=== PATIENT | female | born 1970 | race Caucasian/White ===

== ENCOUNTER 2020-01-20 07:15 | Inpatient (IN) ==
[2020-01-20] MEDS ORDERED: ONDANSETRON INJ 2 MG/ML 2 ML VIAL IV STA (07:27)
[2020-01-20] MEDS: HYDROmorphone INJ 0.5 MG/0.5 ML SYR IV PRN ×2 (07:38→07:55)
[2020-01-20 07:48] LABS: Basophils # (auto) 0.01 K/uL (0-0.2); Basophils % (auto) 0.1 %; Eosinophils # (auto) 0.14 K/uL (0-0.5); Eosinophils % (auto) 1.9 %; Hematocrit (blood only) 45.3 % (37-47); Hemoglobin 14.4 g/dL (12.0-16.0); Immature Granulocytes # (auto) 0.03 K/uL (0.00-0.02); Immature Granulocytes % (auto) 0.4 %; Lymphocytes # (auto) 2.82 K/uL (1.2-3.4); Lymphocytes % (auto) 37.8 %; Mean Corpuscular Hgb Conc 31.8 g/dL (32-36); Mean Corpuscular Volume 91.1 fL (80-100); Mean Platelet Volume 9.6 fL (7.4-10.4); Monocytes # (auto) 0.62 K/uL (0.11-0.59); Monocytes % (auto) 8.3 %; Neutrophils # (auto) 3.84 K/uL (1.4-6.5); Neutrophils % (auto) 51.5 %; Platelet Count 242 K/uL (130-400); RDW Coefficient of Variation 13.1 % (11.5-14.5); RDW Standard Deviation 43.9 fL (36.4-46.3); Red Blood Count 4.97 M/uL (4.2-5.4); White Blood Count 7.46 K/uL (4.8-10.8)
[2020-01-20] MEDS ORDERED: DEXAMETHASONE SOD INJ 10 MG/ML VIAL IV ONE (08:07)
[2020-01-20 08:08] LABS: Albumin Level 3.3 gm/dl (3.4-5.0); BUN Creatinine Ratio 20.2 (10-20); Calcium 9.2 mg/dl (8.5-10.1); Creatinine Clr Calc Pharmacy 72.8 ml/min; Est GFR (African American) 85.8; Potassium 4.3 mmol/L (3.5-5.1)
[2020-01-20 08:11] LABS: Albumin Globulin Ratio 0.9 (0.9-2); Bilirubin,Total 0.3 mg/dl (0.2-1); Globulin 3.7 gm/dl (2.5-4.0)
--- NOTE | 2020-01-20 08:21 | Emergency Department Note ---
Impression & Plan Acute low back pain, Sciatic leg pain ED Provider Note INFORMANT: Patient ED PROVIDER(S): Ramses Santos MD CHIEF COMPLAINT: Left leg pain PLAN: Disposition: Admitted Condition: Good MEDICAL DECISION MAKING: Patient presented to the ER by direction of her surgeon. She was very uncomfortable. An IV was established and she was given IV Dilaudid and Zofran for symptom control. I did discuss the case with Dr. Gutierrez. He will manage the patient. We did discuss IV Decadron and she was given 10 mg. He evaluated the patient in the ER and admitted her for further management. Triage Nursing notes reviewed and agree them. Prior medical records reviewed regarding recent surgery, lateral discectomy and facetectomy Vital Signs: reviewed and remarkable for no significant abnormalities Differential diagnosis: Postoperative swelling, nerve compression, musculoskeletal, disc herniation, fracture, metastatic disease, cord compression, discitis, sciatica, cauda equina, infection, aortic disease, renal colic, gastrointestinal, as well as oth er pathologies. Diagnostics interpreted by me: Unremarkable CBC and chemistry panel. Imaging studies: Deferred Consultation(s): Orthopedic spine, Dr. Gutierrez HPI: The patient is a 49year old female who presents to the Emergency Room with complaints of left leg pain and back pain. This started several weeks ago and is continued despite having lumbar back surgery by Dr. Gutierrez. The patient also notes the following associated symptoms, tingling and sensitivity going down the left leg from the buttock, wrapping anteriorly, going to the left ankle. The patient has tried Percocet unsuccessfully for relieving factors. Current pain is rated as 8/10. Patient contacted Dr. Gutierrez and was directed to the ER for further evaluation. She states that he is planning to see her here. Pt denies LOC, headache, fevers, chills, diaphoresis, visual changes, neck pain, chest pain, breathing difficulties, nausea, vomiting, abdominal pain, melena, hematochezia, urinary symptoms, weakness, lymphadenopathy, rash, or other complaints. ROS: See above HPI for pertinent positives & negatives. A total of 10 systems reviewed and were otherwise negative. PAST MEDICAL HISTORY:See Below, herniated lumbar disc PAST SURGICAL HISTORY:See Below, discectomy, facetectomy FAMILY HISTORY:See Below SOCIAL HISTORY:See Below, no tobacco HOME MEDICATIONS:See Below ALLERGIES:See Below VITALS:See Below PHYSICAL EXAMINATION: GENERAL: Awake, alert, very uncomfortable-appearing, in no distress HENT: Normocephalic, atraumatic. Oropharynx unremarkable. EYES: Normal conjunctiva. Sclera non-icteric. NECK: Inspection normal. Non-tender. Supple. No nuchal rigidity. FROM. No masses. RESPIRATORY: Clear to auscultation. No wheezes. No rales. Normal respiratory effort. CARDIAC: Normal rate. Normal rhythm. No murmurs. No rubs. Extremities warm and well perfused. Pulses equal. No JVD. GI: Soft, non-distended. No tenderness to palpation. No rebound or guarding. No masses. RECTAL: Deferred. MUSCULOSKELETAL: Atraumatic. Chest examination reveals no tenderness. The back is symmetrical on inspection without obvious abnormality. Incision is clean dry and intact. Mild surrounding ecchymosis but no surrounding cellulitis. Steri- Strips in place. There is no CVA tenderness to palpation. No joint edema. LOWER EXTREMITIES: Calves are equal size bilaterally and non-tender. No edema. No discoloration. NEURO: Normal sensorium. Subjective tingling in the left lower leg. Mild EHL weakness on the left. No saddle anesthesia. SKIN: No rash or jaundice noted. Ramses Santos MD Past Med/Surg History Medical History (Updated 01/20/20 @ 08:17 by Ramses Santos MD) Anxiety Depression GERD (gastroesophageal reflux disease) Herniated disc LUMBAR HX: benign breast biopsy X 8 HAS SOME MARKERS IN BREAST Hypertension Surgical History Hx laparoscopic cholecystectomy Hx of appendectomy Hx of hysterectomy Hx of tonsillectomy Social History Smoking Status: Never smoker Second Hand Exposure: No; Do You Dip or Chew Tobacco: No; Tobacco Cessation Education Requested by Patient: No Hx Alcohol Use: No Hx Substance Use: No Preferred Language: Omani Communication Ability: Effective Commissioning Agent Required: No Beliefs That Will Affect Care: None Current Living Situation: Alone Other Information That Helps Us Care for You: No Feels Safe at Home: Yes Safety Concerns: Feels Safe At This Time Allergies Allergies Allergy/AdvReac Type Severity Reaction Status Date / Time No Known Allergies Allergy Verified 01/20/20 07:52 Home Meds Home Medications Medication Instructions Recorded Confirmed amlodipine [Norvasc] 5 mg PO HS 01/06/20 01/20/20 buspirone 15 mg PO BID 01/06/20 01/20/20 cyclobenzaprine 10 mg PO TID 01/06/20 01/20/20 duloxetine [Cymbalta] 30 mg PO HS 01/06/20 01/20/20 lisinopril 30 mg PO QAM 01/06/20 01/20/20 naproxen [Naprosyn] 500 mg PO BID 01/06/20 01/20/20 pantoprazole [Protonix] 40 mg PO QAM 01/06/20 01/20/20 propranolol 10 mg PO BID 01/06/20 01/20/20 valacyclovir [Valtrex] 500 mg PO QAM 01/06/20 01/20/20 zolpidem [Ambien] 10 mg PO HS 01/06/20 01/20/20 Previous Rx's Medication Instructions Recorded oxycodone 5 mg PO Q6H PRN #15 tab 01/11/20 Results & Data (ED) Vital Signs Vital Signs - 24 hr 01/20/20 07:20 01/20/20 07:41 01/20/20 07:58 Temperature 36.5 C Temperature Source Oral Pulse Rate 81 Pulse Rate [Apical] 80 Pulse Rate [Right Finger] Pulse Rate from SpO2 Sensor Pulse Rhythm Regular Pulse Rhythm [Apical] Regular Pulse Rhythm [Right Finger] Pulse Strength Normal Pulse Strength [Right Finger] Respiratory Rate 20 13 Respiratory Effort / Characteristics Non-Labored Spontaneous Non-Labored Respiratory Depth Normal Normal Respiratory Pattern Regular Regular Blood Pressure 130/90 Blood Pressure [Left Arm] 120/75 Blood Pressure Mean 103 Blood Pressure Mean [Left Arm] 90 Blood Pressure Position Sitting Blood Pressure Position [Left Arm] Lying Pulse Oximetry 99 97 95 Oxygen Delivery Method Room Air Room Air Room Air Sepsis Recent Fever Within 48 Hours No Sepsis New/Unexplained Change in Mental Status N/A Sepsis Action Taken by Nursing No Action Required 01/20/20 08:00 01/20/20 08:30 01/20/20 08:46 Temperature Temperature Source Pulse Rate 79 71 Pulse Rate [Apical] Pulse Rate [Right Finger] Pulse Rate from SpO2 Sensor 79 70 Pulse Rhythm Pulse Rhythm [Apical] Pulse Rhythm [Right Finger] Pulse Strength Pulse Strength [Right Finger] Respiratory Rate 16 14 Respiratory Effort / Characteristics Respiratory Depth Respiratory Pattern Blood Pressure 115/83 112/74 Blood Pressure [Left Arm] Blood Pressure Mean 97 81 Blood Pressure Mean [Left Arm] Blood Pressure Position Blood Pressure Position [Left Arm] Pulse Oximetry 95 96 Oxygen Delivery Method Room Air Sepsis Recent Fever Within 48 Hours Sepsis New/Unexplained Change in Mental Status Sepsis Action Taken by Nursing 01/20/20 09:30 Temperature 36.7 C Temperature Source Oral Pulse Rate Pulse Rate [Apical] Pulse Rate [Right Finger] 69 Pulse Rate from SpO2 Sensor Pulse Rhythm Pulse Rhythm [Apical] Pulse Rhythm [Right Finger] Regular Pulse Strength Pulse Strength [Right Finger] Normal Respiratory Rate 18 Respiratory Effort / Characteristics Non-Labored Respiratory Depth Normal Respiratory Pattern Agonal Blood Pressure Blood Pressure [Left Arm] 104/69 Blood Pressure Mean Blood Pressure Mean [Left Arm] 80 Blood Pressure Position Blood Pressure Position [Left Arm] Lying Pulse Oximetry 98 Oxygen Delivery Method Room Air Sepsis Recent Fever Within 48 Hours Sepsis New/Unexplained Change in Mental Status Sepsis Action Taken by Nursing Laboratory Data Result diagrams: 01/20/20 07:40 01/20/20 07:40 Lab Results 01/20/20 01/20/20 Range/Units 07:40 07:40 WBC 7.46 (4.8-10.8) K/uL RBC 4.97 (4.2-5.4) M/uL Hgb 14.4 (12.0-16.0) g/dL Hct 45.3 (37-47) % MCV 91.1 (80-100) fL MCH 29.0 (25-34) pg MCHC 31.8 L (32-36) g/dL RDW Std Deviation 43.9 (36.4-46.3) fL RDW Coeff of Ashley 13.1 (11.5-14.5) % Plt Count 242 (130-400) K/uL MPV 9.6 (7.4-10.4) fL Immature Gran % (Auto) 0.4 % Neut % (Auto) 51.5 % Lymph % (Auto) 37.8 % [place] % (Auto) 8.3 % Eos % (Auto) 1.9 % Baso % (Auto) 0.1 % Neut # (Auto) 3.84 (1.4-6.5) K/uL Lymph # (Auto) 2.82 (1.2-3.4) K/uL [place] # (Auto) 0.62 H (0.11-0.59) K/uL Eos # (Auto) 0.14 (0-0.5) K/uL Baso # (Auto) 0.01 (0-0.2) K/uL Immature Gran # (Auto) 0.03 H (0.00-0.02) K/uL Sodium 138 (136-145) mmol/L Potassium 4.3 (3.5-5.1) mmol/L Chloride 105 (98-107) mmol/L Carbon Dioxide 28 (21-32) mmol/L Anion Gap 5.0 (3-11) BUN 18 (7-18) mg/dl Creatinine 0.90 (0.6-1.2) mg/dl Est Cr Clr Drug Dosing 72.8 ml/min Est GFR ( Amer) 85.8 Est GFR (Non-Af Amer) 74.0 BUN/Creatinine Ratio 20.2 H (10-20) Glucose 96 (70-99) mg/dl Calcium 9.2 (8.5-10.1) mg/dl Total Bilirubin 0.3 (0.2-1) mg/dl AST 40 H (15-37) U/L ALT 123 H (12-78) U/L Alkaline Phosphatase 196 H (45-117) U/L Total Protein 7.0 (6.4-8.2) gm/dl Albumin 3.3 L (3.4-5.0) gm/dl Globulin 3.7 (2.5-4.0) gm/dl Albumin/Globulin Ratio 0.9 (0.9-2) Administered Medications Buspirone HCl (Buspirone 15 Mg Tab) 15 mg PO BID MARY CARMEN Stop: 02/19/20 09:33 Last Admin: 01/20/20 10:52 Dose: Not Given Documented by: [id number] Cyclobenzaprine HCl (Cyclobenzaprine Hcl 10 Mg Tab) 10 mg PO TID MARY CARMEN Stop: 02/19/20 09:33 Last Admin: 01/20/20 13:58 Dose: 10 mg Documented by: [id number] Admin: 01/20/20 10:54 Dose: 10 mg Documented by: [id number] Docusate Sodium (Docusate Sodium 100 Mg Cap) 100 mg PO BID MARY CARMEN Stop: 02/19/20 09:33 Last Admin: 01/20/20 10:54 Dose: 100 mg Documented by: [id number] Hydromorphone HCl (Hydromorphone Inj 1 Mg/Ml Syringe) 1 mg IV Q3H PRN PRN Reason: severe pain (scale 7-10) Stop: 02/03/20 09:33 Last Admin: 01/20/20 14:57 Dose: 1 mg Documented by: [id number] Lisinopril (L[facility]op[facility] 10 Mg Tab) [facility] Stop: 02/19/20 09:33 Last Admin: 01/20/20 10:53 Dose: Not Given Documented by: [id number] Naproxen (Naproxen 250 Mg Tab) 500 mg PO BID [facility] Stop: 02/19/20 09:33 Last Admin: 01/20/20 10:54 Dose: 500 mg Documented by: [id number] Pantoprazole Sodium (Pantoprazole 40 Mg Tab) 40 [facility] [place] [facility] Stop: 02/19/20 09:33 Last Admin: 01/20/20 10:53 Dose: Not Given Documented by: [id number] Propranolol HCl (Propranolol Hcl 20 Mg Tab) 10 mg PO BID [facility] Stop: 02/19/20 09:33 Last Admin: 01/20/20 10:52 Dose: Not Given Documented by: [id number] Valacyclovir HCl (Valacyclovir Hcl 500 Mg Tablet) 500 [facility] [place] [facility] Stop: 01/21/20 09:33 Last Admin: 01/20/20 10:53 Dose: Not Given Documented by: [id number] Discontinued Medications Dexamethasone (Dexamethasone Sod Inj 10 Mg/Ml Vial) 10 mg IV NOW ONE Stop: 01/20/20 08:08 Last Admin: 01/20/20 08:30 Dose: 10 mg Documented by: [id number] Hydromorphone HCl (Hydromorphone Inj 0.5 Mg/0.5 Ml Syr) 0.5 mg IV Q15M PRN PRN Reason: Pain Stop: 02/03/20 07:26 Last Admin: 01/20/20 07:55 Dose: 0.5 mg Documented by: [id number] Admin: 01/20/20 07:38 Dose: 0.5 mg Documented by: [id number] Ondansetron HCl (Ondansetron Inj 2 Mg/Ml 2 Ml Vial) 4 mg IV NOW STA Stop: 01/20/20 07:28 Last Admin: 01/20/20 07:38 Dose: 4 mg Documented by: [id number] Discharge Plan Visit Data Chief Complaint: Leg Injury/Pain Stated Complaint: LEG PAIN FROM SURGERY,REF BY DR GUTIERREZ ED Provider: Ramses Santos Discharge Problem: Acute low back pain, Sciatic leg pain Patient Disposition: Admitted As Inpatient Discharge Instructions Interventions: ED Discharge Assessment Last Done: 01/20/20 08:46
[2020-01-20] MEDS ORDERED: ACETAMINOPHEN 500 MG TAB PO PRN (09:34)
[2020-01-20] MEDS ORDERED: oxyCODONE IR HOME PACK PO PRN (09:34)
[2020-01-20] MEDS ORDERED: ONDANSETRON 4 MG OD TAB PO PRN (09:34)
[2020-01-20] MEDS ORDERED: PROMETHAZINE HCL 12.5 MG in SODIUM CHLORIDE 0.9% 50 ML IV PRN (09:34)
[2020-01-20] MEDS ORDERED: METOCLOPRAMIDE HCL INJ 5 MG/ML 2 ML VIAL IV PRN (09:34)
[2020-01-20] MEDS ORDERED: ONDANSETRON INJ 2 MG/ML 2 ML VIAL IV PRN (09:34)
[2020-01-20] MEDS ORDERED: LORazepam 1 MG/2 ML VIAL IV PRN (09:34)
[2020-01-20] MEDS ORDERED: HYDROmorphone INJ 0.5 MG/0.5 ML SYR IV PRN (09:34)
[2020-01-20] MEDS ORDERED: LORazepam 1 MG TAB PO PRN (09:34)
--- NOTE | 2020-01-20 10:43 | History & Physical Report ---
Date of Service January 20, 2020 Assessment & Plan (1) Sciatic leg pain: Admission and Anticipated Discharge Date Admission Date: January 20, 2020 At this time I am very concerned that she may have a recurrent disc herniation versus possible DVT to the lower extremity. We will obtain updated imaging. I will place her in the hospital observation for pain control and for further work-up. History of Present Illness Chief Complaint: Severe left leg pain Primary Care Provider: Annia Cohen This is a 49-year-old female known to me that status post lumbar laminotomy approximately 1 week ago. She states that approximately 2 or 3 days ago she began experiencing severe left leg pain. She denies any prior to that time. She denies any specific trauma fall or event. The symptoms involve the left buttock posterior anterior left thigh extending below the knee to the ankle. There is occasional shocklike symptoms. She has had increased utilization of p.o. narcotics which she had had postoperatively for the pain. Is been unremitting she is is been limited with ambulation. She is struggling with con stipation. The right lower extremity is asymptomatic. She denies any fevers or chills. Allergies Allergy/AdvReac Type Severity Reaction Status Date / Time No Known Allergies Allergy Verified 01/20/20 07:52 Home Medications Home Medications Medication Instructions Recorded Confirmed Type amlodipine [Norvasc] 5 mg PO HS 01/06/20 01/20/20 History buspirone 15 mg PO BID 01/06/20 01/20/20 History cyclobenzaprine 10 mg PO TID 01/06/20 01/20/20 History duloxetine [Cymbalta] 30 mg PO HS 01/06/20 01/20/20 History lisinopril 30 mg PO QAM 01/06/20 01/20/20 History naproxen [Naprosyn] 500 mg PO BID 01/06/20 01/20/20 History pantoprazole [Protonix] 40 mg PO QAM 01/06/20 01/20/20 History propranolol 10 mg PO BID 01/06/20 01/20/20 History valacyclovir [Valtrex] 500 mg PO QAM 01/06/20 01/20/20 History zolpidem [Ambien] 10 mg PO HS 01/06/20 01/20/20 History oxycodone 5 mg PO Q6H PRN #15 tab 01/11/20 01/20/20 Rx Past Med/Surg History Medical History (Updated 01/20/20 @ 08:17 by Ramses Santos MD) Anxiety Depression GERD (gastroesophageal reflux disease) Herniated disc LUMBAR HX: benign breast biopsy X 8 HAS SOME MARKERS IN BREAST Hypertension Surgical History Hx laparoscopic cholecystectomy Hx of appendectomy Hx of hysterectomy Hx of tonsillectomy Social History Smoking Status: Never smoker Second Hand Exposure: No; Do You Dip or Chew Tobacco: No; Tobacco Cessation Education Requested by Patient: No Hx Alcohol Use: No Hx Substance Use: No Preferred Language: Greek Communication Ability: Effective 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 The Steri-Strips are still in place along lumbar spine there is modest ecchymosis no erythema no drainage. No significant tenderness. Left lower extremity demonstrates breakaway weakness to plantar flexion dorsiflexion quadriceps. She is hyperesthetic. She does have sensation to cold and light touch. The right lower extremities asymptomatic with full strength. Results & Data ([facility]) Vital Signs (Past 12 Hours) Vital Signs Temp Pulse Pulse Pulse Resp BP BP 01/20/20 09:30 36.7 C 69 18 104/69 01/20/20 08:30 71 14 112/74 01/20/20 08:00 79 16 115/83 01/20/20 07:58 80 13 120/75 01/20/20 07:41 01/20/20 07:20 36.5 C 81 20 130/90 Pulse Ox 01/20/20 09:30 98 01/20/20 08:30 96 01/20/20 08:00 95 01/20/20 07:58 95 01/20/20 07:41 97 01/20/20 07:20 99 Code Status & VTE Plan VTE Prophylaxis Plan VTE Prophylaxis will be ordered: Yes
[2020-01-20] MEDS: PROPRANOLOL HCL 20 MG TAB PO SCH ×2 (10:52→21:36)
[2020-01-20] MEDS: busPIRone 15 MG TAB PO SCH ×2 (10:52→21:35)
[2020-01-20] MEDS: lisinopril 10 MG TAB PO SCH (10:53)
[2020-01-20] MEDS: PANTOprazole 40 MG TAB PO SCH (10:53)
[2020-01-20] MEDS: valACYclovir HCL 500 MG TABLET PO SCH (10:53)
[2020-01-20] MEDS: CYCLOBENZAPRINE HCL 10 MG TAB PO SCH ×3 (10:54→21:29)
[2020-01-20] MEDS: NAPROXEN 250 MG TAB PO SCH ×2 (10:54→21:35)
[2020-01-20] MEDS: DOCUSATE SODIUM 100 MG CAP PO SCH ×2 (10:54→21:35)
--- NOTE | 2020-01-20 13:53 | Ultrasound Report ---
BILATERAL LOWER EXTREMITY VENOUS DOPPLER CLINICAL HISTORY: Leg pain COMPARISON STUDY: No previous studies for comparison. TECHNIQUE: Sonography of the deep venous system of the bilateral lower extremities was performed. Co mpression and augmentation were evaluated. FINDINGS: The bilateral common femoral, superficial femoral and popliteal veins were compressible. A ugmentation was normal. Flow was shown within the deep calf vessels. There is a 2.2 x 2.1 x 1.4 cm mi xed echogenicity focus within the right popliteal fossa. This contains no color flow. This is indeter minate. IMPRESSION: 1. No evidence of deep venous thrombus within the bilateral lower extremities. 2. 2.2 x 2.1 x 1.4 cm mixed echogenicity focus within the right popliteal fossa. This is indeterminat e but of questionable significance. A follow-up ultrasound in 3 months to ensure stability is recomme nded. ACT 112: Negative or not required by law. Electronically signed by: Epi Lainez M.D. 01/20/2020 1:52 PM
[2020-01-20] MEDS: HYDROmorphone INJ 1 MG/ML SYRINGE IV PRN ×3 (14:57→21:29)
[2020-01-20] MEDS ORDERED: GADOBUTROL 65ML VIAL IV ONE (20:54)
[2020-01-20] MEDS: ZOLPIDEM TARTRATE 10 MG TAB PO SCH (21:29)
--- NOTE | 2020-01-20 21:33 | Magnetic Resonance Report ---
LUMBAR SPINE MRI WITH AND WITHOUT CONTRAST HISTORY: Postop left leg pain TECHNIQUE: Multiplanar multisequence MRI of the lumbar spine was performed both before and after the intravenous administration of contrast. COMPARISON: None. FINDINGS: For the purpose of the report the L5-S1 disc space will be located on axial image 27 of 30. No fracture or subluxation within the lumbar spine. A 5 mm vertebral body hemangioma at L4. The conus terminates at the L1 level. There is mild disc space narrowing at L2-L3. The remaining disc spaces a re preserved. Paravertebral soft tissues are unremarkable. Subcutaneous edema within the lumbar regio n which may be postoperative. Postoperative changes consistent with recent left L4 hemilaminectomy. T here is a 3.5 x 2.2 cm fluid collection at the hemilaminectomy site posterior to the left L4-L5 facet . This demonstrates peripheral enhancement and a small focus of gas. This favors a postoperative sero ma. Secondary infection cannot be excluded on the basis of imaging alone. There is also mild edema an d enhancement within the left L3-L5 paraspinal location which is also likely secondary to the recent postoperative change. L1-L2: No significant central canal or neural foraminal narrowing. L2-L3: No significant central canal or neural foraminal narrowing. L3-L4: No significant central canal or neural foraminal narrowing. L4-L5: Tiny broad-based posterior disc bulge with facet hypertrophy resulting in mild central canal n arrowing. The left paraspinal fluid collection and edema abuts but does not displace the exiting left L4 nerve root at this level. There is also mild left-sided neural foraminal narrowing at this level. L5-S1: No significant central canal or neural foraminal narrowing. IMPRESSION: 1. Postoperative changes consistent with a recent left L4 hemilaminectomy. 2. There is a 3.5 x 2.2 cm peripheral enhancing fluid collection at and posterior to the left hemilam inectomy site. This contains a punctate focus of gas. This is nonspecific but favors a postoperative seroma. Secondary infection cannot be excluded on the basis of imaging alone. 3. The left paraspinal fluid collection and edema at the hemilaminectomy site abuts but does not comp ress the exiting left L4 nerve root. 4. Mild central canal narrowing at L4-L5. ACT 112: Negative or not required by law. Electronically signed by: Kevan Irizarry M.D. 01/20/2020 9:31 PM
[2020-01-20] MEDS: amLODIPine BESYLATE 5 MG TAB PO SCH (21:36)
[2020-01-20] MEDS: DULoxetine HCL 30 MG CAP PO SCH (21:36)
[2020-01-21] MEDS: oxyCODONE HCL IR 5 MG TAB (IMMEDIATE RELEASE) PO PRN (06:39)
[2020-01-21] MEDS: HYDROmorphone INJ 1 MG/ML SYRINGE IV PRN ×3 (07:34→20:01)
[2020-01-21] MEDS: lisinopril 10 MG TAB PO SCH (08:08)
[2020-01-21] MEDS: NAPROXEN 250 MG TAB PO SCH ×2 (08:09→20:23)
[2020-01-21] MEDS: busPIRone 15 MG TAB PO SCH ×2 (08:09→20:05)
[2020-01-21] MEDS: PROPRANOLOL HCL 20 MG TAB PO SCH ×2 (08:09→20:07)
[2020-01-21] MEDS: valACYclovir HCL 500 MG TABLET PO SCH (08:10)
[2020-01-21] MEDS: CYCLOBENZAPRINE HCL 10 MG TAB PO SCH ×3 (08:10→20:05)
[2020-01-21] MEDS: PANTOprazole 40 MG TAB PO SCH (08:10)
[2020-01-21] MEDS: DOCUSATE SODIUM 100 MG CAP PO SCH ×2 (08:10→20:08)
--- NOTE | 2020-01-21 10:04 | Orthopedic Progress Note ---
Date of Service January 21, 2020 Assessment & Plan (1) Sciatic leg pain: Admission and Anticipated Discharge Date Admission Date: January 20, 2020 MRI does demonstrate evidence of postoperative hematoma. I do not appreciate gross neural compression or recurrent disc herniation however there is evidence of instability along the facet. I would like to obtain standing x-rays lumbar spine today. We may consider a CAT scan pending these results. I have an underlying concern that she is developed some instability creating neurocompression. Most of her symptoms are severe with sitting and standing lying supine relieves her pain. I will also begin daily Decadron as well as Neurontin to see if this helps with her nerve pain. Subjective Back pain still present with significant left leg pain though she was able to finally sleep last evening. Right lower extremities asymptomatic. Physical Exam Physical Exam: On exam she is most comfortable in the position. She does have sensation but hypersensitivity to left lower extremity. There is a 4+/5 dorsiflexion extensor hallucis longus on the left 5 5 on the right. Results & Data ([facility]) Vital Signs (Past 12 Hours) Vital Signs Temp Pulse Resp BP Pulse Ox 01/21/20 08:50 36.6 C 75 18 120/77 96 01/20/20 23:05 36.5 C 94 H 16 114/74 94
--- NOTE | 2020-01-21 10:43 | XRay Report ---
LUMBAR SPINE 7 VIEWS CLINICAL HISTORY: Low back pain. FINDINGS: AP, lateral, bilateral oblique, flexion, extension, and cone-down standing views of the lum bar spine are correlated with MRI of lumbar spine dated 01/20/2020. The skeletal structures are well mineralized. There is no radiographic evidence of fracture or malalignment. Vertebral body height and alignment are maintained. Small anterior and lateral marginal osteophytes are seen throughout. There is no bony subluxation on the flexion/extension views. The transverse and spinous processes are inta ct. There is no evidence of spondylolysis. Minimal endplate sclerosis is seen at L2-L3. The disc spac es are preserved. The visualized bony pelvis appears intact. There is a nonobstructed abdominal bowel gas pattern. Moderate fecal retention is seen in the right colon. Surgical clips are noted in the ri ght upper quadrant. Phleboliths are noted in the pelvis. IMPRESSION: 1. No acute osseous abnormality is seen involving the lumbar spine. 2. There is no bony subluxation on the flexion/extension views. ACT 112: Negative or not required by law. Electronically signed by: Jerry Walden M.D. 01/21/2020 10:42 AM
[2020-01-21] MEDS: DEXAMETHASONE SOD PHOSPHATE 8 MG in SYRINGE 0 ML IV SCH (11:03)
[2020-01-21] MEDS: GABAPENTIN 300 MG CAP PO SCH ×2 (14:06→20:04)
[2020-01-21] MEDS: traMADol HCL 50 MG TABLET PO PRN ×2 (15:13→23:46)
[2020-01-21] MEDS: ZOLPIDEM TARTRATE 10 MG TAB PO SCH (20:01)
[2020-01-21] MEDS: amLODIPine BESYLATE 5 MG TAB PO SCH (20:03)
[2020-01-21] MEDS: DULoxetine HCL 30 MG CAP PO SCH (20:07)
[2020-01-22] MEDS: HYDROmorphone INJ 1 MG/ML SYRINGE IV PRN ×4 (07:54→23:38)
[2020-01-22] MEDS: NAPROXEN 250 MG TAB PO SCH ×2 (08:40→19:45)
[2020-01-22] MEDS: DEXAMETHASONE SOD PHOSPHATE 8 MG in SYRINGE 0 ML IV SCH (08:40)
[2020-01-22] MEDS: PROPRANOLOL HCL 20 MG TAB PO SCH ×2 (08:41→19:45)
[2020-01-22] MEDS: CYCLOBENZAPRINE HCL 10 MG TAB PO SCH ×3 (08:41→19:44)
[2020-01-22] MEDS: GABAPENTIN 300 MG CAP PO SCH ×3 (08:41→19:45)
[2020-01-22] MEDS: busPIRone 15 MG TAB PO SCH ×2 (08:41→19:43)
[2020-01-22] MEDS: DOCUSATE SODIUM 100 MG CAP PO SCH ×2 (08:41→19:44)
[2020-01-22] MEDS: lisinopril 10 MG TAB PO SCH (08:42)
[2020-01-22] MEDS: PANTOprazole 40 MG TAB PO SCH (08:42)
[2020-01-22] MEDS ORDERED: bisacodyL 5 MG TABEC PO ONE (10:52)
--- NOTE | 2020-01-22 10:54 | Orthopedic Progress Note ---
Date of Service January 22, 2020 Assessment & Plan (1) Sciatic leg pain: Admission and Anticipated Discharge Date Admission Date: January 20, 2020 At this point I would like to obtain a CAT scan lumbar spine for further bony detail. We will make her n.p.o. after midnight in the event that she does not improve and we have to consider further surgical intervention. We also advance her bowel regiment today. Subjective Patient continues have fairly significant back pain markedly exacerbated with standing and walking. It radiates into the buttock and lower extremity on the left. She is hypersensitive to even light touch to the calf and anterior tibia on the left lower extremity Extremities asymptomatic. Physical Exam Physical Exam: On exam she is in bed. She has 4/5 strength dorsiflexion plantarflexion left lower extremity she is hyperesthetic to palpation. Results & Data ([facility]) Vital Signs (Past 12 Hours) Vital Signs Temp Pulse Resp BP Pulse Ox 01/22/20 07:10 36.5 C 68 18 103/68 99 01/21/20 23:43 36.4 C L 86 16 109/72 96
--- NOTE | 2020-01-22 11:36 | CT Scan Report ---
LUMBAR SPINE CT CT DOSE: 728.10 mGy.cm HISTORY: Postoperative back pain TECHNIQUE: Multiaxial CT images of the lumbar spine were performed and reformatted in the sagittal an d coronal plane without the use of contrast. A dose lowering technique was utilized adhering to the principles of ALARA. COMPARISON: Lumbar spine 01/21/2020. Lumbar spine MRI 01/20/2020. FINDINGS: No fracture or subluxation within the lumbar spine. Subcutaneous edema within the lumbar re gion which could be due to the postoperative change. Left L4 hemilaminectomy is again noted. Small ga s and fluid collection posterior to the hemilaminectomy site measuring approximately 3.1 x 1.7 cm. Th is is similar to the prior study and favors postoperative change. Punctate nonobstructing stone withi n the left kidney. No significant central canal narrowing by CT technique. Suspect mild left-sided ne ural foraminal narrowing at L4-L5. This could be due to the postoperative edema/adjacent fluid collec tion. This is better appreciated on the recent lumbar spine MRI. IMPRESSION: 1. No fractures within the lumbar spine. 2. Postoperative changes consistent with recent left L4 hemilaminectomy. There is a 3.1 x 1.7 cm gas and fluid collection posterior to the hemilaminectomy site which is better appreciated on the prior l umbar spine MRI. This is technically indeterminate but favors a postoperative fluid collection rather than an abscess. 3. Suspect mild left-sided neural foraminal narrowing at L4-L5. This is also better appreciated on th e recent lumbar spine MRI. ACT 112: Negative or not required by law. Electronically signed by: Kevan Irizarry M.D. 01/22/2020 11:35 AM
[2020-01-22] MEDS: traMADol HCL 50 MG TABLET PO PRN (11:44)
[2020-01-22] MEDS: ZOLPIDEM TARTRATE 10 MG TAB PO SCH (19:43)
[2020-01-22] MEDS: DULoxetine HCL 30 MG CAP PO SCH (19:44)
[2020-01-22] MEDS: amLODIPine BESYLATE 5 MG TAB PO SCH (19:46)
[2020-01-23] MEDS: HYDROmorphone INJ 1 MG/ML SYRINGE IV PRN ×3 (03:28→13:44)
[2020-01-23] MEDS: GABAPENTIN 300 MG CAP PO SCH ×3 (10:24→20:12)
[2020-01-23] MEDS: PROPRANOLOL HCL 20 MG TAB PO SCH ×2 (10:24→20:10)
[2020-01-23] MEDS: busPIRone 15 MG TAB PO SCH ×2 (10:24→20:09)
[2020-01-23] MEDS: PANTOprazole 40 MG TAB PO SCH (10:24)
[2020-01-23] MEDS: DEXAMETHASONE SOD PHOSPHATE 8 MG in SYRINGE 0 ML IV SCH (10:25)
[2020-01-23] MEDS: NAPROXEN 250 MG TAB PO SCH ×2 (10:25→20:12)
[2020-01-23] MEDS: CYCLOBENZAPRINE HCL 10 MG TAB PO SCH ×3 (10:25→20:11)
[2020-01-23] MEDS: lisinopril 10 MG TAB PO SCH (10:25)
[2020-01-23] MEDS: traMADol HCL 50 MG TABLET PO PRN (10:32)
[2020-01-23] MEDS: DOCUSATE SODIUM 100 MG CAP PO SCH ×2 (10:32→20:11)
--- NOTE | 2020-01-23 15:26 | Orthopedic Progress Note ---
Date of Service January 23, 2020 Assessment & Plan (1) Sciatic leg pain: Admission and Anticipated Discharge Date Admission Date: at this time I am convinced that she is a postoperative hematoma that is creating neural irritation. It seems to be improving. We both agree continued light activity and pain control as her plan of action for the next 24 to 48 hours. 2019 Subjective Patient states her left leg pain is present with activity but has improved overall. Physical Exam Physical Exam: On exam she has reasonable strength testing today. She does appear more comfortable. Results & Data ([facility]) Vital Signs (Past 12 Hours) Vital Signs Temp Pulse Resp BP Pulse Ox 01/23/20 08:00 36.7 C 71 18 127/77 97
[2020-01-23] MEDS: amLODIPine BESYLATE 5 MG TAB PO SCH (20:09)
[2020-01-23] MEDS: DULoxetine HCL 30 MG CAP PO SCH (20:11)
[2020-01-23] MEDS: ZOLPIDEM TARTRATE 10 MG TAB PO SCH (20:15)
[2020-01-24] MEDS: traMADol HCL 50 MG TABLET PO PRN (06:54)
[2020-01-24] MEDS: HYDROmorphone INJ 1 MG/ML SYRINGE IV PRN ×2 (07:45→19:30)
--- NOTE | 2020-01-24 08:40 | Orthopedic Progress Note ---
Date of Service January 24, 2020 Assessment & Plan (1) Sciatic leg pain: Admission and Anticipated Discharge Date Admission Date: January 23, 2020 At this time she is making steady improvements. I will increase her Neurontin. We will ask her to begin weaning from IV Dilaudid. We will encourage continued ambulation today assess her progress carefully discharge home soon. Subjective Patient's back pain is improving. Leg symptoms improving. Still hyperesthetic sensations to the left lower extremity. She was able to walk last evening for short distance. Physical Exam Physical Exam: On exam she is neurologically intact does appear more comfortable. Results & Data ([facility]) Vital Signs (Past 12 Hours) Vital Signs Temp Pulse Resp BP Pulse Ox 01/24/20 07:21 36.6 C 67 16 136/88 97 01/23/20 23:04 36.7 C 86 16 106/50 L 95
[2020-01-24] MEDS: PANTOprazole 40 MG TAB PO SCH (09:25)
[2020-01-24] MEDS: DEXAMETHASONE SOD PHOSPHATE 8 MG in SYRINGE 0 ML IV SCH (09:26)
[2020-01-24] MEDS: lisinopril 10 MG TAB PO SCH (09:26)
[2020-01-24] MEDS: NAPROXEN 250 MG TAB PO SCH ×2 (09:27→20:39)
[2020-01-24] MEDS: DOCUSATE SODIUM 100 MG CAP PO SCH ×2 (09:27→20:36)
[2020-01-24] MEDS: PROPRANOLOL HCL 20 MG TAB PO SCH ×2 (09:28→20:37)
[2020-01-24] MEDS: CYCLOBENZAPRINE HCL 10 MG TAB PO SCH ×3 (09:28→20:37)
[2020-01-24] MEDS: busPIRone 15 MG TAB PO SCH ×2 (09:29→20:35)
[2020-01-24] MEDS: GABAPENTIN 600 MG TAB PO SCH ×3 (09:39→20:39)
[2020-01-24] MEDS: ZOLPIDEM TARTRATE 10 MG TAB PO SCH (20:35)
[2020-01-24] MEDS: DULoxetine HCL 30 MG CAP PO SCH (20:36)
[2020-01-24] MEDS: amLODIPine BESYLATE 5 MG TAB PO SCH (20:40)
[2020-01-25] MEDS: oxyCODONE HCL IR 5 MG TAB (IMMEDIATE RELEASE) PO PRN (05:12)
[2020-01-25] MEDS: DEXAMETHASONE SOD PHOSPHATE 8 MG in SYRINGE 0 ML IV SCH (08:14)
[2020-01-25] MEDS: NAPROXEN 250 MG TAB PO SCH (08:15)
[2020-01-25] MEDS: lisinopril 10 MG TAB PO SCH (08:15)
[2020-01-25] MEDS: PANTOprazole 40 MG TAB PO SCH (08:15)
[2020-01-25] MEDS: GABAPENTIN 600 MG TAB PO SCH ×2 (08:15→13:18)
[2020-01-25] MEDS: CYCLOBENZAPRINE HCL 10 MG TAB PO SCH ×2 (08:16→13:18)
[2020-01-25] MEDS: DOCUSATE SODIUM 100 MG CAP PO SCH (08:16)
[2020-01-25] MEDS: PROPRANOLOL HCL 20 MG TAB PO SCH (08:16)
[2020-01-25] MEDS: busPIRone 15 MG TAB PO SCH (08:17)
--- NOTE | 2020-01-25 08:38 | Discharge Summary ---
Date of Service January 25, 2020 Admission HPI Per Admitting Provider This is a 49-year-old female known to me that status post lumbar laminotomy approximately 1 week ago. She states that approximately 2 or 3 days ago she began experiencing severe left leg pain. She denies any prior to that time. She denies any specific trauma fall or event. The symptoms involve the left buttock posterior anterior left thigh extending below the knee to the ankle. There is occasional shocklike symptoms. She has had increased utilization of p.o. narcotics which she had had postoperatively for the pain. Is been unremitting she is is been limited with ambulation. She is struggling with con stipation. The right lower extremity is asymptomatic. She denies any fevers or chills. Principal Diagnosis Postop sciatica Discharge Data Allergies Allergy/AdvReac Type Severity Reaction Status Date / Time No Known Allergies Allergy Verified 01/20/20 07:52 Consultations 01/20/20 08:23 ED Decision to Admit Stat Procedures Performed Operation Date: 01/24/20 12:15 <No data on this case meets the specified criteria> Ordered Studies 01/20/20 09:34 MR lumbar spine wo/w con Routine US venous doppler LE BI Routine 01/22/20 10:52 CT lumbar spine wo con Routine Hospital Course (1) Sciatic leg pain: Patient was in the hospital for severe postoperative leg pain. Imaging did demonstrate evidence of a hematoma in the operative bed. I did have her undergo a few days of bedrest but then slowly began activity. She underwent Total Time Total Time Spent Total Time Spent (In Minutes): 20 minutes Discharge Plan Discharge Items Patient Disposition: Home - Self-Care Reason For Visit: RECURRENT LEG PAIN Discharge Diagnosis: Postoperative radiculopathy Activity: As commented below Non-emergency contact: Primary Care Provider Call non-emergency contact if: you have any medication questions Follow-up/Referrals: Annia Cohen D.O. [Primary Care Provider] - Diet: Regular Addtl Attending Provider Instructions: ACTIVITY RECOMMENDATIONS: SELF CARE INSTRUCTIONS AFTER THORACIC/LUMBAR FUSIONS 1. You may walk to your tolerance. It is good exercise for your legs and back. Expect some back and intermittent leg aches and pains. 2. You may perform "counter-top" level activities (make a sandwich, estuardo with a project, etc.). 3. No bending or lifting of more than 10 pounds or back twisting of any nature (roll like a log when turning in bed). 4. You may ride in a car for 20-30 minutes at a time. No driving until after your first visit with your doctor. 5. Frequent changes of position and restricting sitting to 30 minutes at a time will help limit the amount of back spasms and stiffness you may experience. 6. You may discontinue the use of ambulatory aids (cane, crutches, etc.) once your strength and confidence allow. 7. You may building rental manager the shower and let water strike your incision when you arrive home at least once daily. Do not take a tub bath, sit in a hot tub or go into a swimming pool until after your first recheck in the office. SPECIAL CARE INSTRUCTIONS: VERY IMPORTANT TO READ AND REVIEW A. Your surgical incision has been closed with a cosmetic suture under the skin that will dissolve in about 6 weeks. In 14 days, you can use a pair of clean scissors and cut the suture that is left outside of the skin at the ends of your incision. 1. The small skin tapes can be removed 7 days after surgery if they have not fallen off by that point. 2. You may keep the wound open to air as much as possible to promote healing after post-op day number 5 unless told otherwise by your doctor. 3. If you think the wound looks like it is becoming infected (redness or worsening drainage) and/or you are experiencing fever, chill or worsening back pain and muscle spasms, contact the office so that we may evaluate you as soon as possible. B. Complications are uncommon, but please contact us if you have any signs or symptoms of: 1. wound infection (fever higher than 102.5 degrees F, redness, separation of wound, drainage, or increasing pain from the incision) 2. blood clots in legs (pain, swelling, redness and warmth in legs) 3. urinary tract infection (fever higher than 102.5 degrees F, burning upon urination or increased frequency of urination) 4. nerve problems (inability to walk on your toes or heels, numbness, loss of bowel or bladder control) 5. any other symptoms that concern you C. Please call the office at if you have any concerns or questions about your operation or recovery. D. No smoking! Smoking drastically decreases the chance of a solid fusion. E. Do not take any anti-inflammatory medications (Indocin, Advil, Motrin, Aspirin, Naprosyn, etc.) as these may inhibit the chance of a solid fusion. Tylenol is okay to take for pain. MANAGING PAIN AFTER SPINAL SURGERY 1. Narcotic medication is intended for short-term use and will be provided for surgical pain. Surgical pain usually lasts for a period of 4-6 weeks. Narcotic medication includes Percocet, Vicodin, Darvocet, Tylenol #3 or Lortab. 2. Longer-term pain is more appropriately treated with non-narcotic medication such as Tylenol ES. 3. Muscle spasm is not appropriately treated with narcotics. Muscle relaxers such as Soma, Flexeril or Skelaxin can be used along with Tylenol ES. 4. Remember that we all live with some "aches and pains". This is not unusual or uncommon after an injury or as we get older. a. Back pain is expected and may include muscle spasms for 4 to 6 weeks after surgery. The pain should gradually improve. If the pain worsens for no apparent reason, please contact the office. b. Intermittent leg pain may also be experienced and should not be concerned about unless it worsens for no apparent reason. If so, please contact the office. 5. We will provide appropriate medication within the normal guidelines of their prescribed use. We will also be very cautious and aware of potential abuse and extended duration of patients' medication needs. a. Pain medications are for your comfort and to assist with sleep and rest so that the tissue can heal. They are not provided in order to return to normal activity and should not be used through the day. To do so or worsening pain at night can result from ongoing tissue damage and development of tolerance to the prescribed medicine. 6. Please allow 2-3 days to process refills. Prescriptions will not be mailed but must be picked up at the office. FOLLOW UP VISIT: Keep your scheduled follow-up appointment. Any questions, please call the office at . Pending Studies at Discharge: No Stand-Alone Forms: [employer], Smoking Cessation Medications and DC Order Prescriptions: New oxycodone 5 mg tablet 5 mg PO Q6H PRN (Reason: pain, severe) Qty: 20 RF: 0 gabapentin [Neurontin] 600 mg tablet 600 mg PO TID Qty: 90 RF: 2 tramadol 50 mg tablet 50 mg PO Q6H PRN (Reason: pain, moderate) Qty: 30 RF: 0 Continued cyclobenzaprine 10 mg Tablet 10 mg PO TID RF: 0 amlodipine [Norvasc] 5 mg Tablet 5 mg PO HS RF: 0 valacyclovir [Valtrex] 500 mg Tablet 500 mg PO QAM RF: 0 pantoprazole [Protonix] 40 mg Tablet,Delayed Release (Dr/Ec) 40 mg PO QAM RF: 0 lisinopril 30 mg Tablet 30 mg PO QAM RF: 0 zolpidem [Ambien] 10 mg Tablet 10 mg PO HS RF: 0 propranolol 20 mg Tablet 10 mg PO BID RF: 0 naproxen [Naprosyn] 500 mg Tablet 500 mg PO BID RF: 0 buspirone 15 mg Tablet 15 mg PO BID RF: 0 duloxetine [Cymbalta] 30 mg Capsule,Delayed Release(Dr/Ec) 30 mg PO HS RF: 0 oxycodone 5 mg tablet 5 mg PO Q6H PRN (Reason: pain, severe) Qty: 15 RF: 0 Discharge Orders: Discharge Order (Routine); Ordered 01/25/20 Ordered By: Akin Gutierrez Admission Data Admit Date/Time: 01/23/20 08:46 Attending Provider: Akin Gutierrez Admit Provider: Akin Gutierrez Primary Care Provider: Annia Cohen Other Providers: Akin Gutierrez
== END 2020-01-25 13:51 | disposition home or self-care (01) | DRG 921 ==
LOC: ED 07:15 → 3N 07:15

== ENCOUNTER 2022-03-25 07:46 | Inpatient (IN) ==
--- NOTE | 2022-02-28 11:47 | PAT Medication Instructions ---
Medication Instructions Date of Service February 28, 2022 Home Medications amlodipine 5 mg tablet (Norvasc) 5 mg PO HS cyclobenzaprine 10 mg tablet 10 mg PO TID PRN duloxetine 30 mg capsule,delayed release (Cymbalta) 60 mg PO HS lisinopril 30 mg tablet 30 mg PO HS pantoprazole 40 mg tablet,delayed release (Protonix) 40 mg PO QAM propranolol 20 mg tablet 20 mg PO BID valacyclovir 500 mg tablet (Valtrex) 500 mg PO QAM buspirone 10 mg tablet 20 mg PO BID cholecalciferol (vitamin D3) 25 mcg (1,000 unit) tablet (Vitamin D3) 25 mcg PO QAM cranberry-vitamin C-flaxseed capsule 1 cap PO QAM cyanocobalamin (vitamin B-12) 1,000 mcg/mL injection solution 1,000 mcg IM multivitamin 1 tab PO QAM ondansetron 8 mg disintegrating tablet 8 mg PO Q8H PRN zinc 50 mg tablet 50 mg PO QAM zolpidem 10 mg tablet 10 mg PO HS PRN Continue as directed cyanocobalamin (vitamin B-12) 1,000 mcg/mL injection solution 1,000 mcg IM ondansetron 8 mg disintegrating tablet 8 mg PO Q8H PRN(if needed) STOP taking 2 weeks before surgery cranberry-vitamin C-flaxseed capsule 1 cap PO QAM DO NOT take the morning of surgery cyclobenzaprine 10 mg tablet 10 mg PO TID PRN cholecalciferol (vitamin D3) 25 mcg (1,000 unit) tablet (Vitamin D3) 25 mcg PO QAM multivitamin 1 tab PO QAM zinc 50 mg tablet 50 mg PO QAM Take morning of surgery With a small sip of water, OTHERWISE NOTHING TO EAT OR DRINK AFTER MIDNIGHT: pantoprazole 40 mg tablet,delayed release (Protonix) 40 mg PO QAM propranolol 20 mg tablet 20 mg PO BID valacyclovir 500 mg tablet (Valtrex) 500 mg PO QAM buspirone 10 mg tablet 20 mg PO BID Take evening before surgery amlodipine 5 mg tablet (Norvasc) 5 mg PO HS cyclobenzaprine 10 mg tablet 10 mg PO TID PRN(if needed) duloxetine 30 mg capsule,delayed release (Cymbalta) 60 mg PO HS lisinopril 30 mg tablet 30 mg PO HS propranolol 20 mg tablet 20 mg PO BID buspirone 10 mg tablet 20 mg PO BID zolpidem 10 mg tablet 10 mg PO HS PRN(if needed) Other Notes If you have any questions please call us at [phone] or [phone] or [phone] or [phone]
--- NOTE | 2022-03-05 12:11 | Anesthesiology Consultation ---
Date of Service March 05, 2022 Assessment & Plan (1) Encounter for pre-operative examination: Chart Review Chart Review: Acceptable Risk for Surgery and Patient seen in Pre Admission Testing Teaching & Discussion Pre-Anesthesia Teaching/Discussion Notes: Instructed NPO after midnight before surgery, except medications with 15 cc of water. Medication instructions provided according to the PAT guidelines. History Surgery Operation Date: 03/25/22 10:25 Proposed Procedures p L4-L5 Decompression and Fusion, Spinal Cord Monitoring - Akin Gutierrez DO Height/Weight Height: 5 ft 3.5 in Weight: 89.811 kg Allergies Allergy/AdvReac Type Severity Reaction Status Date / Time No Known Allergies Allergy Verified 02/26/22 13:37 Medications Home Medications Medication Instructions Recorded Confirmed Last Taken amlodipine 5 mg tablet (Norvasc) 5 mg PO HS 01/06/20 02/26/22 01/19/20 cyclobenzaprine 10 mg tablet 10 mg PO TID PRN Muscle Spasm 01/06/20 02/26/22 01/20/20 duloxetine 30 mg capsule,delayed 60 mg PO HS 01/06/20 02/26/22 01/19/20 release (Cymbalta) lisinopril 30 mg tablet 30 mg PO HS 01/06/20 02/26/22 01/20/20 pantoprazole 40 mg tablet,delayed 40 mg PO QAM 01/06/20 02/26/22 01/20/20 release (Protonix) propranolol 20 mg tablet 20 mg PO BID 01/06/20 02/26/22 01/20/20 valacyclovir 500 mg tablet 500 mg PO QAM 01/06/20 02/26/22 01/20/20 (Valtrex) buspirone 10 mg tablet 20 mg PO BID 02/26/22 02/26/22 Unknown cholecalciferol (vitamin D3) 25 25 mcg PO QAM 02/26/22 02/26/22 Unknown mcg (1,000 unit) tablet (Vitamin D3) cranberry-vitamin C-flaxseed 1 cap PO QAM 02/26/22 02/26/22 Unknown capsule cyanocobalamin (vitamin B-12) 1,000 mcg IM MO 02/26/22 02/26/22 Unknown 1,000 mcg/mL injection solution multivitamin 1 tab PO QAM 02/26/22 02/26/22 Unknown ondansetron 8 mg disintegrating 8 mg PO Q8H PRN Nausea 02/26/22 02/26/22 Unknown tablet zinc 50 mg tablet 50 mg PO QAM 02/26/22 02/26/22 Unknown zolpidem 10 mg tablet 10 mg PO HS PRN Insomnia 02/26/22 02/26/22 Unknown Past Medical History Medical History (Updated 03/05/22 @ 12:17 by Dasha Sanchez PA-C) Anxiety Depression GERD (gastroesophageal reflux disease) controlled, stable per pt Hypertension controlled, stable per pt Obesity Patient denies h/o stroke, seizures, heart attack, heart failure, DM, blood clots or blood transfusions. Exercise / Class Metabolic Activity II 4-5 Yardwork/Stairs/Walk up hill (denies CP or SOB with 1 FOS) Past Family History Family History Other No family history of adverse response to anesthesia Past Surgical History Surgical History History of back surgery L4-5 laminectomy (01/11/20): Grade 2 view, MAC 3.0, ETT 7.0 at [facility]. No issues noted per post-op anesthesia progress note. History of colonoscopy Hx laparoscopic cholecystectomy Hx of appendectomy Hx of hysterectomy Hx of tonsillectomy HX: benign breast biopsy X 8 HAS SOME MARKERS IN BREAST Past Anesthesia History No Hx of Anesthesia Complications and No Family Hx of Anesthesia Complications History of PONV No Hx of PONV and No Hx of Motion Sickness Social History Smoking Status: Former smoker tobacco type: cigarettes Do You Dip or Chew Tobacco: No Smoking End Date: 28 years ago Hx Alcohol Use: No Hx Substance Use: No substance use type: does not use Review of Systems Snoring, denies witnessed apneas. Patient denies chest pain, shortness of breath, dyspnea on exertion, fever, chills, cough, wheezing, or palpitations. Physical Exam Vital Signs Vitals BP 124/85 P 99 TEMP 98.3 SP02 98% on RA RESP 18 Physical Full cervical extension range of motion without pain TMD 3.5 finger breadths Mallampati Score 3 Dentition: intact, denies chipped or loose teeth, caps/crowns, implants or catherine dges Lungs: normal respiratory effort. Clear throughout to auscultation, no adventitious breath sounds Cardiac: regular rate and rhythm, no murmurs noted Carotid arteries: negative bruit bilat Lab Results Anesthesia Preop Results Results Anesthesia Widget: WBC 6.91 K/ul (4.8-10.8) 03/05/22 Hgb 14.1 g/dl (12.0-16.0) 03/05/22 Hct 41.9 % (34.1-44.9) 03/05/22 Plt 192 K/uL (130-400) 03/05/22 Na 137 mmol/L (136-145) 03/05/22 K 3.7 mmol/L (3.5-5.1) 03/05/22 Cl 105 mmol/L (98-107) 03/05/22 CO2 26 mmol/L (21-32) 03/05/22 BUN 11 mg/dl (6-23) 03/05/22 Creat 0.84 mg/dl (0.6-1.2) 03/05/22 Glucose Level 93 mg/dl (70-99(Fasting)) 03/05/22 PT 9.7 Seconds (9.0-12.0) 03/05/22 PTT 25.4 Seconds (21.0-31.0) 03/05/22 INR 0.9 (0.9-1.1) 03/05/22 Urine Color Yellow 03/05/22 Urine Appearance Clear (Clear) 03/05/22 Urine pH 5.0 (4.5-7.5) 03/05/22 Urine Specific [place] 1.013 (1.000-1.030) 03/05/22 Urine Protein Negative (Negative) 03/05/22 Urine Glucose (UA) Negative (Negative) 03/05/22 Urine Ketones Negative (Negative) 03/05/22 Urine Blood Negative (Negative) 03/05/22 Urine Nitrite Negative (Negative) 03/05/22 Urine Bilirubin Negative (Negative) 03/05/22 Urine Urobilinogen Negative (Negative) 03/05/22 Urine Leukocyte Esterase Negative (Negative) 03/05/22 Blood Type O Positive 03/05/22 Antibody Screen NEGATIVE 03/05/22 Testing Electrocardiogram Date: 03/05/22 NSR, rate 86 bpm Chest X-Ray Date: 03/05/22 No acute process. Echocardiogram Date: 01/24/22 EF 55-60% All segments contract normally No significant valvular pathology COVID-19 Risk Screen Screening Information COVID-19 Screen Date: 03/05/22 Exposure 21 Days Family/Household +COVID Last 21 Days: No Exposure 10 Days Any COVID Exposure Last 10 Days: No Symptoms Last 10 Days Experienced COVID Sx Last 10 Days: No + COVID 0-90 Days COVID + in Last 0-90 Days: No
[~2022-03-25 07:46] MED LIST: LR 15ML/HR IV SCH; ceFAZolin 2000MG 2,000 MG/15 ML SYR IV SCH
[2022-03-25] MEDS ORDERED: ROCURONIUM BROMIDE 10 MG/ML 5 ML VIAL IV ONE (08:20)
[2022-03-25] MEDS ORDERED: ONDANSETRON INJ 2 MG/ML 2 ML VIAL ONE ×2 (08:20→11:52)
[2022-03-25] MEDS ORDERED: LIDOCAINE 2% 20 MG/ML 5 ML SYR IV ONE (08:20)
[2022-03-25] MEDS ORDERED: PROPOFOL IV EMULSION 10 MG/ML 20 ML VIAL IV ONE (08:20)
[2022-03-25] MEDS ORDERED: DEXAMETHASONE SOD INJ 4 MG/ML VIAL ONE (08:20)
[2022-03-25] MEDS ORDERED: MIDAZOLAM HCL 1 MG/ML 2ML VIAL ONE (08:21)
[2022-03-25] MEDS ORDERED: fentaNYL citrate 100 MCG/2 ML VIAL ONE ×2 (08:21→10:22)
[2022-03-25] MEDS ORDERED: ePHEDrine sulfate 50 MG/ML AMP ONE ×2 (08:38→10:32)
[2022-03-25] MEDS ORDERED: GLYCOPYRROLATE 0.2 MG/ML VIAL ONE ×2 (08:45→10:38)
[2022-03-25] MEDS ORDERED: NEOSTIGMINE METHYLSULFATE 1 MG/ML 10ML VIAL ONE ×2 (08:45→10:38)
--- NOTE | 2022-03-25 09:00 | History & Physical Bridge Note ---
Date of Service March 25, 2022 History & Physical Bridge Note I have examined the patient, reviewed the History & Physical and in the interval since the performance of the History & Physical I have noted the following changes of clinical significance: no changes noted
--- NOTE | 2022-03-25 09:01 | History & Physical Report ---
Date of Service March 25, 2022 Assessment & Plan (1) Lumbar disc herniation with radiculopathy: Plan: L4-5 decompression and fusion History of Present Illness Chief Complaint: Back and bilateral leg pain Primary Care Provider: Annia Cohen This is a 51-year-old female who presents with chronic persistent back and leg pain. Failing since course of nonoperative care she is here for surgical invention. Allergies Allergy/AdvReac Type Severity Reaction Status Date / Time No Known Allergies Allergy Verified 03/25/22 08:15 Home Medications Medication Instructions Recorded Confirmed Type amlodipine 5 mg tablet (Norvasc) 5 mg PO HS 01/06/20 03/25/22 History cyclobenzaprine 10 mg tablet 10 mg PO TID PRN Muscle Spasm 01/06/20 03/25/22 History duloxetine 30 mg capsule,delayed 60 mg PO HS 01/06/20 03/25/22 History release (Cymbalta) lisinopril 30 mg tablet 30 mg PO HS 01/06/20 03/25/22 History pantoprazole 40 mg tablet,delayed 40 mg PO QAM 01/06/20 03/25/22 History release (Protonix) propranolol 20 mg tablet 20 mg PO BID 01/06/20 03/25/22 History valacyclovir 500 mg tablet 500 mg PO QAM 01/06/20 03/25/22 History (Valtrex) buspirone 10 mg tablet 20 mg PO BID 02/26/22 03/25/22 History cholecalciferol (vitamin D3) 25 25 mcg PO QAM 02/26/22 03/25/22 History mcg (1,000 unit) tablet (Vitamin D3) cranberry-vitamin C-flaxseed 1 cap PO QAM 02/26/22 03/25/22 History capsule cyanocobalamin (vitamin B-12) 1,000 mcg IM MO 02/26/22 03/25/22 History 1,000 mcg/mL injection solution multivitamin 1 tab PO QAM 02/26/22 03/25/22 History ondansetron 8 mg disintegrating 8 mg PO Q8H PRN Nausea 02/26/22 03/25/22 History tablet zinc 50 mg tablet 50 mg PO QAM 02/26/22 03/25/22 History zolpidem 10 mg tablet 10 mg PO HS PRN Insomnia 02/26/22 03/25/22 History Past Med/Surg History Medical History Anxiety Depression GERD (gastroesophageal reflux disease) controlled, stable per pt Hypertension controlled, stable per pt Obesity Surgical History History of back surgery L4-5 laminectomy (01/11/20): Grade 2 view, MAC 3.0, ETT 7.0 at [facility]. No issues noted per post-op anesthesia progress note. History of colonoscopy Hx laparoscopic cholecystectomy Hx of appendectomy Hx of hysterectomy Hx of tonsillectomy HX: benign breast biopsy X 8 HAS SOME MARKERS IN BREAST Family History Other No family history of adverse response to anesthesia Social History Smoking Status: Never smoker Smoking End Date: 28 years ago; Second Hand Exposure: No; Do You Dip or Chew Tobacco: No; Tobacco Cessation Education Requested by Patient: No Hx Alcohol Use: No Hx Substance Use: No Preferred Language: Salvadorean Communication Ability: Effective Hair Blender Required: No Beliefs That Will Affect Care: None marital status: Single Current Living Situation: Alone Feels Safe at Home: Yes Safety Concerns: Feels Safe At This Time Assistive Devices: None Physical Exam Physical Exam: Patient is alert and oriented Heart regular rhythm Lungs clear Results & Data Results & Data ([facility]) Vital Signs (Past 12 Hours) Vital Signs Temp Pulse Resp BP Pulse Ox O2 Del Method 03/25/22 08:20 36.7 C 78 18 134/87 99 Room Air
[2022-03-25] MEDS ORDERED: ATROPINE SULFATE 0.1 MG/ML 10ML SYR IV PRN (09:02)
[2022-03-25] MEDS ORDERED: ONDANSETRON INJ 2 MG/ML 2 ML VIAL IV PRN ×2 (09:02→12:53)
[2022-03-25] MEDS ORDERED: ePHEDrine sulfate 50 MG/ML AMP IV PRN (09:02)
[2022-03-25] MEDS ORDERED: ceFAZolin 330 MG/ML 1 GM VIAL ONE (09:22)
[2022-03-25] MEDS ORDERED: BUPIVACAINE/EPINEPHRINE 0.5% MPF 1:200,000 30 ML VIAL ONE (09:44)
[2022-03-25] MEDS: BUPIVACAINE/EPINEPHRINE 0.5% MPF 1:200,000 10 ML VIAL ONE ×2 (10:32→11:19)
[2022-03-25] MEDS ORDERED: FLOSEAL HEMOSTATIC MATRIX 10ML TOP ONE (10:32)
--- NOTE | 2022-03-25 11:25 | Operative Report ---
Post Operative Report Pre & Post Diagnosis Operation Date: 03/25/22 09:15 Pre-Op Diagnosis: Lumbar disc herniation with radiculopathy Post-Op Diagnosis: Lumbar disc herniation with radiculopathy I identified the patient and participated in the time-out.: Yes Procedure Operation Date: 03/25/22 09:15 Actual Procedures #1 revision decompression with bilateral medial facetectomies and foraminotomies L3-L4 L4-5 per #2 posterior spinal fusion L4-L5. #3 placement posterior instrumentation L4-5. #4 interbody fusion L4-5. #5 placement of Spira 13 x 22 mm cage at L4-L5. #6 placement locally harvested morselized autograft in the posterior gutters. #7 placement of I factor combined with V toss interbody space and posterior gutters. Surgeon Akin Gutierrez, DO Internet Marketing Assistant Aury Mariano Estimated Blood Loss 150 Findings See Below The patient is 5 foot 3 inches tall weighing over 91 kg with a BMI in excess of 35. The patient's body habitus did contribute to significant technical difficulty requiring her deepest retractors and longer instruments in order to perform her procedure. This had at least 50% increased to the operative time. Specimens None Indications This is a 51-year-old female who presents with above-mentioned diagnosis after failing course of nonoperative care is here for the above-mentioned procedure. Description of Procedure Patient was met with identified informed consent obtained. Patient was then taken to the operative suite underwent a patient placed in a prone position the Andres table atop the Homero frame. All bony prominences well-padded eyes inspected to ensure no external pressure placed upon them. This point the [facility] spine was prepped and draped in normal sterile fashion. Sharp dissection with the assistance of Bovie cautery was performed down to and exposing the remaining lamina and transverse processes of L4-L5 bilaterally. From caudal to cephalad fashion revision complete laminectomy of L4 partial laminectomy of L3 was performed including bilateral facetectomies and foraminotomies addressing severe spinal stenosis. Pedicle screws were then placed in L4-L5 bilaterally with assistance of fluoroscopy and the properly sized belinda placed. By way of entrance foraminal approach and left complete discectomy of L4-5 was performed endplates curetted to subcortical bleeding bone and a 13 x 22 mm spiral cage with I factor tapped in position. The rods were then compressed locked into final position bilaterally. The transverse processes of L4-L5 burred to subcortical balloon. I factor combined with V toss and locally harvested morselized autograft was placed in the posterior gutters. 15 round JULIAN drain inserted. Incision was then closed with 1 Vicryl in the fascia 2-0 Vicryl subcutaneously and 4 Monocryl for final skin closure. Steri-Strip sterile dressings placed. Patient awakened taken to PACU in stable condition. Please note spinal cord monitoring was utilized at the procedure no changes noted. Lastly Aury Mariano was present at the entire surgery and with the patient positioning complex portion of the surgery and final skin closure. I attest to the content of the Intraoperative Record and any orders documented therein. Any exceptions are noted below.
[2022-03-25] MEDS: fentaNYL citrate 100 MCG/2 ML VIAL IV PRN ×4 (11:48→12:16)
--- NOTE | 2022-03-25 12:45 | Fluoroscopy Report ---
INTRAOPERATIVE RADIOGRAPHS CLINICAL HISTORY: L4-L5 spinal fusion. Fluoroscopy time: 19 seconds. FINDINGS: 2 spot fluoroscopic views of the lumbar spine are presented. There has been discectomy at L 4-L5 with laminectomy and posterior fusion at this level. Interpedicular screws are in place. The ort hopedic hardware appears intact. IMPRESSION: Intraoperative images from L4-L5 spinal fusion. Electronically signed by: Jerry Walden M.D. 03/25/2022 12:43 PM
[2022-03-25] MEDS ORDERED: HYDROmorphone INJ 0.5 MG/0.5 ML SYR IV PRN (12:53)
[2022-03-25] MEDS ORDERED: METOCLOPRAMIDE HCL INJ 5 MG/ML 2 ML VIAL IV PRN (12:53)
[2022-03-25] MEDS ORDERED: diphenhydrAMINE Capsule 25 MG CAP PO PRN (12:53)
[2022-03-25] MEDS ORDERED: bisacodyL 10 MG SUPP PR PRN (12:53)
[2022-03-25] MEDS ORDERED: LORazepam 0.5 MG in SYRINGE 0 ML IV PRN (12:53)
[2022-03-25] MEDS ORDERED: SOD PHOSPHATE/SOD BIPHOSPHATE ENEMA 132 ML BTL PR PRN (12:53)
[2022-03-25] MEDS ORDERED: LORazepam 0.5 MG TAB PO PRN (12:53)
[2022-03-25] MEDS ORDERED: ONDANSETRON 4 MG OD TAB PO PRN (12:53)
[2022-03-25] MEDS ORDERED: hydrOXYzine HCl 25 MG TAB PO PRN (12:53)
[2022-03-25] MEDS ORDERED: ACETAMINOPHEN 500 MG TAB PO PRN (12:53)
[2022-03-25] MEDS ORDERED: ACETAMINOPHEN 1,000 MG/100 ML VIAL IV PRN (12:53)
[2022-03-25] MEDS ORDERED: MAGNESIUM HYDROXIDE SUSP 30 ML UDC PO PRN (12:53)
[2022-03-25] MEDS ORDERED: FAMOTIDINE 20 MG TAB PO PRN (12:53)
[2022-03-25] MEDS ORDERED: NALOXONE HCL 0.4 MG/1 ML VIAL/CARP IV PRN (12:53)
[2022-03-25] MEDS ORDERED: ZOLPIDEM TARTRATE 10 MG TAB PO PRN (12:53)
[2022-03-25] MEDS ORDERED: ALUMINUM/MAGNESIUM SUSP 30 ML UDC PO PRN (12:53)
[2022-03-25] MEDS ORDERED: PROMETHAZINE HCL 12.5 MG in SODIUM CHLORIDE 0.9% 50 ML IV PRN (12:53)
[2022-03-25] MEDS: LACTATED RINGER'S 1,000 ML IV SCH ×2 (13:26→22:10)
[2022-03-25] MEDS: HYDROmorphone INJ 1 MG/ML SYRINGE IV PRN ×2 (13:26→19:43)
--- NOTE | 2022-03-25 13:48 | Anesthesiology Progress Note ---
Date of Service March 25, 2022 Anesthesia Post Procedure Vital Signs Vital Signs: Temp Pulse Resp BP Pulse Ox O2 Del Method O2 Flow Rate 03/25/22 13:37 78 17 125/84 99 Nasal Cannula 2 03/25/22 13:08 97.7 F 74 17 139/87 100 Nasal Cannula 2 03/25/22 12:40 97.7 F 79 16 127/84 100 Nasal Cannula 2 03/25/22 12:15 75 13 131/88 95 Nasal Cannula 2 03/25/22 12:05 68 17 138/86 100 Oxymask 4 03/25/22 11:55 78 15 144/92 H 100 Oxymask 6 03/25/22 12:25 97.9 F 67 12 136/86 99 Nasal Cannula 2 03/25/22 11:46 97.3 F L 92 H 12 151/96 H 100 Oxymask 6 03/25/22 08:20 98.1 F 78 18 134/87 99 Room Air Pain Intensity Back: Pain Intensity: 5 Transfer of Care Handoff Completed per policy Notes Mental Status: alert / awake / arousable and participated in evaluation Patient Amnestic to Procedure: Yes Nausea / Vomiting: adequately controlled Pain: adequately controlled Airway Patency, RR, SpO2: stable & adequate BP & HR: stable & adequate Hydration State: stable & adequate Anesthetic Complications: no major complications apparent and Pt Satisfied with anesthetic care
--- NOTE | 2022-03-25 15:55 | Hospitalist Consultation ---
Date of Consultation March 25, 2022 Assessment & Plan (1) Hypertension: Lumbar Radiculopathy - s/p 03/25/22 #1 revision decompression with bilateral medial facetectomies and foraminotomies L3-L4 L4-5 per #2 posterior spinal fusion L4-L5. #3 placement posterior instrumentation L4-5. #4 interbody fusion L4-5. #5 placement of Spira 13 x 22 mm cage at L4-L5. #6 placement locally harvested morselized autograft in the posterior gutters. #7 placement of I factor combined with V toss interbody space and posterior gutters. COVID-negativepreop labs: Normal hemoglobin, creatinine less than 1 at baseline and 0.84 on preop lab work, no gross electrolyte derangements Postop doing well, 2 L nasal cannula wean suspect atelectasis. Encourage incentive spirometry DVT prophylaxis, pain control, ambulation recommendations per primary team Hypertension Continue amlodipine 5 mg p.o. at bedtime Resume lisinopril 30 mg p.o. at bedtime 03/26/2022 Anxiety/depression Continue buspirone 20 mg p.o. twice daily Continue duloxetine 60 mg p.o. at bedtime Continue propranolol 20 mg p.o. twice daily GERD - Took protonix AM of 03/25. May resume 03/26 - Has been on for extended period of time. Has failed attempts to taper to H2 as outpatient, followed with GI in [facility] - Hx of h pylori tx with abx DVT PPx: Per Primary CODE: Full Diet; Regular Dispo:Med/Surg (2) GERD (gastroesophageal reflux disease): (3) Anxiety: (4) Acute low back pain: History of Present Illness Attending Physician: Akin Gutierrez DO History of Present Illness Vidhya is a 51-year-old female with a past medical history of lumbar radiculopathy, GERD, hypertension, and obesity who presented for lumbar disc herniation with radiculopathy scheduled surgical intervention and is s/p revision decompression and fusion 03/25/[address] Gutierrez. We are consulted for medical management of comorbidities. TTE 01/29/2022: LV SF normal 55 to 60%, no wall motion abnormalities. Normal diastolic function. Seen postop. Doing well. Still having some difficulty urinating after cath removal but no pain. No SoB/CP/CP. Has bene able to ambulate to the bathroom with assesstance. Does have pain at surgical site after pain ~7/10, just got pain medication and waiting for effect. Preop having numbness/tingling shooting down both legs and into her L hip strongly which she has not had postop. No radha sea/vomiting. No fevers chills. No shortness of breath or chest pain. Medical History: Reviewed Medications: Reviewed Surgical History: Reviewed Allergies: Reviewed Social History: No tobacco, no etoh use Code Status: Full Code Allergies Allergy/AdvReac Type Severity Reaction Status Date / Time No Known Allergies Allergy Verified 03/25/22 08:15 Home Medications Medication Instructions Recorded Confirmed Type amlodipine 5 mg tablet (Norvasc) 5 mg PO HS 01/06/20 03/25/22 History cyclobenzaprine 10 mg tablet 10 mg PO TID PRN Muscle Spasm 01/06/20 03/25/22 History duloxetine 30 mg capsule,delayed 60 mg PO HS 01/06/20 03/25/22 History release (Cymbalta) lisinopril 30 mg tablet 30 mg PO HS 01/06/20 03/25/22 History pantoprazole 40 mg tablet,delayed 40 mg PO QAM 01/06/20 03/25/22 History release (Protonix) propranolol 20 mg tablet 20 mg PO BID 01/06/20 03/25/22 History valacyclovir 500 mg tablet 500 mg PO QAM 01/06/20 03/25/22 History (Valtrex) buspirone 10 mg tablet 20 mg PO BID 02/26/22 03/25/22 History cholecalciferol (vitamin D3) 25 25 mcg PO QAM 02/26/22 03/25/22 History mcg (1,000 unit) tablet (Vitamin D3) cranberry-vitamin C-flaxseed 1 cap PO QAM 02/26/22 03/25/22 History capsule cyanocobalamin (vitamin B-12) 1,000 mcg IM MO 02/26/22 03/25/22 History 1,000 mcg/mL injection solution multivitamin 1 tab PO QAM 02/26/22 03/25/22 History ondansetron 8 mg disintegrating 8 mg PO Q8H PRN Nausea 02/26/22 03/25/22 History tablet zinc 50 mg tablet 50 mg PO QAM 02/26/22 03/25/22 History zolpidem 10 mg tablet 10 mg PO HS PRN Insomnia 02/26/22 03/25/22 History Patient History Medical History (Updated 03/25/22 @ 18:47 by Homer Maldonado MD) Anxiety Depression GERD (gastroesophageal reflux disease) controlled, stable per pt Hypertension controlled, stable per pt Obesity Surgical History History of back surgery L4-5 laminectomy (01/11/20): Grade 2 view, MAC 3.0, ETT 7.0 at [facility]. No issues noted per post-op anesthesia progress note. History of colonoscopy Hx laparoscopic cholecystectomy Hx of appendectomy Hx of hysterectomy Hx of tonsillectomy HX: benign breast biopsy X 8 HAS SOME MARKERS IN BREAST Family History Other No family history of adverse response to anesthesia Social History Smoking Status: Never smoker Smoking End Date: 28 years ago; Second Hand Exposure: No; Do You Dip or Chew Tobacco: No; Tobacco Cessation Education Requested by Patient: No Hx Alcohol Use: No Hx Substance Use: No Preferred Language: Maldivian Communication Ability: Effective Intelligence Officer Required: No Beliefs That Will Affect Care: None marital status: Single Current Living Situation: Alone Other Information That Helps Us Care for You: No Feels Safe at Home: Yes Safety Concerns: Feels Safe At This Time Assistive Devices: None Review of Systems Review of Systems: All systems reviewed & are unremarkable except as noted in Subjective Physical Exam Physical Exam: General: A&Ox3. NAD. Cooperative. HEENT: Atraumatic, normocephalic. Pulm: CTAB A&P. -wheezes, -rales, -rhonchi. Symmetrical chest rise. No increased work of breathing. No respiratory distress. Cardiac: RRR, -mrg. Radial pulses intact and symmetrical. Abdominal: Nontender, nondistended, soft. BS present. Skin: Postsurgical dressing intact C/D/I. Drain in place with serosanguinous material. Ext: Warm, dry. Sensation intact to soft touch in hands and feet bilat. 5/5 pulp beater strength and ankle dorsi/plantarflexion Results & Data Results & Data ([facility]) Vital Signs (Past 12 Hours) Vital Signs Temp Pulse Pulse Resp BP Pulse Ox O2 Del Method 03/25/22 15:40 36.5 C 89 16 141/92 H 100 Nasal Cannula 03/25/22 14:32 36.5 C 83 16 123/81 99 Nasal Cannula 03/25/22 13:37 78 17 125/84 99 Nasal Cannula 03/25/22 13:08 36.5 C 74 17 139/87 100 Nasal Cannula 03/25/22 12:40 36.5 C 79 16 127/84 100 Nasal Cannula 03/25/22 12:15 75 13 131/88 95 Nasal Cannula 03/25/22 12:05 68 17 138/86 100 Oxymask 03/25/22 11:55 78 15 144/92 H 100 Oxymask 03/25/22 12:25 36.6 C 67 12 136/86 99 Nasal Cannula 03/25/22 11:46 36.3 C L 92 H 12 151/96 H 100 Oxymask 03/25/22 08:20 36.7 C 78 18 134/87 99 Room Air O2 Flow Rate 03/25/22 15:40 2 03/25/22 14:32 2 03/25/22 13:37 2 03/25/22 13:08 2 03/25/22 12:40 2 03/25/22 12:15 2 03/25/22 12:05 4 03/25/22 11:55 6 03/25/22 12:25 2 03/25/22 11:46 6 03/25/22 08:20 PG Care Time/CCT Total # of Minutes Spent Total Time Spent with Patient: Total time spent is greater than 50% in coordination of care (as documented) at patient's floor/unit and/or counseling patient: Coding Level of Care Code 47849 Inpt Consult Level 3 Diagnoses Hypertension I10 GERD (gastroesophageal reflux disease) K21.9 Anxiety F41.9 Acute low back pain M54.42 Back pain laterality: left Sciatica laterality: sciatica of left side Sciatica presence: with sciatica (1) Acute low back pain Back pain laterality: left Sciatica laterality: sciatica of left side Sciatica presence: with sciatica Qualified Code(s): M54.42 - Lumbago with sciatica, left side
[2022-03-25] MEDS: oxyCODONE HCL IR 5 MG TAB (IMMEDIATE RELEASE) PO PRN ×2 (16:02→22:09)
[2022-03-25] MEDS: ceFAZolin 2000MG 2,000 MG/15 ML SYR IV SCH (17:29)
[2022-03-25] MEDS: busPIRone 5 MG TAB PO SCH (22:11)
[2022-03-25] MEDS: PROPRANOLOL HCL 20 MG TAB PO SCH (22:11)
[2022-03-25] MEDS: amLODIPine BESYLATE 5 MG TAB PO SCH (22:11)
[2022-03-25] MEDS: DOCUSATE SODIUM/SENNA 50/8.6MG TAB PO SCH (22:12)
[2022-03-25] MEDS: DULoxetine HCL 60 MG CAP PO SCH (22:13)
[2022-03-25] MEDS: lisinopril 10 MG TAB PO SCH (22:13)
[2022-03-26] MEDS: ceFAZolin 2000MG 2,000 MG/15 ML SYR IV SCH (01:10)
[2022-03-26] MEDS: oxyCODONE HCL IR 5 MG TAB (IMMEDIATE RELEASE) PO PRN (03:30)
[2022-03-26] MEDS: HYDROmorphone INJ 1 MG/ML SYRINGE IV PRN ×3 (04:39→22:00)
[2022-03-26] MEDS: POLYETHYLENE (MIRALAX) 17 GM PACK PO SCH ×4 (05:26→23:58)
[2022-03-26] MEDS: busPIRone 5 MG TAB PO SCH ×2 (07:48→21:47)
[2022-03-26] MEDS: dexAMETHasone 6 MG in SYRINGE 0 ML IV SCH (07:49)
[2022-03-26] MEDS: valACYclovir HCL 500 MG TABLET PO SCH (07:49)
[2022-03-26] MEDS: CHOLECALCIFEROL 1,000 UNITS 25 MCG TAB PO SCH (07:49)
[2022-03-26] MEDS: PANTOprazole 40 MG TAB PO SCH (07:49)
[2022-03-26] MEDS: PROPRANOLOL HCL 20 MG TAB PO SCH ×2 (07:51→21:50)
[2022-03-26] MEDS: traMADol HCL 50 MG TABLET PO PRN ×2 (07:56→13:10)
[2022-03-26 08:26] LABS: Basophils # (auto) 0.01 K/uL (0-0.2); Basophils % (auto) 0.1 %; Hemoglobin 12.9 g/dl (12.0-16.0); Immature Granulocytes # (auto) 0.04 K/uL (0.00-0.02); Immature Granulocytes % (auto) 0.3 %; Lymphocytes % (auto) 11.9 %; Mean Corpuscular Hemoglobin 29.8 pg (25.0-34.0); Mean Corpuscular Hgb Conc 33.1 g/dL (32.0-36.0); Mean Corpuscular Volume 90.1 fL (80.0-100.0); Mean Platelet Volume 9.6 fL (9.4-12.3); Monocytes # (auto) 1.03 K/uL (0.24-0.82); Monocytes % (auto) 8.2 %; Neutrophils # (auto) 10.03 K/uL (1.4-6.5); Neutrophils % (auto) 79.5 %; Platelet Count 242 K/uL (130-400); RDW Coefficient of Variation 13.3 % (11.5-14.5); RDW Standard Deviation 44.8 fL (36.4-46.3); Red Blood Count 4.33 M/uL (3.93-5.22); White Blood Count 12.61 K/ul (4.8-10.8)
[2022-03-26 09:10] LABS: BUN Creatinine Ratio 14.7 (10-20); Calcium 8.8 mg/dl (8.5-10.1); Creatinine Clr Calc Pharmacy 92.9 ml/min; Est GFR (African American) 105.5 ml/min; Potassium 4.1 mmol/L (3.5-5.1)
--- NOTE | 2022-03-26 09:46 | Orthopedic Progress Note ---
Date of Service March 26, 2022 Assessment & Plan (1) Lumbar disc herniation with radiculopathy: Plan: At this time we will continue physical therapy monitor JULIAN output anticipate discharge home in next few days. Admission and Anticipated Discharge Date Admission Date: March 25, 2022 Subjective Back pain controlled leg symptoms markedly improved Physical Exam Physical Exam: On exam she is comfortable. She does have evidence of trochanteric bursitis on the right thigh. She is has good strength testing otherwise. Results & Data ([facility]) Vital Signs (Past 12 Hours) Vital Signs Temp Pulse Resp BP Pulse Ox O2 Del Method 03/26/22 07:52 36.9 C 72 18 109/77 99 Room Air 03/26/22 03:04 36.9 C 72 16 124/79 99 Room Air 03/25/22 21:56 36.6 C 75 16 110/74 94 Room Air
[2022-03-26] MEDS: LACTATED RINGER'S 1,000 ML IV SCH ×2 (16:36→21:52)
[2022-03-26] MEDS: DOCUSATE SODIUM/SENNA 50/8.6MG TAB PO SCH (21:46)
[2022-03-26] MEDS: DULoxetine HCL 60 MG CAP PO SCH (21:46)
[2022-03-26] MEDS: amLODIPine BESYLATE 5 MG TAB PO SCH (21:47)
[2022-03-26] MEDS: lisinopril 10 MG TAB PO SCH (21:50)
[2022-03-27] MEDS: oxyCODONE HCL IR 5 MG TAB (IMMEDIATE RELEASE) PO PRN ×2 (02:32→11:40)
[2022-03-27] MEDS: POLYETHYLENE (MIRALAX) 17 GM PACK PO SCH (06:39)
[2022-03-27] MEDS: traMADol HCL 50 MG TABLET PO PRN (06:41)
[2022-03-27] MEDS: PANTOprazole 40 MG TAB PO SCH (08:13)
[2022-03-27] MEDS: dexAMETHasone 6 MG in SYRINGE 0 ML IV SCH (08:13)
[2022-03-27] MEDS: CHOLECALCIFEROL 1,000 UNITS 25 MCG TAB PO SCH (08:13)
[2022-03-27] MEDS: PROPRANOLOL HCL 20 MG TAB PO SCH (08:13)
[2022-03-27] MEDS: valACYclovir HCL 500 MG TABLET PO SCH (08:13)
[2022-03-27] MEDS: busPIRone 5 MG TAB PO SCH (08:14)
--- NOTE | 2022-03-27 08:30 | Hospitalist Progress Note ---
Date of Service March 26, 2022 Assessment & Plan (1) Hypertension: Plan: Lumbar Radiculopathy - s/p 03/25/22 #1 revision decompression with bilateral medial facetectomies and foraminotomies L3-L4 L4-5 per #2 posterior spinal fusion L4-L5. #3 placement posterior instrumentation L4-5. #4 interbody fusion L4-5. #5 placement of Spira 13 x 22 mm cage at L4-L5. #6 placement locally harvested morselized autograft in the posterior gutters. #7 placement of I factor combined with V toss interbody space and posterior gutters. COVID-negativepreop labs: Normal hemoglobin, creatinine less than 1 at baseline and 0.84 on preop lab work, no gross electrolyte derangements Postop doing well, 2 L nasal cannula wean suspect atelectasis. Encourage incentive spirometry DVT prophylaxis, pain control, ambulation recommendations per primary team Constipation on miralax, will consider increasing to BID until BM. continue stool softener Hypertension Continue amlodipine 5 mg p.o. at bedtime Resume lisinopril 30 mg p.o. at bedtime 03/26/2022 Anxiety/depression Continue buspirone 20 mg p.o. twice daily Continue duloxetine 60 mg p.o. at bedtime Continue propranolol 20 mg p.o. twice daily GERD - Took protonix AM of 03/25. May resume 03/26 - Has been on for extended period of time. Has failed attempts to taper to H2 as outpatient, followed with GI in [facility] - Hx of h pylori tx with abx DVT PPx: Per Primary CODE: Full Diet; Regular Dispo:Med/Surg Medicine will sign off. Please call for any further questions. (2) GERD (gastroesophageal reflux disease): (3) Anxiety: (4) Acute low back pain: Admission and Anticipated Discharge Date Admission Date: March 25, 2022 Subjective Patient reports feeling well. She has no new complaints except for constipation. Review of Systems Review of Systems: All systems reviewed & are unremarkable except as noted in HPI & below Physical Exam Physical Exam: General: A&Ox3. NAD. Cooperative. HEENT: Atraumatic, normocephalic. Pulm: CTAB A&P. -wheezes, -rales, -rhonchi. Symmetrical chest rise. No increased work of breathing. No respiratory distress. Cardiac: RRR, -mrg. Radial pulses intact and symmetrical. Abdominal: Nontender, nondistended, soft. BS present. Skin: Postsurgical dressing intact C/D/I. Ext: Warm, dry. Sensation intact to soft touch in hands and feet bilat. 5/5 security consultant strength and ankle dorsi/plantarflexion Results & Data Results & Data ([facility]) Vital Signs (Past 12 Hours) Vital Signs Temp Pulse Resp BP Pulse Ox O2 Del Method 03/27/22 08:12 36.5 C 76 16 121/80 96 Room Air 03/26/22 21:48 36.7 C 87 16 133/85 96 Room Air PG Care Time/CCT Total # of Minutes Spent Total Time Spent with Patient: Total time spent is greater than 50% in coordination of care (as documented) at patient's floor/unit and/or counseling patient: Coding Level of Care Code 22344 Subseq Hosp Care Lvl 2 Diagnoses Hypertension I10 GERD (gastroesophageal reflux disease) K21.9 Anxiety F41.9 Acute low back pain M54.42 Back pain laterality: left Sciatica laterality: sciatica of left side Sciatica presence: with sciatica (1) Acute low back pain Back pain laterality: left Sciatica laterality: sciatica of left side Sciatica presence: with sciatica Qualified Code(s): M54.42 - Lumbago with sciatica, left side
--- NOTE | 2022-03-27 09:30 | Discharge Summary ---
Date of Service March 27, 2022 Admission HPI Per Admitting Provider This is a 51-year-old female who presents with chronic persistent back and leg pain. Failing since course of nonoperative care she is here for surgical invention. Principal Diagnosis Lumbar spinal stenosis with radiculopathy Discharge Data Allergies Allergy/AdvReac Type Severity Reaction Status Date / Time No Known Allergies Allergy Verified 03/25/22 08:15 Consultations 03/25/22 12:53 Consult Hospitalist Routine Procedures Performed Operation Date: 03/25/22 09:15 Actual Procedures p L4-L5 Decompression and Fusion, Spinal Cord Monitoring(Not Applicable) - Akin Gutierrez DO Ordered Studies 03/25/22 09:15 FL lumbar spine 2-3V Routine Hospital Course (1) Lumbar disc herniation with radiculopathy: Patient will apply fashion patient tolerated this well was taken to orthopedic for possibly. Postop day 1 she was up and ambulating progress postop day #2. JULIAN drain decreasing appropriately. Excellent strength testing. Pain well controlled. Subsequently discharged home. Discharge orders instructions from the chart for further review. Total Time Total Time Spent Total Time Spent (In Minutes): 20 minutes Discharge Plan Discharge Items Patient Disposition: Home - Self-Care Reason For Visit: Spondylolisthesis, Lumbar Region Discharge Diagnosis: Lumbar spinal stenosis with spondylolisthesis and radiculopathy Activity: As commented below Non-emergency contact: Primary Care Provider Call non-emergency contact if: you have any medication questions Follow-up/Referrals: Annia Cohen D.O. [Primary Care Provider] - Diet: Regular Addtl Attending Provider Instructions: ACTIVITY RECOMMENDATIONS: SELF CARE INSTRUCTIONS AFTER THORACIC/LUMBAR FUSIONS 1. You may walk to your tolerance. It is good exercise for your legs and back. Expect some back and intermittent leg aches and pains. 2. You may perform "counter-top" level activities (make a sandwich, estuardo with a project, etc.). 3. No bending or lifting of more than 10 pounds or back twisting of any nature (roll like a log when turning in bed). 4. You may ride in a car for 20-30 minutes at a time. No driving until after your first visit with your doctor. 5. Frequent changes of position and restricting sitting to 30 minutes at a time will help limit the amount of back spasms and stiffness you may experience. 6. You may discontinue the use of ambulatory aids (cane, crutches, etc.) once your strength and confidence allow. 7. You may legal internship the shower and let water strike your incision when you arrive home at least once daily. Do not take a tub bath, sit in a hot tub or go into a swimming pool until after your first recheck in the office. SPECIAL CARE INSTRUCTIONS: VERY IMPORTANT TO READ AND REVIEW A. Your surgical incision has been closed with a cosmetic suture under the skin that will dissolve in about 6 weeks. In 14 days, you can use a pair of clean scissors and cut the suture that is left outside of the skin at the ends of your incision. 1. The small skin tapes can be removed 7 days after surgery if they have not fallen off by that point. 2. You may keep the wound open to air as much as possible to promote healing after post-op day number 5 unless told otherwise by your doctor. 3. If you think the wound looks like it is becoming infected (redness or worsening drainage) and/or you are experiencing fever, chill or worsening back pain and muscle spasms, contact the office so that we may evaluate you as soon as possible. B. Complications are uncommon, but please contact us if you have any signs or symptoms of: 1. wound infection (fever higher than 102.5 degrees F, redness, separation of wound, drainage, or increasing pain from the incision) 2. blood clots in legs (pain, swelling, redness and warmth in legs) 3. urinary tract infection (fever higher than 102.5 degrees F, burning upon urination or increased frequency of urination) 4. nerve problems (inability to walk on your toes or heels, numbness, loss of bowel or bladder control) 5. any other symptoms that concern you C. Please call the office at if you have any concerns or questions about your operation or recovery. D. No smoking! Smoking drastically decreases the chance of a solid fusion. E. Do not take any anti-inflammatory medications (Indocin, Advil, Motrin, Aspirin, Naprosyn, etc.) as these may inhibit the chance of a solid fusion. Tylenol is okay to take for pain. MANAGING PAIN AFTER SPINAL SURGERY 1. Narcotic medication is intended for short-term use and will be provided for surgical pain. Surgical pain usually lasts for a period of 4-6 weeks. Narcotic medication includes Percocet, Vicodin, Darvocet, Tylenol #3 or Lortab. 2. Longer-term pain is more appropriately treated with non-narcotic medication such as Tylenol ES. 3. Muscle spasm is not appropriately treated with narcotics. Muscle relaxers such as Soma, Flexeril or Skelaxin can be used along with Tylenol ES. 4. Remember that we all live with some "aches and pains". This is not unusual or uncommon after an injury or as we get older. a. Back pain is expected and may include muscle spasms for 4 to 6 weeks after surgery. The pain should gradually improve. If the pain worsens for no apparent reason, please contact the office. b. Intermittent leg pain may also be experienced and should not be concerned about unless it worsens for no apparent reason. If so, please contact the office. 5. We will provide appropriate medication within the normal guidelines of their prescribed use. We will also be very cautious and aware of potential abuse and extended duration of patients' medication needs. a. Pain medications are for your comfort and to assist with sleep and rest so that the tissue can heal. They are not provided in order to return to normal activity and should not be used through the day. To do so or worsening pain at night can result from ongoing tissue damage and development of tolerance to the prescribed medicine. 6. Please allow 2-3 days to process refills. Prescriptions will not be mailed but must be picked up at the office. FOLLOW UP VISIT: Keep your scheduled follow-up appointment. Any questions, please call the office at . Pending Studies at Discharge: No Stand-Alone Forms: My [facility] [employer], Smoking Cessation Medications and DC Order Prescriptions: New tramadol 50 mg tablet 50 mg PO Q6H PRN (Reason: pain, moderate) Qty: 30 0RF oxycodone 5 mg tablet 5 mg PO Q6H PRN (Reason: pain, severe) Qty: 30 0RF Continued cyclobenzaprine 10 mg Tablet 10 mg PO TID PRN (Reason: Muscle Spasm) amlodipine [Norvasc] 5 mg Tablet 5 mg PO HS valacyclovir [Valtrex] 500 mg Tablet 500 mg PO QAM pantoprazole [Protonix] 40 mg Tablet,Delayed Release (Dr/Ec) 40 mg PO QAM lisinopril 30 mg Tablet 30 mg PO HS propranolol 20 mg Tablet 20 mg PO BID duloxetine [Cymbalta] 30 mg Capsule,Delayed Release(Dr/Ec) 60 mg PO HS ondansetron 8 mg Tablet,Disintegrating 8 mg PO Q8H PRN (Reason: Nausea) buspirone 10 mg Tablet 20 mg PO BID zolpidem 10 mg Tablet 10 mg PO HS PRN (Reason: Insomnia) multivitamin Tablet 1 tab PO QAM cyanocobalamin (vitamin B-12) 1,000 mcg/mL Solution 1,000 mcg IM MO zinc 50 mg Tablet 50 mg PO QAM cranberry-vitamin C-flaxseed Capsule 1 cap PO QAM cholecalciferol (vitamin D3) [Vitamin D3] 25 mcg (1,000 unit) Tablet 25 mcg PO QAM Discharge Orders: Discharge Order (Routine); Ordered 03/27/22 Ordered By: Akin Gutierrez Admission Data Admit Date/Time: 03/25/22 11:31 Attending Provider: Akin Gutierrez Admit Provider: Akin Gutierrez Primary Care Provider: Annia Cohen Other Providers: Julián Aguilar
[2022-03-27] MEDS ORDERED: oxyCODONE IR HOME PACK PO ONE (10:45)
== END 2022-03-27 12:44 | disposition home or self-care (01) | DRG 455 ==
LOC: ASU 07:46 → 3E 11:31

== ENCOUNTER 2022-04-06 18:25 | Observation (INO) ==
[2022-04-06] MEDS ORDERED: PROMETHAZINE HCL 12.5 MG in SODIUM CHLORIDE 0.9% 50 ML IV PRN (20:03)
[2022-04-06] MEDS ORDERED: ONDANSETRON 4 MG OD TAB PO PRN (20:03)
[2022-04-06] MEDS ORDERED: ACETAMINOPHEN 1,000 MG/100 ML VIAL IV PRN (20:03)
[2022-04-06] MEDS ORDERED: ACETAMINOPHEN 500 MG TAB PO PRN (20:03)
[2022-04-06] MEDS ORDERED: MAGNESIUM HYDROXIDE SUSP 30 ML UDC PO PRN (20:03)
[2022-04-06] MEDS ORDERED: METOCLOPRAMIDE HCL INJ 5 MG/ML 2 ML VIAL IV PRN (20:03)
[2022-04-06] MEDS ORDERED: traMADol HCL 50 MG TABLET PO PRN (20:03)
[2022-04-06] MEDS ORDERED: LORazepam 0.5 MG TAB PO PRN (20:03)
[2022-04-06] MEDS ORDERED: HYDROmorphone INJ 0.5 MG/0.5 ML SYR IV PRN (20:03)
[2022-04-06] MEDS ORDERED: ONDANSETRON INJ 2 MG/ML 2 ML VIAL IV PRN (20:03)
[2022-04-06] MEDS ORDERED: ZOLPIDEM TARTRATE 10 MG TAB PO PRN (20:03)
[2022-04-06] MEDS ORDERED: NALOXONE HCL 0.4 MG/1 ML VIAL/CARP IV PRN (20:03)
[2022-04-06] MEDS: HYDROmorphone INJ 1 MG/ML SYRINGE IV PRN ×2 (20:39→23:22)
[2022-04-06] MEDS: LACTATED RINGER'S 1,000 ML IV SCH (20:39)
[2022-04-06] MEDS: amLODIPine BESYLATE 5 MG TAB PO SCH (21:04)
[2022-04-06] MEDS: lisinopril 10 MG TAB PO SCH (21:05)
[2022-04-06] MEDS: PROPRANOLOL HCL 20 MG TAB PO SCH (21:05)
[2022-04-06] MEDS: busPIRone 5 MG TAB PO SCH (21:05)
[2022-04-06] MEDS: DULoxetine HCL 60 MG CAP PO SCH (21:05)
[2022-04-06] MEDS: oxyCODONE HCL IR 5 MG TAB (IMMEDIATE RELEASE) PO PRN (21:55)
[2022-04-06] MEDS ORDERED: GADOBUTROL 10ML VIAL IV ONE (23:06)
[2022-04-07] MEDS: HYDROmorphone INJ 1 MG/ML SYRINGE IV PRN ×3 (03:25→23:48)
--- NOTE | 2022-04-07 07:21 | XRay Report ---
XR lumbar spine 2-3V CLINICAL HISTORY: Postoperative evaluation. COMPARISON STUDY: Lumbar spine MRI December 12, 2021 and fluoroscopic images of the lumbar spine Novem 2021. FINDINGS: Abdominal surgical clips are noted. L4-L5 discectomy with posterior decompression bilateral pedicle screw fusion is noted. This is similar to fluoroscopic images of March 25, 2022. Lateral bone graft material is present. Hardware is intact. There are no unexpected radiopaque foreign bodies . No fracture is identified by radiography. Multilevel disc space narrowing osteophytosis is present. IMPRESSION: Status post L4-L5 discectomy, posterior decompression bilateral pedicle screw fusion. Diaz rdware intact. No fracture identified. ACT 112: Negative or not required by law. Electronically signed by: Epi Lainez M.D. 04/07/2022 7:19 AM
[2022-04-07] MEDS: dexAMETHasone 8 MG in SYRINGE 0 ML IV SCH (07:30)
[2022-04-07] MEDS: busPIRone 5 MG TAB PO SCH ×2 (07:32→21:01)
[2022-04-07] MEDS: PANTOprazole 40 MG TAB PO SCH (07:33)
[2022-04-07] MEDS: PROPRANOLOL HCL 20 MG TAB PO SCH ×2 (07:33→21:01)
--- NOTE | 2022-04-07 08:13 | Magnetic Resonance Report ---
MR lumbar spine wo/w con CLINICAL HISTORY: back and leg pain TECHNIQUE: 3 plane localizer images, sagittal T2, sagittal T1, sagittal STIR, axial T1, axial T2 rhonda g with postcontrast axial T1 and sagittal T1 fat-saturated sequences were obtained of the lumbar spin e, before and after intravenous administration of 12 mL of MultiHance. Comparison: Comparison is made to MRI lumbar spine 12/12/2021 FINDINGS: Patient is status post L4-L5 decompression. Posterior fixation hardware spans L4-L5. Degenerative hayden nges are noted in the discs and vertebral bodies. L1-L2: No significant abnormality. L2-L3: Small posterior disc bulge without significant canal or neuroforaminal stenosis. L3-L4: No significant abnormality. L4-L5: There is with facet arthropathy and a small broad-based posterior disc bulge with mild to mode rate left neural foraminal stenosis. L5-S1: Mild bilateral neural foraminal stenosis. The spinal ligaments are intact, without evidence of disruption or abnormal signal intensity. The spi nal cord is normal in signal intensity and there is no evidence of cord contusion. There is no eviden ce of an extradural, intradural, extramedullary or intramedullary lesion. Soft tissue edema is seen, possibly postsurgical. There is a tiny posterior fluid collection measuring approximately 16 mm in di ameter which may represent a seroma, clinical correlation is recommended. IMPRESSION: Postsurgical changes of L4-L5 decompression. Previously noted mild canal stenosis at L4-L5 resolved. There remains mild to moderate left neuroforaminal stenosis. Tiny posterior fluid collection may repr esent a seroma, clinical correlation is recommended to exclude abscess. ACT 112: Negative or not required by law. Electronically signed by: Magdaleno Huertas M.D. 04/07/2022 8:11 AM
--- NOTE | 2022-04-07 08:24 | Hospitalist Consultation ---
Date of Consultation April 07, 2022 Assessment & Plan (1) Hypertension: Continue amlodipine 5 mg p.o. at bedtime Continue lisinopril 30 mg p.o. at bedtime (2) GERD (gastroesophageal reflux disease): - Continue Pantoprazole 40mg - Has been on for extended period of time. Has failed attempts to taper to H2 as outpatient, followed with GI in [facility] - Hx of h pylori tx with abx (3) Anxiety: Continue buspirone 20 mg p.o. twice daily Continue duloxetine 60 mg p.o. at bedtime Continue propranolol 20 mg p.o. twice daily (4) Trochanteric bursitis of right hip: - Ortho trying IV steroids and also Lidoderm patch Plan DVT PPx: Per Primary CODE: Full Diet; Regular Dispo:Med/Surg Supervising Physician Co-Signing Physician Notes During face to face encounter with patient. I obtained a history and physical examination. I discussed plan of care of her medical comorbidities, with patient and BUBBA melgoza. I reviewed above note and agree with it. In regards to her hypertension, will resume her home meds. History of Present Illness Reason for Consultation: Medical management Requesting Physician: Dr Paras Gutierrez Attending Physician: Paras Yu History of Present Illness This is a 51 year old female with a past medical history of HTN, GERD, B12 deficiency, anxiety, and history of lumbar disc herniation with radiculopathy with a history of multiple back surgeries and most recent revision decompression and fusion on 03/25/[address] Gutierrez who presented to the ER with complaints of increasing right leg/hip pain x several days. Patient was evaluated in the ER and had xray and MRI lumbar spine images demonstrate no evidence of neural compression or mass-effect. Ortho stated patient has trochanteric bursitis and trying lidoderm patch and IV steroids. Our service was consulted for medical management. VSS and afebrile Patient denies any chest pain, SOB, Dyspnea, abdominal pain, nausea, vomiting or any urine or bowel changes. BP was elevated in the ER but normal currently. Allergies Allergy/AdvReac Type Severity Reaction Status Date / Time No Known Allergies Allergy Verified 03/25/22 08:15 Home Medications Medication Instructions Recorded Confirmed Type amlodipine 5 mg tablet (Norvasc) 5 mg PO HS 01/06/20 03/25/22 History cyclobenzaprine 10 mg tablet 10 mg PO TID PRN Muscle Spasm 01/06/20 03/25/22 History duloxetine 30 mg capsule,delayed 60 mg PO HS 01/06/20 03/25/22 History release (Cymbalta) lisinopril 30 mg tablet 30 mg PO HS 01/06/20 03/25/22 History pantoprazole 40 mg tablet,delayed 40 mg PO QAM 01/06/20 03/25/22 History release (Protonix) propranolol 20 mg tablet 20 mg PO BID 01/06/20 03/25/22 History valacyclovir 500 mg tablet 500 mg PO QAM 01/06/20 03/25/22 History (Valtrex) buspirone 10 mg tablet 20 mg PO BID 02/26/22 03/25/22 History cholecalciferol (vitamin D3) 25 25 mcg PO QAM 02/26/22 03/25/22 History mcg (1,000 unit) tablet (Vitamin D3) cranberry-vitamin C-flaxseed 1 cap PO QAM 02/26/22 03/25/22 History capsule cyanocobalamin (vitamin B-12) 1,000 mcg IM MO 02/26/22 03/25/22 History 1,000 mcg/mL injection solution multivitamin 1 tab PO QAM 02/26/22 03/25/22 History ondansetron 8 mg disintegrating 8 mg PO Q8H PRN Nausea 02/26/22 03/25/22 History tablet zinc 50 mg tablet 50 mg PO QAM 02/26/22 03/25/22 History zolpidem 10 mg tablet 10 mg PO HS PRN Insomnia 02/26/22 03/25/22 History oxycodone 5 mg tablet 5 mg PO Q6H PRN pain, severe #30 03/26/22 Rx tabs tramadol 50 mg tablet 50 mg PO Q6H PRN pain, moderate 03/26/22 Rx #30 tabs oxycodone 5 mg tablet 5 mg PO Q6H PRN pain, severe #30 04/08/22 Rx tabs Patient History Medical History Anxiety Depression GERD (gastroesophageal reflux disease) controlled, stable per pt Hypertension controlled, stable per pt Obesity Surgical History History of back surgery L4-5 laminectomy (01/11/20): Grade 2 view, MAC 3.0, ETT 7.0 at [facility]. No issues noted per post-op anesthesia progress note. History of colonoscopy Hx laparoscopic cholecystectomy Hx of appendectomy Hx of hysterectomy Hx of tonsillectomy HX: benign breast biopsy X 8 HAS SOME MARKERS IN BREAST Family History Other No family history of adverse response to anesthesia Social History Smoking Status: Never smoker Second Hand Exposure: No; Do You Dip or Chew Tobacco: No; Hx Alcohol Use: No Hx Substance Use: No Preferred Language: Indonesian Communication Ability: Effective News Camera Person Required: No Beliefs That Will Affect Care: None marital status: Single Current Living Situation: Family Other Information That Helps Us Care for You: No Feels Safe at Home: Yes Safety Concerns: Feels Safe At This Time Assistive Devices: Cane Review of Systems Constitutional: no fever, no chills and no anorexia Eyes: no blind spots, no eye pain and no photophobia Respiratory: no cough, no chest congestion and no dyspnea Cardiovascular: no chest pain, no dyspnea and no syncope Gastrointestinal: no abdominal pain, no nausea, no vomiting, no constipation and no diarrhea/loose stools Genitourinary: no dysuria, no urinary hesitancy, no urinary urgency and no hematuria Musculoskeletal: + back pain and + joint pain; no neck pain and no muscle weakness Integumentary: no rash, no lesions and no wounds Neurologic: + unsteadiness; no falls, no paresthesia and no syncope Physical Exam Constitutional: WD/WN, vitals as above ENMT: external ear and nose normal, oropharynx normal Neck: trachea midline, no thyromegaly Respiratory: normal respiratory effort, lungs clear to auscultation Cardiovascular: RRR, no murmur, no edema Gastrointestinal (Abdomen): normal bowel sounds, soft, nontender, no hepatosp lenomegaly Skin: no rashes, warm and dry Neurologic: patellar DTR's 2+ bilat, sensation intact and PERRL, EOMI, accommodation nl, no face palsy, no dysarthria Results & Data Results & Data ([facility]) Vital Signs (Past 12 Hours) Vital Signs Temp Pulse Resp BP Pulse Ox O2 Del Method O2 Flow Rate 04/07/22 07:44 36.8 C 74 18 127/87 98 Nasal Cannula 3 04/07/22 07:29 36.7 C 70 16 121/77 98 Room Air Diagnostic Findings Lumbar Spine MRI 04/06/22 20:03 MR lumbar spine wo/w con CLINICAL HISTORY: back and leg pain TECHNIQUE: 3 plane localizer images, sagittal T2, sagittal T1, sagittal STIR, axial T1, axial T2 along with postcontrast axial T1 and sagittal T1 fat- saturated sequences were obtained of the lumbar spine, before and after intravenous administration of 12 mL of MultiHance. Comparison: Comparison is made to MRI lumbar spine 12/12/2021 FINDINGS: Patient is status post L4-L5 decompression. Posterior fixation hardware spans L4-L5. Degenerative changes are noted in the discs and vertebral bodies. L1-L2: No significant abnormality. L2-L3: Small posterior disc bulge without significant canal or neuroforaminal stenosis. L3-L4: No significant abnormality. L4-L5: There is with facet arthropathy and a small broad-based posterior disc bulge with mild to moderate left neural foraminal stenosis. L5-S1: Mild bilateral neural foraminal stenosis. The spinal ligaments are intact, without evidence of disruption or abnormal signal intensity. The spinal cord is normal in signal intensity and there is no evidence of cord contusion. There is no evidence of an extradural, intradural, extramedullary or intramedullary lesion. Soft tissue edema is seen, possibly postsurgical. There is a tiny posterior fluid collection measuring approximately 16 mm in diameter which may represent a seroma, clinical correlation is recommended. IMPRESSION: Postsurgical changes of L4-L5 decompression. Previously noted mild canal stenosis at L4-L5 resolved. There remains mild to moderate left neuroforaminal stenosis. Tiny posterior fluid collection may represent a seroma, clinical correlation is recommended to exclude abscess. ACT 112: Negative or not required by law. Electronically signed by: Magdaleno Huertas M.D. 04/07/2022 8:11 AM Lumbar Spine X-Ray 04/06/22 20:03 XR lumbar spine 2-3V CLINICAL HISTORY: Postoperative evaluation. COMPARISON STUDY: Lumbar spine MRI December 12, 2021 and fluoroscopic images of the lumbar spine March 25, 2022. FINDINGS: Abdominal surgical clips are noted. L4-L5 discectomy with posterior decompression bilateral pedicle screw fusion is noted. This is similar to fluoroscopic images of March 25, 2022. Lateral bone graft material is pres ent. Hardware is intact. There are no unexpected radiopaque foreign bodies. No fracture is identified by radiography. Multilevel disc space narrowing osteophytosis is present. IMPRESSION: Status post L4-L5 discectomy, posterior decompression bilateral pedicle screw fusion. Hardware intact. No fracture identified. ACT 112: Negative or not required by law. Electronically signed by: Epi Lainez M.D. 04/07/2022 7:19 AM PG Care Time/CCT Total # of Minutes Spent Total Time Spent with Patient: Total time spent is greater than 50% in coordination of care (as documented) at patient's floor/unit and/or counseling patient: Coding Level of Care Code 49858 Inpt Consult Level 2 Diagnoses Hypertension I10 GERD (gastroesophageal reflux disease) K21.9 Anxiety F41.9 Trochanteric bursitis of right hip M70.61 Time Spent (min) 30
--- NOTE | 2022-04-07 10:09 | History & Physical Report ---
Date of Service April 07, 2022 Assessment & Plan (1) Trochanteric bursitis of right hip: Plan: Assessment trochanteric bursitis. Plan at this time MRI lumbar spine and x-rays performed demonstrate no evidence of neural compression or mass-effect. I have relayed this to the patient. I will initiate a course of physical therapy. We will place a Lidoderm patch over the right trochanteric region. I will have given her some IV steroids to help with the inflammation. Initiate physical therapy. Request home health. Hopefully discharge home tomorrow. Admission and Anticipated Discharge Date Admission Date: April 06, 2022 History of Present Illness Chief Complaint: Right leg pain Primary Care Provider: Annia Cohen This is a 51-year-old female known to me and is status post lumbar decompression fusion. She presents yesterday to the L2 in the ER with worsening right leg pain. I did speak with the emergency room physician. While she was neurologically intact her pain was significant enough that she was concerned she was not able to return home. Subsequently she was brought to her institution. She denies any trauma fall or event. She states her pain is in the right lumbosacral spine rating along the right lateral thigh. Is not extend below the knee. She denies any nausea or vomiting. Denies any radicular type complaints. Left lower extremities asymptomatic. Allergies Allergy/AdvReac Type Severity Reaction Status Date / Time No Known Allergies Allergy Verified 03/25/22 08:15 Home Medications Medication Instructions Recorded Confirmed Type amlodipine 5 mg tablet (Norvasc) 5 mg PO HS 01/06/20 03/25/22 History cyclobenzaprine 10 mg tablet 10 mg PO TID PRN Muscle Spasm 01/06/20 03/25/22 History duloxetine 30 mg capsule,delayed 60 mg PO HS 01/06/20 03/25/22 History release (Cymbalta) lisinopril 30 mg tablet 30 mg PO HS 01/06/20 03/25/22 History pantoprazole 40 mg tablet,delayed 40 mg PO QAM 01/06/20 03/25/22 History release (Protonix) propranolol 20 mg tablet 20 mg PO BID 01/06/20 03/25/22 History valacyclovir 500 mg tablet 500 mg PO QAM 01/06/20 03/25/22 History (Valtrex) buspirone 10 mg tablet 20 mg PO BID 02/26/22 03/25/22 History cholecalciferol (vitamin D3) 25 25 mcg PO QAM 02/26/22 03/25/22 History mcg (1,000 unit) tablet (Vitamin D3) cranberry-vitamin C-flaxseed 1 cap PO QAM 02/26/22 03/25/22 History capsule cyanocobalamin (vitamin B-12) 1,000 mcg IM MO 02/26/22 03/25/22 History 1,000 mcg/mL injection solution multivitamin 1 tab PO QAM 02/26/22 03/25/22 History ondansetron 8 mg disintegrating 8 mg PO Q8H PRN Nausea 02/26/22 03/25/22 History tablet zinc 50 mg tablet 50 mg PO QAM 02/26/22 03/25/22 History zolpidem 10 mg tablet 10 mg PO HS PRN Insomnia 02/26/22 03/25/22 History oxycodone 5 mg tablet 5 mg PO Q6H PRN pain, severe #30 03/26/22 Rx tabs tramadol 50 mg tablet 50 mg PO Q6H PRN pain, moderate 03/26/22 Rx #30 tabs Past Med/Surg History Medical History (Updated 04/07/22 @ 10:08 by Akin Gutierrez DO) Anxiety Depression GERD (gastroesophageal reflux disease) controlled, stable per pt Hypertension controlled, stable per pt Obesity Surgical History History of back surgery L4-5 laminectomy (01/11/20): Grade 2 view, MAC 3.0, ETT 7.0 at [facility]. No issues noted per post-op anesthesia progress note. 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 She is exquisite tenderness palpation of the right trochanteric region and IT band. She has no pain below the knee. She is nontender to compression of the calves bilaterally. She is a plus out of 5 bilateral plantar flexion dorsiflexion and hip flexors. Sensory is symmetric and intact to touch and cold sensation. Results & Data Results & Data ([facility]) Vital Signs (Past 12 Hours) Vital Signs Temp Pulse Resp BP Pulse Ox O2 Del Method O2 Flow Rate 04/07/22 07:44 36.8 C 74 18 127/87 98 Nasal Cannula 3 04/07/22 07:29 36.7 C 70 16 121/77 98 Room Air Code Status & VTE Plan VTE Prophylaxis Plan VTE Prophylaxis will be ordered: Yes
[2022-04-07] MEDS: LACTATED RINGER'S 1,000 ML IV SCH ×2 (10:12→23:49)
[2022-04-07] MEDS: LIDOCAINE 5% 1 PATCH TD SCH (11:05)
[2022-04-07] MEDS: oxyCODONE HCL IR 5 MG TAB (IMMEDIATE RELEASE) PO PRN ×2 (12:43→20:58)
[2022-04-07] MEDS: lisinopril 10 MG TAB PO SCH (21:01)
[2022-04-07] MEDS: DULoxetine HCL 60 MG CAP PO SCH (21:01)
[2022-04-07] MEDS: amLODIPine BESYLATE 5 MG TAB PO SCH (21:01)
[2022-04-08] MEDS: HYDROmorphone INJ 1 MG/ML SYRINGE IV PRN ×2 (05:52→09:12)
[2022-04-08] MEDS: dexAMETHasone 8 MG in SYRINGE 0 ML IV SCH (08:06)
[2022-04-08] MEDS: LIDOCAINE 5% 1 PATCH TD SCH (08:06)
[2022-04-08] MEDS: busPIRone 5 MG TAB PO SCH (08:08)
[2022-04-08] MEDS: PROPRANOLOL HCL 20 MG TAB PO SCH (08:08)
[2022-04-08] MEDS: PANTOprazole 40 MG TAB PO SCH (08:08)
--- NOTE | 2022-04-08 11:27 | Hospitalist Progress Note ---
Date of Service April 08, 2022 Assessment & Plan (1) Hypertension: Plan: Continue amlodipine 5 mg p.o. at bedtime Continue lisinopril 30 mg p.o. at bedtime (2) GERD (gastroesophageal reflux disease): Plan: - Continue Pantoprazole 40mg - Has been on for extended period of time. Has failed attempts to taper to H2 as outpatient, followed with GI in [facility] - Hx of h pylori tx with abx (3) Anxiety: Plan: Continue buspirone 20 mg p.o. twice daily Continue duloxetine 60 mg p.o. at bedtime Continue propranolol 20 mg p.o. twice daily (4) Trochanteric bursitis of right hip: Plan: - Ortho is discharging patient today and has a follow up visit scheduled Plan DVT PPx: Per Primary CODE: Full Diet; Regular Dispo:Med/Surg Admission and Anticipated Discharge Date Admission Date: April 06, 2022 Subjective Patient seen this AM. She is being discharged to home today by ortho and will have a follow up with Dr Gutierrez. She states she is feeling some better today compared to yesterday. She did not sleep well though secondary to the hospital bed. she has been up and walking the halls. In fact she thinks she walked too much yesterday. She is eating well and denies any chest pain, SOB, Dyspnea or bowel or bladder symptoms. Review of Systems Constitutional: no fever, no chills and no anorexia Eyes: no blind spots, no eye pain and no photophobia Respiratory: no cough, no chest congestion and no dyspnea Cardiovascular: no chest pain, no dyspnea and no syncope Gastrointestinal: no abdominal pain, no nausea, no vomiting, no constipation and no diarrhea/loose stools Genitourinary: no dysuria, no urinary hesitancy, no urinary urgency and no hematuria Musculoskeletal: + back pain and + joint pain; no neck pain and no muscle weakness Integumentary: no rash, no lesions and no wounds Neurologic: no falls, no paresthesia and no syncope Physical Exam Constitutional: WD/WN, vitals as above ENMT: external ear and nose normal, oropharynx normal Neck: trachea midline, no thyromegaly Respiratory: normal respiratory effort, lungs clear to auscultation Cardiovascular: RRR, no murmur, no edema Gastrointestinal (Abdomen): normal bowel sounds, soft, nontender, no hepatosplenomegaly Musculoskeletal: Patient was up and waling in her room. Skin: no rashes, warm and dry Neurologic: patellar DTR's 2+ bilat, sensation intact and PERRL, EOMI, accommodation nl, no face palsy, no dysarthria Results & Data Results & Data ([facility]) Vital Signs (Past 12 Hours) Vital Signs Temp Pulse Resp BP Pulse Ox O2 Del Method 04/08/22 07:52 36.7 C 88 16 123/81 94 Room Air PG Care Time/CCT Total # of Minutes Spent Total Time Spent with Patient: Total time spent is greater than 50% in coordination of care (as documented) at patient's floor/unit and/or counseling patient: Coding Level of Care Code 35191 Subseq Hosp Care Lvl 2 Diagnoses Hypertension I10 GERD (gastroesophageal reflux disease) K21.9 Anxiety F41.9 Trochanteric bursitis of right hip M70.61 Time Spent (min) 15
[2022-04-08] MEDS: LACTATED RINGER'S 1,000 ML IV SCH (12:21)
--- NOTE | 2022-04-08 12:48 | Discharge Summary ---
Date of Service April 08, 2022 Admission HPI Per Admitting Provider This is a 51-year-old female known to me and is status post lumbar decompression fusion. She presents yesterday to the L2 in the ER with worsening right leg pain. I did speak with the emergency room physician. While she was neurologically intact her pain was significant enough that she was concerned she was not able to return home. Subsequently she was brought to her institution. She denies any trauma fall or event. She states her pain is in the right lumbosacral spine rating along the right lateral thigh. Is not extend below the knee. She denies any nausea or vomiting. Denies any radicular type complaints. Left lower extremities asymptomatic. Principal Diagnosis Trochanteric bursitis Discharge Data Allergies Allergy/AdvReac Type Severity Reaction Status Date / Time No Known Allergies Allergy Verified 03/25/22 08:15 Consultations 04/06/22 20:03 Consult Internal Medicine Routine Ordered Studies 04/06/22 20:03 MR lumbar spine wo/w con Urgent Hospital Course (1) Trochanteric bursitis of right hip: Patient was admitted with severe right leg pain. Imaging demonstrated no evidence of neural compression. Exam was consistent with a component of sacroiliitis and trochanteric bursitis. She underwent physical therapy improved appropriately. Was subsequently discharged home. Discharge orders instructions from the chart for further review. Total Time Total Time Spent Total Time Spent (In Minutes): 20 minutes Discharge Plan Discharge Items Patient Disposition: Home - Self-Care Reason For Visit: back and leg pain Discharge Diagnosis: Trochanteric bursitis Activity: As commented below Non-emergency contact: Primary Care Provider Call non-emergency contact if: you have any medication questions Follow-up/Referrals: Akin Gutierrez DO [Emergency Provider] - 05/08/22 9:40 am (04/08/2022 1137am- spoke with [email or web address], this is her post-op appt, if they have anything sooner open up they will notify patient.) Annia Cohen D.O. [Primary Care Provider] - Diet: Regular Addtl Attending Provider Instructions: ACTIVITY RECOMMENDATIONS: SELF CARE INSTRUCTIONS AFTER THORACIC/LUMBAR FUSIONS 1. You may walk to your tolerance. It is good exercise for your legs and back. Expect some back and intermittent leg aches and pains. 2. You may perform "counter-top" level activities (make a sandwich, estuardo with a project, etc.). 3. No bending or lifting of more than 10 pounds or back twisting of any nature (roll like a log when turning in bed). 4. You may ride in a car for 20-30 minutes at a time. No driving until after your first visit with your doctor. 5. Frequent changes of position and restricting sitting to 30 minutes at a time will help limit the amount of back spasms and stiffness you may experience. 6. You may discontinue the use of ambulatory aids (cane, crutches, etc.) once your strength and confidence allow. 7. You may skills instructor the shower and let water strike your incision when you arrive home at least once daily. Do not take a tub bath, sit in a hot tub or go into a swimming pool until after your first recheck in the office. SPECIAL CARE INSTRUCTIONS: VERY IMPORTANT TO READ AND REVIEW A. Your surgical incision has been closed with a cosmetic suture under the skin that will dissolve in about 6 weeks. In 14 days, you can use a pair of clean scissors and cut the suture that is left outside of the skin at the ends of your incision. 1. The small skin tapes can be removed 7 days after surgery if they have not fallen off by that point. 2. You may keep the wound open to air as much as possible to promote healing after post-op day number 5 unless told otherwise by your doctor. 3. If you think the wound looks like it is becoming infected (redness or worsening drainage) and/or you are experiencing fever, chill or worsening back pain and muscle spasms, contact the office so that we may evaluate you as soon as possible. B. Complications are uncommon, but please contact us if you have any signs or symptoms of: 1. wound infection (fever higher than 102.5 degrees F, redness, separation of wound, drainage, or increasing pain from the incision) 2. blood clots in legs (pain, swelling, redness and warmth in legs) 3. urinary tract infection (fever higher than 102.5 degrees F, burning upon urination or increased frequency of urination) 4. nerve problems (inability to walk on your toes or heels, numbness, loss of bowel or bladder control) 5. any other symptoms that concern you C. Please call the office at if you have any concerns or questions about your operation or recovery. D. No smoking! Smoking drastically decreases the chance of a solid fusion. E. Do not take any anti-inflammatory medications (Indocin, Advil, Motrin, Aspirin, Naprosyn, etc.) as these may inhibit the chance of a solid fusion. Tylenol is okay to take for pain. MANAGING PAIN AFTER SPINAL SURGERY 1. Narcotic medication is intended for short-term use and will be provided for surgical pain. Surgical pain usually lasts for a period of 4-6 weeks. Narcotic medication includes Percocet, Vicodin, Darvocet, Tylenol #3 or Lortab. 2. Longer-term pain is more appropriately treated with non-narcotic medication such as Tylenol ES. 3. Muscle spasm is not appropriately treated with narcotics. Muscle relaxers such as Soma, Flexeril or Skelaxin can be used along with Tylenol ES. 4. Remember that we all live with some "aches and pains". This is not unusual or uncommon after an injury or as we get older. a. Back pain is expected and may include muscle spasms for 4 to 6 weeks after surgery. The pain should gradually improve. If the pain worsens for no apparent reason, please contact the office. b. Intermittent leg pain may also be experienced and should not be concerned about unless it worsens for no apparent reason. If so, please contact the office. 5. We will provide appropriate medication within the normal guidelines of their prescribed use. We will also be very cautious and aware of potential abuse and extended duration of patients' medication needs. a. Pain medications are for your comfort and to assist with sleep and rest so that the tissue can heal. They are not provided in order to return to normal activity and should not be used through the day. To do so or worsening pain at night can result from ongoing tissue damage and development of tolerance to the prescribed medicine. 6. Please allow 2-3 days to process refills. Prescriptions will not be mailed but must be picked up at the office. FOLLOW UP VISIT: Keep your scheduled follow-up appointment. Any questions, please call the office at . Pending Studies at Discharge: No Stand-Alone Forms: [facility], Smoking Cessation Medications and SC Order Prescriptions: New oxycodone 5 mg tablet 5 mg PO Q6H PRN (Reason: pain, severe) Qty: 30 0RF Continued cyclobenzaprine 10 mg Tablet 10 mg PO TID PRN (Reason: Muscle Spasm) amlodipine [Norvasc] 5 mg Tablet 5 mg PO HS valacyclovir [Valtrex] 500 mg Tablet 500 mg PO QAM pantoprazole [Protonix] 40 mg Tablet,Delayed Release (Dr/Ec) 40 mg PO QAM lisinopril 30 mg Tablet 30 mg PO HS propranolol 20 mg Tablet 20 mg PO BID duloxetine [Cymbalta] 30 mg Capsule,Delayed Release(Dr/Ec) 60 mg PO HS ondansetron 8 mg Tablet,Disintegrating 8 mg PO Q8H PRN (Reason: Nausea) buspirone 10 mg Tablet 20 mg PO BID zolpidem 10 mg Tablet 10 mg PO HS PRN (Reason: Insomnia) multivitamin Tablet 1 tab PO QAM cyanocobalamin (vitamin B-12) 1,000 mcg/mL Solution 1,000 mcg IM MO zinc 50 mg Tablet 50 mg PO QAM cranberry-vitamin C-flaxseed Capsule 1 cap PO QAM cholecalciferol (vitamin D3) [Vitamin D3] 25 mcg (1,000 unit) Tablet 25 mcg PO QAM tramadol 50 mg tablet 50 mg PO Q6H PRN (Reason: pain, moderate) Qty: 30 0RF oxycodone 5 mg tablet 5 mg PO Q6H PRN (Reason: pain, severe) Qty: 30 0RF Discharge Orders: Discharge Order (Routine); Ordered 04/08/22 Ordered By: Akin Gutierrez Admission Data Admit Date/Time: 04/06/22 19:40 Attending Provider: Paras Yu Admit Provider: Akin Gutierrez Primary Care Provider: Annia Cohen Other Providers: Francisca Montoya ; [facility],Home Healthcare ; [facility],Referral Center Other Interventions: Discharge Summary Assessment (RN) Last Done: 04/08/22 11:48
== END 2022-04-08 12:39 | disposition home or self-care (01) ==
LOC: ED 18:25 → 3N 19:40 → SUATTDRO 19:40 → INTOOBSV 19:40 → 3N 19:54

== ENCOUNTER 2022-12-27 18:35 | Inpatient (IN) ==
--- NOTE | 2022-12-27 19:47 | Emergency Department Note ---
Impression & Plan Lumbar disc herniation with radiculopathy, Acute low back pain ED Provider Note NAME: KEN BOONE AGE: 52 SEX: F : 1970 ARRIVES VIA: Walk-In INFORMANT: Patient, ED PROVIDER(S): Amanuel Suazo DO CHIEF COMPLAINT: Back pain HPI: The patient is a 52-year-old female who presented to the emergency department for an evaluation of back pain. The patient noticed lower back pain over the course the last few weeks. She started getting worse especially over the last few days. The patient was seen in our facility recently. She had a CT which did show some disc disease in lumbar spine. She started worsening despite being on medications. She was told to come to the emergency department by her primary orthopedic retirement specialist for further evaluation as well as possible admission. ROS: See above HPI for pertinent positives & negatives. A total of 10 systems reviewed and were otherwise negative. PAST MEDICAL HISTORY: See Below PAST SURGICAL HISTORY: See Below FAMILY HISTORY: See Below SOCIAL HISTORY: See Below HOME MEDICATIONS: See Below ALLERGIES: See Below VITALS: See Below PHYSICAL EXAMINATION: GENERAL: The patient is awake and alert. The patient is anxious and uncomfortable appearing. EYES: The conjunctivae are clear. The pupils are round and reactive. EARS, NOSE, MOUTH AND THROAT: The nose is without any evidence of any deformity. NECK: The neck is nontender and supple. RESPIRATORY: Normal respiratory effort is noted there is no evidence of wheezing rhonchi or rales CARDIOVASCULAR: Regular rate and rhythm noted there no murmurs rubs or gallops normal S1 normal S2. GASTROINTESTINAL: The abdomen is soft. Abdomen is nontender. BACK: Lower lumbar tenderness was noted in the midline. Range of motion appears limited secondary to pain but intact. MUSCULOSKELETAL/EXTREMITIES: There is no evidence of gross deformity full range of motion is noted in the hips and shoulders. SKIN: There is no obvious evidence of any rash. There are no petechiae, pallor or cyanosis noted. NEUROLOGIC: Patient is awake alert and oriented x3 strength is symmetric patellar reflexes are 2+ bilaterally, great toe raise was symmetric, Achilles tendon reflex was 2+ bilaterally. MEDICAL DECISION MAKING: The patient is a 52-year-old female who presented to the emergency department at the request of her orthopedic spinal physician. The patient has been having low back pain. She has a history of lumbar spine surgery in the past. The patient was treated in our facility recently but was not feeling much better. She presented to the emergency department at the request of her primary orthopedic spinal specialist for further evaluation as well as possible admission. I discussed the patient's condition with her primary orthopedic spinal specialist. At this time he will manage her as an inpatient and decide further management as well as work-up. Given the patient's pain level she was treated with pain medication in the emergency department. Triage Nursing notes reviewed. Prior medical records reviewed Vital Signs: reviewed and remarkable for elevated blood pressure. Differential diagnosis: Musculoskeletal, disc herniation, fracture, metastatic disease, cord compression, discitis, sciatica, cauda equina, infection, aortic disease, renal colic, gastrointestinal, as well as other pathologies. ER treatment provided: See below Diagnostics interpreted by me: ECG: none Cardiac Monitoring: An order was placed for continuous cardiac monitoring. The monitor shows a rate of 68 bpm with sinus rhythm. Laboratory studies: As stated above and show below. Imaging studies: See below. Consultation(s): I discussed this case with Dr. Gutierrez who is the patient's primary orthopedic spinal specialist. Past Med/Surg History Medical History Anxiety Depression GERD (gastroesophageal reflux disease) controlled, stable per pt Hypertension controlled, stable per pt Obesity Surgical History History of back surgery L4-5 laminectomy (01/11/20): Grade 2 view, MAC 3.0, ETT 7.0 at [facility]. No issues noted per post-op anesthesia progress note. History of colonoscopy Hx laparoscopic cholecystectomy Hx of appendectomy Hx of hysterectomy Hx of tonsillectomy HX: benign breast biopsy X 8 HAS SOME MARKERS IN BREAST Family History Other No family history of adverse response to anesthesia Social History Smoking Status: Former smoker Tobacco Type: Cigarettes Cigarettes Per Day: 10; Second Hand Exposure: No; Do You Dip or Chew Tobacco: No; Tobacco Cessation Education Requested by Patient: No Hx Alcohol Use: Yes Alcohol type: wine Hx Substance Use: No Preferred Language: Mohawk Communication Ability: Effective Active Directory Systems Administrator Required: No Beliefs That Will Affect Care: None marital status: Single Current Living Situation: Spouse Other Information That Helps Us Care for You: No Feels Safe at Home: Yes Safety Concerns: Feels Safe At This Time Assistive Devices: Cane, Glasses, Hospital Bed and Walker Allergies Allergies Allergy/AdvReac Type Severity Reaction Status Date / Time No Known Allergies Allergy Verified 12/25/22 17:39 Home Meds Home Medications Medication Instructions Recorded Confirmed amlodipine 5 mg tablet (Norvasc) 5 mg PO HS 01/06/20 12/27/22 cyclobenzaprine 10 mg tablet 10 mg PO TID PRN Muscle Spasm 01/06/20 12/27/22 lisinopril 30 mg tablet 30 mg PO HS 01/06/20 12/27/22 pantoprazole 40 mg tablet,delayed 40 mg PO QAM 01/06/20 12/27/22 release (Protonix) propranolol 20 mg tablet 20 mg PO BID 01/06/20 12/27/22 valacyclovir 500 mg tablet 500 mg PO QAM 01/06/20 12/27/22 (Valtrex) buspirone 10 mg tablet 20 mg PO BID 02/26/22 12/27/22 cholecalciferol (vitamin D3) 25 25 mcg PO QAM 02/26/22 12/27/22 mcg (1,000 unit) tablet (Vitamin D3) cyanocobalamin (vitamin B-12) 1,000 mcg IM MO 02/26/22 12/27/22 1,000 mcg/mL injection solution multivitamin 1 tab PO QAM 02/26/22 12/27/22 ondansetron 8 mg disintegrating 8 mg PO Q8H PRN Nausea 02/26/22 12/27/22 tablet zolpidem 10 mg tablet 10 mg PO HS PRN Insomnia 02/26/22 12/27/22 cranberry 400 mg capsule 400 mg PO DAILY 12/25/22 12/27/22 duloxetine 60 mg capsule,delayed 60 mg PO HS 12/25/22 12/27/22 release Previous Rx's Medication Instructions Recorded lidocaine 5 % topical patch 1 patch topical DAILY PRN pain #15 12/25/22 (Lidoderm) ea methylprednisolone 4 mg tablets in See Rx Instructions .Route 12/25/22 a dose pack .COMPLEX #21 ea oxycodone 5 mg tablet 5 mg PO Q8H PRN pain #9 tabs 12/25/22 Results & Data (ED) Vital Signs Vital Signs - 24 hr 12/27/22 18:43 12/27/22 19:50 Temperature 36.8 C Temperature Source Temporal Artery Scan Pulse Rate 79 Respiratory Rate 18 Respiratory Effort / Characteristics Non-Labored Respiratory Depth Normal Blood Pressure 142/101 H Blood Pressure Mean 114 Pulse Oximetry 99 Oxygen Delivery Method Room Air Room Air Sepsis Recent Fever Within 48 Hours No Sepsis New/Unexplained Change in Mental Status No Sepsis Action Taken by Nursing No Action Required Home Medications Current Medication List: was personally reviewed by me Laboratory Data Attestation: I reviewed the patient's lab results. 12/27/22 22:24 12/27/22 22:24 Lab Results 12/27/22 12/27/22 12/27/22 Range/Units 19:47 19:47 19:47 WBC 8.68 (4.8-10.8) K/ul RBC 4.76 (4.20-5.40) M/uL Hgb 14.2 (12.0-16.0) g/dl Hct 41.9 (37.0-47.0) % MCV 88.0 (80.0-100.0) fL MCH 29.8 (25.0-34.0) pg MCHC 33.9 (32.0-36.0) g/dL RDW Std Deviation 42.1 (36.4-46.3) fL RDW Coeff of Ashley 13.2 (11.5-14.5) % Plt Count 211 (130-400) K/uL MPV 9.8 (9.4-12.4) fL Immature Gran % (Auto) 0.3 % Neut % (Auto) 75.8 % Lymph % (Auto) 19.0 % [place] % (Auto) 4.7 % Eos % (Auto) 0.1 % Baso % (Auto) 0.1 % Neut # (Auto) 6.57 H (1.40-6.50) K/uL Lymph # (Auto) 1.65 (1.20-3.40) K/uL [place] # (Auto) 0.41 (0.11-0.59) K/uL Eos # (Auto) 0.01 (0.00-0.50) K/uL Baso # (Auto) 0.01 (0.00-0.20) K/uL Immature Gran # (Auto) 0.03 (0.01-0.20) K/uL APTT 25.1 (21.0-31.0) Seconds PTT Ratio 0.9 Sodium 136 (136-145) mmol/L Potassium 4.3 (3.5-5.1) mmol/L Chloride 105 (98-107) mmol/L Carbon Dioxide 25 (21-32) mmol/L Anion Gap 6 (3-11) BUN 19 (6-23) mg/dl Creatinine 0.75 (0.6-1.2) mg/dl Est Cr Clr Drug Dosing Not Reportable Est GFR ( Amer) 104.7 ml/min Est GFR (Non-Af Amer) 90.4 ml/min BUN/Creatinine Ratio 25.3 H (10-20) Glucose 118 H (70-99(Fasting)) mg/dl Calcium 9.0 (8.6-10.3) mg/dl Total Bilirubin 0.2 (0.2-1.0) mg/dl AST 22 (13-39) U/L ALT 11 (7-52) U/L Alkaline Phosphatase 80 (34-104) U/L Total Protein 6.5 (6.0-8.3) gm/dl Albumin 4.1 (3.4-5.0) gm/dl Globulin 2.4 L (2.5-4.0) gm/dl Albumin/Globulin Ratio 1.7 (0.9-2) Administered Medications Amlodipine Besylate (Amlodipine Besylate 5 Mg Tab) 5 mg PO HS MARY CARMEN Stop: 01/26/23 22:14 Last Admin: 12/27/22 23:14 Dose: 5 mg Documented By: CAROL Buspirone HCl (Buspirone 5 Mg Tab) 20 mg PO BID MARY CARMEN Stop: 01/26/23 22:14 Last Admin: 12/27/22 23:14 Dose: 20 mg Documented By: RES Duloxetine HCl (Duloxetine Hcl 60 Mg Cap) 60 mg PO HS MARY CARMEN Stop: 01/26/23 22:14 Last Admin: 12/27/22 23:14 Dose: 60 mg Documented By: CAROL Lactated Ringer's (Lr) 1,000 mls @ 75 mls/hr IV .[id number] MARY CARMEN Stop: 01/26/23 21:58 Last Admin: 12/27/22 21:58 Dose: 75 mls/hr Documented By: CAROL Lisinopril (Lisinopril 10 Mg Tab) 30 mg PO HS MARY CARMEN Stop: 01/26/23 22:14 Last Admin: 12/27/22 23:14 Dose: 30 mg Documented By: CAROL Oxycodone HCl (Oxycodone Hcl Ir 5 Mg Tab (Immediate Release)) 5 - 10 mg PO Q4H PRN PRN Reason: mod to severe pain Stop: 01/10/23 21:58 Last Admin: 12/27/22 23:37 Dose: 10 mg Documented By: CAROL Propranolol HCl (Propranolol Hcl 20 Mg Tab) 20 mg PO BID MARY CARMEN Stop: 01/26/23 22:14 Last Admin: 12/27/22 23:14 Dose: 20 mg Documented By: CAROL Discontinued Medications Hydromorphone HCl (Hydromorphone Inj 1 Mg/Ml Syringe) 1 mg IV NOW STA Stop: 12/27/22 20:13 Last Admin: 12/27/22 20:23 Dose: 1 mg Documented By: RAMON Ondansetron HCl (Ondansetron Inj 2 Mg/Ml 2 Ml Vial) 4 mg IV NOW STA Stop: 12/27/22 20:13 Last Admin: 12/27/22 20:22 Dose: 4 mg Documented By: RAMON Discharge Plan Visit Data Chief Complaint: Back Injury/Pain Stated Complaint: BACK PAIN - MD REFERRED ED Provider: Amanuel Suazo Discharge Problem: Lumbar disc herniation with radiculopathy, Acute low back pain Patient Disposition: Admitted As Inpatient Discharge Instructions Interventions: ED Discharge Assessment Last Done: 12/27/22 21:36
[2022-12-27 20:06] LABS: Basophils # (auto) 0.01 K/uL (0.00-0.20); Basophils % (auto) 0.1 %; Eosinophils # (auto) 0.01 K/uL (0.00-0.50); Eosinophils % (auto) 0.1 %; Hematocrit (blood only) 41.9 % (37.0-47.0); Hemoglobin 14.2 g/dl (12.0-16.0); Immature Granulocytes # (auto) 0.03 K/uL (0.01-0.20); Immature Granulocytes % (auto) 0.3 %; Lymphocytes # (auto) 1.65 K/uL (1.20-3.40); Mean Corpuscular Hemoglobin 29.8 pg (25.0-34.0); Mean Corpuscular Hgb Conc 33.9 g/dL (32.0-36.0); Mean Platelet Volume 9.8 fL (9.4-12.4); Monocytes # (auto) 0.41 K/uL (0.11-0.59); Monocytes % (auto) 4.7 %; Neutrophils # (auto) 6.57 K/uL (1.40-6.50); Neutrophils % (auto) 75.8 %; Platelet Count 211 K/uL (130-400); RDW Coefficient of Variation 13.2 % (11.5-14.5); RDW Standard Deviation 42.1 fL (36.4-46.3); Red Blood Count 4.76 M/uL (4.20-5.40); White Blood Count 8.68 K/ul (4.8-10.8)
[2022-12-27] MEDS ORDERED: HYDROmorphone INJ 1 MG/ML SYRINGE IV STA (20:12)
[2022-12-27] MEDS ORDERED: ONDANSETRON INJ 2 MG/ML 2 ML VIAL IV STA (20:12)
[2022-12-27 20:20] LABS: Alanine Aminotransferase 11 U/L (7-52); Albumin Globulin Ratio 1.7 (0.9-2); Albumin Level 4.1 gm/dl (3.4-5.0); Alkaline Phosphatase 80 U/L (34-104); Anion Gap 6 (3-11); Aspartate Aminotransferase 22 U/L (13-39); BUN Creatinine Ratio 25.3 (10-20); Bilirubin,Total 0.2 mg/dl (0.2-1.0); Blood Urea Nitrogen 19 mg/dl (6-23); Carbon Dioxide 25 mmol/L (21-32); Chloride 105 mmol/L (98-107); Est GFR (African American) 104.7 ml/min; Est GFR (Non-African American) 90.4 ml/min; Globulin 2.4 gm/dl (2.5-4.0); Glucose 118 mg/dl (70-99(Fasting)); Potassium 4.3 mmol/L (3.5-5.1); Sodium 136 mmol/L (136-145); Total Protein 6.5 gm/dl (6.0-8.3)
[2022-12-27 20:34] LABS: Partial Thromboplastin Ratio 0.9; Partial Thromboplastin Time 25.1 Seconds (21.0-31.0)
[2022-12-27] MEDS: LACTATED RINGER'S 1,000 ML IV SCH (21:58)
[2022-12-27] MEDS ORDERED: PROMETHAZINE HCL 12.5 MG in SODIUM CHLORIDE 0.9% 50 ML IV PRN (21:59)
[2022-12-27] MEDS ORDERED: LORazepam 2 MG/1 ML VIAL IV PRN (21:59)
[2022-12-27] MEDS ORDERED: ACETAMINOPHEN 1,000 MG/100 ML VIAL IV PRN (21:59)
[2022-12-27] MEDS ORDERED: ONDANSETRON 4 MG OD TAB PO PRN (21:59)
[2022-12-27] MEDS ORDERED: NALOXONE HCL 0.4 MG/1 ML VIAL/CARP IV PRN (21:59)
[2022-12-27] MEDS ORDERED: traMADol HCL 50 MG TABLET PO PRN (21:59)
[2022-12-27] MEDS ORDERED: hydrOXYzine HCl 25 MG TAB PO PRN (21:59)
[2022-12-27] MEDS ORDERED: ACETAMINOPHEN 500 MG TAB PO PRN (21:59)
[2022-12-27] MEDS ORDERED: METOCLOPRAMIDE HCL INJ 5 MG/ML 2 ML VIAL IV PRN (21:59)
[2022-12-27] MEDS ORDERED: ONDANSETRON INJ 2 MG/ML 2 ML VIAL IV PRN (21:59)
[2022-12-27] MEDS ORDERED: MAGNESIUM HYDROXIDE SUSP 30 ML UDC PO PRN (21:59)
[2022-12-27] MEDS ORDERED: LORazepam 0.5 MG TAB PO PRN (21:59)
[2022-12-27 23:04] LABS: Basophils # (auto) 0.02 K/uL (0.00-0.20); Basophils % (auto) 0.2 %; Hematocrit (blood only) 41.4 % (37.0-47.0); Hemoglobin 13.7 g/dl (12.0-16.0); Immature Granulocytes # (auto) 0.03 K/uL (0.01-0.20); Immature Granulocytes % (auto) 0.3 %; Lymphocytes # (auto) 1.63 K/uL (1.20-3.40); Lymphocytes % (auto) 18.5 %; Mean Corpuscular Hemoglobin 29.2 pg (25.0-34.0); Mean Corpuscular Hgb Conc 33.1 g/dL (32.0-36.0); Mean Corpuscular Volume 88.3 fL (80.0-100.0); Mean Platelet Volume 10.1 fL (9.4-12.4); Monocytes % (auto) 4.5 %; Neutrophils # (auto) 6.73 K/uL (1.40-6.50); Neutrophils % (auto) 76.5 %; Platelet Count 219 K/uL (130-400); RDW Coefficient of Variation 13.2 % (11.5-14.5); RDW Standard Deviation 42.4 fL (36.4-46.3); Red Blood Count 4.69 M/uL (4.20-5.40); White Blood Count 8.81 K/ul (4.8-10.8)
[2022-12-27] MEDS: busPIRone 5 MG TAB PO SCH (23:14)
[2022-12-27] MEDS: lisinopril 10 MG TAB PO SCH (23:14)
[2022-12-27] MEDS: amLODIPine BESYLATE 5 MG TAB PO SCH (23:14)
[2022-12-27] MEDS: PROPRANOLOL HCL 20 MG TAB PO SCH (23:14)
[2022-12-27] MEDS: DULoxetine HCL 60 MG CAP PO SCH (23:14)
[2022-12-27 23:23] LABS: Albumin Globulin Ratio 1.6 (0.9-2); BUN Creatinine Ratio 21.1 (10-20); Bilirubin,Total 0.2 mg/dl (0.2-1.0); Calcium 8.8 mg/dl (8.6-10.3); Creatinine Clr Calc Pharmacy 92.3 ml/min; Est GFR (African American) 103.1 ml/min; Est GFR (Non-African American) 88.9 ml/min; Globulin 2.5 gm/dl (2.5-4.0); Potassium 4.5 mmol/L (3.5-5.1); Total Protein 6.5 gm/dl (6.0-8.3)
[2022-12-27 23:27] LABS: Pregnancy Test, Serum Negative (Negative)
[2022-12-27] MEDS: oxyCODONE HCL IR 5 MG TAB (IMMEDIATE RELEASE) PO PRN (23:37)
[2022-12-28] MEDS: HYDROmorphone INJ 1 MG/ML SYRINGE IV PRN ×4 (04:37→20:43)
--- NOTE | 2022-12-28 07:37 | Hospitalist Consultation ---
Date of Consultation December 28, 2022 Assessment & Plan (1) Acute left lumbar radiculopathy: ongoing pain, worsened since picking up watermelon at [email or web address] on 12/24, worsened pain after dc from ER. Had been undergoing therapy through [facility] since per patient CT Lumbar spine at that time with IMPRESSION: 1. Postoperative changes at L4-L5 without hardware complication. 2. No significant central spinal canal narrowing. 3. Mild left foraminal narrowing at L4-L5. Mild right foraminal narrowing at L5-S1. MRI lumbar spine ordered for further evaluation, pending but to be completed this morning Dr Gutierrez primary Pain control/bowel regimen patient reports no BM 2-3 days, added dose x 1, others ordered by Dr Gutierrez Rest of orders per primary service Suspect will need surgery while inpatient, but awaiting MRI results Will place CXR for AM in case, EKG (2) Foraminal stenosis of lumbar region: (3) Hypertension: remains on lisinopril HS, amlodipine QAm Continue these for now -- monitor for need to hold post-operatively (4) GERD (gastroesophageal reflux disease): continue PPI (5) Anxiety: continue home meds- cymbalta (6) Acute low back pain: as above Plan Thank you for allowing hospitalist service participate in the care of Ms Addison. Hospitalist service will follow along. Please call with questions/concerns. Supervising Physician Co-Signing Physician Notes The patient was seen by me. The chart was reviewed. Case discussed with RAMYA Rivera. Agree with assessment and plan History of Present Illness Reason for Consultation: med management Requesting Physician: Dr Gutierrez Attending Physician: Akin Gutierrez, History of Present Illness 52yo female with PMHx significant for HTN, GERD (hx h. pylori), anxiety, sciatica and prior back surgery with Dr Gutierrez in March for lumbar disc herniation with radiculopathy presented to the ER on 12/25 for worsening back pain over the last few weeks, recently worsened by picking up a watermelon at the grocery store 12/24 and having ongoing left low back pain into the hip. Taking ibuprofen and muscle relaxers for pain control at home. Was treated in ER with IV Solu-medrol/toradol/lidocaine patch and discharged home with follow up with Dr Gutierrez, who recommended she return to ER with ongoing/worsening pain for further evaluation with MRI lumbar spine/possible need for intervention. She is evaluated in room 384-1, kamari at bedside. Endorses picking up the watermelon and made pain worse w/ reports radiation down her leg and weakness on the left. Awaiting MRI lumber spine at present -- called and they will be doing questionable to complete this morning. She reports not having any significant improvement since dc from ER w/ steroids. She had been having ongoing issues w/ pain w/ ambulation over the past several months and reports having been undergoing therapy through [facility] since June of this year. She does take a stool softener about every 2-3 days, will order. No loss of bowel/bladder function reported. No fever/chills, chest pain, shortness of breath, nausea at present. Questions/concerns addressed. Allergies Allergy/AdvReac Type Severity Reaction Status Date / Time No Known Allergies Allergy Verified 12/25/22 17:39 Home Medications Medication Instructions Recorded Confirmed Type amlodipine 5 mg tablet (Norvasc) 5 mg PO HS 01/06/20 12/27/22 History cyclobenzaprine 10 mg tablet 10 mg PO TID PRN Muscle Spasm 01/06/20 12/27/22 History lisinopril 30 mg tablet 30 mg PO HS 01/06/20 12/27/22 History pantoprazole 40 mg tablet,delayed 40 mg PO QAM 01/06/20 12/27/22 History release (Protonix) propranolol 20 mg tablet 20 mg PO BID 01/06/20 12/27/22 History valacyclovir 500 mg tablet 500 mg PO QAM 01/06/20 12/27/22 History (Valtrex) buspirone 10 mg tablet 20 mg PO BID 02/26/22 12/27/22 History cholecalciferol (vitamin D3) 25 25 mcg PO QAM 02/26/22 12/27/22 History mcg (1,000 unit) tablet (Vitamin D3) cyanocobalamin (vitamin B-12) 1,000 mcg IM MO 02/26/22 12/27/22 History 1,000 mcg/mL injection solution multivitamin 1 tab PO QAM 02/26/22 12/27/22 History ondansetron 8 mg disintegrating 8 mg PO Q8H PRN Nausea 02/26/22 12/27/22 History tablet zolpidem 10 mg tablet 10 mg PO HS PRN Insomnia 02/26/22 12/27/22 History cranberry 400 mg capsule 400 mg PO DAILY 12/25/22 12/27/22 History duloxetine 60 mg capsule,delayed 60 mg PO HS 12/25/22 12/27/22 History release lidocaine 5 % topical patch 1 patch topical DAILY PRN pain #15 12/25/22 12/27/22 Rx (Lidoderm) ea methylprednisolone 4 mg tablets in See Rx Instructions .Route 12/25/22 12/27/22 Rx a dose pack .COMPLEX #21 ea oxycodone 5 mg tablet 5 mg PO Q8H PRN pain #9 tabs 12/25/22 12/27/22 Rx Patient History Medical History Anxiety Depression GERD (gastroesophageal reflux disease) controlled, stable per pt Hypertension controlled, stable per pt Obesity Surgical History History of back surgery L4-5 laminectomy (01/11/20): Grade 2 view, MAC 3.0, ETT 7.[address] [facility]. No issues noted per post-op anesthesia progress note. History of colonoscopy Hx laparoscopic cholecystectomy Hx of appendectomy Hx of hysterectomy Hx of tonsillectomy HX: benign breast biopsy X 8 HAS SOME MARKERS IN BREAST Family History Other No family history of adverse response to anesthesia Social History Smoking Status: Former smoker Tobacco Type: Cigarettes Cigarettes Per Day: 10; Second Hand Exposure: No; Do You Dip or Chew Tobacco: No; Tobacco Cessation Education Requested by Patient: No Hx Alcohol Use: Yes Alcohol type: wine Hx Substance Use: No Preferred Language: Ukrainian Communication Ability: Effective Ambulatory Care Coordinator Required: No Beliefs That Will Affect Care: None marital status: Single Current Living Situation: Spouse Other Information That Helps Us Care for You: No Feels Safe at Home: Yes Safety Concerns: Feels Safe At This Time Assistive Devices: Cane, Glasses, Hospital Bed and Walker Review of Systems Review of Systems: All systems reviewed & are unremarkable except as noted in HPI & below Physical Exam Physical Exam: General: WD/WN female laying flat in bed, fiance at bedside, NAD HEENT: head normocephalic, atraumatic, mmm, trachea midline Resp; CTA, no w/c/r CV: RRR, no significant m/r/g, no calf tenderness GI: +BS, soft, slight distension, nontender : no looney MSK/Neuro: decreased strength plantar/dorsiflexion LLE compared to the right but weakness appreciated bilaterally. NVI at present to sensation, pulses palpable follows commands, no facial droop/slurred speech Psych: AOx3, cooperative with exam Results & Data Results & Data Vital Signs (Past 12 Hours) Vital Signs Temp Pulse Resp BP Pulse Ox Pulse Ox O2 Del Method 12/28/22 07:28 36.6 C 66 14 104/68 96 Room Air 12/27/22 22:00 Room Air, Nasal Cannula 12/27/22 22:00 Room Air, Nasal Cannula 12/27/22 22:41 99 12/27/22 22:11 36.9 C 68 18 149/94 H 99 Room Air 12/27/22 22:00 36.9 C 68 18 149/94 H 99 Room Air 12/27/22 20:23 77 16 166/97 H 94 12/27/22 19:50 Room Air O2 Del Method O2 Flow Rate 12/28/22 07:28 12/27/22 22:00 2 12/27/22 22:00 2 12/27/22 22:41 Room Air 12/27/22 22:11 12/27/22 22:00 12/27/22 20:23 12/27/22 19:50 Laboratory Results 12/27/22 12/27/22 12/27/22 Range/Units 22:24 22:24 22:24 WBC 8.81 (4.8-10.8) K/ul RBC 4.69 (4.20-5.40) M/uL Hgb 13.7 (12.0-16.0) g/dl Hct 41.4 (37.0-47.0) % MCV 88.3 (80.0-100.0) fL MCH 29.2 (25.0-34.0) pg MCHC 33.1 (32.0-36.0) g/dL RDW Std Deviation 42.4 (36.4-46.3) fL RDW Coeff of Ashley 13.2 (11.5-14.5) % Plt Count 219 (130-400) K/uL MPV 10.1 (9.4-12.4) fL Immature Gran % (Auto) 0.3 % Neut % (Auto) 76.5 % Lymph % (Auto) 18.5 % Burt % (Auto) 4.5 % Eos % (Auto) 0.0 % Baso % (Auto) 0.2 % Neut # (Auto) 6.73 H (1.40-6.50) K/uL Lymph # (Auto) 1.63 (1.20-3.40) K/uL Burt # (Auto) 0.40 (0.11-0.59) K/uL Eos # (Auto) 0.00 (0.00-0.50) K/uL Baso # (Auto) 0.02 (0.00-0.20) K/uL Immature Gran # (Auto) 0.03 (0.01-0.20) K/uL APTT (21.0-31.0) Seconds PTT Ratio Sodium 137 (136-145) mmol/L Potassium 4.5 (3.5-5.1) mmol/L Chloride 106 (98-107) mmol/L Carbon Dioxide 28 (21-32) mmol/L Anion Gap 3 (3-11) BUN 16 (6-23) mg/dl Creatinine 0.76 (0.6-1.2) mg/dl Est Cr Clr Drug Dosing 92.3 Est GFR ( Amer) 103.1 ml/min Est GFR (Non-Af Amer) 88.9 ml/min BUN/Creatinine Ratio 21.1 H (10-20) Glucose 107 H (70-99(Fasting)) mg/dl Calcium 8.8 (8.6-10.3) mg/dl Total Bilirubin 0.2 (0.2-1.0) mg/dl AST 22 (13-39) U/L ALT 12 (7-52) U/L Alkaline Phosphatase 70 (34-104) U/L Total Protein 6.5 (6.0-8.3) gm/dl Albumin 4.0 (3.4-5.0) gm/dl Globulin 2.5 (2.5-4.0) gm/dl Albumin/Globulin Ratio 1.6 (0.9-2) HCG, Qual Negative (Negative) 12/27/22 12/27/22 12/27/22 Range/Units 19:47 19:47 19:47 WBC 8.68 (4.8-10.8) K/ul RBC 4.76 (4.20-5.40) M/uL Hgb 14.2 (12.0-16.0) g/dl Hct 41.9 (37.0-47.0) % MCV 88.0 (80.0-100.0) fL MCH 29.8 (25.0-34.0) pg MCHC 33.9 (32.0-36.0) g/dL RDW Std Deviation 42.1 (36.4-46.3) fL RDW Coeff of Ashley 13.2 (11.5-14.5) % Plt Count 211 (130-400) K/uL MPV 9.8 (9.4-12.4) fL Immature Gran % (Auto) 0.3 % Neut % (Auto) 75.8 % Lymph % (Auto) 19.0 % Burt % (Auto) 4.7 % Eos % (Auto) 0.1 % Baso % (Auto) 0.1 % Neut # (Auto) 6.57 H (1.40-6.50) K/uL Lymph # (Auto) 1.65 (1.20-3.40) K/uL Burt # (Auto) 0.41 (0.11-0.59) K/uL Eos # (Auto) 0.01 (0.00-0.50) K/uL Baso # (Auto) 0.01 (0.00-0.20) K/uL Immature Gran # (Auto) 0.03 (0.01-0.20) K/uL APTT 25.1 (21.0-31.0) Seconds PTT Ratio 0.9 Sodium 136 (136-145) mmol/L Potassium 4.3 (3.5-5.1) mmol/L Chloride 105 (98-107) mmol/L Carbon Dioxide 25 (21-32) mmol/L Anion Gap 6 (3-11) BUN 19 (6-23) mg/dl Creatinine 0.75 (0.6-1.2) mg/dl Est Cr Clr Drug Dosing Not Reportable Est GFR ( Amer) 104.7 ml/min Est GFR (Non-Af Amer) 90.4 ml/min BUN/Creatinine Ratio 25.3 H (10-20) Glucose 118 H (70-99(Fasting)) mg/dl Calcium 9.0 (8.6-10.3) mg/dl Total Bilirubin 0.2 (0.2-1.0) mg/dl AST 22 (13-39) U/L ALT 11 (7-52) U/L Alkaline Phosphatase 80 (34-104) U/L Total Protein 6.5 (6.0-8.3) gm/dl Albumin 4.1 (3.4-5.0) gm/dl Globulin 2.4 L (2.5-4.0) gm/dl Albumin/Globulin Ratio 1.7 (0.9-2) HCG, Qual (Negative) PG Care Time/CCT Total # of Minutes Spent Total Time Spent with Patient: Total time spent is greater than 50% in coordination of care (as documented) at patient's floor/unit and/or counseling patient: Coding Level of Care Code 35090 IN/OBS CONSULT LVL 3,45M Diagnoses Acute left lumbar radiculopathy M54.16 Foraminal stenosis of lumbar region M48.061 Hypertension I10 GERD (gastroesophageal reflux disease) K21.9 Anxiety F41.9 Acute low back pain M54.50 Back pain laterality: unspecified Sciatica presence: unspecified whether sciatica present (6) Acute low back pain Back pain laterality: unspecified Sciatica presence: unspecified whether sciatica present Qualified Code(s): M54.50 - Low back pain, unspecified
[2022-12-28] MEDS: valACYclovir HCL 500 MG TABLET PO SCH (08:38)
[2022-12-28] MEDS: busPIRone 5 MG TAB PO SCH ×2 (08:38→20:42)
[2022-12-28] MEDS: PANTOprazole 40 MG TAB PO SCH (08:38)
[2022-12-28] MEDS: PROPRANOLOL HCL 20 MG TAB PO SCH ×2 (08:38→20:43)
[2022-12-28] MEDS: HYDROmorphone INJ 0.5 MG/0.5 ML SYR IV PRN (08:45)
[2022-12-28] MEDS ORDERED: bisacodyL 5 MG TABEC PO PRN (09:45)
[2022-12-28] MEDS ORDERED: bisacodyL 5 MG TABEC PO ONE (09:45)
[2022-12-28] MEDS ORDERED: DOCUSATE SODIUM 100 MG CAP PO ONE (09:45)
[2022-12-28] MEDS ORDERED: DOCUSATE SODIUM 100 MG CAP PO PRN (09:45)
--- NOTE | 2022-12-28 09:59 | History & Physical Report ---
Date of Service December 28, 2022 Assessment & Plan (1) Acute left lumbar radiculopathy: Plan: At this time I am awaiting MRI of the lumbar spine for final diagnosis and recommendations. Review of the CAT scan performed earlier this week but I do have suspicions of an L3-L4 neural compression. We will make final recommendations upon review of the MRI. Admission and Anticipated Discharge Date Admission Date: December 27, 2022 History of Present Illness Chief Complaint: Back and severe left leg pain with weakness Primary Care Provider: Annia Cohen This is a 52-year-old female well-known to me status post lumbar decompression f usion L4-5 last fall. She had been doing very nicely postoperatively. She is lost close to 20 pounds and exercising regularly. Unfortunately over the past several weeks she had onset of severe back and leg pain. This would be her second emergency room visit secondary to pain. She describes pain in the back buttock rating down the left thigh into the anterior thigh to the knee. She does get some symptoms radiating into the calf. Is exacerbated with activity. She is comfortable lying supine with her leg propped up. The right lower extremity is asymptomatic. She denies any loss of bowel or bladder control. Allergies Allergy/AdvReac Type Severity Reaction Status Date / Time No Known Allergies Allergy Verified 12/25/22 17:39 Home Medications Medication Instructions Recorded Confirmed Type amlodipine 5 mg tablet (Norvasc) 5 mg PO HS 01/06/20 12/27/22 History cyclobenzaprine 10 mg tablet 10 mg PO TID PRN Muscle Spasm 01/06/20 12/27/22 History lisinopril 30 mg tablet 30 mg PO HS 01/06/20 12/27/22 History pantoprazole 40 mg tablet,delayed 40 mg PO QAM 01/06/20 12/27/22 History release (Protonix) propranolol 20 mg tablet 20 mg PO BID 01/06/20 12/27/22 History valacyclovir 500 mg tablet 500 mg PO QAM 01/06/20 12/27/22 History (Valtrex) buspirone 10 mg tablet 20 mg PO BID 02/26/22 12/27/22 History cholecalciferol (vitamin D3) 25 25 mcg PO QAM 02/26/22 12/27/22 History mcg (1,000 unit) tablet (Vitamin D3) cyanocobalamin (vitamin B-12) 1,000 mcg IM MO 02/26/22 12/27/22 History 1,000 mcg/mL injection solution multivitamin 1 tab PO QAM 02/26/22 12/27/22 History ondansetron 8 mg disintegrating 8 mg PO Q8H PRN Nausea 02/26/22 12/27/22 History tablet zolpidem 10 mg tablet 10 mg PO HS PRN Insomnia 02/26/22 12/27/22 History cranberry 400 mg capsule 400 mg PO DAILY 12/25/22 12/27/22 History duloxetine 60 mg capsule,delayed 60 mg PO HS 12/25/22 12/27/22 History release lidocaine 5 % topical patch 1 patch topical DAILY PRN pain #15 12/25/22 12/27/22 Rx (Lidoderm) ea methylprednisolone 4 mg tablets in See Rx Instructions .Route 12/25/22 12/27/22 Rx a dose pack .COMPLEX #21 ea oxycodone 5 mg tablet 5 mg PO Q8H PRN pain #9 tabs 12/25/22 12/27/22 Rx Past Med/Surg History Medical History Anxiety Depression GERD (gastroesophageal reflux disease) controlled, stable per pt Hypertension controlled, stable per pt Obesity Surgical History History of back surgery L4-5 laminectomy (01/11/20): Grade 2 view, MAC 3.0, ETT 7.0 at [facility]. No issues noted per post-op anesthesia progress note. History of colonoscopy Hx laparoscopic cholecystectomy Hx of appendectomy Hx of hysterectomy Hx of tonsillectomy HX: benign breast biopsy X 8 HAS SOME MARKERS IN BREAST Family History Other No family history of adverse response to anesthesia Social History Smoking Status: Former smoker Tobacco Type: Cigarettes Cigarettes Per Day: 10; Second Hand Exposure: No; Do You Dip or Chew Tobacco: No; Tobacco Cessation Education Requested by Patient: No Hx Alcohol Use: Yes Alcohol type: wine Hx Substance Use: No Preferred Language: [place] Communication Ability: Effective It Security Architect Required: No Beliefs That Will Affect Care: None marital status: Single Current Living Situation: Spouse Other Information That Helps Us Care for You: No Feels Safe at Home: Yes Safety Concerns: Feels Safe At This Time Assistive Devices: Cane, Glasses, Hospital Bed and Walker Physical Exam Physical Exam: Patient is in obvious distress. She has difficulty with the exam. She exhibits tension signs straight leg raising on the left compared to the right. There is breakaway weakness to testing the quadriceps compared to the right. Plantarflexion dorsiflexion appear to be symmetric and intact. There is hypersensitivity to palpation of left thigh compared to the right. Deep and reflexes are absent. Results & Data Results & Data Vital Signs (Past 12 Hours) Vital Signs Temp Pulse Resp BP Pulse Ox Pulse Ox O2 Del Method 12/28/22 07:28 36.6 C 66 14 104/68 96 Room Air 12/27/22 22:00 Room Air, Nasal Cannula 12/27/22 22:00 Room Air, Nasal Cannula 12/27/22 22:41 99 12/27/22 22:11 36.9 C 68 18 149/94 H 99 Room Air 12/27/22 22:00 36.9 C 68 18 149/94 H 99 Room Air O2 Del Method O2 Flow Rate 12/28/22 07:28 12/27/22 22:00 2 12/27/22 22:00 2 12/27/22 22:41 Room Air 12/27/22 22:11 12/27/22 22:00 Code Status & VTE Plan VTE Prophylaxis Plan VTE Prophylaxis will be ordered: Yes
--- NOTE | 2022-12-28 11:33 | Magnetic Resonance Report ---
LUMBAR SPINE MRI HISTORY: back and leg pain TECHNIQUE: Multiplanar multisequence MRI of the lumbar spine was performed without the use of contras t. COMPARISON: CT lumbar spine 12/25/2022. Lumbar spine MRI 04/06/2022. FINDINGS: For the purpose of the report the L5-S1 disc space will be located on axial image 27 of 30. Computer Equipment Repairer images demonstrate a 2.8 cm cystic focus with a small fluid level within the right deep pelvis. This favors an ovarian cyst. No acute fracture or subluxation within the lumbar spine. The sacrum ap pears intact. 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 Posterior decompression and fusion with pedicle s crews and rods at L4-L5 again noted. The conus terminates at the L1-L2 disc space level. Mild disc sp alexsandra narrowing at L2-L3, unchanged. The remaining disc spaces are preserved. There is a 3 mm focal ashley tral disc protrusion at T10-11, unchanged. No significant central canal or neural foraminal narrowing at this level. Paravertebral soft tissues are unremarkable. Soft tissue edema at the laminectomy sit es has improved. Small fluid collection at the laminectomy site has decreased in size in the interval . This measures up to 1 cm in thickness, previously measuring 1.6 cm. This favors a resolving postope rative seroma. No mass effect along the thecal sac. L1-L2: No significant central canal or neural foraminal narrowing. L2-L3: Small broad-based posterior disc bulge without significant central canal or neural foraminal n arrowing. L3-L4: No significant central canal or neural foraminal narrowing. L4-L5: Prior laminectomy. No significant central canal or right-sided neural foraminal narrowing. The re is mild left-sided neural foraminal narrowing again noted. L5-S1: No significant central canal narrowing. Mild bilateral neural foraminal narrowing, unchanged. IMPRESSION: 1. Posterior decompression and fusion at L4-L5 again noted. 2. No significant central canal narrowing. 3. Neural foraminal narrowing within the lower lumbar spine, unchanged. 4. The small fluid collection at the L4-5 laminectomy site has decreased in size. This favors a resol ving postoperative seroma. 5. A 2.8 cm cystic focus with a small fluid level within the right deep pelvis. This favors an ovaria n cyst. Follow-up pelvic ultrasound in 3 months can be performed to ensure resolution. ACT 112: Negative or not required by law. Electronically signed by: Kevan Irizarry M.D. 12/28/2022 11:30 AM
[2022-12-28] MEDS: LACTATED RINGER'S 1,000 ML IV SCH (14:10)
[2022-12-28] MEDS: lisinopril 10 MG TAB PO SCH (20:41)
[2022-12-28] MEDS: DULoxetine HCL 60 MG CAP PO SCH (20:42)
[2022-12-28] MEDS: amLODIPine BESYLATE 5 MG TAB PO SCH (20:43)
[2022-12-28] MEDS: ZOLPIDEM TARTRATE 10 MG TAB PO PRN (21:21)
--- NOTE | 2022-12-28 21:45 | Electrocardiogram Report ---
Test Reason : Blood Pressure : / mmHG Vent. Rate : 069 BPM Atrial Rate : 069 BPM P-R Int : 158 ms QRS Dur : 092 ms QT Int : 404 ms P-R-T Axes : 053 064 044 degrees QTc Int : 432 ms Normal sinus rhythm Normal ECG When compared with ECG of 05-MAR-2022 12:30, No significant change was found Confirmed by Migel Adams ([id number]) on 12/28/2022 9:45:18 PM Referred By: Akin Gutierrez Confirmed By:Migel Adams
[2022-12-29] MEDS: LACTATED RINGER'S 1,000 ML IV SCH ×2 (03:07→15:57)
[2022-12-29] MEDS: HYDROmorphone INJ 1 MG/ML SYRINGE IV PRN ×2 (03:15→08:31)
--- NOTE | 2022-12-29 07:53 | XRay Report ---
XR chest 1V portable CLINICAL HISTORY: pre-op clearance COMPARISON STUDY: Chest radiograph March 05, 2022. FINDINGS: Lung volumes are normal. Lungs are clear. There is no pneumothorax or pleural effusion. Car diac size is normal. Mediastinal contours are normal. There is no evidence for pulmonary edema. IMPRESSION: No acute cardiopulmonary findings. ACT 112: Negative or not required by law. Electronically signed by: Epi Lainez M.D. 12/29/2022 7:51 AM
[2022-12-29] MEDS ORDERED: dexAMETHasone 8 MG in SYRINGE 0 ML IV ONE (08:15)
[2022-12-29] MEDS: valACYclovir HCL 500 MG TABLET PO SCH (08:32)
[2022-12-29] MEDS: PROPRANOLOL HCL 20 MG TAB PO SCH ×2 (08:32→21:20)
[2022-12-29] MEDS: busPIRone 5 MG TAB PO SCH ×2 (08:32→21:20)
[2022-12-29] MEDS: PANTOprazole 40 MG TAB PO SCH (08:32)
--- NOTE | 2022-12-29 09:26 | Orthopedic Progress Note ---
Date of Service December 29, 2022 Assessment & Plan (1) Acute left lumbar radiculopathy: Plan: MRI lumbar spine demonstrates no evidence of gross neural compression. I reviewed these findings with the patient this morning. We will initiate a course of physical therapy add Neurontin and a course of steroids to calm down the inflammation. Hopefully will be able to discharge home tomorrow. She feels improved today we may consider consultation with interventional pain management. Admission and Anticipated Discharge Date Admission Date: December 27, 2022 Subjective patient continues to have left leg pain. She is up and ambulating earlier today. Physical Exam Physical Exam: Patient is currently in bed. She has good strength testing. Results & Data Vital Signs (Past 12 Hours) Vital Signs Temp Pulse Resp BP Pulse Ox O2 Del Method 12/29/22 07:04 36.6 C 73 16 112/73 93 Room Air
[2022-12-29] MEDS: HYDROmorphone INJ 0.5 MG/0.5 ML SYR IV PRN ×2 (12:53→19:57)
--- NOTE | 2022-12-29 12:53 | Hospitalist Progress Note ---
Date of Service December 29, 2022 Assessment & Plan (1) Acute left lumbar radiculopathy: Plan: With ongoing pain, worsened since picking up watermelon at grocery store on 12/24, worsened pain after dc from ER. Had been undergoing therapy through [facility] since June CT Lumbar spine at that time with IMPRESSION: 1. Postoperative changes at L4-L5 without hardware complication. 2. No significant central spinal canal narrowing. 3. Mild left foraminal narrowing at L4-L5. Mild right foraminal narrowing at L5-S1. MRI lumbar spine ordered for further evaluation,shows: 1. Posterior decompression and fusion at L4-L5 again noted. 2. No significant central canal narrowing. 3. Neural foraminal narrowing within the lower lumbar spine, unchanged. 4. The small fluid collection at the L4-5 laminectomy site has decreased in size. This favors a resolving postoperative seroma. 5. A 2.8 cm cystic focus with a small fluid level within the right deep pelvis. This favors an ovarian cyst. Follow-up pelvic ultrasound in 3 months can be performed to ensure resolution. Dr Gutierrez recommends steroids, gabapentin, PT, and possible Pain Mangement evaluation-he will arrange Moving bowels dc IVFs, no surgery planned Ortho planning to discharge tomorrow (2) Foraminal stenosis of lumbar region: (3) Hypertension: Plan: BPs controlled -continue on lisinopril HS, amlodipine (4) GERD (gastroesophageal reflux disease): Plan: continue PPI (5) Anxiety: Plan: continue home meds- cymbalta (6) Acute low back pain: Plan: as above (7) Adnexal cyst: Plan: right pelvis, 2.8cm, not previously mentioned on Rad reports advised pelvic US as an outpt-discussed with patient Plan Hospitalist service will sign off at this time Admission and Anticipated Discharge Date Admission Date: December 27, 2022 Subjective Still having pain down left LE. Able to walk around. Denies CP, SOB. Discussed the possible ovarian cyst seen on MRI and need for pelvic US follow up Physical Exam Constitutional: WD/WN, vitals as above Respiratory: normal respiratory effort, lungs clear to auscultation Cardiovascular: RRR, no murmur, no edema Gastrointestinal (Abdomen): normal bowel sounds, soft, nontender, no hepatosplenomegaly Neurologic: PERRL, EOMI, accommodation nl, no face palsy, no dysarthria no focal motor deficits and not confused Motor/Sensory: no tremor Results & Data Results & Data Vital Signs (Past 12 Hours) Vital Signs Temp Pulse Resp BP Pulse Ox O2 Del Method 12/29/22 07:04 36.6 C 73 16 112/73 93 Room Air Diagnostic Findings CXR reviewed PG Care Time/CCT Total # of Minutes Spent Total Time Spent with Patient: Total time spent is greater than 50% in coordination of care (as documented) at patient's floor/unit and/or counseling patient: Coding Level of Care Code 81013 SUB INP/OBS CARE 05/28MIN Diagnoses Acute left lumbar radiculopathy M54.16 Foraminal stenosis of lumbar region M48.061 Hypertension I10 GERD (gastroesophageal reflux disease) K21.9 Anxiety F41.9 Acute low back pain M54.50 Back pain laterality: unspecified Sciatica presence: unspecified whether sciatica present Adnexal cyst N94.9 (6) Acute low back pain Back pain laterality: unspecified Sciatica presence: unspecified whether sciatica present Qualified Code(s): M54.50 - Low back pain, unspecified
[2022-12-29] MEDS: oxyCODONE HCL IR 5 MG TAB (IMMEDIATE RELEASE) PO PRN ×2 (17:03→21:17)
[2022-12-29] MEDS ORDERED: bisacodyL 10 MG SUPP PR PRN (20:15)
[2022-12-29] MEDS: ZOLPIDEM TARTRATE 10 MG TAB PO PRN (21:17)
[2022-12-29] MEDS: GABAPENTIN 300 MG CAP PO SCH (21:18)
[2022-12-29] MEDS: lisinopril 10 MG TAB PO SCH (21:19)
[2022-12-29] MEDS: DULoxetine HCL 60 MG CAP PO SCH (21:19)
[2022-12-29] MEDS: amLODIPine BESYLATE 5 MG TAB PO SCH (21:20)
[2022-12-30] MEDS: oxyCODONE HCL IR 5 MG TAB (IMMEDIATE RELEASE) PO PRN ×3 (03:03→16:16)
[2022-12-30] MEDS: valACYclovir HCL 500 MG TABLET PO SCH (08:40)
[2022-12-30] MEDS: GABAPENTIN 300 MG CAP PO SCH (08:40)
[2022-12-30] MEDS: PROPRANOLOL HCL 20 MG TAB PO SCH (08:40)
[2022-12-30] MEDS: busPIRone 5 MG TAB PO SCH (08:40)
[2022-12-30] MEDS: PANTOprazole 40 MG TAB PO SCH (08:41)
--- NOTE | 2022-12-30 10:26 | Discharge Summary ---
Date of Service December 30, 2022 Admission HPI Per Admitting Provider This is a 52-year-old female well-known to me status post lumbar decompression fusion L4-5 last fall. She had been doing very nicely postoperatively. She is lost close to 20 pounds and exercising regularly. Unfortunately over the past several weeks she had onset of severe back and leg pain. This would be her second emergency room visit secondary to pain. She describes pain in the back buttock rating down the left thigh into the anterior thigh to the knee. She does get some symptoms radiating into the calf. Is exacerbated with activity. She is comfortable lying supine with her leg propped up. The right lower extremity is asymptomatic. She denies any loss of bowel or bladder control. Admission Exam (Per Admitting) Constitutional well developed Eyes normal visual bain by confrontation ENMT external ear and nose normal, oropharynx normal Neck normal visual inspection Respiratory normal respiratory effort Cardiovascular Extremities: normal capillary refill Gastrointestinal (Abdomen) Inspection/Auscultation: abdomen normal to inspection Musculoskeletal Spine: + pain with thoraco-lumbar ROM Extremities: extremities normal to inspection and strength 5/5 throughout Skin no rashes, warm and dry Neurologic normal touch/pain/proprioception and moves all extremities Psychiatric A+Ox3, euthymic affect Eye Contact: good eye contact Discharge Data Consultations 12/27/22 19:40 Consult Orthopedic Surgery Stat 12/27/22 21:59 Consult Internal Medicine Routine Hospital Course (1) Acute left lumbar radiculopathy: Patient was admitted via the emergency room on December 27, 2022 for lower back pain. She is being discharged home today. She has began physical therapy and started on Neurontin. Pain is improving. She has had both a CAT scan and an MRI of her lumbar spine during her hospital stay. No acute surgical and intervention warranted. She will follow-up in our office in a couple of weeks. Discharge Instructions follow up with dr Levin in a few weeks. please call for appointment [phone] ambulate ad urbano no lifting over 10lbs
== END 2022-12-30 18:09 | disposition hospice, home (50) | DRG 552 ==
LOC: ED 18:35 → 3N 20:19
DX: F41.9 Anxiety disorder, unspecified; Z87.891 Personal history of nicotine dependence; K21.9 Gastro-esophageal reflux disease without esophagitis; I10 Essential (primary) hypertension; M48.061 Spinal stenosis, lumbar region without neurogenic claudication; Z79.899 Other long term (current) drug therapy; N94.9 Unspecified condition associated with female genital organs and menstrual cycle; M54.16 Radiculopathy, lumbar region

== ENCOUNTER 2024-07-21 15:27 | Inpatient (IN) ==
--- NOTE | 2024-07-21 15:43 | Emergency Department Note ---
Impression & Plan Acute low back pain, Sciatic leg pain ED Provider Note NAME: KEN GUTIERREZ AGE: 54 SEX: F : 1970 ARRIVES VIA: Walk-In INFORMANT: Patient, ED PROVIDER(S): Gonzalo Torres MD CHIEF COMPLAINT: Back pain MEDICAL DECISION MAKING: Patient presents due to concern for back pain. IV was established and blood work was obtained. Patient was ordered IV Toradol IV methylprednisolone and lidocaine patch as well as IV fentanyl [address] lumbar spine also ordered. Patient with a normal white count H&H and platelet count kidney function is unremarkable. Patient already received dexamethasone [place] methylprednisolone was held. CT lumbar spine does show mild spinal stenosis at L3-L4 with bilateral neuroforaminal narrowing at L3-L4 that may be affecting the exiting L3 nerve roots likely consistent with the patient's exam. I did inform the patient the findings. Patient's history and exam is consistent with sciatica. The patient does not have any evidence of cauda equina currently. Do not believe she requires an emergent MRI of the lumbar spine. The patient still had pain and was given IV morphine 8 mg. Given the patient was still having discomfort I did reach out to placement specialist Dr. Gutierrez said the patient could be admitted medicine would evaluate her in the morning. I did speak the on-call hospitalist Dr. Montoya. Patient does not have any evidence of cauda equina at this time. The patient does have ambulatory dysfunction secondary to pain likely from sciatica. Patient was admitted to the medicine service. Discussion w/ other healthcare providers: Dr. Montoya inpatient medicine service Dr. Gutierrez placement specialist Prior /Outside records reviewed: None Differential diagnosis: Musculoskeletal, disc herniation, fracture, sprain, strain, cord compression, discitis, sciatica, cauda equina, infection, renal colic, as well as other pathologies were considered. Diagnostics, as interpreted by me: ECG: None Cardiac monitoring: An order was placed for continuous cardiac monitoring. The monitor shows a rate of 89 with sinus rhythm. Patient was placed on pulse oximetry Medical decision rules: None Imaging studies: I informally interpreted the patient's CT lumbar spine reviewed which does show fusion hardware present at L4-L5 with formal report to follow. HPI: Patient presents due to concern for back pain. Patient states that she has had chronic back pain but seem to be worse this morning. The patient does have a known history of prior fusion as well as discectomy both completed by Dr. Gutierrez in the past. Patient states that the pain radiates from her left back into her buttock and then down to her knee. It does not go down to the toe. The patient denies any bowel or bladder incontinence or retention. Patient does have occasional tingling. No reported falls or trauma and the patient denies any recent heavy lifting twisting or turning. Patient denies any recent coughing or sneezing fits that exacerbated her symptoms. reports that she was seen recently at the [place] and did have an x-ray which showed that there may be some movement of one of her vertebra. Unclear as to whether or not the patient is describing anterior listhesis. Patient was subsequently seen at [facility] emergency department did receive 2 doses of IV Dilaudid without significant improvement in symptoms and upon discharge the patient presented here. PAST MEDICAL HISTORY: See Below PAST SURGICAL HISTORY: See Below SOCIAL HISTORY: See Below HOME MEDICATIONS: See Below ALLERGIES: See Below VITALS: See Below PHYSICAL EXAMINATION: GENERAL: NAD, non-toxic. EYE EXAM: Normal conjunctiva. PERRL, no anisocoria and EOM's grossly intact w/o pain. OROPHARYNX: Moist mucus membranes, grossly normal dentition. NECK: Trachea midline, no stridor. Supple, no nuchal rigidity, no adenopathy, non-tender. No signs of meningismus. FROM of the neck with good chin to chest and neck extension. LUNGS: Clear to auscultation. Normal chest wall mechanics. HEART: NSR, no MRG. ABDOMEN: Abdomen soft, non-tender, no masses, no rebound or guarding. BACK: No CVA TTP. Reproducible midline and left-sided paraspinal lumbar discomfort. SKIN: No rashes and no bruising. UPPER EXTREMITIES: Upper extremities are grossly normal. LOWER EXTREMITIES: Grossly normal, no edema. Positive straight leg raise left lower extremity, positive opposite straight leg raise. No saddle anesthesia, decreased range of motion of both legs secondary to pain. NEURO EXAM: A&O x3, cranial nerves II-XII grossly intact, normal speech, moves all 4 extremities. Past Med/Surg History Problem List (Updated 07/21/24 @ 20:47 by Gonzalo Torres MD) Adnexal cyst Trochanteric bursitis of right hip Hypertension controlled, stable per pt GERD (gastroesophageal reflux disease) controlled, stable per pt Anxiety Encounter for pre-operative examination Lumbar disc herniation with radiculopathy (Acute) Acute low back pain (Acute) Sciatic leg pain (Acute) Medical History Obesity Depression Surgical History History of back surgery L4-5 laminectomy (01/11/20): Grade 2 view, MAC 3.0, ETT 7.0 at [facility]. No issues noted per post-op anesthesia progress note. History of colonoscopy Hx of tonsillectomy HX: benign breast biopsy X 8 HAS SOME MARKERS IN BREAST Hx of hysterectomy Hx of appendectomy Hx laparoscopic cholecystectomy Family History Other No family history of adverse response to anesthesia Social History Smoking Status: Never smoker Tobacco Type: Cigarettes Cigarettes Per Day: 10; Second Hand Exposure: No; Do You Dip or Chew Tobacco: No; Hx Alcohol Use: Yes Alcohol type: wine Hx Substance Use: No Preferred Language: Bur[place]ian Communication Ability: Effective Radio Reporter Required: No Beliefs That Will Affect Care: None marital status: Single Current Living Situation: Spouse Feels Safe at Home: Yes Assistive Devices: Cane Allergies Allergies Allergy/AdvReac Type Severity Reaction Status Date / Time No Known Allergies Allergy Verified 07/21/24 18:38 Home Meds Home Medications Medication Instructions Recorded Confirmed lisinopril 30 mg tablet 30 mg PO HS 01/06/20 07/21/24 pantoprazole 40 mg tablet,delayed 40 mg PO BID 01/06/20 07/21/24 release (Protonix) propranolol 20 mg tablet 20 mg PO BID 01/06/20 07/21/24 valacyclovir 500 mg tablet 500 mg PO QAM 01/06/20 07/21/24 (Valtrex) cholecalciferol (vitamin D3) 25 25 mcg PO QAM 02/26/22 07/21/24 mcg (1,000 unit) tablet (Vitamin D3) cyanocobalamin (vitamin B-12) 1,000 mcg IM MONTHLY 02/26/22 07/21/24 1,000 mcg/mL injection solution multivitamin 1 tab PO QAM 02/26/22 07/21/24 zolpidem 10 mg tablet 10 mg PO HS Insomnia 02/26/22 07/21/24 duloxetine 60 mg capsule,delayed 60 mg PO HS 12/25/22 07/21/24 release amlodipine 10 mg tablet 10 mg PO HS 07/21/24 07/21/24 atomoxetine 80 mg capsule 80 mg PO QAM 07/21/24 07/21/24 buspirone 15 mg tablet 30 mg PO BID 07/21/24 07/21/24 cetirizine 10 mg tablet (Zyrtec) 10 mg PO QAM 07/21/24 07/21/24 cranberry 500 mg capsule 500 mg PO QAM 07/21/24 07/21/24 meloxicam 15 mg tablet 15 mg PO QAM 07/21/24 07/21/24 methyl salicylate 15 %-menthol 10 1 applic topical TID PRN Pain 07/21/24 07/21/24 % topical cream soy isoflavone-black cohosh 155 cap PO QAM 07/21/24 07/21/24 root-magnolia bark 155 mg capsule (Estroven) tizanidine 2 mg tablet 4 mg PO Q8H PRN Pain 07/21/24 07/21/24 Results & Data (ED) Vital Signs Vital Signs - 24 hr 07/21/24 15:32 07/21/24 16:44 07/21/24 17:08 Temperature 36.4 C L Temperature Source Oral Pulse Rate 87 84 Pulse Rate [Apical] Pulse Rate from SpO2 Sensor Pulse Rhythm Regular Pulse Rhythm [Apical] Pulse Strength Normal Respiratory Rate 20 Respiratory Effort / Characteristics Non-Labored Spontaneous Respiratory Depth Normal Respiratory Pattern Regular Blood Pressure 129/70 Blood Pressure [Right Arm] Blood Pressure Mean 89 Blood Pressure Mean [Right Arm] Blood Pressure Position Sitting Blood Pressure Position [Right Arm] Pulse Oximetry 97 98 Oxygen Delivery Method Room Air Room Air Sepsis Recent Fever Within 48 Hours No Sepsis New/Unexplained Change in Mental Status No Sepsis Action Taken by Nursing No Action Required 07/21/24 17:27 07/21/24 17:29 07/21/24 19:00 Temperature Temperature Source Pulse Rate 94 H Pulse Rate [Apical] 86 92 H Pulse Rate from SpO2 Sensor 93 H Pulse Rhythm Pulse Rhythm [Apical] Regular Pulse Strength Respiratory Rate 13 17 14 Respiratory Effort / Characteristics Non-Labored Spontaneous Non-Labored Spontaneous Respiratory Depth Normal Normal Respiratory Pattern Regular Regular Blood Pressure 131/90 Blood Pressure [Right Arm] 144/89 H 141/97 H Blood Pressure Mean 103 Blood Pressure Mean [Right Arm] 107 111 Blood Pressure Position Blood Pressure Position [Right Arm] Right Lateral Pulse Oximetry 96 93 97 Oxygen Delivery Method Room Air Room Air Room Air Sepsis Recent Fever Within 48 Hours Sepsis New/Unexplained Change in Mental Status Sepsis Action Taken by [facility] Medications Current Medication List: was personally reviewed by me Laboratory Data Attestation: I reviewed the patient's lab results. 07/21/24 16:41 07/21/24 16:41 Lab Results 07/21/24 Range/Units 16:41 WBC 7.41 (4.8-10.8) K/ul RBC 4.82 (4.20-5.40) M/uL Hgb 14.1 (12.0-16.0) g/dl Hct 43.3 (37.0-47.0) % MCV 89.8 (80.0-100.0) fL MCH 29.3 (25.0-34.0) pg MCHC 32.6 (32.0-36.0) g/dL RDW Std Deviation 42.0 (36.4-46.3) fL RDW Coeff of Ashley 12.8 (11.5-14.5) % Plt Count 213 (130-400) K/uL MPV 9.1 L (9.4-12.4) fL Immature Gran % (Auto) 0.4 % Neut % (Auto) 83.6 % Lymph % (Auto) 14.6 % [place] % (Auto) 1.2 % Eos % (Auto) 0.1 % Baso % (Auto) 0.1 % Neut # (Auto) 6.19 (1.40-6.50) K/uL Lymph # (Auto) 1.08 L (1.20-3.40) K/uL [place] # (Auto) 0.09 L (0.11-0.59) K/uL Eos # (Auto) 0.01 (0.00-0.50) K/uL Baso # (Auto) 0.01 (0.00-0.20) K/uL Immature Gran # (Auto) 0.03 (0.01-0.20) K/uL Sodium 139 (136-145) mmol/L Potassium 4.2 (3.5-5.1) mmol/L Chloride 107 (98-107) mmol/L Carbon Dioxide 29 (21-32) mmol/L Anion Gap 3 (3-11) BUN 22 (6-23) mg/dl Creatinine 0.94 (0.6-1.2) mg/dl Est Cr Clr Drug Dosing 71.2 ml/min eGFR 71.22 BUN/Creatinine Ratio 23.4 H (10-20) Glucose 153 H (70-99(Fasting)) mg/dl Calcium 9.5 (8.6-10.3) mg/dl Administered Medications Discontinued Medications Acetaminophen (Acetaminophen 500 Mg Tab) 1,000 mg PO NOW STA Stop: 07/21/24 16:07 Last Admin: 07/21/24 16:33 Dose: 1,000 mg Documented By: MEE Fentanyl Citrate (Fentanyl Citrate Pf 100 Mcg/2 Ml Vial) 75 mcg IV NOW STA Stop: 07/21/24 16:07 Last Admin: 07/21/24 16:33 Dose: 75 mcg Documented By: MEE Hydromorphone HCl (Hydromorphone Inj 1 Mg/Ml Syringe) 1 mg IV NOW STA Stop: 07/21/24 19:41 Last Admin: 07/21/24 20:33 Dose: 1 mg Documented By: TRANG Ketorolac Tromethamine (Ketorolac Tromethamine 15 Mg/Ml Vial) 10 mg IV ONE STA Stop: 07/21/24 16:06 Last Admin: 07/21/24 16:32 Dose: 10 mg Documented By: MEE Lidocaine (Lidocaine 5% 1 Patch) 1 patch TD NOW STA Stop: 07/21/24 16:07 Last Admin: 07/21/24 16:32 Dose: 1 patch Documented By: MEE Methylprednisolone (Methylprednisolone 125 Mg/2 Ml Vial) 125 mg IV NOW STA Stop: 07/21/24 16:07 Last Admin: 07/21/24 17:02 Dose: Not Given Documented By: MEE Morphine Sulfate (Morphine Sulfate 10 Mg/Ml Carp/Vial) 8 mg IV NOW STA Stop: 07/21/24 18:04 Last Admin: 07/21/24 18:10 Dose: 8 mg Documented By: MEE Imaging Data Radiologist's Impression: Lumbar Spine CT 07/21/24 16:05 Clinical history: Lumbar radiculopathy Technique: Axial computed tomography images were obtained of the lumbar spine without intravenous contrast. Sagittal and coronal reconstructions were obtained Comparison is made to the prior CT dated 10/20/2023 Findings: There is an unchanged anterior and posterior fusion of L4 and L5 with posterior fixation rods and pedicle screws and prosthetic disc placement. There is no definite sign of instrumentation failure. Again seen is a complete laminectomy defect of L4 No fracture is identified. There is unchanged 2-3 mm of retrolisthesis of L3 on L4.. No focal osseous lesion is evident. There is no definite sign of osteomyelitis At L1-2, no disc herniation is identified. There is no spinal stenosis. The neural foramen are patent At L2-3, there is a disc bulge without spinal stenosis. The neural foramen are patent At L3-4, there is mild spinal stenosis due to a disc bulge and facet osteoarthritis. There is bilateral neural foramen narrowing that may affect the exiting L3 nerve roots At L4-5, no disc herniation is identified. There is no spinal stenosis. The neural foramen are patent At L5-S1, no disc herniation is identified. There is no spinal stenosis. The neural foramen are patent Impression: 1. Unchanged L4-5 fusion 2. Unchanged mild retrolisthesis at L3-4 3. Mild spinal stenosis at L3-4 4. Bilateral neural foramen narrowing at L3-4 that may affect the exiting L3 nerve roots ACT 112: Positive. There are findings on this exam that require communication between the performing entity and the patient following Patient Test Result Information Act ([place] ACT 112) guidelines. Electronically signed by Paulo Ling 07-21-2024 5:26 PM Discharge Plan Visit Data Chief Complaint: Back Injury/Pain Stated Complaint: LOWER BACK PAIN ED Provider: Gonzalo Torres Discharge Problem: Acute low back pain, Sciatic leg pain Forms Stand Alone Forms: [employer] Prescriptions Prescriptions: No Action valacyclovir [Valtrex] 500 mg Tablet 500 mg PO QAM pantoprazole [Protonix] 40 mg Tablet,Delayed Release (Dr/Ec) 40 mg PO BID lisinopril 30 mg Tablet 30 mg PO HS propranolol 20 mg Tablet 20 mg PO BID zolpidem 10 mg Tablet 10 mg PO HS multivitamin Tablet 1 tab PO QAM cyanocobalamin (vitamin B-12) 1,000 mcg/mL Solution 1,000 mcg IM MONTHLY cholecalciferol (vitamin D3) [Vitamin D3] 25 mcg (1,000 unit) Tablet 25 mcg PO QAM duloxetine 60 mg capsule,delayed release(DR/EC) 60 mg PO HS tizanidine 2 mg tablet 4 mg PO Q8H PRN (Reason: Pain) Rx Instructions: Pt always takes 4mg at bedtime and during the day if needed cetirizine [Zyrtec] 10 mg Tablet 10 mg PO QAM meloxicam 15 mg tablet 15 mg PO QAM amlodipine 10 mg tablet 10 mg PO HS buspirone 15 mg tablet 30 mg PO BID atomoxetine 80 mg capsule 80 mg PO QAM methyl salicylate-menthol 15-10 % Cream 1 applic TOPICAL TID PRN (Reason: Pain) Estroven 155 mg Capsule 155 cap PO QAM cranberry 500 mg Capsule 500 mg PO QAM Rx Instructions: administer with meals Referrals Referrals: Annia Cohen D.O. [Primary Care Provider] - Discharge Problem: Acute low back pain Qualifiers: Back pain laterality: midline Sciatica presence: with sciatica Sciatica laterality: sciatica of left side Qualified Code(s): M54.42 - Lumbago with sciatica, left side
[2024-07-21] MEDS: KETOROLAC TROMETHAMINE 15 MG/ML VIAL IV STA (16:32)
[2024-07-21] MEDS: LIDOCAINE 5% 1 PATCH TD STA ×2 (16:32→22:18)
[2024-07-21] MEDS: fentaNYL citrate PF 100 MCG/2 ML VIAL IV STA (16:33)
[2024-07-21] MEDS: ACETAMINOPHEN 500 MG TAB PO STA (16:33)
[2024-07-21] MEDS: methylPREDNISolone 125 MG/2 ML VIAL IV STA (17:02)
[2024-07-21 17:08] LABS: Basophils # (auto) 0.01 K/uL (0.00-0.20); Basophils % (auto) 0.1 %; Eosinophils # (auto) 0.01 K/uL (0.00-0.50); Eosinophils % (auto) 0.1 %; Hematocrit (blood only) 43.3 % (37.0-47.0); Hemoglobin 14.1 g/dl (12.0-16.0); Immature Granulocytes # (auto) 0.03 K/uL (0.01-0.20); Immature Granulocytes % (auto) 0.4 %; Lymphocytes # (auto) 1.08 K/uL (1.20-3.40); Lymphocytes % (auto) 14.6 %; Mean Corpuscular Hemoglobin 29.3 pg (25.0-34.0); Mean Corpuscular Hgb Conc 32.6 g/dL (32.0-36.0); Mean Corpuscular Volume 89.8 fL (80.0-100.0); Mean Platelet Volume 9.1 fL (9.4-12.4); Monocytes # (auto) 0.09 K/uL (0.11-0.59); Monocytes % (auto) 1.2 %; Neutrophils # (auto) 6.19 K/uL (1.40-6.50); Neutrophils % (auto) 83.6 %; Platelet Count 213 K/uL (130-400); RDW Coefficient of Variation 12.8 % (11.5-14.5); Red Blood Count 4.82 M/uL (4.20-5.40); White Blood Count 7.41 K/ul (4.8-10.8)
[2024-07-21 17:25] LABS: BUN Creatinine Ratio 23.4 (10-20); Calcium 9.5 mg/dl (8.6-10.3); Creatinine Clr Calc Pharmacy 71.2 ml/min; Potassium 4.2 mmol/L (3.5-5.1)
--- NOTE | 2024-07-21 17:36 | CT Scan Report ---
Clinical history: Lumbar radiculopathy Technique: Axial computed tomography images were obtained of the lumbar spine without intravenous contrast. Sagittal and coronal reconstructions were obtained Comparison is made to the prior CT dated 10/20/2023 Findings: There is an unchanged anterior and posterior fusion of L4 and L5 with posterior fixation rods and pedicle screws and prosthetic disc placement. There is no definite sign of instrumentation failure. Again seen is a complete laminectomy defect of L4 No fracture is identified. There is unchanged 2-3 mm of retrolisthesis of L3 on L4.. No focal osseous lesion is evident. There is no definite sign of osteomyelitis At L1-2, no disc herniation is identified. There is no spinal stenosis. The neural foramen are patent At L2-3, there is a disc bulge without spinal stenosis. The neural foramen are patent At L3-4, there is mild spinal stenosis due to a disc bulge and facet osteoarthritis. There is bilateral neural foramen narrowing that may affect the exiting L3 nerve roots At L4-5, no disc herniation is identified. There is no spinal stenosis. The neural foramen are patent At L5-S1, no disc herniation is identified. There is no spinal stenosis. The neural foramen are patent Impression: 1. Unchanged L4-5 fusion 2. Unchanged mild retrolisthesis at L3-4 3. Mild spinal stenosis at L3-4 4. Bilateral neural foramen narrowing at L3-4 that may affect the exiting L3 nerve roots ACT 112: Positive. There are findings on this exam that require communication between the performing entity and the patient following Patient Test Result Information Act ([place] ACT 112) guidelines. Electronically signed by Paulo Ling 07-21-2024 5:26 PM
[2024-07-21] MEDS: MoRPHine SULFATE 10 MG/ML CARP/VIAL IV STA (18:10)
--- NOTE | 2024-07-21 20:00 | History & Physical Report ---
Date of Service July 21, 2024 Assessment & Plan (1) Acute low back pain: (2) Hypertension: (3) GERD (gastroesophageal reflux disease): (4) Anxiety: Plan Vidhya Gallego is a 54yo female with history of HTN, GERD and chronic, longstanding lumbar and cervical back pain presenting with acute worsening of lumbar back pain. Pain is left sided, distribution into the buttock, lateral thigh and into the groin. Most likely secondary to L3 radiculopathy. CT of the lumbar spine as above with bilateral neural foramen narrowing at L3-LR which may affect the exiting L3 nerve roots. #Acute on Chronic Low back pain with radicular symptoms -Admit to medical -Multimodal pain management to include Tylenol 1000mg po TID Toradol 30mg IV q 6 hours PRN Lidoderm patch Heat application Cyclobenzaprine 5mg po TID Dilaudid 0.5-1mg IV q 3 hours as needed Continue home Cymbalta -Colace and Miralax PRN -Narcan available for accidental opioid overdose -Orthopedic-Spine Surgery consultation appreciated. Will defer ordering additional imaging/MRI to their expertise #Hypertension - mildly elevated blood pressure at present -Pain control -Continue Propranolol 20mg po BID -Continue Lisinopril 30mg po qHS -Continue Amlodipine 10mg po qHS #GERD -Continue Protonix #Anxiety/Mental healthy -Continue Strattera -Continue Buspar History of Present Illness Chief Complaint: acute on chronic back pain Primary Care Provider: Annia Cohen Vidhya Gallego is a pleasant 54yo female with longstanding chronic back pain. She had an L4-L5 laminectomy performed with Dr. Gutierrez in January 2020 and had revision decompression with bilateral facetectomies and foraminotomies L3-L4 and L4-L5 with spinal fusion L4-L5 in March 2022. She does have chronic back pain as well as chronic cervical spine pain. Patient receives some of her care at the [place] and follows with Dr. Gutierrez from Orthopedics[facility]Spine locally. She has been evaluated at [facility] [place] well as [facility] for management of her chronic back pain - cervical stenosis as well as lumbar pain. Patient was seen at the [place] 4-5 days ago with complaint of back pain - she had an x-ray performed and was told that her L3 has shifted forward over the area that has been fused. She has been taking Prednisone since 07/15. Patient woke this morning with severe lumbar back pain - mostly on the left side. Pain radiates into her buttock and into the lateral thigh to above her knee as well a across the thigh and into the groin at times. She denies falls or trauma, no fever. No bending/twisting/heavy lifting. She reports that her legs feel weak and she gets some tingling at times. No bowel or bladder complaints. She has been using topical therapies as well as muscle relaxer and Meloxicam at home with minimal improvement. In the ER she is afebrile, hemodynamically stable ER Course: Lidoderm patch Toradol 10mg IV Tylenol 1gm PO Fentanyl 75mcg IV Morphine 8mg IV Dilaudid 1mg IV Allergies Allergy/AdvReac Type Severity Reaction Status Date / Time No Known Allergies Allergy Verified 07/21/24 18:38 Home Medications Medication Instructions Recorded Confirmed Type lisinopril 30 mg tablet 30 mg PO HS 01/06/20 07/21/24 History pantoprazole 40 mg tablet,delayed 40 mg PO BID 01/06/20 07/21/24 History release (Protonix) propranolol 20 mg tablet 20 mg PO BID 01/06/20 07/21/24 History valacyclovir 500 mg tablet 500 mg PO QAM 01/06/20 07/21/24 History (Valtrex) cholecalciferol (vitamin D3) 25 25 mcg PO QAM 02/26/22 07/21/24 History mcg (1,000 unit) tablet (Vitamin D3) cyanocobalamin (vitamin B-12) 1,000 mcg IM MONTHLY 02/26/22 07/21/24 History 1,000 mcg/mL injection solution multivitamin 1 tab PO QAM 02/26/22 07/21/24 History zolpidem 10 mg tablet 10 mg PO HS Insomnia 02/26/22 07/21/24 History duloxetine 60 mg capsule,delayed 60 mg PO HS 12/25/22 07/21/24 History release amlodipine 10 mg tablet 10 mg PO HS 07/21/24 07/21/24 History atomoxetine 80 mg capsule 80 mg PO QAM 07/21/24 07/21/24 History buspirone 15 mg tablet 30 mg PO BID 07/21/24 07/21/24 History cetirizine 10 mg tablet (Zyrtec) 10 mg PO QAM 07/21/24 07/21/24 History cranberry 500 mg capsule 500 mg PO QAM 07/21/24 07/21/24 History meloxicam 15 mg tablet 15 mg PO QAM 07/21/24 07/21/24 History methyl salicylate 15 %-menthol 10 1 applic topical TID PRN Pain 07/21/24 07/21/24 History % topical cream soy isoflavone-black cohosh 155 cap PO QAM 07/21/24 07/21/24 History root-magnolia bark 155 mg capsule (Estroven) tizanidine 2 mg tablet 4 mg PO Q8H PRN Pain 07/21/24 07/21/24 History Past Med/Surg History Problem List Adnexal cyst Trochanteric bursitis of right hip Hypertension controlled, stable per pt GERD (gastroesophageal reflux disease) controlled, stable per pt Anxiety Encounter for pre-operative examination Lumbar disc herniation with radiculopathy (Acute) Acute low back pain (Acute) Sciatic leg pain (Acute) Medical History Obesity Depression Surgical History History of back surgery L4-5 laminectomy (01/11/20): Grade 2 view, MAC 3.0, ETT 7.0 at [facility]. No issues noted per post-op anesthesia progress note. History of colonoscopy Hx of tonsillectomy HX: benign breast biopsy X 8 HAS SOME MARKERS IN BREAST Hx of hysterectomy Hx of appendectomy Hx laparoscopic cholecystectomy Family History Other No family history of adverse response to anesthesia Social History Smoking Status: Never smoker Tobacco Type: Cigarettes Cigarettes Per Day: 10; Second Hand Exposure: No; Do You Dip or Chew Tobacco: No; Hx Alcohol Use: No Hx Substance Use: No Preferred Language: American Communication Ability: Effective Teletypist Required: No Beliefs That Will Affect Care: None marital status: Single Current Living Situation: Spouse Other Information That Helps Us Care for You: No Feels Safe at Home: Yes Safety Concerns: Feels Safe At This Time Assistive Devices: Cane Review of Systems Review of Systems: All systems reviewed & are unremarkable except as noted in HPI & below Physical Exam Physical Exam: General: patient uncomfortable, NAD, able to ambulate to bathroom with assistance Skin: warm, dry, intact, no rashes or lesions HEENT: NC/AT, PERRL, EOMI, anicteric sclera, conjunctiva without injection, external ear normal to inspection and nontender, nares patent, moist mucus membranes, dentition intact, no oropharyngeal lesions, neck supple, trachea midline Heart: +S1/S2, regular, no m/r/g Lungs: equal air entry bilaterally, no rales/rhonchi/wheezes Abd: +BS, soft, NT/ND, no masses/organomegaly/ascites Ext: warm, 2+ pulses in UE/LE bilaterally, no clubbing/cyanosis or edema Neuro: nonfocal, patient AA&O x 4, speech intact, no facial droop, moving all extremities on command with equal strength 5/5 Results & Data Results & Data Vital Signs (Past 12 Hours) Vital Signs Temp Pulse Pulse Resp BP BP Pulse Ox 07/21/24 17:29 86 17 144/89 H 93 07/21/24 17:27 94 H 13 131/90 96 07/21/24 17:08 84 07/21/24 16:44 98 07/21/24 15:32 36.4 C L 87 20 129/70 97 O2 Del Method 07/21/24 17:29 Room Air 07/21/24 17:27 Room Air 07/21/24 17:08 07/21/24 16:44 Room Air 07/21/24 15:32 Room Air Laboratory Results Laboratory Results WBC 7.41 K/ul (4.8-10.8) 07/21/24 16:41 RBC 4.82 M/uL (4.20-5.40) 07/21/24 16:41 Hgb 14.1 g/dl (12.0-16.0) 07/21/24 16:41 Hct 43.3 % (37.0-47.0) 07/21/24 16:41 MCV 89.8 fL (80.0-100.0) 07/21/24 16:41 MCH 29.3 pg (25.0-34.0) 07/21/24 16:41 MCHC 32.6 g/dL (32.0-36.0) 07/21/24 16:41 RDW Std Deviation 42.0 fL (36.4-46.3) 07/21/24 16:41 RDW Coeff of Ashley 12.8 % (11.5-14.5) 07/21/24 16:41 Plt Count 213 K/uL (130-400) 07/21/24 16:41 MPV 9.1 fL (9.4-12.4) L 07/21/24 16:41 Immature Gran % (Auto) 0.4 % 07/21/24 16:41 Neut % (Auto) 83.6 % 07/21/24 16:41 Lymph % (Auto) 14.6 % 07/21/24 16:41 Brule % (Auto) 1.2 % 07/21/24 16:41 Eos % (Auto) 0.1 % 07/21/24 16:41 Baso % (Auto) 0.1 % 07/21/24 16:41 Neut # (Auto) 6.19 K/uL (1.40-6.50) 07/21/24 16:41 Lymph # (Auto) 1.08 K/uL (1.20-3.40) L 07/21/24 16:41 Brule # (Auto) 0.09 K/uL (0.11-0.59) L 07/21/24 16:41 Eos # (Auto) 0.01 K/uL (0.00-0.50) 07/21/24 16:41 Baso # (Auto) 0.01 K/uL (0.00-0.20) 07/21/24 16:41 Immature Gran # (Auto) 0.03 K/uL (0.01-0.20) 07/21/24 16:41 Sodium 139 mmol/L (136-145) 07/21/24 16:41 Potassium 4.2 mmol/L (3.5-5.1) 07/21/24 16:41 Chloride 107 mmol/L (98-107) 07/21/24 16:41 Carbon Dioxide 29 mmol/L (21-32) 07/21/24 16:41 Anion Gap 3 (3-11) 07/21/24 16:41 BUN 22 mg/dl (6-23) 07/21/24 16:41 Creatinine 0.94 mg/dl (0.6-1.2) 07/21/24 16:41 Est Cr Clr Drug Dosing 71.2 ml/min 07/21/24 16:41 eGFR 71.22 07/21/24 16:41 BUN/Creatinine Ratio 23.4 (10-20) H 07/21/24 16:41 Glucose 153 mg/dl (70-99(Fasting)) H 07/21/24 16:41 Calcium 9.5 mg/dl (8.6-10.3) 07/21/24 16:[address] 07/21/24 16:05 Clinical history: Lumbar radiculopathy Technique: Axial computed tomography images were obtained of the lumbar spine without intravenous contrast. Sagittal and coronal reconstructions were obtained Comparison is made to the prior CT dated 10/20/2023 Findings: There is an unchanged anterior and posterior fusion of L4 and L5 with posterior fixation rods and pedicle screws and prosthetic disc placement. There is no definite sign of instrumentation failure. Again seen is a complete laminectomy defect of L4 No fracture is identified. There is unchanged 2-3 mm of retrolisthesis of L3 on L4.. No focal osseous lesion is evident. There is no definite sign of osteomyelitis At L1-2, no disc herniation is identified. There is no spinal stenosis. The neural foramen are patent At L2-3, there is a disc bulge without spinal stenosis. The neural foramen are patent At L3-4, there is mild spinal stenosis due to a disc bulge and facet osteoarthritis. There is bilateral neural foramen narrowing that may affect the exiting L3 nerve roots At L4-5, no disc herniation is identified. There is no spinal stenosis. The neural foramen are patent At L5-S1, no disc herniation is identified. There is no spinal stenosis. The neural foramen are patent Impression: 1. Unchanged L4-5 fusion 2. Unchanged mild retrolisthesis at L3-4 3. Mild spinal stenosis at L3-4 4. Bilateral neural foramen narrowing at L3-4 that may affect the exiting L3 nerve roots ACT 112: Positive. There are findings on this exam that require communication between the performing entity and the patient following Patient Test Result Information Act ([place] ACT 112) guidelines. Electronically signed by aPulo Ling 07-21-2024 5:26 PM PG Care Time/CCT Total # of Minutes Spent Total Time Spent with Patient: Total time spent is greater than 50% in coordination of care (as documented) at patient's floor/unit and/or counseling patient: Coding Level of Care Code 04098 INT INP/OBS CARE 3/75MIN Diagnoses Acute low back pain M54.42 Back pain laterality: midline Sciatica laterality: sciatica of left side Sciatica presence: with sciatica Hypertension I10 GERD (gastroesophageal reflux disease) K21.9 Anxiety F41.9 (1) Acute low back pain Back pain laterality: midline Sciatica laterality: sciatica of left side Sciatica presence: with sciatica Qualified Code(s): M54.42 - Lumbago with scia marcela, left side
[2024-07-21] MEDS: HYDROmorphone INJ 1 MG/ML SYRINGE IV STA (20:33)
[2024-07-21] MEDS ORDERED: HYDROmorphone INJ 0.5 MG/0.5 ML SYR IV PRN (21:24)
[2024-07-21] MEDS ORDERED: POLYETHYLENE (MIRALAX) 17 GM PACK PO PRN (21:24)
[2024-07-21] MEDS: DULoxetine HCL 60 MG CAP PO SCH (22:13)
[2024-07-21] MEDS: PROPRANOLOL HCL 20 MG TAB PO SCH (22:13)
[2024-07-21] MEDS: lisinopril 10 MG TAB PO SCH (22:13)
[2024-07-21] MEDS: ZOLPIDEM TARTRATE 5 MG TAB PO SCH (22:13)
[2024-07-21] MEDS: amLODIPine BESYLATE 5 MG TAB PO SCH (22:13)
[2024-07-21] MEDS: PANTOprazole 40 MG TAB PO SCH (22:13)
[2024-07-21] MEDS: CYCLOBENZAPRINE HCL 5 MG TAB PO SCH (22:13)
[2024-07-21] MEDS: busPIRone 15 MG TAB PO SCH (22:13)
[2024-07-21] MEDS: ACETAMINOPHEN 500 MG TAB PO SCH (23:27)
[2024-07-21] MEDS: HYDROmorphone INJ 1 MG/ML SYRINGE IV PRN (23:27)
[2024-07-21] MEDS ORDERED: NALOXONE HCL 0.4 MG/1 ML VIAL/CARP IV PRN (23:34)
--- OUTSIDE RECORDS SUMMARY | 2024-07-22 03:44 | External Medical Summary | Continuity of Care Document ---
Author Name Unknown Organization [place] [address] [address] [place] [id number] Care Team Providers Care Nurse Intern Name Role Phone Annia Cohen Primary Care Physician [phone] [facility] [id number] Date(s): 03/22/24 - 03/22/[address] [place] [address] [facility] Neurosurgery [address], [address] [place] [address] [phone] Encounter Diagnosis Lumbar spondylosis(Discharge Diagnosis) - 03/22/24 Cervical spondylosis(Discharge Diagnosis) - 03/22/24 Discharge Disposition: Home or Self Care Attending Physician: MD Guido, Ramses [facility] amLODIPine 10 mg oral tablet Start: 03/22/24 12:37:00 PM EST, 1 tab, PO, Daily Start Date: 03/22/24 Status: Ordered atorvastatin 20 mg oral tablet Start: 03/22/24 12:38:00 PM EST, 1 tab, PO, Daily Start Date: 03/22/24 Status: Ordered busPIRone 15 mg oral tablet Start: 03/22/24 12:38:00 PM EST, 1 tab, PO, bid Start Date: 03/22/24 Status: Ordered DULoxetine 60 mg oral delayed release capsule Start: 03/22/24 12:39:00 PM EST, 1 cap, PO, Daily Start Date: 03/22/24 Status: Ordered ibuprofen 400 mg oral tablet Start: 03/22/24 12:36:00 PM EST, 1 tab, PO, q6h, PRN: as needed for pain Start Date: 03/22/24 Status: Ordered lisinopril 30 mg oral tablet Start: 03/22/24 12:39:00 PM EST, 1 tab, PO, Daily Start Date: 03/22/24 Status: Ordered ondansetron 8 mg oral tablet, disintegrating Start: 03/22/24 12:36:00 PM EST, 1 tab, PO, ONCE, PRN: as needed for nausea/vomiting Start Date: 03/22/24 Status: Ordered propranolol 20 mg oral tablet Start: 03/22/24 12:39:00 PM EST, 1 tab, PO, bid Start Date: 03/22/24 Status: Ordered valACYclovir 500 mg oral tablet Start: 03/22/24 12:39:00 PM EST Start Date: 03/22/24 Status: Ordered Problem List No Chronic Problems Diagnosis Diagnosis Type Effective Dates Health Status Clinical Service Informant Cervical spondylosis Discharge Diagnosis 03/22/24 Lumbar spondylosis Discharge Diagnosis 03/22/24 Social History Social History Type Response Sex Female Sex Representation Female (finding) Patient Care team information Care Team Personnel Name: DO Cohen Tanya L Position: Referring Member Role: Primary Care Provider Address: [address] [place] [address] [place] Care Team Related Persons Name: CELIO GUTIERREZ
[2024-07-22 08:09] LABS: Hematocrit (blood only) 44.2 % (37.0-47.0); Hemoglobin 14.2 g/dl (12.0-16.0); Mean Corpuscular Hgb Conc 32.1 g/dL (32.0-36.0); Mean Corpuscular Volume 90.2 fL (80.0-100.0); Mean Platelet Volume 9.4 fL (9.4-12.4); Platelet Count 243 K/uL (130-400); RDW Coefficient of Variation 12.7 % (11.5-14.5); RDW Standard Deviation 42.2 fL (36.4-46.3); White Blood Count 11.14 K/ul (4.8-10.8)
[2024-07-22 08:21] LABS: BUN Creatinine Ratio 22.5 (10-20); Calcium 9.5 mg/dl (8.6-10.3); Creatinine Clr Calc Pharmacy 79.5 ml/min; Potassium 4.3 mmol/L (3.5-5.1)
[2024-07-22] MEDS: ATOMOXETINE HCL 40 MG CAPSULE PO SCH (08:44)
[2024-07-22] MEDS: CETIRIZINE HCL 10 MG TABLET PO SCH (08:45)
[2024-07-22] MEDS: valACYclovir HCL 500 MG TABLET PO SCH (08:45)
--- NOTE | 2024-07-22 09:41 | XRay Report ---
XR lumbar spine flex/ext only CLINICAL HISTORY: standing films COMPARISON STUDY: 04/06/2022 FINDINGS: There is stable laminectomy and posterior metallic fusion at L4-5 with no hardware corticat ion seen. There is progressive degenerative disc disease at L3-4 with progressive retrolisthesis. The re is mild anterior translation with flexion of L3 on 4. No fracture seen. IMPRESSION: Progressive degenerative changes and mild translational motion at L3-4. ACT 112: Negative or not required by law. Electronically signed by: Emmanuel Thomas M.D. 07/22/2024 9:39 AM
--- NOTE | 2024-07-22 10:54 | Orthopedic Consultation ---
Date of Consultation July 22, 2024 Assessment & Plan (1) Spondylosis of lumbosacral spine at single level with radiculopathy: Assessment lumbar spondylosis with radiculopathy L3-L4. Plan x-rays lumbar spine obtained today lateral flexion-extension views demonstrate marked displaced collapse with significant retrolisthesis L4 3 L4. This is consistent with her symptom complex and presentation. Which she has known facet operatively neuroforaminal disease based on her CAT scan. I am recommending an MRI lumbar spine for further neurologic detail. On discussion with the patient she is quite limited. We will make final recommendations upon review of the MRI but she may require a lumbar decompression and fusion L3-L4. The meantime we will maintain pain control in the hospital. History of Present Illness Reason for Consultation: Back and bilateral leg pain Attending Physician: Paras Yu History of Present Illness This is a 54-year-old female who presents with marked decline in status over the past several months with acute episode yesterday. She describes pain rating in the lumbosacral junction buttocks left groin and thigh as well as the right thigh. Is been progressive in nature. She is unable to stand and ambulate any distance. She notes significant strength deficits ascending and descending stai rs. She is currently on disability. She is been using IV narcotics while in the hospital to help with her pain. She finds her only comfortable position is lying supine. Allergies Allergy/AdvReac Type Severity Reaction Status Date / Time No Known Allergies Allergy Verified 07/21/24 18:38 Home Medications Medication Instructions Recorded Confirmed Type lisinopril 30 mg tablet 30 mg PO HS 01/06/20 07/21/24 History pantoprazole 40 mg tablet,delayed 40 mg PO BID 01/06/20 07/21/24 History release (Protonix) propranolol 20 mg tablet 20 mg PO BID 01/06/20 07/21/24 History valacyclovir 500 mg tablet 500 mg PO QAM 01/06/20 07/21/24 History (Valtrex) cholecalciferol (vitamin D3) 25 25 mcg PO QAM 02/26/22 07/21/24 History mcg (1,000 unit) tablet (Vitamin D3) cyanocobalamin (vitamin B-12) 1,000 mcg IM MONTHLY 02/26/22 07/21/24 History 1,000 mcg/mL injection solution multivitamin 1 tab PO QAM 02/26/22 07/21/24 History zolpidem 10 mg tablet 10 mg PO HS Insomnia 02/26/22 07/21/24 History duloxetine 60 mg capsule,delayed 60 mg PO HS 12/25/22 07/21/24 History release amlodipine 10 mg tablet 10 mg PO HS 07/21/24 07/21/24 History atomoxetine 80 mg capsule 80 mg PO QAM 07/21/24 07/21/24 History buspirone 15 mg tablet 30 mg PO BID 07/21/24 07/21/24 History cetirizine 10 mg tablet (Zyrtec) 10 mg PO QAM 07/21/24 07/21/24 History cranberry 500 mg capsule 500 mg PO QAM 07/21/24 07/21/24 History meloxicam 15 mg tablet 15 mg PO QAM 07/21/24 07/21/24 History methyl salicylate 15 %-menthol 10 1 applic topical TID PRN Pain 07/21/24 07/21/24 History % topical cream soy isoflavone-black cohosh 155 cap PO QAM 07/21/24 07/21/24 History root-magnolia bark 155 mg capsule (Estroven) tizanidine 2 mg tablet 4 mg PO Q8H PRN Pain 07/21/24 07/21/24 History Patient History Medical History Obesity Depression Surgical History History of back surgery L4-5 laminectomy (01/11/20): Grade 2 view, MAC 3.0, ETT 7.0 at [facility]. No issues noted per post-op anesthesia progress note. History of colonoscopy Hx of tonsillectomy HX: benign breast biopsy X 8 HAS SOME MARKERS IN BREAST Hx of hysterectomy Hx of appendectomy Hx laparoscopic cholecystectomy Family History Other No family history of adverse response to anesthesia Social History Smoking Status: Never smoker Tobacco Type: Cigarettes Cigarettes Per Day: 10; Second Hand Exposure: No; Do You Dip or Chew Tobacco: No; Hx Alcohol Use: No Hx Substance Use: No Preferred Language: Swedish Communication Ability: Effective Sales Activity Manager Required: No Beliefs That Will Affect Care: None marital status: Single Current Living Situation: Spouse Other Information That Helps Us Care for You: No Feels Safe at Home: Yes Safety Concerns: Feels Safe At This Time Assistive Devices: Cane Physical Exam Physical Exam: On exam patient is out of bed in a chair. She is obvious distress. There is deficits to the quadriceps bilaterally to 4/5. Plantarflexion dorsiflexion are 5/5. Sensory is diminished. Results & Data Vital Signs (Past 12 Hours) Vital Signs Temp Pulse Resp BP Pulse Ox O2 Del Method 07/22/24 07:49 36.7 C 85 18 111/74 95 Room Air
--- NOTE | 2024-07-22 13:01 | Magnetic Resonance Report ---
MRI OF THE LUMBAR SPINE WITHOUT CONTRAST CLINICAL HISTORY: Bilateral leg pain. COMPARISON STUDY: Lumbar spine MRI December 28, 2022. Lumbar spine CT July 21, 2024. Lumbar spine rad iographs July 22, 2024. TECHNIQUE: Utilizing a 3 Bell magnet and dedicated coil, multiplanar, multiecho imaging of the lumb ar spine was performed without IV contrast. FINDINGS: For purposes of numbering on this exam, the L5-S1 disc space is assigned to axial image 27 of 30. The re is slight retrolisthesis of L3 on L4. This has developed since MRI of December 28, 2022. There are n o lumbar spine fractures. No suspicious marrow replacement is present. There are postoperative findin gs consistent with L4-L5 discectomy with decompression and fusion. No intracanalicular mass or fluid collection is present. Conus terminates at the L1-L2 level. L1-2: The central canal and neural foramen are patent. L2-3: There is minimal disc bulge. There is mild facet arthrosis and ligamentous hypertrophy. The ashley tral canal and neural foramen are patent. L3-4: Mild disc space narrowing and disc bulge developed since previous MRI. There is also facet arth rosis with ligamentous hypertrophy. Mild central canal stenosis is present. There is moderate to ethan re bilateral neural foraminal stenosis at this level which is developed since previous MRI. L4-5: No recurrent central canal stenosis is present. Neural foramen are patent. L5-S1: The central canal and neural foramen are patent. IMPRESSION: 1. Status post L4-L5 decompression and fusion. 2. Progressive degenerative changes at the L3-L4 level since MRI of December 28, 2022. Slight retrolist hesis with disc bulge, facet arthrosis and ligamentous hypertrophy which result in mild central canal stenosis. Interval development of moderate to severe bilateral neural foraminal stenosis at this lev el. Findings could be correlated with bilateral L3 radiculopathy. 3. Otherwise, no significant change in appearance of the lumbar spine. ACT 112: Negative or not required by law. Electronically signed by: Epi Lainez M.D. 07/22/2024 1:00 PM
[2024-07-22] MEDS: DOCUSATE SODIUM 100 MG CAP PO PRN (21:03)
--- NOTE | 2024-07-22 22:57 | Hospitalist Progress Note ---
Date of Service July 22, 2024 Assessment & Plan (1) Acute low back pain: (2) Hypertension: (3) GERD (gastroesophageal reflux disease): (4) Anxiety: Plan Vidhya Gallego is a 54yo female with history of HTN, GERD and chronic, longstanding lumbar and cervical back pain presenting with acute worsening of lumbar back pain. Pain is left sided, distribution into the buttock, lateral thigh and into the groin. Most likely secondary to L3 radiculopathy. CT of the lumbar spine as above with bilateral neural foramen narrowing at L3-LR which may affect the exiting L3 nerve roots. #Acute on Chronic Low back pain with radicular symptoms -Admit to medical -Multimodal pain management to include Tylenol 1000mg po TID Toradol 30mg IV q 6 hours PRN Lidoderm patch Heat application Cyclobenzaprine 5mg po TID Dilaudid 0.5-1mg IV q 3 hours as needed Continue home Cymbalta -Colace and Miralax PRN -Narcan available for accidental opioid overdose Pain appears controlled. -Orthopedic-Spine Surgery consultation appreciated. MRI findings showing foraminal stenosis on L3-L4 likely needs surgery. discussed with ortho spine bmp was within range on 07/22 #Hypertension - mildly elevated blood pressure at present -Pain control -Continue Propranolol 20mg po BID -Continue Lisinopril 30mg po qHS -Continue Amlodipine 10mg po qHS #GERD -Continue Protonix #Anxiety/Mental healthy -Continue Strattera -Continue Buspar Admission and Anticipated Discharge Date Admission Date: July 21, 2024 Subjective Patient reports her pain has been controlled. Physical Exam Physical Exam: General: NAD Skin: intact, no rashes or lesions HEENT: NC/AT, PERRL, EOMI Lungs: not using accessory muscles to breath Ext: no clubbing/cyanosis or edema Results & Data Results & Data Vital Signs (Past 12 Hours) Vital Signs Temp Pulse Resp BP Pulse Ox O2 Del Method 07/22/24 15:06 36.6 C 74 18 143/89 H 97 Room Air PG Care Time/CCT Total # of Minutes Spent Total Time Spent with Patient: Total time spent is greater than 50% in coordination of care (as documented) at patient's floor/unit and/or counseling patient: Coding Level of Care Code 05514 SUB INP/OBS CARE /50MIN Diagnoses Acute low back pain M54.42 Back pain laterality: midline Sciatica laterality: sciatica of left side Sciatica presence: with sciatica Hypertension I10 GERD (gastroesophageal reflux disease) K21.9 Anxiety F41.9 (1) Acute low back pain Back pain laterality: midline Sciatica laterality: sciatica of left side Sciatica presence: with sciatica Qualified Code(s): M54.42 - Lumbago with sciatica, left side
[2024-07-23 07:12] LABS: Hematocrit (blood only) 40.9 % (37.0-47.0); Hemoglobin 13.3 g/dl (12.0-16.0); Mean Corpuscular Hemoglobin 29.6 pg (25.0-34.0); Mean Corpuscular Hgb Conc 32.5 g/dL (32.0-36.0); Mean Corpuscular Volume 90.9 fL (80.0-100.0); Mean Platelet Volume 9.1 fL (9.4-12.4); Platelet Count 208 K/uL (130-400); RDW Coefficient of Variation 12.9 % (11.5-14.5); RDW Standard Deviation 42.8 fL (36.4-46.3); White Blood Count 8.03 K/ul (4.8-10.8)
[2024-07-23 07:33] LABS: BUN Creatinine Ratio 25.5 (10-20); Calcium 8.8 mg/dl (8.6-10.3); Creatinine Clr Calc Pharmacy 67.6 ml/min; Potassium 3.9 mmol/L (3.5-5.1)
--- NOTE | 2024-07-23 07:59 | Orthopedic Progress Note ---
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 We have discussed both nonsurgical and surgical options. She is going to discuss these options with her family today. I will touch base with her again tomorrow. Admission and Anticipated Discharge Date Admission Date: July 21, 2024 Mami Jordan has adjacent level L3-4 instability and foraminal stenosis. She is symptomatic. We have discussed pain management injections versus ultimate surgical fixation. She would like to discuss these options with her family today. I will reevaluate tomorrow. Review of Systems Review of Systems: All systems reviewed & are unremarkable except as noted in HPI & below Physical Exam Physical Exam: She is laying in bed alert and oriented x 3 Strength unchanged lower extremities Results & Data Vital Signs (Past 12 Hours) Vital Signs Temp Pulse Resp BP Pulse Ox O2 Del Method 07/23/24 07:28 36.5 C 65 18 117/75 97 Room Air 07/22/24 21:24 36.4 C L 82 16 125/77 97 Room Air Diagnostic Findings [employer] [phone] Magnetic Resonance Report Patient: KEN GUTIERREZ Admit Date: 07/21/24 MR#: [id number] Address1: [address] Acct ID:[id number] Address2: [address] Date: 1970 [facility] Zip: [place] [address] Age: 54 Location: 3N Sex: F Room/Bed: [facility] Att Phy: Paras Yu M.D. Diagnosis: ACUTE ON CHRONIC BACK PAIN WITH RADICULAR SYMPTOMS Geeta Phy: Annia Cohen D.O. Service Date: 07/22/24 Fam Phy: Interpreting Phy: Epi Lainez MDAhector Phy: Francisca Montoya D.O. Ordering Phy: Akin Gutierrez D.O. cc: ~ MRI OF THE LUMBAR SPINE WITHOUT CONTRAST CLINICAL HISTORY: Bilateral leg pain. COMPARISON STUDY: Lumbar spine MRI December 28, 2022. Lumbar spine CT July 21, 2024. Lumbar spine radiographs July 22, 2024. TECHNIQUE: Utilizing a 3 Bell magnet and dedicated coil, multiplanar, multiecho imaging of the lumbar spine was performed without IV contrast. FINDINGS: For purposes of numbering on this exam, the L5-S1 disc space is assigned to axial image 27 of 30. There is slight retrolisthesis of L3 on L4. This has developed since MRI of December 28, 2022. There are no lumbar spine fractures. No suspicious marrow replacement is present. There are postoperative findings consistent with L4-L5 discectomy with decompression and fusion. No intracanalicular mass or fluid collection is present. Conus terminates at the L1-L2 level. L1-2: The central canal and neural foramen are patent. L2-3: There is minimal disc bulge. There is mild facet arthrosis and ligamentous hypertrophy. The central canal and neural foramen are patent. L3-4: Mild disc space narrowing and disc bulge developed since previous MRI. There is also facet arthrosis with ligamentous hypertrophy. Mild central canal stenosis is present. There is moderate to severe bilateral neural foraminal stenosis at this level which is developed since previous MRI. L4-5: No recurrent central canal stenosis is present. Neural foramen are patent. L5-S1: The central canal and neural foramen are patent. IMPRESSION: 1. Status post L4-L5 decompression and fusion. 2. Progressive degenerative changes at the L3-L4 level since MRI of December 28, 2022. Slight retrolisthesis with disc bulge, facet arthrosis and ligamentous hypertrophy which result in mild central canal stenosis. Interval development of moderate to severe bilateral neural foraminal stenosis at this level. Findings could be correlated with bilateral L3 radiculopathy. 3. Otherwise, no significant change in appearance of the lumbar spine. ACT 112: Negative or not required by law. Electronically signed by: Epi Lainez M.D. 07/22/2024 1:00 PM Dictated: 07/22/24 1252 Transcribed: 07/22/24 1252
--- NOTE | 2024-07-23 23:16 | Hospitalist Progress Note ---
Date of Service July 23, 2024 Assessment & Plan (1) Acute low back pain: (2) Hypertension: (3) GERD (gastroesophageal reflux disease): (4) Anxiety: Plan Vidhya Gallego is a 54yo female with history of HTN, GERD and chronic, longstanding lumbar and cervical back pain presenting with acute worsening of lumbar back pain. Pain is left sided, distribution into the buttock, lateral thigh and into the groin. Most likely secondary to L3 radiculopathy. CT of the lumbar spine as above with bilateral neural foramen narrowing at L3-LR which may affect the exiting L3 nerve roots. #Acute on Chronic Low back pain with radicular symptoms -Admit to medical -Multimodal pain management to include Tylenol 1000mg po TID Toradol 30mg IV q 6 hours PRN Lidoderm patch Heat application Cyclobenzaprine 5mg po TID Dilaudid 0.5-1mg IV q 3 hours as needed Continue home Cymbalta -Colace and Miralax PRN -Narcan available for accidental opioid overdose Pain appears controlled. awaiting input from ortho. -Orthopedic-Spine Surgery consultation appreciated. MRI findings showing foraminal stenosis on L3-L4 likely needs surgery. discussed with ortho spine bmp was within range on 07/23 #Hypertension - mildly elevated blood pressure at present -Pain control -Continue Propranolol 20mg po BID -Continue Lisinopril 30mg po qHS -Continue Amlodipine 10mg po qHS #GERD -Continue Protonix #Anxiety/Mental healthy -Continue Strattera -Continue Buspar Admission and Anticipated Discharge Date Admission Date: July 21, 2024 Subjective Patient reports no new symptoms. Physical Exam Physical Exam: General: NAD Skin: intact, no rashes or lesions HEENT: NC/AT, PERRL, EOMI Lungs: not using accessory muscles to breath Ext: no clubbing/cyanosis or edema Results & Data Results & Data Vital Signs (Past 12 Hours) Vital Signs Temp Pulse Resp BP Pulse Ox O2 Del Method 07/23/24 18:56 36.6 C 76 16 134/78 97 Room Air 07/23/24 15:13 36.5 C 75 16 136/79 97 Room Air PG Care Time/CCT Total # of Minutes Spent Total Time Spent with Patient: Total time spent is greater than 50% in coordination of care (as documented) at patient's floor/unit and/or counseling patient: Coding Level of Care Code 91181 SUB INP/OBS CARE 2/35MIN Diagnoses Acute low back pain M54.42 Back pain laterality: midline Sciatica laterality: sciatica of left side Sciatica presence: with sciatica Hypertension I10 GERD (gastroesophageal reflux disease) K21.9 Anxiety F41.9 (1) Acute low back pain Back pain laterality: midline Sciatica laterality: sciatica of left side Sc iatica presence: with sciatica Qualified Code(s): M54.42 - Lumbago with sciatica, left side
--- NOTE | 2024-07-24 08:21 | Orthopedic Progress Note ---
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 All questions were answered in detail. They do not want to make a decision today. They would like to speak with Dr. Gutierrez tomorrow. They are not interested in pursuing surgical intervention at least tomorrow. Admission and Anticipated Discharge Date Admission Date: July 21, 2024 Subjective No changes in pain. I have reviewed options again surgical versus nonsurgical with the patient and her this morning. They do not want to make any decisions today. They would like to speak with Dr. Gutierrez tomorrow. They are not interested in pursuing surgery tomorrow. Continue current pain control. Review of Systems Review of Systems: All systems reviewed & are unremarkable except as noted in HPI & below Physical Exam Physical Exam: Unchanged
--- NOTE | 2024-07-24 16:38 | Hospitalist Progress Note ---
Date of Service July 24, 2024 Assessment & Plan (1) Acute low back pain: (2) Hypertension: (3) GERD (gastroesophageal reflux disease): (4) Anxiety: Plan Vidhya Gallego is a 54yo female with history of HTN, GERD and chronic, longstanding lumbar and cervical back pain presenting with acute worsening of lumbar back pain. Pain is left sided, distribution into the buttock, lateral thigh and into the groin. Most likely secondary to L3 radiculopathy. CT of the lumbar spine as above with bilateral neural foramen narrowing at L3-LR which may affect the exiting L3 nerve roots. #Acute on Chronic Low back pain with radicular symptoms -Admit to medical -Multimodal pain management to include Tylenol 1000mg po TID Toradol 30mg IV q 6 hours PRN Lidoderm patch Heat application Cyclobenzaprine 5mg po TID Dilaudid 0.5-1mg IV q 3 hours as needed Continue home Cymbalta -Colace and Miralax will be continued -Narcan available for accidental opioid overdose Pain appears controlled. awaiting input from ortho. -Orthopedic-Spine Surgery consultation appreciated. MRI findings showing foraminal stenosis on L3-L4 likely needs surgery. discussed with ortho spine bmp was within range on 07/23 #Hypertension - mildly elevated blood pressure at present -Pain control -Continue Propranolol 20mg po BID -Continue Lisinopril 30mg po qHS -Continue Amlodipine 10mg po qHS #GERD -Continue Protonix #Anxiety/Mental healthy -Continue Strattera -Continue Buspar Admission and Anticipated Discharge Date Admission Date: July 21, 2024 Subjective Patient reports no new symptoms. Pain appears to be controlled Physical Exam Physical Exam: General: NAD Skin: intact, no rashes or lesions HEENT: NC/AT, PERRL, EOMI Lungs: not using accessory muscles to breath Ext: no clubbing/cyanosis or edema Results & Data Results & Data Vital Signs (Past 12 Hours) Vital Signs Temp Pulse Resp BP Pulse Ox O2 Del Method 07/24/24 08:49 36.3 C L 83 16 129/85 95 Room Air PG Care Time/CCT Total # of Minutes Spent Total Time Spent with Patient: Total time spent is greater than 50% in coordination of care (as documented) at patient's floor/unit and/or counseling patient: Coding Level of Care Code 99943 SUB INP/OBS CARE 2/35MIN Diagnoses Acute low back pain M54.42 Back pain laterality: midline Sciatica laterality: sciatica of left side Sciatica presence: with sciatica Hypertension I10 GERD (gastroesophageal reflux disease) K21.9 Anxiety F41.9 (1) Acute low back pain Back pain laterality: midline Sciatica laterality: sciatica of left side Sciatica presence: with sciatica Qualified Code(s): M54.42 - Lumbago with sciatica, left side
[2024-07-24] MEDS: KETOROLAC 30 MG/ML VIAL IV PRN (20:09)
--- NOTE | 2024-07-25 14:59 | Orthopedic Progress Note ---
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 Plan I had a lengthy discussion today with the patient and her reviewing her imaging and treatment options. They are interested in seeking guidance from other consultants. They would also entertain a trial of lumbar epidurals to hopefully help her pain is a pursue other input into their decision making process. I outlined in detail my recommendation of a fusion at L3-L4 risk benefits pros cons and alternatives. At this time we will also have physical therapy work with her tomorrow and she can be discharged per medicine. Admission and Anticipated Discharge Date Admission Date: July 21, 2024 Subjective Patient continues to struggle with significant leg pain. She has improved with bedrest and medical management. Physical Exam Physical Exam: On exam she is in bed at this time. Grossly she is neurologically intact. Results & Data Vital Signs (Past 12 Hours) Vital Signs Temp Pulse Resp BP Pulse Ox O2 Del Method 07/25/24 08:48 81 109/76 07/25/24 07:11 36.6 C 77 16 103/65 92 Room Air
--- NOTE | 2024-07-25 22:41 | Hospitalist Progress Note ---
Date of Service July 25, 2024 Assessment & Plan (1) Acute low back pain: (2) Hypertension: (3) GERD (gastroesophageal reflux disease): (4) Anxiety: Plan Vidhya Gallego is a 54yo female with history of HTN, GERD and chronic, longstanding lumbar and cervical back pain presenting with acute worsening of lumbar back pain. Pain is left sided, distribution into the buttock, lateral thigh and into the groin. Most likely secondary to L3 radiculopathy. CT of the lumbar spine as above with bilateral neural foramen narrowing at L3-LR which may affect the exiting L3 nerve roots. #Acute on Chronic Low back pain with radicular symptoms -Admit to medical -Multimodal pain management to include Tylenol 1000mg po TID Toradol 30mg IV q 6 hours PRN Lidoderm patch Heat application Cyclobenzaprine 5mg po TID Dilaudid 0.5-1mg IV q 3 hours as needed Continue home Cymbalta -Colace and Miralax will be continued -Narcan available for accidental opioid overdose -Pain appears controlled. -appreciate input from Ortho: will plan for corticosteroid injections -Orthopedic-Spine Surgery consultation appreciated. MRI findings showing foraminal stenosis on L3-L4 likely needs surgery. discussed with ortho spine bmp was within range on 07/23 #Hypertension - mildly elevated blood pressure at present -Pain control -Continue Propranolol 20mg po BID -Continue Lisinopril 30mg po qHS -Continue Amlodipine 10mg po qHS #GERD -Continue Protonix #Anxiety/Mental healthy -Continue Strattera -Continue Buspar Admission and Anticipated Discharge Date Admission Date: July 21, 2024 Subjective Patient is resting comfortably. Physical Exam Physical Exam: General: NAD Skin: intact, no rashes or lesions HEENT: NC/AT, PERRL, EOMI Lungs: not using accessory muscles to breath Ext: no clubbing/cyanosis or edema Results & Data Results & Data Vital Signs (Past 12 Hours) Vital Signs Temp Pulse Resp BP Pulse Ox O2 Del Method 07/25/24 19:53 36.7 C 84 18 112/73 94 Room Air 07/25/24 15:30 36.6 C 89 16 112/81 98 Room Air PG Care Time/CCT Total # of Minutes Spent Total Time Spent with Patient: Total time spent is greater than 50% in coordination of care (as documented) at patient's floor/unit and/or counseling patient: Coding Level of Care Code 00532 SUB INP/OBS CARE 235MIN Diagnoses Acute low back pain M54.42 Back pain laterality: midline Sciatica laterality: sciatica of left side Sciatica presence: with sciatica Hypertension I10 GERD (gastroesophageal reflux disease) K21.9 Anxiety F41.9 (1) Acute low back pain Back pain laterality: midline Sciatica laterality: sciatica of left side Sciatica presence: with sciatica Qualified Code(s): M54.42 - Lumbago with sciatica, left side
--- NOTE | 2024-07-26 08:53 | Pain Management Consultation ---
Date of Consultation July 26, 2024 Assessment & Plan (1) Adjacent segment disease of lumbar spine with history of fusion procedure: (2) Lumbar radiculopathy: (3) History of back surgery: Plan 1. Patient would like to pursue an epidural steroid injection prior to consideration of possible lumbar spine surgery. Recommend an L3-L4 interlaminar epidural steroid injection. Risks and benefits were reviewed with the patient and she is understanding. She would like to proceed with the procedure. This will be performed on an outpatient basis. Scheduled 07/28/24 at 1PM. She will be contacted with preprocedural instructions. She can be discharged to home in the interim if she feels comfortable doing so. 2. Patient will continue her current medication regimen 3. Recommend physical therapy post discharge. History of Present Illness Reason for Consultation: Lumbar radiculopathy Attending Physician: Paras Yu History of Present Illness This is a 54-year-old female that has been admitted to the [facility] for acute low back pain. Patient does have a significant history of an L4-L5 fusion by Dr. Gutierrez 2019. This pain started about 1 week ago without any specific injury. Pain is located along the low back radiates along the left greater than right anterior thighs and into the groin. Pain is aggravated with prolonged standing and walking, improved with laying supine, sitting and stretching. He is currently receiving Tylenol, Toradol, lidocaine patches, heating pad, cyclobenzaprine, IV Dilaudid, duloxetine 60 mg daily. Patient has been evaluated by Dr. Gutierrez and offered an L3-L4 fusion but patient would like to try conservative treatments prior to consideration of surgical intervention. He describes a numbness tingling, burning sensation along the legs. She is able to ambulate to the bathroom and shower using a cane for assistance. Patient denies any bowel/bladder incontinence, saddle anesthesia, foot drop, leg weakness and falls. Case discussed with Dr. Mariah Arias Allergies Allergy/AdvReac Type Severity Reaction Status Date / Time No Known Allergies Allergy Verified 07/21/24 18:38 Home Medications Medication Instructions Recorded Confirmed Type lisinopril 30 mg tablet 30 mg PO HS 01/06/20 07/21/24 History pantoprazole 40 mg tablet,delayed 40 mg PO BID 01/06/20 07/21/24 History release (Protonix) propranolol 20 mg tablet 20 mg PO BID 01/06/20 07/21/24 History valacyclovir 500 mg tablet 500 mg PO QAM 01/06/20 07/21/24 History (Valtrex) cholecalciferol (vitamin D3) 25 25 mcg PO QAM 02/26/22 07/21/24 History mcg (1,000 unit) tablet (Vitamin D3) cyanocobalamin (vitamin B-12) 1,000 mcg IM MONTHLY 02/26/22 07/21/24 History 1,000 mcg/mL injection solution multivitamin 1 tab PO QAM 02/26/22 07/21/24 History zolpidem 10 mg tablet 10 mg PO HS Insomnia 02/26/22 07/21/24 History duloxetine 60 mg capsule,delayed 60 mg PO HS 12/25/22 07/21/24 History release amlodipine 10 mg tablet 10 mg PO HS 07/21/24 07/21/24 History atomoxetine 80 mg capsule 80 mg PO QAM 07/21/24 07/21/24 History buspirone 15 mg tablet 30 mg PO BID 07/21/24 07/21/24 History cetirizine 10 mg tablet (Zyrtec) 10 mg PO QAM 07/21/24 07/21/24 History cranberry 500 mg capsule 500 mg PO QAM 07/21/24 07/21/24 History meloxicam 15 mg tablet 15 mg PO QAM 07/21/24 07/21/24 History methyl salicylate 15 %-menthol 10 1 applic topical TID PRN Pain 07/21/24 07/21/24 History % topical cream soy isoflavone-black cohosh 155 cap PO QAM 07/21/24 07/21/24 History root-magnolia bark 155 mg capsule (Estroven) tizanidine 2 mg tablet 4 mg PO Q8H PRN Pain 07/21/24 07/21/24 History Pain History Previous Imaging and Results Imaging: MRI OF THE LUMBAR SPINE WITHOUT CONTRAST CLINICAL HISTORY: Bilateral leg pain. COMPARISON STUDY: Lumbar spine MRI December 28, 2022. Lumbar spine CT July 21, 2024. Lumbar spine radiographs July 22, 2024. TECHNIQUE: Utilizing a 3 Bell magnet and dedicated coil, multiplanar, multiecho imaging of the lumbar spine was performed without IV contrast. FINDINGS: For purposes of numbering on this exam, the L5-S1 disc space is assigned to axial image 27 of 30. There is slight retrolisthesis of L3 on L4. This has developed since MRI of December 28, 2022. There are no lumbar spine fractures. No suspicious marrow replacement is present. There are postoperative findings consistent with L4-L5 discectomy with decompression and fusion. No intracanalicular mass or fluid collection is present. Conus terminates at the L1-L2 level. L1-2: The central canal and neural foramen are patent. L2-3: There is minimal disc bulge. There is mild facet arthrosis and ligamentous hypertrophy. The central canal and neural foramen are patent. L3-4: Mild disc space narrowing and disc bulge developed since previous MRI. There is also facet arthrosis with ligamentous hypertrophy. Mild central canal stenosis is present. There is moderate to severe bilateral neural foraminal stenosis at this level which is developed since previous MRI. L4-5: No recurrent central canal stenosis is present. Neural foramen are patent. L5-S1: The central canal and neural foramen are patent. IMPRESSION: 1. Status post L4-L5 decompression and fusion. 2. Progressive degenerative changes at the L3-L4 level since MRI of December 28, 2022. Slight retrolisthesis with disc bulge, facet arthrosis and ligamentous hypertrophy which result in mild central canal stenosis. Interval development of moderate to severe bilateral neural foraminal stenosis at this level. Findings could be correlated with bilateral L3 radiculopathy. 3. Otherwise, no significant change in appearance of the lumbar spine. ACT 112: Negative or not required by law. Electronically signed by: Epi Lainez M.D. 07/22/2024 1:[address] LUMBAR SPINE Clinical history: Lumbar radiculopathy Technique: Axial computed tomography images were obtained of the lumbar spine without intravenous contrast. Sagittal and coronal reconstructions were obtained Comparison is made to the prior CT dated 10/20/2023 Findings: There is an unchanged anterior and posterior fusion of L4 and L5 with posterior fixation rods and pedicle screws and prosthetic disc placement. There is no definite sign of instrumentation failure. Again seen is a complete laminectomy defect of L4 No fracture is identified. There is unchanged 2-3 mm of retrolisthesis of L3 on L4.. No focal osseous lesion is evident. There is no definite sign of osteomyelitis At L1-2, no disc herniation is identified. There is no spinal stenosis. The neural foramen are patent At L2-3, there is a disc bulge without spinal stenosis. The neural foramen are patent At L3-4, there is mild spinal stenosis due to a disc bulge and facet osteoarthritis. There is bilateral neural foramen narrowing that may affect the exiting L3 nerve roots At L4-5, no disc herniation is identified. There is no spinal stenosis. The neural foramen are patent At L5-S1, no disc herniation is identified. There is no spinal stenosis. The neural foramen are patent Impression: 1. Unchanged L4-5 fusion 2. Unchanged mild retrolisthesis at L3-4 3. Mild spinal stenosis at L3-4 4. Bilateral neural foramen narrowing at L3-4 that may affect the exiting L3 nerve roots ACT 112: Positive. There are findings on this exam that require communication between the performing entity and the patient following Patient Test Result Information Act ([place] ACT 112) guidelines. Electronically signed by Paulo Ling 07-21-2024 5:26 PM XR lumbar spine 2-3V CLINICAL HISTORY: Postoperative evaluation. COMPARISON STUDY: Lumbar spine MRI December 12, 2021 and fluoroscopic images of the lumbar spine March 25, 2022. FINDINGS: Abdominal surgical clips are noted. L4-L5 discectomy with posterior decompression bilateral pedicle screw fusion is noted. This is similar to fluoroscopic images of March 25, 2022. Lateral bone graft material is present. Hardware is intact. There are no unexpected radiopaque foreign bodies. No fracture is identified by radiography. Multilevel disc space narrowing osteophytosis is present. IMPRESSION: Status post L4-L5 discectomy, posterior decompression bilateral pedicle screw fusion. Hardware intact. No fracture identified. ACT 112: Negative or not required by law. Electronically signed by: Epi Lainez M.D. 04/07/2022 7:19 AM Patient History Medical History Obesity Depression Surgical History History of back surgery L4-5 laminectomy (01/11/20): Grade 2 view, MAC 3.0, ETT 7.0 at [facility]. No issues noted per post-op anesthesia progress note. History of colonoscopy Hx of tonsillectomy HX: benign breast biopsy X 8 HAS SOME MARKERS IN BREAST Hx of hysterectomy Hx of appendectomy Hx laparoscopic cholecystectomy Family History Other No family history of adverse response to anesthesia Social History Smoking Status: Never smoker Tobacco Type: Cigarettes Cigarettes Per Day: 10; Second Hand Exposure: No; Do You Dip or Chew Tobacco: No; Hx Alcohol Use: No Hx Substance Use: No Preferred Language: Andorran Communication Ability: Effective Information Resources Manager Required: No Beliefs That Will Affect Care: None marital status: Single Current Living Situation: Spouse Feels Safe at Home: Yes Assistive Devices: Cane Physical Exam Physical Exam: GENERAL: This is a 54 year old female laying in the hospital bed, in no acute distress. HEAD/FACE: Normocephalic and atraumatic. EYES: No drainage or conjunctival injection. ENT: Nose without bleeding or discharge. Oral mucosa moist. NECK: Full ROM without apparent pain. No swelling or masses noted. RESPIRATORY: Patient with unlabored breathing. No signs of respiratory distress. CHEST/AXILLA: Chest movement symmetrical. No deformities noted. ABDOMEN/GI: No distension BACK: Range of motion in all planes. There is moderate lumbosacral tenderness as well as left SI joint tenderness. Mild right SI joint tenderness. No facet joint tenderness. No paravertebral, quadratus lumborum, gluteal, piriformis muscle spasm or trigger points noted. SKIN: [place], warm and dry. No rash noted. MS/EXTREMITY: No swelling, no deformities. Moving extremities appropriately. NEURO: Alert and appears oriented. Speech is fluent. Cranial Nerves are grossly intact. PSYCH: Alert, pleasant, affect is calm
--- NOTE | 2024-07-26 23:01 | Hospitalist Progress Note ---
Date of Service July 26, 2024 Assessment & Plan (1) Acute low back pain: (2) Hypertension: (3) GERD (gastroesophageal reflux disease): (4) Anxiety: Plan Vidhya Gallego is a 54yo female with history of HTN, GERD and chronic, longstanding lumbar and cervical back pain presenting with acute worsening of lumbar back pain. Pain is left sided, distribution into the buttock, lateral thigh and into the groin. Most likely secondary to L3 radiculopathy. CT of the lumbar spine as above with bilateral neural foramen narrowing at L3-LR which may affect the exiting L3 nerve roots. #Acute on Chronic Low back pain with radicular symptoms -Admit to medical -Multimodal pain management to include Tylenol 1000mg po TID Toradol 30mg IV q 6 hours PRN Lidoderm patch Heat application Cyclobenzaprine 5mg po TID Dilaudid 0.5-1mg IV q 3 hours as needed Continue home Cymbalta -Colace and Miralax will be continued -Narcan available for accidental opioid overdose -Pain appears controlled. -appreciate input from Ortho: will plan for corticosteroid injections. Scheduled for . Due to need to maintain IV pain medicine will continue with admission for now. will transition to orals on 07/27 -Orthopedic-Spine Surgery consultation appreciated. MRI findings showing foraminal stenosis on L3-L4 likely needs surgery. discussed with ortho spine bmp was within range on 07/23 #Hypertension - mildly elevated blood pressure at present -Pain control -Continue Propranolol 20mg po BID -Continue Lisinopril 30mg po qHS -Continue Amlodipine 10mg po qHS #GERD -Continue Protonix #Anxiety/Mental healthy -Continue Strattera -Continue Buspar Admission and Anticipated Discharge Date Admission Date: July 21, 2024 Subjective Patient reports no new symptoms. She continues to have pain. Physical Exam Physical Exam: General: NAD Skin: intact, no rashes or lesions HEENT: NC/AT, PERRL, EOMI Lungs: not using accessory muscles to breath Ext: no clubbing/cyanosis or edema Results & Data Results & Data Vital Signs (Past 12 Hours) Vital Signs Temp Pulse Resp BP Pulse Ox O2 Del Method 07/26/24 20:34 36.6 C 79 18 115/77 96 Room Air 07/26/24 15:16 36.6 C 81 112/76 97 Room Air PG Care Time/CCT Total # of Minutes Spent Total Time Spent with Patient: Total time spent is greater than 50% in coordination of care (as documented) at patient's floor/unit and/or counseling patient: Coding Level of Care Code 99799 SUB INP/OBS CARE 3/50MIN Diagnoses Acute low back pain M54.42 Back pain laterality: midline Sciatica laterality: sciatica of left side Sciatica presence: with sciatica Hypertension I10 GERD (gastroesophageal reflux disease) K21.9 Anxiety F41.9 (1) Acute low back pain Back pain laterality: midline Sciatica laterality: sciatica of left side Sciatica presence: with sciatica Qualified Code(s): M54.42 - Lumbago with sciatica, left side
[2024-07-27] MEDS: KETOROLAC 30 MG/ML VIAL IV PRN (04:08)
[2024-07-27] MEDS ORDERED: oxyCODONE HCL IR 5 MG TAB (IMMEDIATE RELEASE) PO PRN ×2 (15:11→15:13)
[2024-07-27] MEDS ORDERED: IBUPROFEN 800 MG TAB PO SCH (17:00)
[2024-07-27] MEDS: oxyCODONE HCL IR 5 MG TAB (IMMEDIATE RELEASE) PO PRN (17:26)
[2024-07-27 19:47] VITALS: RESP 16
--- NOTE | 2024-07-27 23:34 | Hospitalist Progress Note ---
Date of Service July 27, 2024 Assessment & Plan (1) Acute low back pain: (2) Hypertension: (3) GERD (gastroesophageal reflux disease): (4) Anxiety: Plan Vidhya Gallego is a 54yo female with history of HTN, GERD and chronic, longstanding lumbar and cervical back pain presenting with acute worsening of lumbar back pain. Pain is left sided, distribution into the buttock, lateral thigh and into the groin. Most likely secondary to L3 radiculopathy. CT of the lumbar spine as above with bilateral neural foramen narrowing at L3-LR which may affect the exiting L3 nerve roots. #Acute on Chronic Low back pain with radicular symptoms -Admit to medical -Multimodal pain management to include Tylenol 1000mg po TID Lidoderm patch Heat application Cyclobenzaprine 5mg po TID switched dilaudid to oxycodone. stopping NSAIDs due to steroid injection in AM. Continue home Cymbalta -Colace and Miralax will be continued -Narcan available for accidental opioid overdose -Pain appears controlled. -appreciate input from Ortho: will plan for corticosteroid injections. Scheduled for . discussed with pain management -Orthopedic-Spine Surgery consultation appreciated. MRI findings showing foraminal stenosis on L3-L4 likely needs surgery. discussed with ortho spine bmp was within range on 07/23 #Hypertension - mildly elevated blood pressure at present -Pain control -Continue Propranolol 20mg po BID -Continue Lisinopril 30mg po qHS -Continue Amlodipine 10mg po qHS #GERD -Continue Protonix #Anxiety/Mental healthy -Continue Strattera -Continue Buspar Admission and Anticipated Discharge Date Admission Date: July 21, 2024 Subjective 53 yo female reports no new symptoms. Physical Exam Physical Exam: General: NAD Skin: intact, no rashes or lesions HEENT: NC/AT, PERRL, EOMI Lungs: not using accessory muscles to breath Ext: no clubbing/cyanosis or edema Results & Data Results & Data Vital Signs (Past 12 Hours) Vital Signs Temp Pulse Pulse Resp BP Pulse Ox O2 Del Method 07/27/24 19:46 37.1 C 100 H 16 123/80 98 Room Air 07/27/24 16:06 36.4 C L 78 18 125/79 97 Room Air 07/27/24 12:37 36.7 C 83 18 116/80 95 Room Air PG Care Time/CCT Total # of Minutes Spent Total Time Spent with Patient: Total time spent is greater than 50% in coordination of care (as documented) at patient's floor/unit and/or counseling patient: Coding Level of Care Code 20508 SUB INP/OBS CARE 3/50MIN Diagnoses Acute low back pain M54.42 Back pain laterality: midline Sciatica laterality: sciatica of left side Sciatica presence: with sciatica Hypertension I10 GERD (gastroesophageal reflux disease) K21.9 Anxiety F41.9 (1) Acute low back pain Back pain laterality: midline Sciatica laterality: sciatica of left side Sciatica presence: with sciatica Qualified Code(s): M54.42 - Lumbago with sciatica, left side
[2024-07-28 07:47] VITALS: BP 118/80; PULSE 85; TEMP 97.9; O2SAT 96
[2024-07-28] MEDS: ONDANSETRON INJ 2 MG/ML 2 ML VIAL IV PRN (10:17)
--- NOTE | 2024-07-28 13:52 | Discharge Summary ---
Discharge Summary Date of Service July 28, 2024 Principal Dx & Hospital Course #1 = Principal Diagnosis (1) Acute low back pain: (2) Hypertension: (3) GERD (gastroesophageal reflux disease): (4) Anxiety: Plan Vidhya Gallego is a 54yo female with history of HTN, GERD and chronic, longstanding lumbar and cervical back pain presenting with acute worsening of lumbar back pain. Pain is left sided, distribution into the buttock, lateral thigh and into the groin. Most likely secondary to L3 radiculopathy. CT of the lumbar spine as above with bilateral neural foramen narrowing at L3-LR which may affect the exiting L3 nerve roots. #Acute on Chronic Low back pain with radicular symptoms IMPRESSION: MRI LS 1. Status post L4-L5 decompression and fusion. 2. Progressive degenerative changes at the L3-L4 level since MRI of December 28, 2022. Slight retrolisthesis with disc bulge, facet arthrosis and ligamentous hypertrophy which result in mild central canal stenosis. Interval development of moderate to severe bilateral neural foraminal stenosis at this level. Findings could be correlated with bilateral L3 radiculopathy. 3. Otherwise, no significant change in appearance of the lumbar spine. Pain control with analgesics, muscle relaxants and pain management follow up for [facility] PT/OT eval completed - discharge home -Orthopedic-Spine Surgery consultation appreciated. MRI findings showing foraminal stenosis on L3-L4 likely needs surgery. discussed with ortho spine bmp was within range on 07/23 #Hypertension - mildly elevated blood pressure at present -Pain control -Continue Propranolol 20mg po BID -Continue Lisinopril 30mg po qHS -Continue Amlodipine 10mg po qHS #GERD -Continue Protonix #Anxiety/Mental healthy -Continue Strattera -Continue Buspar Admission HPI Per Admitting Provider Vidhya Gallego is a pleasant 54yo female with longstanding chronic back pain. She had an L4-L5 laminectomy performed with Dr. Gutierrez in January 2020 and had revision decompression with bilateral facetectomies and foraminotomies L3-L4 and L4-L5 with spinal fusion L4-L5 in March 2022. She does have chronic back pain as well as chronic cervical spine pain. [facility] and [facility] with Dr. Gutierrez from Orthopedics[facility]Spine locally. She has been evaluated at [facility] [place] [facility] for management of her chronic back pain - cervical stenosis as well as lumbar pain. Patient was seen at the [facility] 4-5 days ago with complaint of back pain - she had an x-ray performed and was told that her L3 has shifted forward over the area that has been fused. She has been taking Prednisone since 07/15. Patient woke this morning with severe lumbar back pain - mostly on the left side. Pain radiates into her buttock and into the lateral thigh to above her knee as well a across the thigh and into the groin at times. She denies falls or trauma, no fever. No bending/twisting/heavy lifting. She reports that her legs feel weak and she gets some tingling at times. No bowel or bladder complaints. She has been using topical therapies as well as muscle relaxer and Meloxicam at home with minimal improvement. In the ER she is afebrile, hemodynamically stable ER Course: Lidoderm patch Toradol 10mg IV Tylenol 1gm PO Fentanyl 75mcg IV Morphine 8mg IV Dilaudid 1mg IV Discharge Exam General: NAD Skin: intact, no rashes or lesions HEENT: NC/AT, PERRL, EOMI Lungs: not using accessory muscles to breath Ext: no clubbing/cyanosis or edema Discharge Plan Discharge Items Patient Disposition: Home - Self-Care Reason For Visit: ACUTE ON CHRONIC BACK PAIN WITH RADICULAR SYMPTOMS Discharge Diagnosis: B/L L3 RADICULOPATHY Condition on Discharge: Fair Activity: Resume your previous activity Activity Comment: follow PT/OT recommendations Non-emergency contact: Primary Care Provider Call non-emergency contact if: you have any medication questions and your pain is worsening Follow-up/Referrals: Annia Cohen D.O. [Primary Care Provider] - 08/01/24 1:45 pm Diet: Regular Addtl Attending Provider Instructions: Follow up with pain management Pending Studies at Discharge: No Stand-Alone Forms: My [employer], Smoking Cessation Medications and DC Order Prescriptions: New oxycodone 5 mg Tablet 10 mg PO Q6H PRN (Reason: Pain (Scale Score 7-10)) Qty: 24 0RF Continued valacyclovir [Valtrex] 500 mg Tablet 500 mg PO QAM pantoprazole [Protonix] 40 mg Tablet,Delayed Release (Dr/Ec) 40 mg PO BID lisinopril 30 mg Tablet 30 mg PO HS propranolol 20 mg Tablet 20 mg PO BID zolpidem 10 mg Tablet 10 mg PO HS multivitamin Tablet 1 tab PO QAM cyanocobalamin (vitamin B-12) 1,000 mcg/mL Solution 1,000 mcg IM MONTHLY cholecalciferol (vitamin D3) [Vitamin D3] 25 mcg (1,000 unit) Tablet 25 mcg PO QAM duloxetine 60 mg capsule,delayed release(DR/EC) 60 mg PO HS tizanidine 2 mg tablet 4 mg PO Q8H PRN (Reason: Pain) Rx Instructions: Pt always takes 4mg at bedtime and during the day if needed cetirizine [Zyrtec] 10 mg Tablet 10 mg PO QAM meloxicam 15 mg tablet 15 mg PO QAM amlodipine 10 mg tablet 10 mg PO HS buspirone 15 mg tablet 30 mg PO BID atomoxetine 80 mg capsule 80 mg PO QAM methyl salicylate-menthol 15-10 % Cream 1 applic TOPICAL TID PRN (Reason: Pain) Estroven 155 mg Capsule 155 cap PO QAM cranberry 500 mg Capsule 500 mg PO QAM Rx Instructions: administer with meals No Action atorvastatin 20 mg tablet 20 mg PO DAILY Discharge Orders: Discharge Order (Routine); Ordered 07/28/24 Ordered By: Vidya Jennings Admission Data Admit Date/Time: 07/21/24 20:24 Attending Provider: iVdya Jennings Admit Provider: Francisca Montoya Primary Care Provider: Annia Cohen Other Providers: Francisca Montoya; Akin Gutierrez; Mariah Arias Other Interventions: Discharge Summary Assessment (RN) Last Done: 07/28/24 11:18 Hospital Stay Data Consultations 07/21/24 19:12 ED Decision to Admit Stat 07/21/24 19:59 Consult Orthopedic Spine Surgery Routine 07/24/24 18:05 Burn CD for patient Routine 07/25/24 14:53 Consult Pain Management Routine Diagnostic Imagining Performed 07/21/24 16:05 CT lumbar spine wo con Stat 07/22/24 10:50 MR lumbar spine wo con Routine Pending Results Patient Have Any Pending Studies at Discharge: No Discharge Instructions Given to Patient (Per Discharging Provider) Follow up with pain management Total Time Total Time Spent Total Time Spent (In Minutes): 35 min Coding Level of Care Code 11187 INP/OBS DISCH >30 MIN Diagnoses Acute low back pain M54.42 Back pain laterality: midline Sciatica laterality: sciatica of left side Sciatica presence: with sciatica Hypertension I10 GERD (gastroesophageal reflux disease) K21.9 Anxiety F41.9
== END 2024-07-28 12:35 | disposition home or self-care (01) | DRG 552 ==
LOC: ED 15:27 → SUATTDRO 20:24 → 3N 20:24

== ENCOUNTER 2025-01-09 10:20 | Inpatient (IN) ==
--- NOTE | 2025-01-09 11:08 | Emergency Department Note ---
Impression & Plan Multiple falls, Compression fx, thoracic spine, Closed rib fracture, Contusion of multiple sites, Contusion of foot, left, Cervical strain, acute, Lumbar contusion ED Provider Note NAME: KEN GUTIERREZ AGE: 54 SEX: F : 1970 ARRIVES VIA: Ambulance INFORMANT: Patient, EMS ED PROVIDER(S): Amanuel Suazo DO I evaluated the patient at 10:44 AM. CHIEF COMPLAINT: Trauma HPI: The patient is a 54-year-old female who presented to the emergency department after a trauma. The patient reportedly fell down the steps multiple times. She is fell down multiple steps. She was admitted at [facility] but signed herself out against medical vice. She had another fall over the weekend. The patient lives in [place] and called 911. The patient was brought here because she states that her back specialist is at [facility]. ROS: See above HPI for pertinent positives & negatives. A total of 10 systems reviewed and were otherwise negative. PAST MEDICAL HISTORY: See Below PAST SURGICAL HISTORY: See Below FAMILY HISTORY: See Below SOCIAL HISTORY: See Below HOME MEDICATIONS: See Below ALLERGIES: See Below VITALS: See Below PHYSICAL EXAMINATION: Primary Survey Airway: Intact Breathing: Normal, breath sounds equal bilaterally Circulation: Skin warm, distal pulses 2+, capillary refill less than 2 seconds Disability Pupils: Equal and reactive to light, 4mm, brisk GCS: 15, Motor Function: Moves all extremities. Sensory: No deficits Secondary Survey GEN: Well developed and well-nourished HEAD: Normal cephalic atraumatic EYES: Pupils round reactive to light, conjunctiva clear, extraocular movements intact, no raccoons eyes ENT: Oropharynx was clear. NECK: No JVD, midline trachea, no cervical spine tenderness, C-collar in place HEART: Regular rate and rhythm LUNGS: Clear to auscultation bilaterally. CHEST: Chest wall non-tender, no bruising/deformity ABD: There is no tenderness guarding rigidity noted. PELVIS: Tenderness was noted over the left hemipelvis. There is no crepitus. BACK: Diffuse tenderness was noted over the entire thoracolumbar spine. EXT: 2+ global pulses, moving all extremities well, +5/5 muscle strength globally. There is tenderness over the left foot. There is also tenderness of the left hip. There is tenderness over the lower chest wall. Multiple areas of bruising were noted over the patient's body. These appear to be at different stages. NEURO: CNII-XII grossly intact, no sensory deficits MEDICAL DECISION MAKING: The patient is a 54-year-old female who presented to the emergency department by ambulance. The patient was made a trauma alert upon arrival. She has had a history of falls in the past. She fell most recently and was admitted to [facility]. She did leave the hospital AGAINST MEDICAL ADVICE at that time but presented here because of another fall over the weekend. The patient has bruising over multiple areas of her body. She specifically had back pain including cervical spine pain. She states that she struck her head. She did have chest pain. I discussed patient's laboratory and radiographic studies with her. She was still having significant pain so I discussed her condition [facility] They have agreed to evaluate the patient in the emergency department for further management and disposition. Triage Nursing notes reviewed. Prior medical records reviewed Vital Signs: reviewed and remarkable for no significant abnormalities Differential diagnosis: Fracture, dislocation, contusion, intra-abdominal, pneumothorax, intrathoracic, intracranial, neurologic, compartment syndrome, rhabdomyolysis, as well as other pathologies. ER treatment provided: See below Diagnostics interpreted by me: ECG: EKG was obtained in the emergency department. My interpretation is normal sinus rhythm at 81 bpm. There is no ectopy. There is no acute ST segment abnormalities noted. This was compared to a tracing from December 282022. No changes were noted. Cardiac Monitoring: An order was placed for continuous cardiac monitoring. The monitor shows a rate of 72 bpm with sinus rhythm. Laboratory studies: As stated above and show below. Imaging studies: See below. Radiographic imaging was reviewed by myself Consultation(s): , who is [facility] was notified about the patient. ED COURSE: 1315: After reviewing the patient's radiographic studies with her the cervical collar was removed. The patient has no midline tenderness. She does have some left-sided paravertebral tenderness but range of motion appears intact and appropriate. The cervical collar was removed by myself at this time. Procedures: none Critical Care: I have personally spent greater than 40 minutes of critical care time in the direct management of this patient. This includes bedside care, interpretation of diagnostic studies, and testing, discussion with consultants, patient, and family members, and other required patient management activities. This 40 minutes is in excess of all separately billable procedures. Past Med/Surg History Problem List (Updated 01/09/25 @ 17:27 by Amanuel Suazo DO) Lumbar contusion (Acute) Cervical strain, acute (Acute) Contusion of foot, left (Acute) Contusion of multiple sites (Acute) Closed rib fracture (Acute) Compression fx, thoracic spine (Acute) Multiple falls (Acute) Lumbar radiculopathy Adnexal cyst Trochanteric bursitis of right hip Encounter for pre-operative examination Lumbar disc herniation with radiculopathy (Acute) Acute low back pain (Acute) Sciatic leg pain (Acute) Medical History Adjacent segment disease of lumbar spine with history of fusion procedure Spondylosis of lumbosacral spine at single level with radiculopathy GERD (gastroesophageal reflux disease) controlled, stable per pt Anxiety Hypertension controlled, stable per pt Obesity Depression Surgical History History of back surgery L4-5 laminectomy (01/11/20): Grade 2 view, MAC 3.0, ETT 7.0 at [facility]. No issues noted per post-op anesthesia progress note. L4-S1 fusion 03/25/2022 Dr. Gutierrez History of colonoscopy Hx of tonsillectomy HX: benign breast biopsy X 8 HAS SOME MARKERS IN BREAST Hx of hysterectomy Hx of appendectomy Hx laparoscopic cholecystectomy Family History Other No family history of adverse response to anesthesia Social History Smoking Status: Never smoker Tobacco Type: Cigarettes Cigarettes Per Day: 10; Second Hand Exposure: No; Do You Dip or Chew Tobacco: No; Hx Alcohol Use: No Hx Substance Use: No Preferred Language: Citizen Of [place] Communication Ability: Effective Weld [employer] Out Worker Required: No Beliefs That Will Affect Care: None marital status: Single Current Living Situation: Spouse Feels Safe at Home: Yes Assistive Devices: Cane Allergies Allergies Allergy/AdvReac Type Severity Reaction Status Date / Time No Known Allergies Allergy Verified 01/09/25 12:33 Home Meds Home Medications Medication Instructions Recorded Confirmed lisinopril 30 mg tablet 30 mg PO HS 01/06/20 01/09/25 pantoprazole 40 mg tablet,delayed 40 mg PO BID 01/06/20 01/09/25 release (Protonix) propranolol 20 mg tablet 20 mg PO BID 01/06/20 01/09/25 valacyclovir 500 mg tablet 500 mg PO QAM 01/06/20 01/09/25 (Valtrex) cholecalciferol (vitamin D3) 25 25 mcg PO QAM 02/26/22 01/09/25 mcg (1,000 unit) tablet (Vitamin D3) cyanocobalamin (vitamin B-12) 1,000 mcg IM MONTHLY 02/26/22 01/09/25 1,000 mcg/mL injection solution multivitamin 1 tab PO QAM 02/26/22 01/09/25 zolpidem 10 mg tablet 10 mg PO HS Insomnia 02/26/22 01/09/25 duloxetine 60 mg capsule,delayed 60 mg PO HS 12/25/22 01/09/25 release amlodipine 10 mg tablet 10 mg PO HS 07/21/24 01/09/25 atomoxetine 80 mg capsule 80 mg PO QAM 07/21/24 01/09/25 buspirone 15 mg tablet 30 mg PO BID 07/21/24 01/09/25 cetirizine 10 mg tablet (Zyrtec) 10 mg PO QAM 07/21/24 01/09/25 cranberry 500 mg capsule 500 mg PO QAM 07/21/24 01/09/25 methyl salicylate 15 %-menthol 10 1 applic topical TID PRN Pain 07/21/24 01/09/25 % topical cream soy isoflavone-black cohosh 155 cap PO QAM 07/21/24 01/09/25 root-magnolia bark 155 mg capsule (Estroven) atorvastatin 20 mg tablet 20 mg PO DAILY 07/28/24 01/09/25 Previous Rx's Medication Instructions Recorded gabapentin 600 mg tablet 600 mg PO TID #90 tabs 10/18/24 Results & Data (ED) Vital Signs Vital Signs - 24 hr 01/09/25 10:37 01/09/25 10:44 01/09/25 10:44 Temperature 36.9 C 36.9 C Temperature Source Temporal Artery Scan Pulse Rate 86 85 Pulse Rate [Apical] Pulse Rate from SpO2 Sensor Respiratory Rate 20 16 16 Respiratory Effort / Characteristics Non-Labored Spontaneous Respiratory Depth Normal Blood Pressure 129/84 135/84 Blood Pressure [Left Arm] Blood Pressure Mean 99 Blood Pressure Mean [Left Arm] Pulse Oximetry 99 99 Oxygen Delivery Method Room Air Room Air Oxygen Flow Rate 0 Sepsis Recent Fever Within 48 Hours No Sepsis New/Unexplained Change in Mental Status N/A Sepsis Action Taken by Nursing No Action Required 01/09/25 10:44 01/09/25 10:44 01/09/25 10:48 Temperature Temperature Source Pulse Rate 77 Pulse Rate [Apical] Pulse Rate from SpO2 Sensor Respiratory Rate 16 16 Respiratory Effort / Characteristics Respiratory Depth Blood Pressure 185/103 H Blood Pressure [Left Arm] Blood Pressure Mean 139 Blood Pressure Mean [Left Arm] Pulse Oximetry 99 100 Oxygen Delivery Method Room Air Oxygen Flow Rate Sepsis Recent Fever Within 48 Hours Sepsis New/Unexplained Change in Mental Status Sepsis Action Taken by Nursing 01/09/25 10:50 01/09/25 10:50 01/09/25 11:30 Temperature Temperature Source Pulse Rate 86 Pulse Rate [Apical] Pulse Rate from SpO2 Sensor Respiratory Rate 12 Respiratory Effort / Characteristics Respiratory Depth Blood Pressure 159/86 H Blood Pressure [Left Arm] Blood Pressure Mean 109 Blood Pressure Mean [Left Arm] Pulse Oximetry 99 96 Oxygen Delivery Method Room Air Room Air Oxygen Flow Rate Sepsis Recent Fever Within 48 Hours Sepsis New/Unexplained Change in Mental Status Sepsis Action Taken by Nursing 01/09/25 11:44 01/09/25 12:00 01/09/25 12:21 Temperature Temperature Source Pulse Rate 71 70 Pulse Rate [Apical] 68 Pulse Rate from SpO2 Sensor 70 Respiratory Rate 14 12 12 Respiratory Effort / Characteristics Non-Labored Respiratory Depth Normal Blood Pressure 149/95 H 168/104 H Blood Pressure [Left Arm] 149/95 H Blood Pressure Mean 124 125 Blood Pressure Mean [Left Arm] 113 Pulse Oximetry 96 98 96 Oxygen Delivery Method Room Air Room Air Room Air Oxygen Flow Rate Sepsis Recent Fever Within 48 Hours Sepsis New/Unexplained Change in Mental Status Sepsis Action Taken by Nursing 01/09/25 12:44 01/09/25 13:12 01/09/25 14:00 Temperature Temperature Source Pulse Rate 73 74 84 Pulse Rate [Apical] Pulse Rate from SpO2 Sensor 76 85 Respiratory Rate 12 16 Respiratory Effort / Characteristics Respiratory Depth Blood Pressure 141/96 H 151/86 H Blood Pressure [Left Arm] Blood Pressure Mean 111 107 Blood Pressure Mean [Left Arm] Pulse Oximetry 93 99 Oxygen Delivery Method Oxygen Flow Rate Sepsis Recent Fever Within 48 Hours Sepsis New/Unexplained Change in Mental Status Sepsis Action Taken by Nursing 01/09/25 14:09 01/09/25 14:21 01/09/25 14:33 Temperature Temperature Source Pulse Rate 83 77 75 Pulse Rate [Apical] Pulse Rate from SpO2 Sensor 83 77 74 Respiratory Rate 18 11 L 11 L Respiratory Effort / Characteristics Respiratory Depth Blood Pressure Blood Pressure [Left Arm] Blood Pressure Mean Blood Pressure Mean [Left Arm] Pulse Oximetry 99 100 98 Oxygen Delivery Method Oxygen Flow Rate Sepsis Recent Fever Within 48 Hours Sepsis New/Unexplained Change in Mental Status Sepsis Action Taken by Nursing 01/09/25 14:42 Temperature Temperature Source Pulse Rate 87 Pulse Rate [Apical] Pulse Rate from SpO2 Sensor 86 Respiratory Rate Respiratory Effort / Characteristics Respiratory Depth Blood Pressure Blood Pressure [Left Arm] Blood Pressure Mean Blood Pressure Mean [Left Arm] Pulse Oximetry 93 Oxygen Delivery Method Oxygen Flow Rate Sepsis Recent Fever Within 48 Hours Sepsis New/Unexplained Change in Mental Status Sepsis Action Taken by Half-Way Medications Current Medication List: was personally reviewed by de Laboratory Data Attestation: I reviewed the patient's lab results. 01/09/25 11:00 01/09/25 11:00 Lab Results 01/09/25 01/09/25 Range/Units 10:56 11:00 WBC 5.79 (4.8-10.8) K/ul RBC 5.21 (4.20-5.40) M/uL Hgb 15.1 (12.0-16.0) g/dl POC Hgb 15.6 (12.0-16.0) g/dl Hct 45.9 (37.0-47.0) % POC Hct 46 (37-47) % MCV 88.1 (80.0-100.0) fL MCH 29.0 (25.0-34.0) pg MCHC 32.9 (32.0-36.0) g/dL RDW Std Deviation 40.3 (36.4-46.3) fL RDW Coeff of Ashley 12.6 (11.5-14.5) % Plt Count 211 (130-400) K/uL MPV 9.8 (9.4-12.4) fL Immature Gran % (Auto) 0.2 % Neut % (Auto) 52.8 % Lymph % (Auto) 37.8 % [place] % (Auto) 7.8 % Eos % (Auto) 1.2 % Baso % (Auto) 0.2 % Neut # (Auto) 3.06 (1.40-6.50) K/uL Lymph # (Auto) 2.19 (1.20-3.40) K/uL [place] # (Auto) 0.45 (0.11-0.59) K/uL Eos # (Auto) 0.07 (0.00-0.50) K/uL Baso # (Auto) 0.01 (0.00-0.20) K/uL Immature Gran # (Auto) 0.01 (0.01-0.20) K/uL PT 9.6 (9.0-12.0) Seconds INR 0.9 (0.9-1.1) APTT 26 (21-31) Seconds PTT Ratio 1.0 POC Sodium 142 (135-144) mmol/L Sodium 142 (136-145) mmol/L POC Potassium 4.5 (3.3-5.0) mmol/L Potassium 4.5 (3.5-5.1) mmol/L POC Chloride 104 (101-112) mmol/L Chloride 105 (98-107) mmol/L Carbon Dioxide 30 (21-32) mmol/L POC Total CO2 26 (24-31) mmol/L Anion Gap 7 (3-11) POC Anion Gap 17.0 (16-25) mmol/L POC BUN 16 (7-18) mg/dl BUN 16 (6-23) mg/dl Creatinine 0.87 (0.6-1.2) mg/dl POC Creatinine 1.0 (0.6-1.3) mg/dl Est Cr Clr Drug Dosing 77.9 ml/min eGFR 78.15 BUN/Creatinine Ratio 18.4 (10-20) Glucose 89 (70-99(Fasting)) mg/dl POC Glucose (other) 90 (70-99) mg/dl Calcium 10.1 (8.6-10.3) mg/dl POC Ioniz Calcium Clarisa 1.27 (1.12-1.32) mmol/l Total Bilirubin 0.6 (0.2-1.0) mg/dl AST 49 H (13-39) U/L ALT 25 (7-52) U/L Alkaline Phosphatase 109 H (34-104) U/L Total Creatine Kinase 67 (26-192) U/L Troponin I High Sens 2.9 (0-14) pg/ml Total Protein 7.3 (6.0-8.3) gm/dl Albumin 4.2 (3.4-5.0) gm/dl Globulin 3.1 (2.5-4.0) gm/dl Albumin/Globulin Ratio 1.4 (0.9-2) Lipase 34 (11-82) U/L HCG, Qual Negative (Negative) Ethyl Alcohol mg/dL < 10.0 (<10.0) mg/dl Administered Medications Discontinued Medications Hydromorphone HCl (Hydromorphone Inj 0.5 Mg/0.5 Ml Syr) 0.5 mg IV NOW STA Stop: 01/09/25 12:10 Last Admin: 01/09/25 12:14 Dose: 0.5 mg Documented By: PAULINE Sodium Chloride (Nss) 500 mls @ 999 mls/hr IV .Q31M MARY CARMEN Stop: 01/09/25 11:30 Last Infusion: 01/09/25 12:00 Dose: Infused Documented By: Admin: 01/09/25 11:26 Dose: 999 mls/hr Documented By: NAYA Ceftriaxone Sodium (Rocephin) 2,000 mg in 50 mls @ 100 mls/hr IV NOW STA Stop: 01/09/25 13:43 Last Infusion: 01/09/25 14:30 Dose: Infused Documented By: Admin: 01/09/25 13:43 Dose: 100 mls/hr Documented By: ADA Ioversol (Optiray 320 100ml) 94 ml IV ONCE ONE Stop: 01/09/25 11:09 Last Admin: 01/09/25 11:09 Dose: 94 ml Documented By: LISANDRA Morphine Sulfate (Morphine Sulfate 4 Mg/Ml 1 Ml Carp\Vial) 4 mg IV NOW STA Stop: 01/09/25 10:50 Last Admin: 01/09/25 11:26 Dose: 4 mg Documented By: NAYA Ondansetron HCl (Ondansetron Inj 2 Mg/Ml 2 Ml Vial) 4 mg IV NOW STA Stop: 01/09/25 10:50 Last Admin: 01/09/25 11:26 Dose: 4 mg Documented By: NAYA Oxycodone HCl (Oxycodone Hcl Ir 5 Mg Tab (Immediate Release)) 10 mg PO ONCE ONE Stop: 01/09/25 14:16 Last Admin: 01/09/25 14:26 Dose: 10 mg Documented By: ADA Imaging Data Attestation: I personally reviewed and interpreted this imaging study as follows: My Impression: CT of the brain was obtained in the emergency department. My interpretation is no intracranial hemorrhage or mass effect, final report below. 1 view chest x-ray was obtained in the emergency department. My interpretation is no free air or definite infiltrate, final report below. Radiologist's Impression: Abdomen/Pelvis CT 01/09/25 10:50 CT SCAN OF THE ABDOMEN AND PELVIS WITH IV CONTRAST CLINICAL HISTORY: Trauma. COMPARISON STUDY: CT of the abdomen and pelvis October 20, 2023. Pelvis radiograph performed earlier today. TECHNIQUE: Following the IV administration of 94 cc of Optiray 320, CT scan of the abdomen and pelvis is performed from the lung bases to the proximal femora. Images are reviewed in the axial, sagittal, and coronal planes. IV contrast was administered without complication. A dose lowering technique was utilized adhering to the principles of ALARA. FINDINGS: Please note that the chest CT will be reported separately. There is an acute mildly displaced posterior left 11th rib fracture. There is a trace left pleural effusion. No acute lumbar spine, pelvis or hip fractures are identified. There are postoperative findings consistent with L4-L5 decompression and fusion. There is no evidence for traumatic injury to the liver, spleen, adrenal glands, kidneys or pancreas. Biliary ductal dilatation is similar to prior CT and likely related to cholecystectomy. There is no pancreatic ductal dilatation. Caliber and wall thickness of small and large bowel are normal. Trace low-attenuation fluid within the pelvis is similar to prior CT. No evidence for a bowel obstruction. No pelvic fluid collections. There is no lymphadenopathy. IMPRESSION: 1. No acute traumatic findings within the abdomen or pelvis. 2. Acute mildly displaced posterior left 11th rib fracture. Trace left pleural effusion. ACT 112: Negative or not required by law. Electronically signed by: Epi Lainez M.D. 01/09/2025 11:[address] 01/09/25 10:50 CT cervical spine wo con CT DOSE: 1226.72 mGy.cm CLINICAL HISTORY: Trauma. COMPARISON: None TECHNIQUE: Multiple axial CT images of the cervical spine were obtained without contrast. A dose lowering technique was utilized adhering to the principles of ALARA. FINDINGS: There are degenerative changes at the lower cervical spine. No fracture or subluxation seen. IMPRESSION: No cervical spine fracture seen. ACT 112: Negative or not required by law. The above report was generated using voice recognition software. It may contain grammatical, syntax or spelling errors. Electronically signed by: Emmanuel Thomas M.D. 01/09/2025 11:[address] 01/09/25 10:[address] WITH CONTRAST HISTORY: Acute chest trauma Trauma TECHNIQUE: Multiaxial CT images of the chest were performed following the IV administration of 94 cc of Optiray. A dose lowering technique was utilized adhering to the principles of ALARA. COMPARISON: CT abdomen and pelvis of same day FINDINGS: Unremarkable thyroid. Probable small amount of residual thymic tissue in the anterior mediastinum. Heart is normal in size. Mild coronary artery calcifications. Unremarkable thoracic aorta and pulmonary artery. Trace amount of left basilar pleural fluid. No pneumothorax, overt pulmonary edema, suspicious pulmonary nodule or mass. Mild left basilar atelectasis. The central airways appear patent. No acute upper abdominal abnormality. Cholecystectomy. Acute minimally displaced fracture posterior lateral left 11th rib. Minimal superior endplate compression at T3, likely chronic. IMPRESSION: 1. Acute minimally displaced fracture of the posterolateral left 11th rib. 2. No pneumothorax. 3. Likely chronic minimal super endplate compression at T3 without retropulsion. ACT 112: Negative or not required by law. Electronically signed by: Anuel Leos M.D. 01/09/2025 11:59 AM Chest X-Ray 01/09/25 10:50 XR chest 1V portable CLINICAL HISTORY: Trauma COMPARISON STUDY: 12/29/2022 FINDINGS: Heart size and pulmonary vasculature are normal. No consolidation or pleural effusion. No pneumothorax. IMPRESSION: No acute findings seen. ACT 112: Negative or not required by law. Electronically signed by: Emmanuel Thomas M.D. 01/09/2025 11:16 AM Foot X-Ray 01/09/25 10:50 XR foot LT min 3V routine CLINICAL HISTORY: fall COMPARISON: None FINDINGS: No fracture or dislocation seen. No significant degenerative change. IMPRESSION: No fracture seen. ACT 112: Negative or not required by law. Electronically signed by: Emmanuel Thomas M.D. 01/09/2025 11:[address] 01/09/25 10:50 CT head/brain wo con CLINICAL HISTORY: 54 years-old Female with trauma. Acute head and neck trauma TECHNIQUE: Multiple axial CT images of the head were obtained without contrast. A dose lowering technique was utilized adhering to the principles of ALARA. COMPARISON: CT cervical spine of same day FINDINGS: No acute intracranial hemorrhage, midline shift, intracranial mass, hydrocephalus, territorial ischemia or abnormal extra-axial collection. Mild nonspecific white matter hypodensities. The calvarium is intact. Punctate soft tissue calcifications of the superior scalp. The paranasal sinuses, mastoid air cells, and middle ear cavities are clear. IMPRESSION: No acute intracranial abnormality or calvarial fracture. ACT 112: Negative or not required by law. The above report was generated using voice recognition software. It may contain grammatical, syntax or spelling errors. Electronically signed by: Anuel Leos M.D. 01/09/2025 11:55 AM Hip X-Ray 01/09/25 10:50 XR pelvis 1-2V routine, XR hip LT min 2V CLINICAL HISTORY: Trauma COMPARISON: None FINDINGS: No fracture or dislocation seen at the pelvis or left hip. IMPRESSION: No fracture seen. ACT 112: Negative or not required by law. Electronically signed by: Emmanuel Thomas M.D. 01/09/2025 11:[address] 01/09/25 10:50 CT lumbar spine w con CLINICAL HISTORY: trauma COMPARISON STUDY: 07/21/2024 FINDINGS: There is stable metallic fusion L4-5 with no hardware complication seen. There is stable mild retrolisthesis of L3 on 4. Otherwise normal alignment. Stable mild lumbar spine degenerative changes. No fracture seen at the lumbar spine. IMPRESSION: No lumbar spine fracture seen. ACT 112: Negative or not required by law. Electronically signed by: Emmanuel Thomas M.D. 01/09/2025 11:42 AM Pelvis X-Ray 01/09/25 10:50 XR pelvis 1-2V routine, XR hip LT min 2V CLINICAL HISTORY: Trauma COMPARISON: None FINDINGS: No fracture or dislocation seen at the pelvis or left hip. IMPRESSION: No fracture seen. ACT 112: Negative or not required by law. Electronically signed by: Emmanuel Thomas M.D. 01/09/2025 11:[address] 01/09/25 10:50 CT thoracic spine w con CLINICAL HISTORY: Trauma. COMPARISON STUDY: No previous studies for comparison. TECHNIQUE: Axial images of the thoracic spine were obtained following intravenous injection of 94 cc of Optiray 320 IV. Sagittal and coronal reformats were viewed. A dose lowering technique was utilized adhering to the principles of ALARA. FINDINGS: Please note that the chest CT will be reported separately. Slight loss of height of the superior endplate of T3 is noted. There is no paravertebral edema. This is likely chronic. No definite acute thoracic spine fractures are present. There is an acute mildly displaced posterior left 11th rib fracture. There is a trace left pleural effusion. Mild multilevel endplate osteophytosis is present. Facet joints are intact. Central canal and neural foramen are suboptimally assessed given CT technique. IMPRESSION: 1. Slight loss of height of the superior endplate of T3. Although technically age indeterminate, this is likely chronic. No definite acute thoracic spine fractures. 2. Mildly displaced acute posterior left 11th rib fracture. Trace left pleural effusion. ACT 112: Negative or not required by law. Electronically signed by: Epi Lainez M.D. 01/09/2025 11:53 AM Discharge Plan Visit Data Chief Complaint: Trauma Stated Complaint: LEG NUMBNESS, BACK & NECK PAIN ED Provider: Amanuel Suazo Discharge Problem: Multiple falls, Compression fx, thoracic spine, Closed rib fracture, Contusion of multiple sites, Contusion of foot, left, Cervical strain, acute, Lumbar contusion Patient Disposition: Being Evaluated by Hospitalist Condition: Fair Discharge Instructions Interventions: ED Discharge Assessment Last Done: 01/09/25 16:35
[2025-01-09] MEDS: OPTIRAY 320 100ml IV ONE (11:09)
--- NOTE | 2025-01-09 11:18 | XRay Report ---
XR pelvis 1-2V routine, XR hip LT min 2V CLINICAL HISTORY: Trauma COMPARISON: None FINDINGS: No fracture or dislocation seen at the pelvis or left hip. IMPRESSION: No fracture seen. ACT 112: Negative or not required by law. Electronically signed by: Emmanuel Thomas M.D. 01/09/2025 11:17 AM
--- NOTE | 2025-01-09 11:18 | XRay Report ---
XR chest 1V portable CLINICAL HISTORY: Trauma COMPARISON STUDY: 12/29/2022 FINDINGS: Heart size and pulmonary vasculature are normal. No consolidation or pleural effusion. No p neumothorax. IMPRESSION: No acute findings seen. ACT 112: Negative or not required by law. Electronically signed by: Emmanuel Thomas M.D. 01/09/2025 11:16 AM
--- NOTE | 2025-01-09 11:19 | XRay Report ---
XR foot LT min 3V routine CLINICAL HISTORY: fall COMPARISON: None FINDINGS: No fracture or dislocation seen. No significant degenerative change. IMPRESSION: No fracture seen. ACT 112: Negative or not required by law. Electronically signed by: Emmanuel Thomas M.D. 01/09/2025 11:18 AM
[2025-01-09] MEDS: SODIUM CHLORIDE 0.9% 500 ML IV SCH (11:26)
[2025-01-09] MEDS: MoRPHine SULFATE 4 MG/ML 1 ML CARP\\VIAL IV STA (11:26)
[2025-01-09] MEDS: ONDANSETRON INJ 2 MG/ML 2 ML VIAL IV STA (11:26)
--- NOTE | 2025-01-09 11:26 | CT Scan Report ---
CT cervical spine wo con CT DOSE: 1226.72 mGy.cm CLINICAL HISTORY: Trauma. COMPARISON: None TECHNIQUE: Multiple axial CT images of the cervical spine were obtained without contrast. A dose low ering technique was utilized adhering to the principles of ALARA. FINDINGS: There are degenerative changes at the lower cervical spine. No fracture or subluxation seen . IMPRESSION: No cervical spine fracture seen. ACT 112: Negative or not required by law. The above report was generated using voice recognition software. It may contain grammatical, syntax o r spelling errors. Electronically signed by: Emmanuel Thomas M.D. 01/09/2025 11:24 AM
[2025-01-09 11:27] LABS: Hematocrit (blood only) 45.9 % (37.0-47.0); Hemoglobin 15.1 g/dl (12.0-16.0); Immature Granulocytes # (auto) 0.01 K/uL (0.01-0.20); Immature Granulocytes % (auto) 0.2 %; Mean Corpuscular Hemoglobin 29.0 pg (25.0-34.0); Mean Corpuscular Volume 88.1 fL (80.0-100.0); Platelet Count 211 K/uL (130-400); RDW Standard Deviation 40.3 fL (36.4-46.3); Red Blood Count 5.21 M/uL (4.20-5.40); White Blood Count 5.79 K/ul (4.8-10.8)
[2025-01-09 11:43] LABS: Alanine Aminotransferase 25.0 U/L (7-52); Albumin Globulin Ratio 1.4 (0.9-2); Alkaline Phosphatase 109.0 U/L (34-104); Anion Gap 7.0 (3-11); Bilirubin,Total 0.6 mg/dl (0.2-1.0); Blood Urea Nitrogen 16.0 mg/dl (6-23); Calcium 10.1 mg/dl (8.6-10.3); Carbon Dioxide 30.0 mmol/L (21-32); Chloride 105.0 mmol/L (98-107); Creatine Kinase 67.0 U/L (26-192); Creatinine Clr Calc Pharmacy 77.9 ml/min; Globulin 3.1 gm/dl (2.5-4.0); Glucose 89.0 mg/dl (70-99(Fasting)); Lipase 34.0 U/L (11-82); Potassium 4.5 mmol/L (3.5-5.1); Sodium 142.0 mmol/L (136-145); Total Protein 7.3 gm/dl (6.0-8.3)
--- NOTE | 2025-01-09 11:44 | CT Scan Report ---
CT lumbar spine w con CLINICAL HISTORY: trauma COMPARISON STUDY: 07/21/2024 FINDINGS: There is stable metallic fusion L4-5 with no hardware complication seen. There is stable mi ld retrolisthesis of L3 on 4. Otherwise normal alignment. Stable mild lumbar spine degenerative mcdonald es. No fracture seen at the lumbar spine. IMPRESSION: No lumbar spine fracture seen. ACT 112: Negative or not required by law. Electronically signed by: Emmanuel Thomas M.D. 01/09/2025 11:42 AM
--- NOTE | 2025-01-09 11:54 | CT Scan Report ---
CT thoracic spine w con CLINICAL HISTORY: Trauma. COMPARISON STUDY: No previous studies for comparison. TECHNIQUE: Axial images of the thoracic spine were obtained following intravenous injection of 94 cc of Optiray 320 IV. Sagittal and coronal reformats were viewed. A dose lowering technique was utilized adhering to the principles of ALARA. FINDINGS: Please note that the chest CT will be reported separately. Slight loss of height of the sup erior endplate of T3 is noted. There is no paravertebral edema. This is likely chronic. No definite a cute thoracic spine fractures are present. There is an acute mildly displaced posterior left 11th rib fracture. There is a trace left pleural effusion. Mild multilevel endplate osteophytosis is present. Facet joints are intact. Central canal and neural foramen are suboptimally assessed given CT techniq ue. IMPRESSION: 1. Slight loss of height of the superior endplate of T3. Although technically age indeterminate, this is likely chronic. No definite acute thoracic spine fractures. 2. Mildly displaced acute posterior left 11th rib fracture. Trace left pleural effusion. ACT 112: Negative or not required by law. Electronically signed by: Epi Lainez M.D. 01/09/2025 11:53 AM
--- NOTE | 2025-01-09 11:56 | CT Scan Report ---
CT SCAN OF THE ABDOMEN AND PELVIS WITH IV CONTRAST CLINICAL HISTORY: Trauma. COMPARISON STUDY: CT of the abdomen and pelvis October 20, 2023. Pelvis radiograph performed earlier to day. TECHNIQUE: Following the IV administration of 94 cc of Optiray 320, CT scan of the abdomen and pelvi s is performed from the lung bases to the proximal femora. Images are reviewed in the axial, sagittal , and coronal planes. IV contrast was administered without complication. A dose lowering technique wa s utilized adhering to the principles of ALARA. FINDINGS: Please note that the chest CT will be reported separately. There is an acute mildly displac ed posterior left 11th rib fracture. There is a trace left pleural effusion. No acute lumbar spine, p bashir or hip fractures are identified. There are postoperative findings consistent with L4-L5 decompr ession and fusion. There is no evidence for traumatic injury to the liver, spleen, adrenal glands, ki dneys or pancreas. Biliary ductal dilatation is similar to prior CT and likely related to cholecystec sunil. There is no pancreatic ductal dilatation. Caliber and wall thickness of small and large bowel a re normal. Trace low-attenuation fluid within the pelvis is similar to prior CT. No evidence for a rajiv wel obstruction. No pelvic fluid collections. There is no lymphadenopathy. IMPRESSION: 1. No acute traumatic findings within the abdomen or pelvis. 2. Acute mildly displaced posterior left 11th rib fracture. Trace left pleural effusion. ACT 112: Negative or not required by law. Electronically signed by: Epi Lainez M.D. 01/09/2025 11:55 AM
--- NOTE | 2025-01-09 11:57 | CT Scan Report ---
CT head/brain wo con CLINICAL HISTORY: 54 years-old Female with trauma. Acute head and neck trauma TECHNIQUE: Multiple axial CT images of the head were obtained without contrast. A dose lowering tech nique was utilized adhering to the principles of ALARA. COMPARISON: CT cervical spine of same day FINDINGS: No acute intracranial hemorrhage, midline shift, intracranial mass, hydrocephalus, territorial ischem ia or abnormal extra-axial collection. Mild nonspecific white matter hypodensities. The calvarium is intact. Punctate soft tissue calcifications of the superior scalp. The paranasal sin uses, mastoid air cells, and middle ear cavities are clear. IMPRESSION: No acute intracranial abnormality or calvarial fracture. ACT 112: Negative or not required by law. The above report was generated using voice recognition software. It may contain grammatical, syntax o r spelling errors. Electronically signed by: Anuel Leos M.D. 01/09/2025 11:55 AM
--- NOTE | 2025-01-09 12:00 | CT Scan Report ---
CHEST CT WITH CONTRAST HISTORY: Acute chest trauma Trauma TECHNIQUE: Multiaxial CT images of the chest were performed following the IV administration of 94 cc of Optiray. A dose lowering technique was utilized adhering to the principles of ALARA. COMPARISON: CT abdomen and pelvis of same day FINDINGS: Unremarkable thyroid. Probable small amount of residual thymic tissue in the anterior media stinum. Heart is normal in size. Mild coronary artery calcifications. Unremarkable thoracic aorta and pulmonary artery. Trace amount of left basilar pleural fluid. No pneumothorax, overt pulmonary edema , suspicious pulmonary nodule or mass. Mild left basilar atelectasis. The central airways appear ma nt. No acute upper abdominal abnormality. Cholecystectomy. Acute minimally displaced fracture posterior l ateral left 11th rib. Minimal superior endplate compression at T3, likely chronic. IMPRESSION: 1. Acute minimally displaced fracture of the posterolateral left 11th rib. 2. No pneumothorax. 3. Likely chronic minimal super endplate compression at T3 without retropulsion. ACT 112: Negative or not required by law. Electronically signed by: Anuel Leos M.D. 01/09/2025 11:59 AM
[2025-01-09 12:08] LABS: INR 0.9 (0.9-1.1); Partial Thromboplastin Time 26 Seconds (21-31); Prothrombin Time 9.6 Seconds (9.0-12.0)
[2025-01-09 12:09] LABS: Pregnancy Test, Serum Negative (Negative)
[2025-01-09] MEDS: HYDROmorphone INJ 0.5 MG/0.5 ML SYR IV STA (12:14)
--- NOTE | 2025-01-09 12:51 | Electrocardiogram Report ---
Test Reason : Blood Pressure : */* mmHG Vent. Rate : 81 BPM Atrial Rate : 81 BPM P-R Int : 156 ms QRS Dur : 80 ms QT Int : 390 ms P-R-T Axes : 58 62 41 degrees QTcB Int : 453 ms Normal sinus rhythm Normal ECG When compared with ECG of 28-Dec-2022 12:04, No significant change was found Confirmed by Amanuel Schaeffer ([id number]) on 01/09/2025 12:50:33 PM Referred By: Confirmed By: Amanuel Schaeffer
[2025-01-09 12:52] LABS: Glucose Urine UA Negative (Negative)
[2025-01-09 12:53] LABS: Appearance Urine Slightly Cloudy (Clear)
[2025-01-09 12:59] LABS: Bacteria Urine Automated 4+ (None Seen); Cast Urine Automated 0-2 /lpf (0-2); RBC Urine Automated 0-2 /hpf (0-2)
[2025-01-09 13:43] LABS: Amphetamines+Metham, Urine Neg (Neg); MDMA (Ecstacy), Urine Neg (Neg); Marijuana, Urine Neg (Neg)
[2025-01-09] MEDS: cefTRIAXone SODIUM 2,000 MG/50 ML BAG IV STA (13:43)
[2025-01-09] MEDS ORDERED: MELATONIN 3 MG TAB PO PRN (14:44)
--- NOTE | 2025-01-09 15:10 | History & Physical Report ---
Date of Service January 09, 2025 Assessment & Plan (1) Lumbar contusion: Plan: Evelia Gallego is a 54 yo woman with PMH of lumbar spondolysis , chronc neck pain, anxiety disorder, GERD, gastroparesis s/p surgery she been having dizziness episode, on (jan 05, 2025) she was having fall episode down 13 flight of stair, she's reportedly brought by her to [facility] ([facility], [place]) but later signed out AMA. she's decide to has family drive her here as her spine surgery, Dr. Gutierrez practice at [facility] her CT scan show left 11th rib fracture. she will need admission for MRI imaging to rule out cord compression, PT evaluation, brain MRI to r/o CVA 1. acute low back pain, f/u on lumbar MRI and cervical spine MRI Dr. Gutierrez made aware of her admission. hold meloxican 2. acute 11th rib fracture-pain control with morphine no sedation 2. fall episode, PT and OT evaluation 3. dizziness episode, check orthostatic tomorrow f/u on b12 level, limited usage of anticholingeric 4. hypetension, amlodipien 10mg, lisinorpil 30mg daily propranolol 20mg BID 5. anxiety disorder, buspirone 30mg BID, she's on cymablta 60mg qHS 6. GERd, gastoparesis, on protonix 40mg BID, she's has surgery for gastroparesis f/u on b12 level to r/o absoprtion 7. insomnia-ambien 10mg qHS 8. ADHD-atomoxetine 80mg 9. pain control hold meloxican even she's need surgery iV morphine, (she does not has any sedation) c/w tizanidine 4mg q8 hours PRN 10. DVT prophylaxis. 11. b12 deficiency 12. chronic supressive therapy-valtrex 500mg (2) Closed rib fracture: (3) Compression fx, thoracic spine: (4) Multiple falls: History of Present Illness Chief Complaint: low back pain and neck pain fall down 13 stair on dizziness Primary Care Provider: Annia Cohen Vidhya Gallego is a 54 yo woman with PMH of lumbar spondolysisis with radiculopathy, long standing cervical back pain, GERD, anxiety, she's was following with Dr. watson (spine for her back) and another specialist for her cervical spien procedure. in 2019; she has L4-L5 fusion by Dr. Watson, she has gastroparesis and has surgical prcoedure done. Dr. gutierrez was considering further procedure but she's interested in conservative management on ; jan 05, 2025; she's was having dizziness and then fell down 12-13 steps of flight. her initially drive her to [facility] ([place]), but then she's signed out however, on 01/09/2025, she's again was having significant low back pain and came to our ED for evaluation her CT T-spine show left 11th ribfracture, and loss of height a the superior end platelet of t3 her CT C-spine and lumbar spine negative for fracture on interview, she's denied any bowel or bladder retention she stated her neck pain radiate into both upper extremity she is AAox3, she will be admitted for hospitalist services for neurosurgery evaluation, brain MRI (dizziness, to r/o CVA), lumbar MRI and cervical spine MRI she has limited outpatient assess to specialist care, was recently admitted to [facility] and warrant inpatient admission for IV fluid, IV antibiotics, imaging evaluation. PT/OT evaluation to ensure she's not a recurrent fall risk Allergies Allergy/AdvReac Type Severity Reaction Status Date / Time No Known Allergies Allergy Verified 01/09/25 12:33 Home Medications Medication Instructions Recorded Confirmed Type lisinopril 30 mg tablet 30 mg PO HS 01/06/20 01/09/25 History pantoprazole 40 mg tablet,delayed 40 mg PO BID 01/06/20 01/09/25 History release (Protonix) propranolol 20 mg tablet 20 mg PO BID 01/06/20 01/09/25 History valacyclovir 500 mg tablet 500 mg PO QAM 01/06/20 01/09/25 History (Valtrex) cholecalciferol (vitamin D3) 25 25 mcg PO QAM 02/26/22 01/09/25 History mcg (1,000 unit) tablet (Vitamin D3) cyanocobalamin (vitamin B-12) 1,000 mcg IM MONTHLY 02/26/22 01/09/25 History 1,000 mcg/mL injection solution multivitamin 1 tab PO QAM 02/26/22 01/09/25 History zolpidem 10 mg tablet 10 mg PO HS Insomnia 02/26/22 01/09/25 History duloxetine 60 mg capsule,delayed 60 mg PO HS 12/25/22 01/09/25 History release amlodipine 10 mg tablet 10 mg PO HS 07/21/24 01/09/25 History atomoxetine 80 mg capsule 80 mg PO QAM 07/21/24 01/09/25 History buspirone 15 mg tablet 30 mg PO BID 07/21/24 01/09/25 History cetirizine 10 mg tablet (Zyrtec) 10 mg PO QAM 07/21/24 01/09/25 History cranberry 500 mg capsule 500 mg PO QAM 07/21/24 01/09/25 History methyl salicylate 15 %-menthol 10 1 applic topical TID PRN Pain 07/21/24 01/09/25 History % topical cream soy isoflavone-black cohosh 155 cap PO QAM 07/21/24 01/09/25 History root-magnolia bark 155 mg capsule (Estroven) atorvastatin 20 mg tablet 20 mg PO DAILY 07/28/24 01/09/25 History gabapentin 600 mg tablet 600 mg PO TID #90 tabs 10/18/24 01/09/25 Rx Past Med/Surg History Problem List (Updated 01/09/25 @ 17:27 by Amanuel Suazo DO) Lumbar contusion (Acute) Cervical strain, acute (Acute) Contusion of foot, left (Acute) Contusion of multiple sites (Acute) Closed rib fracture (Acute) Compression fx, thoracic spine (Acute) Multiple falls (Acute) Lumbar radiculopathy Adnexal cyst Trochanteric bursitis of right hip Encounter for pre-operative examination Lumbar disc herniation with radiculopathy (Acute) Acute low back pain (Acute) Sciatic leg pain (Acute) Medical History Adjacent segment disease of lumbar spine with history of fusion procedure Spondylosis of lumbosacral spine at single level with radiculopathy GERD (gastroesophageal reflux disease) controlled, stable per pt Anxiety Hypertension controlled, stable per pt Obesity Depression Surgical History History of back surgery L4-5 laminectomy (01/11/20): Grade 2 view, MAC 3.0, ETT 7.0 at [facility]. No issues noted per post-op anesthesia progress note. L4-S1 fusion 03/25/2022 Dr. Gutierrez History of colonoscopy Hx of tonsillectomy HX: benign breast biopsy X 8 HAS SOME MARKERS IN BREAST Hx of hysterectomy Hx of appendectomy Hx laparoscopic cholecystectomy Family History Other No family history of adverse response to anesthesia Social History Smoking Status: Never smoker Tobacco Type: Cigarettes Cigarettes Per Day: 10; Second Hand Exposure: No; Do You Dip or Chew Tobacco: No; Hx Alcohol Use: No Hx Substance Use: No Preferred Language: Citizen Of [place] Communication Ability: Effective Multimedia Artist Required: No Beliefs That Will Affect Care: None marital status: Single Current Living Situation: Spouse Feels Safe at Home: Yes Assistive Devices: Cane Review of Systems Review of Systems: Constitutional: No Weight Change, No Fever, No Chills, No Night Sweats, No Fatigue, No Malaise Neuro: + for dizziness; + for neck pain + for lumbar back pain Cardiovascular: No Chest Pain, No SOB, No PND, , No Orthopnea, No Claudication, No Edema, No Palpitations Respiratory: No Cough, No Sputum, No Wheezing, No Smoke Exposure, No Dyspnea Gastrointestinal: No Nausea, No Vomiting, No Diarrhea, No Constipation, No Pain, No Heartburn, No Anorexia, No Dysphagia, No Hematochezia + for gastroparesis s/p surgery Musculoskeletal:+for neck pain, back pain, + for lumbar surgery Physical Exam Physical Exam: VITALS: Reviewed. WEIGHT/BMI reviewed. GEN: Healthy appearing, well-developed, NAD. PSYCH:. AOx3. Normal memory, mood, and affect. HEENT -Head: NC/AT; Neuro; AAox3 CN 2-12 grossly intact Back: lumbar spine painful to palpation; negative straight leg raise test; 5/5 s trength -Mouth and throat: MMM. Normal gums, muc amalia, palate,. Good dentition. NECK: Supple, with no masses. CV: RRR, no m/r/g. LUNGS: CTAB, no w/r/c. ABD: Soft, NT/ND, NBS, no masses or organomegaly. : N/A MSK: No deformities, Normal gait. EXT: No clubbing, cyanosis, or edema. Results & Data Results & Data Vital Signs (Past 12 Hours) Vital Signs Temp Pulse Pulse Resp BP BP Pulse Ox 01/09/25 14:00 84 16 151/86 H 99 01/09/25 13:12 74 12 141/96 H 93 01/09/25 12:44 73 01/09/25 12:21 70 12 168/104 H 96 01/09/25 12:00 71 12 149/95 H 98 01/09/25 11:44 68 14 149/95 H 96 01/09/25 11:30 86 12 159/86 H 96 01/09/25 10:50 99 01/09/25 10:50 01/09/25 10:48 77 16 185/103 H 100 01/09/25 10:44 16 01/09/25 10:44 99 01/09/25 10:44 16 01/09/25 10:44 36.9 C 85 16 135/84 99 01/09/25 10:37 36.9 C 86 20 129/84 99 O2 Del Method O2 Flow Rate 01/09/25 14:00 01/09/25 13:12 01/09/25 12:44 01/09/25 12:21 Room Air 01/09/25 12:00 Room Air 01/09/25 11:44 Room Air 01/09/25 11:30 Room Air 01/09/25 10:50 01/09/25 10:50 Room Air 01/09/25 10:48 Room Air 01/09/25 10:44 01/09/25 10:44 01/09/25 10:44 01/09/25 10:44 Room Air 0 01/09/25 10:37 Room Air Laboratory Results Laboratory Results - last 72 hr 01/09/25 01/09/25 01/09/25 10:56 11:00 Unknown WBC 5.79 RBC 5.21 Hgb 15.1 POC Hgb 15.6 Hct 45.9 POC Hct 46 MCV 88.1 MCH 29.0 MCHC 32.9 RDW Std Deviation 40.3 RDW Coeff of Ashley 12.6 Plt Count 211 MPV 9.8 Immature Gran % (Auto) 0.2 Neut % (Auto) 52.8 Lymph % (Auto) 37.8 Blaine % (Auto) 7.8 Eos % (Auto) 1.2 Baso % (Auto) 0.2 Neut # (Auto) 3.06 Lymph # (Auto) 2.19 Blaine # (Auto) 0.45 Eos # (Auto) 0.07 Baso # (Auto) 0.01 Immature Gran # (Auto) 0.01 PT 9.6 INR 0.9 APTT 26 PTT Ratio 1.0 POC Sodium 142 Sodium 142 POC Potassium 4.5 Potassium 4.5 POC Chloride 104 Chloride 105 Carbon Dioxide 30 POC Total CO2 26 Anion Gap 7 POC Anion Gap 17.0 POC BUN 16 BUN 16 Creatinine 0.87 POC Creatinine 1.0 Est Cr Clr Drug Dosing 77.9 eGFR 78.15 BUN/Creatinine Ratio 18.4 Glucose 89 POC Glucose (other) 90 Calcium 10.1 POC Ioniz Calcium Clarisa 1.27 Total Bilirubin 0.6 AST 49 H ALT 25 Alkaline Phosphatase 109 H Total Creatine Kinase 67 Troponin I High Sens 2.9 Total Protein 7.3 Albumin 4.2 Globulin 3.1 Albumin/Globulin Ratio 1.4 Lipase 34 HCG, Qual Negative Urine Color Yellow Urine Appearance Slightly Cloudy Urine pH 7.0 Ur Specific Byers 1.010 Urine Protein Negative Urine Glucose (UA) Negative Urine Ketones Negative Urine Blood Negative Urine Nitrite Positive A Urine Bilirubin 1+ H Urine Urobilinogen Negative Ur Leukocyte Esterase Trace H Urine WBC (Auto) 6-10 H Urine RBC (Auto) 0-2 U Hyaline Cast (Auto) 0-2 U Epithel Cells (Auto) 3-5 H Urine Bacteria (Auto) 4+ H Urine Comment Urine Opiates Screen Pos H Ur Methadone, Qual Neg Urine Fentanyl Screen Neg Urine Barbiturates Neg Ur Phencyclidine (PCP) Neg U Amphetamin/Meth Scrn Neg MDMA (Ecstasy) Screen Neg U Benzodiazepines Scrn Neg Ur Cocaine Metabolite Neg U Marijuana (THC) Screen Neg Ethyl Alcohol mg/dL < 10.0 Code Status & VTE Plan Code Status full code PG Care Time/CCT Total # of Minutes Spent Total Time Spent with Patient: Total time spent is greater than 50% in coordination of care (as documented) at patient's floor/unit and/or counseling patient: Coding Level of Care Code 95581 INT INP/OBS CARE 2/55MIN Diagnoses Lumbar contusion S30.0XXA Closed rib fracture S22.39XA Compression fx, thoracic spine S22.000A Multiple falls R29.6 Time Spent (min) 55
[2025-01-09] MEDS ORDERED: NON-FORMULARY MEDICATION (Soy Isofla-Blk Cohosh-Mag Bark [Estroven] 155 mg Capsule) PO SCH (17:45)
[2025-01-09] MEDS ORDERED: CYANOCOBALAMIN 1000 MCG/ML VIAL IM SCH (17:45)
[2025-01-09] MEDS ORDERED: METHYL SALICYLATE MENTHOL TOP PRN (17:45)
[2025-01-09] MEDS ORDERED: NON-FORMULARY MEDICATION (Cranberry 500 mg Capsule) PO SCH (17:45)
[2025-01-09] MEDS: MoRPHine SULFATE 4 MG/ML 1 ML CARP\\VIAL IV PRN (18:05)
--- NOTE | 2025-01-09 18:24 | Magnetic Resonance Report ---
Exam: MRI brain without contrast Reason for exam: Recent frequent falls. Previous lumbar spine surgery in 2021. Previous studies: None FINDINGS: Multiple imaging sequences of the brain are obtained with various MRI technique. No evidence of mass or enlargement of the pituitary gland is seen. The cerebellar tonsils are at but do not extend through the foramen magnum. No evidence of acute ischemia seen on the diffusion images. No midline shift or extra-axial blood/fluid collection is seen. No evidence of acute bleed on the gradient echo images. No significant abnormal signal in the mastoid on either side. No significant abnormal signal seen within the paranasal sinuses on either side. No specific lesion seen in the cerebellar pontine angle cistern on these routine unenhanced images. IMPRESSION: Negative for active intracranial process on unenhanced MRI study. No evidence of mass, hemorrhage or acute ischemia. Electronically signed by Emmanuel Cotter 01-09-2025 6:24 PM
--- NOTE | 2025-01-09 18:32 | Magnetic Resonance Report ---
Exam: MR cervical spine without contrast: Reason for exam: Pain and numbness down both arms. Frequent falls. Lumbar surgery 2021. Previous studies: None FINDINGS: Sequential axial and parasagittal imaging is obtained with multiple MRI sequences. There is desiccation with mild diffuse subligamentous bulging of the C4-5 intervertebral disc producing only minimal broad based extradural impression on the thecal sac. At C5-6 there is evidence of a chronic moderate subligamentous protrusion of the intervertebral disc producing a moderate anterior extradural impression on the thecal sac and mild impingement in the anterior cervical spinal cord at this level. No further extruded migrated disc fragment is seen. At C6-C7, there is evidence of chronic subligamentous protrusion with subligamentous impression on the thecal sac. Remaining cervical intervertebral discs show no significant process at this time. Signal from the cervical spinal appears intact without atrophy or in focal enlargement. There is a slight grade I anterior spondylolisthesis of C4 on C5. Degenerative spondylosis of the cervical facet joints seen to the mid and lower cervical spine without significant overall bony spinal canal stenosis. No significant compression fracture, active invasive or destructive bony process is seen at this time. IMPRESSION: 1. Grade 1 spondylolisthesis of C4 on C5 with desiccation and mild diffuse bulging of the C4-5 intervertebral disc. 2. Chronic subligamentous protrusion of the C5-6 intervertebral disc with mild anterior extradural compression on the thecal sac and mild impingement on the anterior cervical spinal cord. 3. Chronic subligamentous protrusion of the C6-7 intervertebral disc with mild anterior extradural impression on the thecal sac. 4. Mild degenerative spondylosis of the mid and lower cervical facet joints without significant overall bony spinal canal stenosis. Electronically signed by Emmanuel Cotter 01-09-2025 6:31 PM
[2025-01-09] MEDS: ONDANSETRON INJ 2 MG/ML 2 ML VIAL IV PRN (18:40)
--- NOTE | 2025-01-09 19:06 | Magnetic Resonance Report ---
Exam: MRI lumbar spine without contrast Reason for exam: Frequent falls. Previous lumbar surgery. Previous studies: MRI lumbar spine 07/22/2024 FINDINGS: L1-2: Normal L2-3: Desiccation with mild diffuse bulge of the disc and mild degenerative facet arthropathy. L3-4: Desiccation with diffuse subligamentous protrusion of the intervertebral disc and marked degenerative facet arthropathy. This is increased slightly further since the most recent previous MRI study and there is resultant lateral recess and neural foraminal stenoses bilaterally of moderate severity at this level. L4-5: Status post previous laminectomy with pedicle screw and belinda fusion. No recurrent herniated lumbar disc or spinal stenosis at this level. L5-S1: No herniated nucleus pulposus. Degenerative facet arthropathy with joint effusions produce mild bilateral neural foraminal stenosis. No compression fracture, active invasive or destructive bony process is identified at this time. IMPRESSION: 1. Further subligamentous protrusion of the L3-4 vertebral disc when compared to previous studies. This along with associated degenerative facet arthropathy produces a moderate lateral recess and neural foraminal stenoses bilaterally. 2. Stable appearance status post surgical decompression and fusion at L4-5. 3. Mild degenerative changes at the remaining levels. Electronically signed by Emmanuel Cotter 01-09-2025 7:05 PM
[2025-01-09] MEDS: CETIRIZINE HCL 10 MG TABLET PO SCH (19:21)
[2025-01-09] MEDS: MULTIVITAMIN TAB PO SCH (19:22)
[2025-01-09] MEDS: ZOLPIDEM TARTRATE 5 MG TAB PO SCH (20:09)
[2025-01-09] MEDS: busPIRone 15 MG TAB PO SCH (20:09)
[2025-01-09] MEDS: PROPRANOLOL HCL 20 MG TAB PO SCH (20:09)
[2025-01-09] MEDS: GABAPENTIN 600 MG TAB PO SCH (20:10)
[2025-01-10] MEDS: ATORVASTATIN 20 MG TAB PO SCH (08:00)
[2025-01-10] MEDS: ATOMOXETINE HCL 40 MG CAPSULE PO SCH (08:00)
[2025-01-10] MEDS: CHOLECALCIFEROL 25 MCG (1000 UNITS) TAB PO SCH (08:00)
--- NOTE | 2025-01-10 08:53 | Orthopedic Consultation ---
Date of Consultation January 10, 2025 Assessment & Plan (1) Other spondylosis with radiculopathy, lumbar region: MRIs of the cervical and lumbar spine are reviewed. The cervical spine does demonstrate evidence of degenerative change disc protrusion C5-C6 C6-C7. There is neuroforaminal disease favoring the left. There is however no gross cord compression. Lumbar spine does continue to confirm adjacent level disease L3- L4. There is a disc protrusion at this level. She is noting worsening facets hypertrophy L5-S1. Plan at this time I would recommend that she reengage with interventional pain management. She is worked with Dr. Arias in the past. She is not a surgical candidate at this time until she recovers from her fall and rib fracture. Would like to see you in the office in the next 4 to 6 weeks update our exam and imaging and make further conditions at that time. History of Present Illness Reason for Consultation: Back and neck pain Attending Physician: James Sutton DO History of Present Illness This is a 54-year-old female well-known to me the presents to the hospital status post fall. She did fall down her steps at home sustained a rib fracture on the left. She fell the next day in her bathroom exacerbating her pain. She states the rib pain is quite debilitating in nature. She notes a history of chronic persistent neck pain and bilateral arm numbness. Back pain is stable and has been present for some time. She does note leg pain particularly in a L3-L4 pattern on the left. She has had injections many months ago with very modest results. She has a history of undergoing cervical injections with facet ablations with minimal results. She feels that her neck pain is worse than her arm symptoms. Allergies Allergy/AdvReac Type Severity Reaction Status Date / Time No Known Allergies Allergy Verified 01/09/25 12:33 Home Medications Medication Instructions Recorded Confirmed Type lisinopril 30 mg tablet 30 mg PO HS 01/06/20 01/09/25 History pantoprazole 40 mg tablet,delayed 40 mg PO BID 01/06/20 01/09/25 History release (Protonix) propranolol 20 mg tablet 20 mg PO BID 01/06/20 01/09/25 History valacyclovir 500 mg tablet 500 mg PO QAM 01/06/20 01/09/25 History (Valtrex) cholecalciferol (vitamin D3) 25 25 mcg PO QAM 02/26/22 01/09/25 History mcg (1,000 unit) tablet (Vitamin D3) cyanocobalamin (vitamin B-12) 1,000 mcg IM MONTHLY 02/26/22 01/09/25 History 1,000 mcg/mL injection solution multivitamin 1 tab PO QAM 02/26/22 01/09/25 History zolpidem 10 mg tablet 10 mg PO HS Insomnia 02/26/22 01/09/25 History duloxetine 60 mg capsule,delayed 60 mg PO HS 12/25/22 01/09/25 History release amlodipine 10 mg tablet 10 mg PO HS 07/21/24 01/09/25 History atomoxetine 80 mg capsule 80 mg PO QAM 07/21/24 01/09/25 History buspirone 15 mg tablet 30 mg PO BID 07/21/24 01/09/25 History cetirizine 10 mg tablet (Zyrtec) 10 mg PO QAM 07/21/24 01/09/25 History cranberry 500 mg capsule 500 mg PO QAM 07/21/24 01/09/25 History methyl salicylate 15 %-menthol 10 1 applic topical TID PRN Pain 07/21/24 01/09/25 History % topical cream soy isoflavone-black cohosh 155 cap PO QAM 07/21/24 01/09/25 History root-magnolia bark 155 mg capsule (Estroven) atorvastatin 20 mg tablet 20 mg PO DAILY 07/28/24 01/09/25 History gabapentin 600 mg tablet 600 mg PO TID #90 tabs 10/18/24 01/09/25 Rx Patient History Medical History Adjacent segment disease of lumbar spine with history of fusion procedure Spondylosis of lumbosacral spine at single level with radiculopathy GERD (gastroesophageal reflux disease) controlled, stable per pt Anxiety Hypertension controlled, stable per pt Obesity Depression Surgical History History of back surgery L4-5 laminectomy (01/11/20): Grade 2 view, MAC 3.0, ETT 7.0 at [facility]. No issues noted per post-op anesthesia progress note. L4-S1 fusion 03/25/2022 Dr. Gutierrez History of colonoscopy Hx of tonsillectomy HX: benign breast biopsy X 8 HAS SOME MARKERS IN BREAST Hx of hysterectomy Hx of appendectomy Hx laparoscopic cholecystectomy Family History Other No family history of adverse response to anesthesia Social History Smoking Status: Never smoker Tobacco Type: Cigarettes Cigarettes Per Day: 10; Second Hand Exposure: No; Do You Dip or Chew Tobacco: No; Hx Alcohol Use: No Hx Substance Use: No Preferred Language: [place] Communication Ability: Effective Testing And Regulating Chief Required: No Beliefs That Will Affect Care: None marital status: Single Current Living Situation: Spouse Feels Safe at Home: Yes Assistive Devices: Cane Physical Exam Physical Exam: On exam she has reasonable strength testing upper lower extremities. Sensory is symmetric and intact bilaterally. She is in bed. She is markedly uncomfortable with motion secondary to the fractured rib. Results & Data Vital Signs (Past 12 Hours) Vital Signs Temp Pulse Pulse Resp BP Pulse Ox O2 Del Method 01/10/25 07:46 37.1 C 88 18 124/79 92 Room Air 01/10/25 06:45 99 H 01/10/25 02:00 37.0 C 87 18 155/94 H 95 Room Air 01/09/25 23:16 36.8 C 96 H 18 124/77 92 Room Air 01/09/25 21:53 97 H
--- NOTE | 2025-01-10 10:01 | Hospitalist Progress Note ---
Date of Service January 10, 2025 Assessment & Plan (1) Lumbar contusion: Plan: Evelia Gallego is a 54 yo woman with PMH of lumbar spondolysis , chronc neck pain, anxiety disorder, GERD, gastroparesis s/p surgery she been having dizziness episode, on (jan 05, 2025) she was having fall episode down [address], she's reportedly [facility] by her [facility] [place] but later signed out AMA. she's decide to has family drive her here as her spine surgery, Dr. Gutierrez practice at [facility] her CT scan show left 11th rib fracture. she will need admission for MRI imaging to rule out cord compression, PT evaluation, brain MRI to r/o CVA 1. acute low back pain, she s/p lumbar MRI and cervical spine MRI spine surgery potentially plan for epidural injection 2. acute 11th rib fracture-pain control with nacrotic no sedation her urine toxicology positive for oxycodone. 2. fall episode, PT and OT evaluation 3. dizziness episode, check orthostatic tomorrow f/u on b12 level, limited usage of anticholingeric 4. hypertension , amlodipine 10mg, lisinopril 30mg daily propranolol 20mg BID 5. anxiety disorder, buspirone 30mg BID, she's on cymablta 60mg qHS 6. GERd, gastroparesis, on protonix 40mg BID, she's has surgery for gastroparesis f/u on b12 level to r/o absoprtion 7. insomnia-ambien 10mg qHS 8. ADHD-atomoxetine 80mg 9. pain control spine surgery requested for epidural evaluatoin. iV morphine, (she does not has any sedation) c/w tizanidine 4mg q8 hours PRN 10. DVT prophylaxis. 11. b12 deficiency 12. chronic suppressive therapy-valtrex 500mg (2) Closed rib fracture: (3) Compression fx, thoracic spine: (4) Multiple falls: Admission and Anticipated Discharge Date Admission Date: January 09, 2025 Subjective still have significant back pain and needing interval pain management. appreciate Dr. Gutierrez input about the timing of epidural injection. Physical Exam Physical Exam: VITALS: Reviewed. WEIGHT/BMI reviewed. GEN: Healthy appearing, well-developed, NAD. -Head: NC/AT; Neuro: AAOx3; no slurred speech, no involuntary movement. -Mouth and throat: MMM. Normal gums, muc amalia, palate,. Good dentition. CV: RRR, no m/r/g. LUNGS: CTAB, no w/r/c. ABD: Soft, NT/ND, NBS, no masses or organomegaly. : N/A MSK: lumbar spine painful to palpation; negative straight leg raise test. EXT: No clubbing, cyanosis, or edema. . Results & Data Results & Data Vital Signs (Past 12 Hours) Vital Signs Temp Pulse Pulse Resp BP Pulse Ox O2 Del Method 01/10/25 07:46 37.1 C 88 18 124/79 92 Room Air 01/10/25 06:45 99 H 01/10/25 02:00 37.0 C 87 18 155/94 H 95 Room Air 01/09/25 23:16 36.8 C 96 H 18 124/77 92 Room Air Laboratory Results Laboratory Results - last 72 hr 01/09/25 01/09/25 01/09/25 10:56 11:00 Unknown WBC 5.79 RBC 5.21 Hgb 15.1 POC Hgb 15.6 Hct 45.9 POC Hct 46 MCV 88.1 MCH 29.0 MCHC 32.9 RDW Std Deviation 40.3 RDW Coeff of Ashley 12.6 Plt Count 211 MPV 9.8 Immature Gran % (Auto) 0.2 Neut % (Auto) 52.8 Lymph % (Auto) 37.8 [place] % (Auto) 7.8 Eos % (Auto) 1.2 Baso % (Auto) 0.2 Neut # (Auto) 3.06 Lymph # (Auto) 2.19 [place] # (Auto) 0.45 Eos # (Auto) 0.07 Baso # (Auto) 0.01 Immature Gran # (Auto) 0.01 PT 9.6 INR 0.9 APTT 26 PTT Ratio 1.0 POC Sodium 142 Sodium 142 POC Potassium 4.5 Potassium 4.5 POC Chloride 104 Chloride 105 Carbon Dioxide 30 POC Total CO2 26 Anion Gap 7 POC Anion Gap 17.0 POC BUN 16 BUN 16 Creatinine 0.87 POC Creatinine 1.0 Est Cr Clr Drug Dosing 77.9 eGFR 78.15 BUN/Creatinine Ratio 18.4 Glucose 89 POC Glucose (other) 90 Calcium 10.1 POC Ioniz Calcium Clarisa 1.27 Total Bilirubin 0.6 AST 49 H ALT 25 Alkaline Phosphatase 109 H Total Creatine Kinase 67 Troponin I High Sens 2.9 Total Protein 7.3 Albumin 4.2 Globulin 3.1 Albumin/Globulin Ratio 1.4 Lipase 34 HCG, Qual Negative Urine Color Yellow Urine Appearance Slightly Cloudy Urine pH 7.0 Ur Specific [place] 1.010 Urine Protein Negative Urine Glucose (UA) Negative Urine Ketones Negative Urine Blood Negative Urine Nitrite Positive A Urine Bilirubin 1+ H Urine Urobilinogen Negative Ur Leukocyte Esterase Trace H Urine WBC (Auto) 6-10 H Urine RBC (Auto) 0-2 U Hyaline Cast (Auto) 0-2 U Epithel Cells (Auto) 3-5 H Urine Bacteria (Auto) 4+ H Urine Comment Urine Opiates Screen Pos H Ur Methadone, Qual Neg Urine Fentanyl Screen Neg Urine Barbiturates Neg Ur Phencyclidine (PCP) Neg U Amphetamin/Meth Scrn Neg MDMA (Ecstasy) Screen Neg U Benzodiazepines Scrn Neg Ur Cocaine Metabolite Neg U Marijuana (THC) Screen Neg Ethyl Alcohol mg/dL < 10.0 Medications Administered Current Inpatient Medications Amlodipine Besylate (Amlodipine Besylate 5 Mg Tab) 10 mg PO HS MARY CARMEN Stop: 02/08/25 20:59 Last Admin: 01/09/25 20:09 Dose: 10 mg Atomoxetine HCl (Atomoxetine Hcl 40 Mg Capsule) 80 mg PO QAM MARY CARMEN Stop: 02/09/25 08:59 Last Admin: 01/10/25 08:00 Dose: 80 mg Atorvastatin Calcium (Atorvastatin 20 Mg Tab) 20 mg PO DAILY MARY CARMEN Stop: 02/09/25 08:59 Last Admin: 01/10/25 08:00 Dose: 20 mg Buspirone HCl (Buspirone 15 Mg Tab) 30 mg PO BID MARY CARMEN Stop: 02/08/25 20:59 Last Admin: 01/10/25 08:00 Dose: 30 mg Cetirizine HCl (Cetirizine Hcl 10 Mg Tablet) 10 mg PO QAM MARY CARMEN Stop: 02/08/25 17:44 Last Admin: 01/10/25 08:00 Dose: 10 mg Duloxetine HCl (Duloxetine Hcl 60 Mg Cap) 60 mg PO HS MARY CARMEN Stop: 02/08/25 20:59 Last Admin: 01/09/25 20:10 Dose: 60 mg Gabapentin (Gabapentin 600 Mg Tab) 600 mg PO TID MARY CARMEN Stop: 02/08/25 20:59 Last Admin: 01/10/25 08:00 Dose: 600 mg Hydromorphone HCl (Hydromorphone Hcl 2 Mg Tab) 4 mg PO Q6 PRN PRN Reason: Pain Stop: 01/23/25 18:40 Last Admin: 01/10/25 01:55 Dose: 4 mg Lisinopril (Lisinopril 10 Mg Tab) 30 mg PO HS [facility] Stop: 02/08/25 20:59 Last Admin: 01/09/25 20:10 Dose: 30 mg Lorazepam (Lorazepam 2 Mg/1 Ml Vial) 0.5 mg IV Q8H PRN PRN Reason: Anxiety/Agitation Stop: 02/08/25 14:15 Magnesium Hydroxide (Magnesium Hydroxide Susp 30 Ml Udc) 30 ml PO Q6H PRN PRN Reason: Constipation Stop: 02/08/25 14:43 Melatonin (Melatonin 3 Mg Tab) 3 mg PO HS PRN PRN Reason: Insomnia Stop: 02/08/25 14:43 Multivitamins (Multivitamin Tab) 1 [facility] Stop: 02/08/25 17:59 Last Admin: 01/10/25 08:00 Dose: 1 tab Ondansetron HCl (Ondansetron Inj 2 Mg/Ml 2 Ml Vial) 4 mg IV Q6H PRN PRN Reason: Nausea Stop: 02/08/25 18:22 Last Admin: 01/10/25 08:00 Dose: 4 mg Pantoprazole Sodium (Pantoprazole 40 Mg Tab) 40 mg PO BID [facility] Stop: 02/08/25 20:59 Last Admin: 01/10/25 08:00 Dose: 40 mg Propranolol HCl (Propranolol Hcl 20 Mg Tab) 20 mg PO BID [facility] Stop: 02/08/25 20:59 Last Admin: 01/10/25 08:00 Dose: 20 mg Valacyclovir HCl (Valacyclovir Hcl 500 Mg Tablet) 500 mg PO QAM [facility] Stop: 02/08/25 17:44 Last Admin: 01/10/25 08:00 Dose: 500 mg Vitamin D (Cholecalciferol 25 Mcg (1000 Units) Tab) 25 mcg PO QAM [facility] Stop: 02/09/25 08:59 Last Admin: 01/10/25 08:00 Dose: 25 mcg Zolpidem Tartrate (Zolpidem Tartrate 5 Mg Tab) 10 mg PO HS MARY CARMEN Stop: 02/08/25 20:59 Last Admin: 01/09/25 20:09 Dose: 10 mg PG Care Time/CCT Total # of Minutes Spent Total Time Spent with Patient: Total time spent is greater than 50% in coordination of care (as documented) at patient's floor/unit and/or counseling patient: Coding Level of Care Code 70919 SUB INP/OBS CARE 05/28MIN Diagnoses Lumbar contusion S30.0XXA Closed rib fracture S22.39XA Compression fx, thoracic spine S22.000A Multiple falls R29.6 Time Spent (min) 25
[2025-01-10] MEDS: OPTIRAY 320 125ml IV ONE (10:07)
--- NOTE | 2025-01-10 15:04 | CT Scan Report ---
CT ang VERA kennedy brian CLINICAL HISTORY: decresae pulse on the leg, r/o ischemia COMPARISON STUDY: None FINDINGS: ABDOMEN: Gallbladder is surgically absent. There is distention of the common bile duct, commonly seen after cholecystectomy. There is mild fatty liver. Otherwise the liver, spleen, pancreas, and adrenal glands are unremarkable. Kidneys show no hydronephrosis. Pelvis: Urinary bladder is mildly distended. No bowel inflammation or obstruction seen. No free fluid or free air. No enlarged adenopathy. There is laminectomy and metallic fusion at L4-5. Vascular findings: There is no aortic luminal narrowing or abdominal aortic aneurysm. Mesenteric and renal arteries are widely patent. Bilateral common, internal, and external iliac and bilateral common femoral arteries are widely patent bilaterally. Right lower extremity: Deep femoral artery is patent. Right superficial femoral and popliteal arterie s are widely patent. There is three-vessel runoff to the right foot. Left lower extremity: Deep femoral artery is patent. Left SFA/pop are widely patent. There is three-v essel runoff to the left foot. IMPRESSION: 1. No acute findings. 2. Normal CTA with lower extremity runoff. ACT 112: Negative or not required by law. Electronically signed by: Emmanuel Thomas M.D. 01/10/2025 3:02 PM
[2025-01-11 08:49] LABS: Hematocrit (blood only) 45.1 % (37.0-47.0); Hemoglobin 15.2 g/dl (12.0-16.0); Mean Corpuscular Hemoglobin 29.6 pg (25.0-34.0); Mean Corpuscular Volume 87.7 fL (80.0-100.0); Platelet Count 199 K/uL (130-400); RDW Standard Deviation 40.7 fL (36.4-46.3); Red Blood Count 5.14 M/uL (4.20-5.40); White Blood Count 5.59 K/ul (4.8-10.8)
[2025-01-11] MEDS: LIDOCAINE 5% 1 PATCH TD SCH (09:04)
[2025-01-11 09:14] LABS: Alanine Aminotransferase 483.0 U/L (7-52); Alkaline Phosphatase 303.0 U/L (34-104); Anion Gap 6.0 (3-11); Blood Urea Nitrogen 17.0 mg/dl (6-23); Calcium 9.5 mg/dl (8.6-10.3); Carbon Dioxide 28.0 mmol/L (21-32); Chloride 102.0 mmol/L (98-107); Creatinine Clr Calc Pharmacy 82.4 ml/min; Glucose 116.0 mg/dl (70-99(Fasting)); Potassium 4.3 mmol/L (3.5-5.1); Sodium 136.0 mmol/L (136-145)
[2025-01-11 09:22] LABS: Albumin Globulin Ratio 1.4 (0.9-2); Bilirubin,Total 0.8 mg/dl (0.2-1.0); Globulin 2.9 gm/dl (2.5-4.0); Total Protein 7.0 gm/dl (6.0-8.3); Uric Acid 3.2 mg/dl (2.6-7.2)
[2025-01-11] MEDS: SODIUM CHLORIDE 0.9% 500 ML IV ONE (10:40)
--- NOTE | 2025-01-11 12:27 | Hospitalist Progress Note ---
Date of Service January 11, 2025 Assessment & Plan (1) Lumbar contusion: Plan: Evelia Gallego is a 54 yo woman with PMH of lumbar spondolysis , chronc neck pain, anxiety disorder, GERD, gastroparesis s/p surgery she been having dizziness episode, on (jan 05, 2025) she was having fall episode down [address] stair, she's [facility] by her [facility] [place] but later signed out AMA. she's decide to has family drive her here as her spine surgery, Dr. Gutierrez practice at [facility] her CT scan show left 11th rib fracture. she will need admission for MRI imaging to rule out cord compression, PT evaluation, brain MRI to r/o CVA 1. acute low back pain, she s/p lumbar MRI and cervical spine MRI spine surgery potentially plan for epidural injection has hypotension episode with dilaudid bridge with toradol 2. transaminitis AST of 50, and ALT of 483 (baseline AST of 49, and ALT of 25) hold hepatotoxic agent, RUQ ultrasound check INR level 3. acute 11th rib fracture-pain control with nacrotic no sedation her urine toxicology positive for oxycodone. 4. dizziness episode, check orthostatic tomorrow f/u on b12 level, limited usage of anticholingeric 5 hypertension , amlodipine 10mg, lisinopril 30mg daily propranolol 20mg BID 5. anxiety disorder, buspirone 30mg BID, she's on cymablta 60mg qHS 6. GERd, gastroparesis, on protonix 40mg BID, she's has surgery for gastroparesis f/u on b12 level to r/o absoprtion 7. insomnia-ambien 10mg qHS 8. ADHD-atomoxetine 80mg 9. pain control spine surgery requested for epidural evaluatoin. iV morphine, (she does not has any sedation) c/w tizanidine 4mg q8 hours PRN 10. DVT prophylaxis. 11. b12 deficiency 12. chronic suppressive therapy-valtrex 500mg (2) Closed rib fracture: (3) Compression fx, thoracic spine: (4) Multiple falls: Admission and Anticipated Discharge Date Admission Date: January 09, 2025 Subjective she still has significant low back pain and neck pain however, when she has dilaudid, she developed hypotension she has transminitis with ST from 49--> 530 and ALT from 25--> 483 going to attempt pain control with toradol IV and starting IV fluid for hypotension Review of Systems Review of Systems: Constitutional: No Weight Change, No Fever, No Chills, No Night Sweats, No Fatigue, No Malaise Cardiovascular: No Chest Pain, No SOB, No PND, No Dyspnea on Exertion, No Orthopnea, No Claudication, No Edema, No Palpitations Respiratory: No Cough, No Sputum, No Wheezing, No Smoke Exposure, No Dyspnea Gastrointestinal: No Nausea, No Vomiting, No Diarrhea, No Constipation, No Pain, No Heartburn, No Anorexia, No Dysphagia, No Hematochezia, No Melena, No Flatulence, No Jaundice Genitourinary: no dysuria MSK: + for back pain and neck pain Skin: No Skin Lesions, No Pruritis, No Hair Changes, No Breast/Skin Changes, No Nipple Discharge Neuro: no worsening dizziness; no confusion Physical Exam Physical Exam: VITALS: Reviewed. WEIGHT/BMI reviewed. GEN: Healthy appearing, well-developed, NAD. -Head: NC/AT; -Nose: Normal nares. NECK: Supple, with no masses. CV: RRR, no m/r/g. LUNGS: CTAB, no w/r/c. ABD: Soft, NT/ND, NBS, no masses or organomegaly. : N/A SKIN: Warm, well perfused. No skin rashes or abnormal lesions. EXT: No clubbing, cyanosis, or edema. NEURO: lumbar spine painful to palpation; negative straight leg raise test; 5/5 strength Results & Data Results & Data Vital Signs (Past 12 Hours) Vital Signs Temp Pulse Pulse Resp BP BP Pulse Ox 01/11/25 11:20 75 14 88/60 L 93 01/11/25 11:15 36.9 C 73 16 109/71 93 01/11/25 10:54 77 01/11/25 10:14 76 14 90/58 L 96 01/11/25 07:44 36.9 C 80 18 142/90 H 94 01/11/25 04:00 36.8 C 74 18 132/84 95 O2 Del Method 01/11/25 11:20 Room Air 01/11/25 11:15 Room Air 01/11/25 10:54 01/11/25 10:14 Room Air 01/11/25 07:44 Room Air 01/11/25 04:00 Room Air Laboratory Results Laboratory Results - last 72 hr 01/09/25 01/09/25 01/09/25 10:56 11:00 Unknown WBC 5.79 RBC 5.21 Hgb 15.1 POC Hgb 15.6 Hct 45.9 POC Hct 46 MCV 88.1 MCH 29.0 MCHC 32.9 RDW Std Deviation 40.3 RDW Coeff of Ashley 12.6 Plt Count 211 MPV 9.8 Immature Gran % (Auto) 0.2 Neut % (Auto) 52.8 Lymph % (Auto) 37.8 [place] % (Auto) 7.8 Eos % (Auto) 1.2 Baso % (Auto) 0.2 Neut # (Auto) 3.06 Lymph # (Auto) 2.19 [place] # (Auto) 0.45 Eos # (Auto) 0.07 Baso # (Auto) 0.01 Immature Gran # (Auto) 0.01 PT 9.6 INR 0.9 APTT 26 PTT Ratio 1.0 POC Sodium 142 Sodium 142 POC Potassium 4.5 Potassium 4.5 POC Chloride 104 Chloride 105 Carbon Dioxide 30 POC Total CO2 26 Anion Gap 7 POC Anion Gap 17.0 POC BUN 16 BUN 16 Creatinine 0.87 POC Creatinine 1.0 Est Cr Clr Drug Dosing 77.9 eGFR 78.15 BUN/Creatinine Ratio 18.4 Glucose 89 POC Glucose (other) 90 Uric Acid Calcium 10.1 POC Ioniz Calcium Clarisa 1.27 Total Bilirubin 0.6 AST 49 H ALT 25 Alkaline Phosphatase 109 H Total Creatine Kinase 67 Troponin I High Sens 2.9 Total Protein 7.3 Albumin 4.2 Globulin 3.1 Albumin/Globulin Ratio 1.4 Lipase 34 HCG, Qual Negative Urine Color Yellow Urine Appearance Slightly Cloudy Urine pH 7.0 Ur Specific [place] 1.010 Urine Protein Negative Urine Glucose (UA) Negative Urine Ketones Negative Urine Blood Negative Urine Nitrite Positive A Urine Bilirubin 1+ H Urine Urobilinogen Negative Ur Leukocyte Esterase Trace H Urine WBC (Auto) 6-10 H Urine RBC (Auto) 0-2 U Hyaline Cast (Auto) 0-2 U Epithel Cells (Auto) 3-5 H Urine Bacteria (Auto) 4+ H Urine Comment Urine Opiates Screen Pos H Ur Methadone, Qual Neg Urine Fentanyl Screen Neg Urine Barbiturates Neg Ur Phencyclidine (PCP) Neg U Amphetamin/Meth Scrn Neg MDMA (Ecstasy) Screen Neg U Benzodiazepines Scrn Neg Ur Cocaine Metabolite Neg U Marijuana (THC) Screen Neg Ethyl Alcohol mg/dL < 10.0 01/11/25 08:24 WBC 5.59 RBC 5.14 Hgb 15.2 POC Hgb Hct 45.1 POC Hct MCV 87.7 MCH 29.6 MCHC 33.7 RDW Std Deviation 40.7 RDW Coeff of [place] 12.6 Plt Count 199 MPV 9.8 Immature Gran % (Auto) Neut % (Auto) Lymph % (Auto) [place] % (Auto) Eos % (Auto) Baso % (Auto) Neut # (Auto) Lymph # (Auto) [place] # (Auto) Eos # (Auto) Baso # (Auto) Immature Gran # (Auto) PT INR APTT PTT Ratio POC Sodium Sodium 136 POC Potassium Potassium 4.3 POC Chloride Chloride 102 Carbon Dioxide 28 POC Total CO2 Anion Gap 6 POC Anion Gap POC BUN BUN 17 Creatinine 0.79 POC Creatinine Est Cr Clr Drug Dosing 82.4 eGFR 87.74 BUN/Creatinine Ratio 21.5 H Glucose 116 H POC Glucose (other) Uric Acid 3.2 Calcium 9.5 POC Ioniz Calcium Clarisa Total Bilirubin 0.8 AST 530 H ALT 483 H Alkaline Phosphatase 303 H D Total Creatine Kinase Troponin I High Sens Total Protein 7.0 Albumin 4.1 Globulin 2.9 Albumin/Globulin Ratio 1.4 Lipase HCG, Qual Urine Color Urine Appearance Urine pH Ur Specific [place] Urine Protein Urine Glucose (UA) Urine Ketones Urine Blood Urine Nitrite Urine Bilirubin Urine Urobilinogen Ur Leukocyte Esterase Urine WBC (Auto) Urine RBC (Auto) U Hyaline Cast (Auto) U Epithel Cells (Auto) Urine Bacteria (Auto) Urine Comment Urine Opiates Screen Ur Methadone, Qual Urine Fentanyl Screen Urine Barbiturates Ur Phencyclidine (PCP) U Amphetamin/Meth Scrn MDMA (Ecstasy) Screen U Benzodiazepines Scrn Ur Cocaine Metabolite U Marijuana (THC) Screen Ethyl Alcohol mg/dL PG Care Time/CCT Total # of Minutes Spent Total Time Spent with Patient: Total time spent is greater than 50% in coordination of care (as documented) at patient's floor/unit and/or counseling patient: Coding Level of Care Code 99319 SUB INP/OBS CARE 05/28MIN Diagnoses Lumbar contusion S30.0XXA Closed rib fracture S22.39XA Compression fx, thoracic spine S22.000A Multiple falls R29.6 Time Spent (min) 25
[2025-01-11] MEDS: SODIUM CHLORIDE 0.9% 1,000 ML IV SCH (12:50)
[2025-01-11] MEDS: KETOROLAC TROMETHAMINE 15 MG/ML VIAL IV SCH (12:50)
[2025-01-11] MEDS ORDERED: STAT IV/IM STA (17:08)
[2025-01-11] MEDS ORDERED: AcetylCYSTEINE IV 21 HR REGIMEN (>40KG) IV STA (17:08)
[2025-01-11] MEDS ORDERED: cefTRIAXone SODIUM 2,000 MG/50 ML BAG IV SCH (17:15)
[2025-01-11 17:59] LABS: Alanine Aminotransferase 367.0 U/L (7-52); Albumin Globulin Ratio 1.4 (0.9-2); Alkaline Phosphatase 257.0 U/L (34-104); Anion Gap 4.0 (3-11); Bilirubin,Total 0.6 mg/dl (0.2-1.0); Blood Urea Nitrogen 19.0 mg/dl (6-23); Calcium 9.0 mg/dl (8.6-10.3); Carbon Dioxide 30.0 mmol/L (21-32); Chloride 103.0 mmol/L (98-107); Creatinine Clr Calc Pharmacy 71.5 ml/min; Globulin 2.6 gm/dl (2.5-4.0); Glucose 116.0 mg/dl (70-99(Fasting)); Potassium 4.1 mmol/L (3.5-5.1); Sodium 137.0 mmol/L (136-145); Total Protein 6.2 gm/dl (6.0-8.3)
[2025-01-11 18:05] LABS: INR 0.9 (0.9-1.1); Prothrombin Time 10.1 Seconds (9.0-12.0)
[2025-01-11] MEDS: AcetylCYSTEINE 12,300 MG in DEXTROSE 5% 200 ML IV ONE (18:35)
[2025-01-11] MEDS: NITROFURANTOIN MONOHYDRATE 100 MG CAP PO SCH (19:18)
[2025-01-11] MEDS: AcetylCYSTEINE 4,100 MG in DEXTROSE 5% 500 ML IV ONE (20:10)
[2025-01-11] MEDS: REMOVE LIDODERM PATCH SCH (20:25)
[2025-01-12] MEDS: AcetylCYSTEINE 8,200 MG in DEXTROSE 5% 1,000 ML IV ONE (00:58)
[2025-01-12 06:36] LABS: Hematocrit (blood only) 41.9 % (37.0-47.0); Hemoglobin 13.6 g/dl (12.0-16.0); Mean Corpuscular Hemoglobin 28.7 pg (25.0-34.0); Mean Corpuscular Volume 88.4 fL (80.0-100.0); Platelet Count 161 K/uL (130-400); RDW Standard Deviation 41.1 fL (36.4-46.3); Red Blood Count 4.74 M/uL (4.20-5.40); White Blood Count 5.15 K/ul (4.8-10.8)
[2025-01-12 07:19] LABS: Alanine Aminotransferase 283.0 U/L (7-52); Albumin Globulin Ratio 1.5 (0.9-2); Alkaline Phosphatase 224.0 U/L (34-104); Anion Gap 6.0 (3-11); Bilirubin,Total 0.6 mg/dl (0.2-1.0); Blood Urea Nitrogen 13.0 mg/dl (6-23); Calcium 8.8 mg/dl (8.6-10.3); Carbon Dioxide 26.0 mmol/L (21-32); Chloride 109.0 mmol/L (98-107); Creatinine Clr Calc Pharmacy 107.0 ml/min; Globulin 2.4 gm/dl (2.5-4.0); Glucose 125.0 mg/dl (70-99(Fasting)); Potassium 4.2 mmol/L (3.5-5.1); Sodium 141.0 mmol/L (136-145); Total Protein 5.9 gm/dl (6.0-8.3)
--- NOTE | 2025-01-12 11:01 | Hospitalist Progress Note ---
Date of Service January 12, 2025 Assessment & Plan (1) Lumbar contusion: Plan: Evelia Gallego is a 54 yo woman with PMH of lumbar spondolysis , chronc neck pain, anxiety disorder, GERD, gastroparesis s/p surgery she been having dizziness episode, on (jan 05, 2025) she was having fall episode down [address], she's reportedly brought by her to [facility] ([facility] [place]) but later signed out AMA. she's decide to has family drive her here as her spine surgery, Dr. Gutierrez practice at [facility] her CT scan show left 11th rib fracture. she will need admission for MRI imaging to rule out cord compression, PT evaluation, brain MRI to r/o CVA 1. acute low back pain, still have 6/10 pain, has hypotension episode with pain regim e she s/p lumbar MRI and cervical spine MRI spine surgery potentially plan for epidural injection bridge with toradol 2. transaminitis AST of 50, and ALT of 483 (baseline AST of 49, and ALT of 25) hold hepatotoxic agent, RUQ ultrasound check INR level improving, she's on N-acetycysteine off statin avoid ceftriaxone 3. acute 11th rib fracture-pain control with nacrotic no sedation her urine toxicology positive for oxycodone. 4. dizziness episode, check orthostatic tomorrow f/u on b12 level, limited usage of anticholingeric 5 hypertension , amlodipine 10mg, lisinopril 30mg daily propranolol 20mg BID 5. anxiety disorder, buspirone 30mg BID, she's on cymablta 60mg qHS 6. GERd, gastroparesis, on protonix 40mg BID, she's has surgery for gastroparesis f/u on b12 level to r/o absoprtion 7. insomnia-ambien 10mg qHS 8. ADHD-atomoxetine 80mg 9. pain control spine surgery requested for epidural evaluatoin. iV morphine, (she does not has any sedation) c/w tizanidine 4mg q8 hours PRN 10. DVT prophylaxis. 11. b12 deficiency 12. chronic suppressive therapy-valtrex 500mg (2) Closed rib fracture: (3) Compression fx, thoracic spine: (4) Multiple falls: Admission and Anticipated Discharge Date Admission Date: January 09, 2025 Subjective her transaminitis improving on acetylcysteine off statin. her neck pain and back pain is around 6/10 she still has intermittent dizziness episode, required PT/OT evaluation her CTA leg with runoff negative for blockage Physical Exam Physical Exam: VITALS: Reviewed. WEIGHT/BMI reviewed. GEN: Healthy appearing, well-developed, NAD. -Head: NC/AT; -Eyes: PERRL, EOMI. No discharge or redn ess; -Ears: External ears are normal. Normal TMs. -Nose: Normal nares. NECK: Supple, with no masses. normal ROM. CV: RRR, no m/r/g. LUNGS: CTAB, no w/r/c. ABD: Soft, NT/ND, NBS, no masses or organomegaly. SKIN: Warm, well perfused. No skin rashes or abnormal lesions. MSK: No deformities, Normal gait. EXT: No clubbing, cyanosis, or edema. NEURO: AAox3; following command Results & Data Results & Data Vital Signs (Past 12 Hours) Vital Signs Temp Pulse Pulse Resp BP BP Pulse Ox 01/12/25 08:14 36.8 C 85 18 137/85 91 01/12/25 07:30 116 H 01/12/25 04:00 36.5 C 81 18 127/83 97 O2 Del Method 01/12/25 08:14 Room Air 01/12/25 07:30 01/12/25 04:00 Room Air Laboratory Results Laboratory Results - last 72 hr 01/09/25 01/09/25 01/09/25 10:56 11:00 Unknown WBC 5.79 RBC 5.21 Hgb 15.1 POC Hgb 15.6 Hct 45.9 POC Hct 46 MCV 88.1 MCH 29.0 MCHC 32.9 RDW Std Deviation 40.3 RDW Coeff of Ashley 12.6 Plt Count 211 MPV 9.8 Immature Gran % (Auto) 0.2 Neut % (Auto) 52.8 Lymph % (Auto) 37.8 Talbot % (Auto) 7.8 Eos % (Auto) 1.2 Baso % (Auto) 0.2 Neut # (Auto) 3.06 Lymph # (Auto) 2.19 Talbot # (Auto) 0.45 Eos # (Auto) 0.07 Baso # (Auto) 0.01 Immature Gran # (Auto) 0.01 PT 9.6 INR 0.9 APTT 26 PTT Ratio 1.0 POC Sodium 142 Sodium 142 POC Potassium 4.5 Potassium 4.5 POC Chloride 104 Chloride 105 Carbon Dioxide 30 POC Total CO2 26 Anion Gap 7 POC Anion Gap 17.0 POC BUN 16 BUN 16 Creatinine 0.87 POC Creatinine 1.0 Est Cr Clr Drug Dosing 77.9 eGFR 78.15 BUN/Creatinine Ratio 18.4 Glucose 89 POC Glucose (other) 90 Uric Acid Calcium 10.1 POC Ioniz Calcium Clarisa 1.27 Total Bilirubin 0.6 AST 49 H ALT 25 Alkaline Phosphatase 109 H Total Creatine Kinase 67 Troponin I High Sens 2.9 Total Protein 7.3 Albumin 4.2 Globulin 3.1 Albumin/Globulin Ratio 1.4 Lipase 34 HCG, Qual Negative Urine Color Yellow Urine Appearance Slightly Cloudy Urine pH 7.0 Ur Specific Carmel 1.010 Urine Protein Negative Urine Glucose (UA) Negative Urine Ketones Negative Urine Blood Negative Urine Nitrite Positive A Urine Bilirubin 1+ H Urine Urobilinogen Negative Ur Leukocyte Esterase Trace H Urine WBC (Auto) 6-10 H Urine RBC (Auto) 0-2 U Hyaline Cast (Auto) 0-2 U Epithel Cells (Auto) 3-5 H Urine Bacteria (Auto) 4+ H Urine Comment Urine Opiates Screen Pos H Ur Methadone, Qual Neg Urine Fentanyl Screen Neg Urine Barbiturates Neg Ur Phencyclidine (PCP) Neg U Amphetamin/Meth Scrn Neg MDMA (Ecstasy) Screen Neg U Benzodiazepines Scrn Neg Ur Cocaine Metabolite Neg U Marijuana (THC) Screen Neg Ethyl Alcohol mg/dL < 10.0 01/11/25 01/11/25 01/12/25 08:24 17:23 06:11 WBC 5.59 5.15 RBC 5.14 4.74 Hgb 15.2 13.6 POC Hgb Hct 45.1 41.9 POC Hct MCV 87.7 88.4 MCH 29.6 28.7 MCHC 33.7 32.5 RDW Std Deviation 40.7 41.1 RDW Coeff of Ashley 12.6 12.7 Plt Count 199 161 MPV 9.8 9.7 Immature Gran % (Auto) Neut % (Auto) Lymph % (Auto) Talbot % (Auto) Eos % (Auto) Baso % (Auto) Neut # (Auto) Lymph # (Auto) Talbot # (Auto) Eos # (Auto) Baso # (Auto) Immature Gran # (Auto) PT 10.1 INR 0.9 APTT PTT Ratio POC Sodium Sodium 136 137 141 POC Potassium Potassium 4.3 4.1 4.2 POC Chloride Chloride 102 103 109 H Carbon Dioxide 28 30 26 POC Total CO2 Anion Gap 6 4 6 POC Anion Gap POC BUN BUN 17 19 13 Creatinine 0.79 0.91 0.61 D POC Creatinine Est Cr Clr Drug Dosing 82.4 71.5 107.0 eGFR 87.74 74.04 104.86 BUN/Creatinine Ratio 21.5 H 20.9 H 21.3 H Glucose 116 H 116 H 125 H POC Glucose (other) Uric Acid 3.2 Calcium 9.5 9.0 8.8 POC Ioniz Calcium Clarisa Total Bilirubin 0.8 0.6 0.6 AST 530 H 328 H 170 H ALT 483 H 367 H 283 H Alkaline Phosphatase 303 H D 257 H 224 H Total Creatine Kinase Troponin I High Sens Total Protein 7.0 6.2 5.9 L Albumin 4.1 3.6 3.5 Globulin 2.9 2.6 2.4 L Albumin/Globulin Ratio 1.4 1.4 1.5 Lipase HCG, Qual Urine Color Urine Appearance Urine pH Ur Specific Carmel Urine Protein Urine Glucose (UA) Urine Ketones Urine Blood Urine Nitrite Urine Bilirubin Urine Urobilinogen Ur Leukocyte Esterase Urine WBC (Auto) Urine RBC (Auto) U Hyaline Cast (Auto) U Epithel Cells (Auto) Urine Bacteria (Auto) Urine Comment Urine Opiates Screen Ur Methadone, Qual Urine Fentanyl Screen Urine Barbiturates Ur Phencyclidine (PCP) U Amphetamin/Meth Scrn MDMA (Ecstasy) Screen U Benzodiazepines Scrn Ur Cocaine Metabolite U Marijuana (THC) Screen Ethyl Alcohol mg/dL Medications Administered Current Inpatient Medications Amlodipine Besylate (Amlodipine Besylate 5 Mg Tab) 10 mg PO HS MARY CARMEN Stop: 02/08/25 20:59 Last Admin: 01/11/25 20:15 Dose: 10 mg Atomoxetine HCl (Atomoxetine Hcl 40 Mg Capsule) 80 mg PO QAM MARY CARMEN Stop: 02/09/25 08:59 Last Admin: 01/12/25 08:22 Dose: 80 mg Buspirone HCl (Buspirone 15 Mg Tab) 30 mg PO BID MARY CARMEN Stop: 02/08/25 20:59 Last Admin: 01/12/25 08:22 Dose: 30 mg Cetirizine HCl (Cetirizine Hcl 10 Mg Tablet) 10 mg PO QAM MARY CARMEN Stop: 02/08/25 17:44 Last Admin: 01/12/25 08:22 Dose: 10 mg Duloxetine HCl (Duloxetine Hcl 60 Mg Cap) 60 mg PO HS MARY CARMEN Stop: 02/08/25 20:59 Last Admin: 01/11/25 20:14 Dose: 60 mg Gabapentin (Gabapentin 600 Mg Tab) 600 mg PO TID MARY CARMEN Stop: 02/08/25 20:59 Last Admin: 01/12/25 08:22 Dose: 600 mg Hydromorphone HCl (Hydromorphone Hcl 2 Mg Tab) 4 mg PO Q6 PRN PRN Reason: Pain Stop: 01/23/25 18:40 Last Admin: 01/12/25 10:13 Dose: 4 mg Sodium Chloride (Nss) 1,000 mls @ 125 mls/hr IV .Q8H MARY CARMEN Stop: 01/14/25 11:59 Last Admin: 01/12/25 05:59 Dose: 125 mls/hr Acetylcysteine 8,200 mg/ (Dextrose) 1,041 mls @ 62.5 mls/hr IV ONCE ONE; Protocol Stop: 01/12/25 14:47 Last Admin: 01/12/25 00:58 Dose: 62.5 mls/hr Ketorolac Tromethamine (Ketorolac Tromethamine 15 Mg/Ml Vial) 15 mg IV Q6H MARY CARMEN Stop: 01/14/25 11:59 Last Admin: 01/12/25 06:02 Dose: 15 mg Lidocaine (Lidocaine 5% 1 Patch) 1 patch TD QAM MARY CARMEN Stop: 02/10/25 08:59 Last Admin: 01/12/25 08:06 Dose: Not Given Lisinopril (Lisinopril 10 Mg Tab) 30 mg PO HS MARY CARMEN Stop: 02/08/25 20:59 Last Admin: 01/11/25 20:13 Dose: 30 mg Lorazepam (Lorazepam 2 Mg/1 Ml Vial) 0.5 mg IV Q8H PRN PRN Reason: Anxiety/Agitation Stop: 02/08/25 14:15 Magnesium Hydroxide (Magnesium Hydroxide Susp 30 Ml Udc) 30 ml PO Q6H PRN PRN Reason: Constipation Stop: 02/08/25 14:43 Melatonin (Melatonin 3 Mg Tab) 3 mg PO HS PRN PRN Reason: Insomnia Stop: 02/08/25 14:43 Miscellaneous (Remove Lidoderm Patch) 1 each N/A DAILY@2100 [facility] Stop: 02/10/25 20:59 Last Admin: 01/11/25 20:25 Dose: 1 each Multivitamins (Multivitamin Tab) 1 tab PO QAM MARY CARMEN Stop: 02/08/25 17:59 Last Admin: 01/12/25 08:22 Dose: 1 tab Nitrofurantoin Macrocrystals (Nitrofurantoin Monohydrate 100 Mg Cap) 100 mg PO BID MARY CARMEN Stop: 01/16/25 17:29 Last Admin: 01/12/25 08:22 Dose: 100 mg Ondansetron HCl (Ondansetron Inj 2 Mg/Ml 2 Ml Vial) 4 mg IV Q6H PRN PRN Reason: Nausea Stop: 02/08/25 18:22 Last Admin: 01/10/25 08:00 Dose: 4 mg Pantoprazole Sodium (Pantoprazole 40 Mg Tab) 40 mg PO BID MARY CARMEN Stop: 02/08/25 20:59 Last Admin: 01/12/25 08:23 Dose: 40 mg Propranolol HCl (Propranolol Hcl 20 Mg Tab) 20 mg PO BID [facility] Stop: 02/08/25 20:59 Last Admin: 01/12/25 08:23 Dose: 20 mg Valacyclovir HCl (Valacyclovir Hcl 500 Mg Tablet) 500 mg PO QAM [facility] Stop: 02/08/25 17:44 Last Admin: 01/12/25 08:23 Dose: 500 mg Vitamin D (Cholecalciferol 25 Mcg (1000 Units) Tab) 25 mcg PO QAM MARY CARMEN Stop: 02/09/25 08:59 Last Admin: 01/12/25 08:22 Dose: 25 mcg Zolpidem Tartrate (Zolpidem Tartrate 5 Mg Tab) 10 mg PO HS MARY CARMEN Stop: 02/08/25 20:59 Last Admin: 01/11/25 20:21 Dose: 10 mg PG Care Time/CCT Total # of Minutes Spent Total Time Spent with Patient: Total time spent is greater than 50% in coordination of care (as documented) at patient's floor/unit and/or counseling patient: Coding Level of Care Code 54928 SUB INP/OBS CARE 05/28MIN Diagnoses Lumbar contusion S30.0XXA Closed rib fracture S22.39XA Compression fx, thoracic spine S22.000A Multiple falls R29.6 Time Spent (min) 25
--- NOTE | 2025-01-12 16:51 | Ultrasound Report ---
Clinical History: Swelling Technique: Venous ultrasound evaluation was performed utilizing grayscale, color Doppler and wave form evaluation. Images were also obtained with and without compression Findings: The bilateral common femoral, superficial femoral, popliteal, and visualized calf veins demonstrate normal anechoic lumens with full compressibility. Normal flow is seen on color Doppler images. Expected waveforms were produced with augmentation maneuvers Impression: No evidence of deep venous thrombosis Electronically signed by Paulo Ling 01-12-2025 4:51 PM
[2025-01-12 18:18] LABS: Alanine Aminotransferase 257.0 U/L (7-52); Albumin Globulin Ratio 1.4 (0.9-2); Alkaline Phosphatase 244.0 U/L (34-104); Anion Gap 6.0 (3-11); Bilirubin,Total 0.5 mg/dl (0.2-1.0); Blood Urea Nitrogen 10.0 mg/dl (6-23); Calcium 9.1 mg/dl (8.6-10.3); Carbon Dioxide 27.0 mmol/L (21-32); Chloride 106.0 mmol/L (98-107); Creatinine Clr Calc Pharmacy 91.9 ml/min; Globulin 2.7 gm/dl (2.5-4.0); Glucose 107.0 mg/dl (70-99(Fasting)); Potassium 4.1 mmol/L (3.5-5.1); Sodium 139.0 mmol/L (136-145); Total Protein 6.5 gm/dl (6.0-8.3)
[2025-01-12] MEDS: MAGNESIUM HYDROXIDE SUSP 30 ML UDC PO PRN (22:03)
[2025-01-13 06:42] LABS: Hydrocodone Urine NEGATIVE ng/mL (<50); Hydromor Urine NEGATIVE ng/mL (<50); Noroxycodone Urine 54 ng/mL (<50); Oxymorph Urine NEGATIVE ng/mL (<50)
[2025-01-13 07:04] LABS: Hematocrit (blood only) 40.4 % (37.0-47.0); Hemoglobin 13.2 g/dl (12.0-16.0); Mean Corpuscular Hemoglobin 28.3 pg (25.0-34.0); Mean Corpuscular Volume 86.7 fL (80.0-100.0); Platelet Count 187 K/uL (130-400); RDW Standard Deviation 39.7 fL (36.4-46.3); Red Blood Count 4.66 M/uL (4.20-5.40); White Blood Count 6.25 K/ul (4.8-10.8)
[2025-01-13 07:22] LABS: Alanine Aminotransferase 209.0 U/L (7-52); Albumin Globulin Ratio 1.4 (0.9-2); Alkaline Phosphatase 226.0 U/L (34-104); Anion Gap 6.0 (3-11); Bilirubin,Total 0.5 mg/dl (0.2-1.0); Blood Urea Nitrogen 14.0 mg/dl (6-23); Calcium 9.4 mg/dl (8.6-10.3); Carbon Dioxide 25.0 mmol/L (21-32); Chloride 107.0 mmol/L (98-107); Creatinine Clr Calc Pharmacy 116.6 ml/min; Globulin 2.6 gm/dl (2.5-4.0); Glucose 130.0 mg/dl (70-99(Fasting)); Potassium 4.5 mmol/L (3.5-5.1); Sodium 138.0 mmol/L (136-145); Total Protein 6.3 gm/dl (6.0-8.3)
[2025-01-13] MEDS ORDERED: AcetylCYSTEINE IV 21 HR REGIMEN (>40KG) IV STA (07:38)
[2025-01-13] MEDS ORDERED: STAT IV/IM STA (07:38)
--- NOTE | 2025-01-13 08:42 | Hospitalist Progress Note ---
Date of Service January 13, 2025 Assessment & Plan (1) Lumbar contusion: Plan: Evelia Gallego is a 54 yo woman with PMH of lumbar spondolysis , chronc neck pain, anxiety disorder, GERD, gastroparesis s/p surgery she been having dizziness episode, on (jan 05, 2025) she was having fall episode down [address] stair, she's reportedly brought by her [facility] [place] but later signed out AMA. she's decide to has family drive her here as her spine surgery, Dr. Gutierrez practice at [facility] her CT scan show left 11th rib fracture. she will need admission for MRI imaging to rule out cord compression, PT evaluation, brain MRI to r/o CVA 1. acute low back pain, still have 6/10 pain, has hypotension episode with pain regim e she s/p lumbar MRI and cervical spine MRI spine surgery potentially plan for epidural injection bridge with toradol 2. transaminitis AST of 50, and ALT of 483 (baseline AST of 49, and ALT of 25) hold hepatotoxic agent, RUQ ultrasound f/u o nCT abdomen per the patient was started on zanaflex and gabapentin check INR level continue she's on N-acetycysteine off statin 3. chest pain eosode f/u on CTA chest and echo 3. acute 11th rib fracture-pain control with nacrotic no sedation her urine toxicology positive for oxycodone. 4. dizziness episode, check orthostatic tomorrow f/u on b12 level, limited usage of anticholingeric 5 hypertension , amlodipine 10mg, lisinopril 30mg daily propranolol 20mg BID 5. anxiety disorder, buspirone 30mg BID, she's on cymablta 60mg qHS 6. GERd, gastroparesis, on protonix 40mg BID, she's has surgery for gastroparesis f/u on b12 level to r/o absorption 7. insomnia-Ambien 10mg qHS 8. ADHD-atomoxetine 80mg 9. pain control spine surgery requested for epidural evaluation. iV morphine, (she does not has any sedation) c/w tizanidine 4mg q8 hours PRN 10. DVT prophylaxis. 11. b12 deficiency 12. chronic suppressive therapy-valtrex 500mg (2) Closed rib fracture: (3) Compression fx, thoracic spine: (4) Multiple falls: Admission and Anticipated Discharge Date Admission Date: January 09, 2025 Subjective her LFT still elevated; continue acetylcysteine in addition, hold zanaflex, hold gabapentin she's mentioned chest pain episode, also been having abdominal discomfort on physical exam f/u on CTA chest and CT abdomen dc barrier ongoing transaminitis. discussed about patient about stopping statin till her LFT resolved per patient, no hx of ETOH abuse Physical Exam Physical Exam: VITALS: Reviewed. WEIGHT/BMI reviewed. GEN: Healthy appearing, well-developed, NAD. -Head: NC/AT; -Mouth and throat: MMM. Normal gums, muc amalia, palate,. Good dentition. NECK: normal flexion/extension, side bending; CV: RRR, no m/r/g. LUNGS: CTAB, no w/r/c. ABD: Soft, NT/ND, NBS, no masses or organomegaly. : N/A SKIN: Warm, well perfused. No skin rashes or abnormal lesions. MSK + for surgical scar at lumbar spine. tender to palpation EXT: No clubbing, cyanosis, or edema. Results & Data Results & Data Vital Signs (Past 12 Hours) Vital Signs Temp Pulse Pulse Resp BP Pulse Ox O2 Del Method 01/13/25 07:22 104 H 01/13/25 04:03 37 C 80 14 123/78 93 Room Air 01/12/25 23:14 93 H 01/12/25 22:42 36.6 C 103 H 12 151/96 H 94 Room Air Laboratory Results Laboratory Results - last 72 hr 01/09/25 01/11/25 01/11/25 Unknown 08:24 17:23 WBC 5.59 RBC 5.14 Hgb 15.2 Hct 45.1 MCV 87.7 MCH 29.6 MCHC 33.7 RDW Std Deviation 40.7 RDW Coeff of Ashley 12.6 Plt Count 199 MPV 9.8 PT 10.1 INR 0.9 Sodium 136 137 Potassium 4.3 4.1 Chloride 102 103 Carbon Dioxide 28 30 Anion Gap 6 4 BUN 17 19 Creatinine 0.79 0.91 Est Cr Clr Drug Dosing 82.4 71.5 eGFR 87.74 74.04 BUN/Creatinine Ratio 21.5 H 20.9 H Glucose 116 H 116 H Uric Acid 3.2 Calcium 9.5 9.0 Total Bilirubin 0.8 0.6 AST 530 H 328 H ALT 483 H 367 H Alkaline Phosphatase 303 H D 257 H Troponin I High Sens Total Protein 7.0 6.2 Albumin 4.1 3.6 Globulin 2.9 2.6 Albumin/Globulin Ratio 1.4 1.4 U Codeine Confrm GC/MS NEGATIVE Ur Morphine (GC/MS) 403 H Ur Hydrocodone (GC/MS) NEGATIVE Ur Norhydrocodone NEGATIVE Ur Noroxycodone 54 H Urine Oxycodone (GC/MS) NEGATIVE U Oxymorphone GC/MS NEGATIVE Ur Hydromorphone (GC/MS) NEGATIVE Drug Screen Comment SEE NOTE 01/12/25 01/12/25 01/13/25 06:11 17:39 06:34 WBC 5.15 6.25 RBC 4.74 4.66 Hgb 13.6 13.2 Hct 41.9 40.4 MCV 88.4 86.7 MCH 28.7 28.3 MCHC 32.5 32.7 RDW Std Deviation 41.1 39.7 RDW Coeff of Ashley 12.7 12.6 Plt Count 161 187 MPV 9.7 9.7 PT INR Sodium 141 139 138 Potassium 4.2 4.1 4.5 Chloride 109 H 106 107 Carbon Dioxide 26 27 25 Anion Gap 6 6 6 BUN 13 10 14 Creatinine 0.61 D 0.71 0.56 L Est Cr Clr Drug Dosing 107.0 91.9 116.6 eGFR 104.86 99.73 107.05 BUN/Creatinine Ratio 21.3 H 14.1 25.0 H Glucose 125 H 107 H 130 H Uric Acid Calcium 8.8 9.1 9.4 Total Bilirubin 0.6 0.5 0.5 AST 170 H 124 H 87 H ALT 283 H 257 H 209 H Alkaline Phosphatase 224 H 244 H 226 H Troponin I High Sens 2.9 Total Protein 5.9 L 6.5 6.3 Albumin 3.5 3.8 3.7 Globulin 2.4 L 2.7 2.6 Albumin/Globulin Ratio 1.5 1.4 1.4 U Codeine Confrm GC/MS Ur Morphine (GC/MS) Ur Hydrocodone (GC/MS) Ur Norhydrocodone Ur Noroxycodone Urine Oxycodone (GC/MS) U Oxymorphone GC/MS Ur Hydromorphone (GC/MS) Drug Screen Comment PG Care Time/CCT Total # of Minutes Spent Total Time Spent with Patient: Total time spent is greater than 50% in coordination of care (as documented) at patient's floor/unit and/or counseling patient: Coding Level of Care Code 92415 SUB INP/OBS CARE 05/28MIN Diagnoses Lumbar contusion S30.0XXA Closed rib fracture S22.39XA Compression fx, thoracic spine S22.000A Multiple falls R29.6 Time Spent (min) 25
[2025-01-13] MEDS: DEXTROSE 5% IV ONE ×2 (08:54→10:50)
[2025-01-13] MEDS: ACETYLCYSTEINE IV ONE ×2 (08:54→10:50)
[2025-01-13] MEDS: OPTIRAY 320 125ml IV ONE (09:29)
--- NOTE | 2025-01-13 09:52 | CT Scan Report ---
CT OF THE ABDOMEN AND PELVIS WITH AND WITHOUT CONTRAST CLINICAL HISTORY: Abdominal pain, high LFT, hx of gastroparesis surgery. COMPARISON STUDY: CT of the abdomen and pelvis January 09, 2025. TECHNIQUE: Axial images of the abdomen and pelvis were obtained before and after intravenous injectio n of 118 cc of Optiray 320 IV. Automated exposure control was utilized for the study. A dose loweri ng technique was utilized adhering to the principles of ALARA. CT DOSE: 2905.15 mGy.cm FINDINGS: An acute nondisplaced posterior left 11th rib fracture is again noted. No pneumatosis, free air or portal venous gas is present. There is a punctate left renal calculus. There are no ureteral calculi. There is no hydronephrosis. There is mild bladder wall thickening. Mild biliary ductal dilat ation is noted. There is no pancreatic ductal dilatation. The gallbladder is surgically absent. There are no hepatic lesions. Liver morphology is normal. Spleen, adrenal glands and pancreas are unremark able. There is a moderate amount of stool within the colon. There is no evidence for a bowel obstruct ion. No bowel wall thickening. The appendix is not visualized. There is no right lower quadrant infla mmation. Major vasculature is patent. Postoperative findings within the spine are incidentally noted. IMPRESSION: 1. Mild biliary ductal dilatation. This is likely related to cholecystectomy however correlation with obstructive liver function tests is recommended. 2. Punctate left renal calculus. No ureteral calculi or hydronephrosis. Mild bladder wall thickening, likely chronic. 3. Redemonstration acute nondisplaced posterior left 11th rib fracture. 4. Moderate amount of stool within the colon. No bowel obstruction. No bowel wall thickening. ACT 112: Negative or not required by law. Electronically signed by: Epi Lainez M.D. 01/13/2025 9:49 AM
--- NOTE | 2025-01-13 09:56 | CT Scan Report ---
CT angio chest PE protocol CT DOSE: 2905 HISTORY: PE, chest pain, was at [facility]. TECHNIQUE: Multiple CTA images of the chest were obtained after the intravenous administration of 120 ml Optiray. Coronal and sagittal MIPS were obtained from the axial data set and were submitted for review. All measurements were obtained according to NASCET criteria. A dose lowering technique was u tilized adhering to the principles of ALARA. COMPARISON STUDY: 01/09/2025 FINDINGS: There is no pulmonary consolidation or pleural effusion. No pneumothorax. No significant pu lmonary nodule. No enlarged adenopathy. No pericardial effusion. No thoracic aortic dissection or ane urysm. No pulmonary embolism seen. No acute osseous finding seen. IMPRESSION: No pulmonary embolism or pneumonia. ACT 112: Negative or not required by law. The above report was generated using voice recognition software. It may contain grammatical, syntax o r spelling errors. Electronically signed by: Emmanuel Thomas M.D. 01/13/2025 9:53 AM
[2025-01-13 11:23] LABS: Creatine Kinase 42.0 U/L (26-192)
--- NOTE | 2025-01-13 14:12 | Magnetic Resonance Report ---
MR MRCP CLINICAL HISTORY: r/o cbd stones or pancreatic COMPARISON STUDY: CT scan earlier today FINDINGS: There is motion artifact. There is prior cholecystectomy. There is distention of the common bile duct measuring up to 1.7 cm diameter. No common bile duct stone seen. Pancreas is grossly unrem arkable. IMPRESSION: Dilatation of the common bile duct with no common bile duct stones seen. If obstructive liver function tests are normal, this is likely due to prior cholecystectomy. If obstruction liver fu nction tests are abnormal, this suggests distal common bile duct stricture. ACT 112: Negative or not required by law. Electronically signed by: Emmanuel Thomas M.D. 01/13/2025 2:11 PM
[2025-01-13 16:59] LABS: Alanine Aminotransferase 194.0 U/L (7-52); Albumin Globulin Ratio 1.4 (0.9-2); Alkaline Phosphatase 210.0 U/L (34-104); Anion Gap 10.0 (3-11); Bilirubin,Total 0.5 mg/dl (0.2-1.0); Blood Urea Nitrogen 11.0 mg/dl (6-23); Calcium 9.1 mg/dl (8.6-10.3); Carbon Dioxide 21.0 mmol/L (21-32); Chloride 105.0 mmol/L (98-107); Creatinine Clr Calc Pharmacy 105.3 ml/min; Globulin 2.8 gm/dl (2.5-4.0); Glucose 265.0 mg/dl (70-99(Fasting)); Potassium 3.8 mmol/L (3.5-5.1); Sodium 136.0 mmol/L (136-145); Total Protein 6.6 gm/dl (6.0-8.3)
[2025-01-13] MEDS: AcetylCYSTEINE 8,250 MG in DEXTROSE 5% 1,000 ML IV ONE (17:12)
[2025-01-13 17:20] LABS: INR 1.0 (0.9-1.1); Prothrombin Time 10.9 Seconds (9.0-12.0)
[2025-01-14 06:18] LABS: Hematocrit (blood only) 40.6 % (37.0-47.0); Hemoglobin 13.3 g/dl (12.0-16.0); Mean Corpuscular Hemoglobin 28.3 pg (25.0-34.0); Mean Corpuscular Volume 86.4 fL (80.0-100.0); Platelet Count 205 K/uL (130-400); RDW Standard Deviation 39.8 fL (36.4-46.3); Red Blood Count 4.70 M/uL (4.20-5.40); White Blood Count 9.91 K/ul (4.8-10.8)
[2025-01-14 06:39] LABS: Alanine Aminotransferase 160.0 U/L (7-52); Albumin Globulin Ratio 1.5 (0.9-2); Alkaline Phosphatase 198.0 U/L (34-104); Anion Gap 7.0 (3-11); Bilirubin,Total 0.5 mg/dl (0.2-1.0); Blood Urea Nitrogen 12.0 mg/dl (6-23); Calcium 9.1 mg/dl (8.6-10.3); Carbon Dioxide 24.0 mmol/L (21-32); Chloride 107.0 mmol/L (98-107); Creatinine Clr Calc Pharmacy 126.4 ml/min; Globulin 2.6 gm/dl (2.5-4.0); Glucose 169.0 mg/dl (70-99(Fasting)); Potassium 3.9 mmol/L (3.5-5.1); Sodium 138.0 mmol/L (136-145); Total Protein 6.5 gm/dl (6.0-8.3)
--- NOTE | 2025-01-14 12:03 | Hospitalist Progress Note ---
Date of Service January 14, 2025 Assessment & Plan (1) Lumbar contusion: Plan: Evelia Gallego is a 54 yo woman with PMH of lumbar spondolysis , chronc neck pain, anxiety disorder, GERD, gastroparesis s/p surgery she been having dizziness episode, on (jan 05, 2025) she was having fall episode down [address] stair, she's reportedly brought by her to [facility] [place] but later signed out AMA. she's decide to has family drive her here as her spine surgery, Dr. Gutierrez practice at [facility] her CT scan show left 11th rib fracture. she will need admission for MRI imaging to rule out cord compression, PT evaluation, brain MRI to r/o CVA 1. acute low back pain, still have 6/10 pain, has hypotension episode with pain regim e she s/p lumbar MRI and cervical spine MRI spine surgery potentially plan for epidural injection bridge with toradol 2. transaminitis improving, continue to give acetylcysteine hold zanaflex and gabapentin AST and ALT downtrending 3. CBD dilatation discussed about f/u with GI for ERCP her GI is Dr. Richard Gutierrez at [place] 4. forgetfulness started one year ago limited usage of nacrotic outpatient f/u for sleep studies 3. chest pain eosode f/u on CTA chest and echo 3. acute 11th rib fracture-pain control with nacrotic no sedation her urine toxicology positive for oxycodone. 4. dizziness episode, check orthostatic tomorrow f/u on b12 level, limited usage of anticholingeric 5 hypertension , amlodipine 10mg, lisinopril 30mg daily propranolol 20mg BID 5. anxiety disorder, buspirone 30mg BID, she's on cymablta 60mg qHS 6. GERd, gastroparesis, on protonix 40mg BID, she's has surgery for gastroparesis f/u on b12 level to r/o absorption 7. insomnia-Ambien 10mg qHS 8. ADHD-atomoxetine 80mg 9. pain control spine surgery requested for epidural evaluation. iV morphine, (she does not has any sedation) c/w tizanidine 4mg q8 hours PRN 10. DVT prophylaxis. 11. b12 deficiency 12. chronic suppressive therapy-valtrex 500mg (2) Closed rib fracture: (3) Compression fx, thoracic spine: (4) Multiple falls: Admission and Anticipated Discharge Date Admission Date: January 09, 2025 Subjective she on acetylcysteine and LFT downtrending we discussed the CBD dilatatoin and need for GI f/u discussed need for ERCP and repeat MRCP risk of cancer, explained her GI specialist is Dr. Richard Gutierrez at [place] her BP is stable she mentioned confusion and disorientation one year ago discussed she need to has sleep apnea treatment Results & Data Results & Data Vital Signs (Past 12 Hours) Vital Signs Temp Pulse Resp BP Pulse Ox O2 Del Method 01/14/25 11:14 36.6 C 96 H 18 135/86 97 Room Air 01/14/25 08:20 37.0 C 75 18 109/72 96 Room Air 01/14/25 03:18 36.7 C 96 H 16 133/79 97 Room Air PG Care Time/CCT Total # of Minutes Spent Total Time Spent with Patient: Total time spent is greater than 50% in coordination of care (as documented) at patient's floor/unit and/or counseling patient: Coding Level of Care Code 16452 SUB INP/OBS CARE 05/28MIN Diagnoses Lumbar contusion S30.0XXA Closed rib fracture S22.39XA Compression fx, thoracic spine S22.000A Multiple falls R29.6 Time Spent (min) 25
--- NOTE | 2025-01-15 07:32 | XCELERA ---
[id number] [id number]
[2025-01-15 07:37] LABS: Hematocrit (blood only) 44.8 % (37.0-47.0); Hemoglobin 15.1 g/dl (12.0-16.0); Mean Corpuscular Hemoglobin 29.5 pg (25.0-34.0); Mean Corpuscular Volume 87.5 fL (80.0-100.0); Platelet Count 242 K/uL (130-400); RDW Standard Deviation 41.1 fL (36.4-46.3); Red Blood Count 5.12 M/uL (4.20-5.40); White Blood Count 12.10 K/ul (4.8-10.8)
[2025-01-15 08:26] LABS: Alanine Aminotransferase 140.0 U/L (7-52); Albumin Globulin Ratio 1.4 (0.9-2); Alkaline Phosphatase 203.0 U/L (34-104); Anion Gap 7.0 (3-11); Bilirubin,Total 0.6 mg/dl (0.2-1.0); Blood Urea Nitrogen 19.0 mg/dl (6-23); Calcium 9.8 mg/dl (8.6-10.3); Carbon Dioxide 29.0 mmol/L (21-32); Chloride 103.0 mmol/L (98-107); Creatinine Clr Calc Pharmacy 95.5 ml/min; Globulin 3.0 gm/dl (2.5-4.0); Glucose 134.0 mg/dl (70-99(Fasting)); Potassium 4.0 mmol/L (3.5-5.1); Sodium 139.0 mmol/L (136-145); Total Protein 7.3 gm/dl (6.0-8.3)
[2025-01-15] MEDS ORDERED: AcetylCYSTEINE IV 21 HR REGIMEN (>40KG) IV STA (08:34)
[2025-01-15] MEDS ORDERED: STAT IV/IM STA (08:34)
[2025-01-15] MEDS: DEXTROSE 5% IV ONE ×3 (10:23→16:53)
[2025-01-15] MEDS: ACETYLCYSTEINE IV ONE ×3 (10:23→16:53)
--- NOTE | 2025-01-15 12:18 | Hospitalist Progress Note ---
Date of Service January 15, 2025 Assessment & Plan (1) Lumbar contusion: Plan: Evelia Gallego is a 54 yo woman with PMH of lumbar spondolysis , chronc neck pain, anxiety disorder, GERD, gastroparesis s/p surgery she been having dizziness episode, on (jan 05, 2025) she was having fall episode down 13 flight of stair, she's reportedly brought by her to [facility] ([facility]) but later signed out AMA. she's decide to has family drive her here as her spine surgery, Dr. Gutierrez practice at [facility] her CT scan show left 11th rib fracture. she will need admission for MRI imaging to rule out cord compression, PT evaluation, brain MRI to r/o CVA overall plan c/w acetcysteline for transminitis in addition. IV solumedrol; toradol for back pain likely dc home with medrol taper and meloxicam dc home tomorrow she need GI f/u with monitor for CBD diltation repeat LFT in 7-10 days she need referral for epidural injection on outpatient basis 1. acute low back pain, much improved with IV solumedrol and toradol she's still needing dilaudid tablet like dc home with medrol; meloxican. limited acetominophen given her transaminitis l 2. transaminitis ALT still elevated at 140 (baseline of 25) c/w another dose of acetycysteine hold zanaflex, hold statin avoid acetomionphen 3. CBD dilatation discussed about f/u with GI for ERCP her GI is Dr. Richard Gutierrez at [place] 4. forgetfulness started one year ago limited usage of nacrotic outpatient f/u for sleep studies 3. chest pain eosode f/u on CTA chest and echo 3. acute 11th rib fracture-pain control with nacrotic no sedation her urine toxicology positive for oxycodone. 4. dizziness episode, check orthostatic tomorrow f/u on b12 level, limited usage of anticholingeric 5 hypertension , amlodipine 10mg, lisinopril 30mg daily propranolol 20mg BID 5. anxiety disorder, buspirone 30mg BID, she's on cymablta 60mg qHS 6. GERd, gastroparesis, on protonix 40mg BID, she's has surgery for gastroparesis f/u on b12 level to r/o absorption 7. insomnia-Ambien 10mg qHS 8. ADHD-atomoxetine 80mg 9. pain control spine surgery requested for epidural evaluation. iV morphine, (she does not has any sedation) c/w tizanidine 4mg q8 hours PRN 10. DVT prophylaxis. 11. b12 deficiency 12. chronic suppressive therapy-valtrex 500mg (2) Closed rib fracture: (3) Compression fx, thoracic spine: (4) Multiple falls: Admission and Anticipated Discharge Date Admission Date: January 09, 2025 Subjective her LFT is still elevated and plan for another dose of acetylcysteine she speak low grade temperature updated, discussed about f/u for CBD dilatation, potential need for ERCP they will f/u with Dr. Gutierrez (GI at [place]) and potential has ERCP coordinate with Dr. Gutierrez for her memorial impairment started one year ago, discussed f/u with sleep studies and usage of CPAP discussed about psych f/u for management of her anxiety for her low back pain, stable on steroid. discharge 24 hours away Physical Exam Physical Exam: VITALS: Reviewed. WEIGHT/BMI reviewed. GEN: Healthy appearing, well-developed, NAD. PSYCH: Good Judgment. AOx3. Normal memory, mood, and affect. HEENT -Head: NC/AT; NECK: Supple, with no masses; normal ROM; tender to palpitation CV: RRR, no m/r/g. LUNGS: CTAB, no w/r/c. ABD: Soft, NT/ND, NBS, no masses or organomegaly. MSK: negative straight leg raise test; limited ROM. EXT: No clubbing, cyanosis, or edema. NEURO:AAOx3 Results & Data Results & Data Vital Signs (Past 12 Hours) Vital Signs Temp Pulse Pulse Resp BP BP Pulse Ox 01/15/25 11:02 36.4 C L 88 17 152/95 H 96 01/15/25 08:16 36.5 C 76 18 155/93 H 97 01/15/25 07:45 91 H 01/15/25 03:50 36.6 C 78 16 133/79 95 O2 Del Method 01/15/25 11:02 Room Air 01/15/25 08:16 Room Air 01/15/25 07:45 01/15/25 03:50 Room Air Laboratory Results Laboratory Results - last 72 hr 01/09/25 01/12/25 01/13/25 Unknown 17:39 06:34 WBC 6.25 RBC 4.66 Hgb 13.2 Hct 40.4 MCV 86.7 MCH 28.3 MCHC 32.7 RDW Std Deviation 39.7 RDW Coeff of Ashley 12.6 Plt Count 187 MPV 9.7 PT INR Sodium 139 138 Potassium 4.1 4.5 Chloride 106 107 Carbon Dioxide 27 25 Anion Gap 6 6 BUN 10 14 Creatinine 0.71 0.56 L Est Cr Clr Drug Dosing 91.9 116.6 eGFR 99.73 107.05 BUN/Creatinine Ratio 14.1 25.0 H Glucose 107 H 130 H Calcium 9.1 9.4 Total Bilirubin 0.5 0.5 Direct Bilirubin AST 124 H 87 H ALT 257 H 209 H Alkaline Phosphatase 244 H 226 H Total Creatine Kinase 42 Troponin I High Sens 2.9 Total Protein 6.5 6.3 Albumin 3.8 3.7 Globulin 2.7 2.6 Albumin/Globulin Ratio 1.4 1.4 U Codeine Confrm GC/MS NEGATIVE Ur Morphine (GC/MS) 403 H Ur Hydrocodone (GC/MS) NEGATIVE Ur Norhydrocodone NEGATIVE Ur Noroxycodone 54 H Urine Oxycodone (GC/MS) NEGATIVE U Oxymorphone GC/MS NEGATIVE Ur Hydromorphone (GC/MS) NEGATIVE Drug Screen Comment SEE NOTE Anaplasma Smear Babesia Smear Lyme Disease Screen 01/13/25 01/14/25 01/14/25 15:53 04:44 12:10 WBC 9.91 RBC 4.70 Hgb 13.3 Hct 40.6 MCV 86.4 MCH 28.3 MCHC 32.8 RDW Std Deviation 39.8 RDW Coeff of Ashley 12.8 Plt Count 205 MPV 9.9 PT 10.9 INR 1.0 Sodium 136 138 Potassium 3.8 3.9 Chloride 105 107 Carbon Dioxide 21 24 Anion Gap 10 7 BUN 11 12 Creatinine 0.62 0.52 L Est Cr Clr Drug Dosing 105.3 126.4 eGFR 104.45 108.97 BUN/Creatinine Ratio 17.7 23.1 H Glucose 265 H 169 H Calcium 9.1 9.1 Total Bilirubin 0.5 0.5 Direct Bilirubin 0.1 AST 62 H 46 H ALT 194 H 160 H Alkaline Phosphatase 210 H 198 H Total Creatine Kinase Troponin I High Sens Total Protein 6.6 6.5 Albumin 3.8 3.9 Globulin 2.8 2.6 Albumin/Globulin Ratio 1.4 1.5 U Codeine Confrm GC/MS Ur Morphine (GC/MS) Ur Hydrocodone (GC/MS) Ur Norhydrocodone Ur Noroxycodone Urine Oxycodone (GC/MS) U Oxymorphone GC/MS Ur Hydromorphone (GC/MS) Drug Screen Comment Anaplasma Smear See Comment Babesia Smear See Comment Lyme Disease Screen Negative 01/15/25 07:18 WBC 12.10 H RBC 5.12 Hgb 15.1 Hct 44.8 MCV 87.5 MCH 29.5 MCHC 33.7 RDW Std Deviation 41.1 RDW Coeff of Ashley 12.8 Plt Count 242 MPV 9.7 PT INR Sodium 139 Potassium 4.0 Chloride 103 Carbon Dioxide 29 Anion Gap 7 BUN 19 Creatinine 0.68 Est Cr Clr Drug Dosing 95.5 eGFR 102.15 BUN/Creatinine Ratio 27.9 H Glucose 134 H Calcium 9.8 Total Bilirubin 0.6 Direct Bilirubin AST 39 ALT 140 H Alkaline Phosphatase 203 H Total Creatine Kinase Troponin I High Sens Total Protein 7.3 Albumin 4.3 Globulin 3.0 Albumin/Globulin Ratio 1.4 U Codeine Confrm GC/MS Ur Morphine (GC/MS) Ur Hydrocodone (GC/MS) Ur Norhydrocodone Ur Noroxycodone Urine Oxycodone (GC/MS) U Oxymorphone GC/MS Ur Hydromorphone (GC/MS) Drug Screen Comment Anaplasma Smear Babesia Smear Lyme Disease Screen PG Care Time/CCT Total # of Minutes Spent Total Time Spent with Patient: Total time spent is greater than 50% in coordination of care (as documented) at patient's floor/unit and/or counseling patient: Coding Level of Care Code 57408 SUB INP/OBS CARE /25MIN Diagnoses Lumbar contusion S30.0XXA Closed rib fracture S22.39XA Compression fx, thoracic spine S22.000A Multiple falls R29.6 Time Spent (min) 25
[2025-01-15 23:06] VITALS: O2SAT 96
[2025-01-16 06:56] LABS: Hematocrit (blood only) 45.7 % (37.0-47.0); Hemoglobin 14.9 g/dl (12.0-16.0); Mean Corpuscular Hemoglobin 28.3 pg (25.0-34.0); Mean Corpuscular Volume 86.7 fL (80.0-100.0); Platelet Count 259 K/uL (130-400); RDW Standard Deviation 39.8 fL (36.4-46.3); Red Blood Count 5.27 M/uL (4.20-5.40); White Blood Count 10.79 K/ul (4.8-10.8)
[2025-01-16 07:17] LABS: Alanine Aminotransferase 98.0 U/L (7-52); Albumin Globulin Ratio 1.5 (0.9-2); Alkaline Phosphatase 177.0 U/L (34-104); Anion Gap 6.0 (3-11); Bilirubin,Total 0.5 mg/dl (0.2-1.0); Blood Urea Nitrogen 19.0 mg/dl (6-23); Calcium 9.5 mg/dl (8.6-10.3); Carbon Dioxide 29.0 mmol/L (21-32); Chloride 103.0 mmol/L (98-107); Creatinine Clr Calc Pharmacy 94.3 ml/min; Globulin 2.7 gm/dl (2.5-4.0); Glucose 166.0 mg/dl (70-99(Fasting)); Potassium 3.8 mmol/L (3.5-5.1); Sodium 138.0 mmol/L (136-145); Total Protein 6.8 gm/dl (6.0-8.3)
[2025-01-16 11:07] VITALS: BP 122/85; RESP 18; TEMP 98.2
--- NOTE | 2025-01-16 11:56 | Hospitalist Progress Note ---
Date of Service January 16, 2025 Assessment & Plan (1) Lumbar contusion: Plan: Evelia Gallego is a 54 yo woman with PMH of lumbar spondolysis , chronc neck pain, anxiety disorder, GERD, gastroparesis s/p surgery she been having dizziness episode, on (jan 05, 2025) she was having fall episode down 13 flight of stair, she's reportedly brought by her to [facility] ([facility]) but later signed out AMA. she's decide to has family drive her here as her spine surgery, Dr. Gutierrez practice at [facility] her CT scan show left 11th rib fracture. she will need admission for MRI imaging to rule out cord compression, PT evaluation, brain MRI to r/o CVA overall plan dc home today with medrol; meloxicam and short term course of nacrotic f/u with Dr. Arias (pain management, anesthesia) for epidural f/u wit GI (Dr. Gutierrez at [place]) for surveillance of CBD repeat LFT 1. acute low back pain, much improved with IV solumedrol and toradol dc home today with medrol and meloxicam she's still needing dilaudid tablet f/u with Dr. Arias (pain management) for epidural 2. transaminitis avoid acetaminophen f/u with Dr. Richard Gutierrez GI ([place]) ALT still elevated at 140 (baseline of 25) c/w another dose of acetycysteine hold zanaflex, hold statin avoid acetomionphen 3. CBD dilatation discussed about f/u with GI for ERCP her GI is Dr. Richard Gutierrez at [place] 4. forgetfulness started one year ago limited usage of narcotic outpatient f/u for sleep studies 3. chest pain eosode f/u on CTA chest and echo 3. acute 11th rib fracture-pain control with nacrotic no sedation her urine toxicology positive for oxycodone. 4. dizziness episode, check orthostatic tomorrow f/u on b12 level, limited usage of anticholingeric 5 hypertension , amlodipine 10mg, lisinopril 30mg daily propranolol 20mg BID 5. anxiety disorder, buspirone 30mg BID, she's on cymablta 60mg qHS 6. GERd, gastroparesis, on protonix 40mg BID, she's has surgery for gastroparesis f/u on b12 level to r/o absorption 7. insomnia-Ambien 10mg qHS 8. ADHD-atomoxetine 80mg 9. pain control spine surgery requested for epidural evaluation. iV morphine, (she does not has any sedation) c/w tizanidine 4mg q8 hours PRN 10. DVT prophylaxis. 11. b12 deficiency 12. chronic suppressive therapy-valtrex 500mg (2) Closed rib fracture: (3) Compression fx, thoracic spine: (4) Multiple falls: Admission and Anticipated Discharge Date Admission Date: January 09, 2025 Subjective she medically ready for discharge today, pain control; medrol; meloxicam she will need appointment with GI (Dr. Gutierrez at [place]) she's going to see Dr. Mariah Arias (pain management) for epidural discussed f/u for polysomnography Physical Exam Physical Exam: VITALS: Reviewed. WEIGHT/BMI reviewed. GEN: Healthy appearing, well-developed, NAD. -Head: NC/AT; -Mouth and throat: MMM. Normal gums, muc amalia, palate,. Good dentition. NECK: Supple, with no masses. CV: RRR, no m/r/g. LUNGS: CTAB, no w/r/c. ABD: Soft, NT/ND, NBS, no masses or organomegaly. : N/A SKIN: Warm, well perfused. No skin rashes or abnormal lesions. MSK: + for neck pain, + for low back pain EXT: No clubbing, cyanosis, or edema. NEURO: AAOx3 Results & Data Results & Data Vital Signs (Past 12 Hours) Vital Signs Temp Pulse Pulse Resp BP Pulse Ox O2 Del Method 01/16/25 11:07 36.8 C 89 18 122/85 96 Room Air 01/16/25 07:34 36.7 C 92 H 16 150/98 H 96 Room Air 01/16/25 06:45 86 01/16/25 04:00 36.6 C 84 16 144/88 H 96 Room Air Laboratory Results Laboratory Results - last 72 hr 01/13/25 01/14/25 01/14/25 15:53 04:44 12:10 WBC 9.91 RBC 4.70 Hgb 13.3 Hct 40.6 MCV 86.4 MCH 28.3 MCHC 32.8 RDW Std Deviation 39.8 RDW Coeff of Ashley 12.8 Plt Count 205 MPV 9.9 PT 10.9 INR 1.0 Sodium 136 138 Potassium 3.8 3.9 Chloride 105 107 Carbon Dioxide 21 24 Anion Gap 10 7 BUN 11 12 Creatinine 0.62 0.52 L Est Cr Clr Drug Dosing 105.3 126.4 eGFR 104.45 108.97 BUN/Creatinine Ratio 17.7 23.1 H Glucose 265 H 169 H Calcium 9.1 9.1 Total Bilirubin 0.5 0.5 Direct Bilirubin 0.1 AST 62 H 46 H ALT 194 H 160 H Alkaline Phosphatase 210 H 198 H Total Protein 6.6 6.5 Albumin 3.8 3.9 Globulin 2.8 2.6 Albumin/Globulin Ratio 1.4 1.5 Anaplasma Smear See Comment Babesia Smear See Comment Lyme Disease Screen Negative 01/15/25 01/16/25 07:18 06:26 WBC 12.10 H 10.79 RBC 5.12 5.27 Hgb 15.1 14.9 Hct 44.8 45.7 MCV 87.5 86.7 MCH 29.5 28.3 MCHC 33.7 32.6 RDW Std Deviation 41.1 39.8 RDW Coeff of Ashley 12.8 12.8 Plt Count 242 259 MPV 9.7 9.8 PT INR Sodium 139 138 Potassium 4.0 3.8 Chloride 103 103 Carbon Dioxide 29 29 Anion Gap 7 6 BUN 19 19 Creatinine 0.68 0.69 Est Cr Clr Drug Dosing 95.5 94.3 eGFR 102.15 101.79 BUN/Creatinine Ratio 27.9 H 27.5 H Glucose 134 H 166 H Calcium 9.8 9.5 Total Bilirubin 0.6 0.5 Direct Bilirubin AST 39 19 ALT 140 H 98 H Alkaline Phosphatase 203 H 177 H Total Protein 7.3 6.8 Albumin 4.3 4.1 Globulin 3.0 2.7 Albumin/Globulin Ratio 1.4 1.5 Anaplasma Smear Babesia Smear Lyme Disease Screen PG Care Time/CCT Total # of Minutes Spent Total Time Spent with Patient: Total time spent is greater than 50% in coordination of care (as documented) at patient's floor/unit and/or counseling patient: Coding Level of Care Code 00959 SUB INP/OBS CARE 05/28MIN Diagnoses Lumbar contusion S30.0XXA Closed rib fracture S22.39XA Compression fx, thoracic spine S22.000A Multiple falls R29.6 Time Spent (min) 25
--- NOTE | 2025-01-16 12:50 | Electrocardiogram Report ---
Test Reason : Blood Pressure : */* mmHG Vent. Rate : 84 BPM Atrial Rate : 84 BPM P-R Int : 156 ms QRS Dur : 80 ms QT Int : 384 ms P-R-T Axes : 49 53 42 degrees QTcB Int : 453 ms Normal sinus rhythm Normal ECG When compared with ECG of 09-Jan-2025 11:29, No significant change was found Confirmed by David Live ([id number]) on 01/16/2025 12:49:58 PM Referred By: REFERRED SELF Confirmed By: David Live
[2025-01-16 14:51] VITALS: PULSE 98
--- NOTE | 2025-01-17 14:48 | Discharge Summary ---
Discharge Summary Date of Service January 16, 2025 Principal Dx & Hospital Course #1 = Principal Diagnosis (1) Lumbar contusion: Evelia Gallego ia a 54 yo woman with PMH of lumbar spondolysis s/p surgery; chronic neck pain, GERD, gastroparesis, anxiety disorder on 01/05/2025, she has dizziness spell and fall down 13 steps of stair; her drove her to [facility] ([facility]) for evaluation however, she's signed out AMA as her spine surgery Dr. Gutierrez practice at [facility] she's was admitted to our hospital for intractable back pain and neck pain. she was found to have left 11th rib fracture. she's s/p MRI lumbar spine, seen by spine surgeon Dr. Gutierrez and recommended outpatient f/u with pain management for interventional procedure. while she was in the hospital; she's developed hypotension, UTI, and transaminitis. we reduced to zanaflex as we are concern if her nacrotic is causing hypotension she's was receiving pain control with toradol, dilaudid. she's developed transaminitis with AST of 530 and ALT peak at 483. she s/p MRCP and found common bile duct diltation she's has multiple round of N-acetycystein and AST improved to 19 and ALT improved to 98 we do not has ERCP coverage with CBD dilatation, she will need to f/u with GI (Dr. Richard Gutierrez at [place]) her pain much improved on 01/16/2025, she was dc home with medrol, mexloxicam, short term course of dilaudid for pain control she did not has any sedation or disorientation while on dilaudid, she was AAox3. she has loud snoring, daytime sleepiness. she was advised to under sleep apnea screening Evelia Gallego is a 54 yo woman with PMH of lumbar spondolysis , chronc neck pain, anxiety disorder, GERD, gastroparesis s/p surgery she been having dizziness episode, on (jan 05, 2025) she was having fall episode down 13 flight of stair, she's reportedly brought by her to [facility] ([facility]) but later signed out AMA. she's decide to has family drive her here as her spine surgery, Dr. Gutierrez practice at [facility] her CT scan show left 11th rib fracture. she will need admission for MRI imaging to rule out cord compression, PT evaluation, brain MRI to r/o CVA overall plan dc home today with medrol; meloxicam and short term course of nacrotic f/u with Dr. Arias (pain management, anesthesia) for epidural f/u wit GI (Dr. Gutierrez at [place]) for surveillance of CBD repeat LFT 1. acute low back pain, much improved with IV solumedrol and toradol dc home today with medrol and meloxicam she's still needing dilaudid tablet f/u with Dr. Arias (pain management) for epidural 2. transaminitis avoid acetaminophen f/u with Dr. Richard Gutierrez GI ([place]) ALT still elevated at 140 (baseline of 25) c/w another dose of acetycysteine hold zanaflex, hold statin avoid acetomionphen 3. CBD dilatation discussed about f/u with GI for ERCP her GI is Dr. Richard Gutierrez at [place] 4. forgetfulness started one year ago limited usage of narcotic outpatient f/u for sleep studies 3. chest pain eosode f/u on CTA chest and echo 3. acute 11th rib fracture-pain control with nacrotic no sedation her urine toxicology positive for oxycodone. 4. dizziness episode, check orthostatic tomorrow f/u on b12 level, limited usage of anticholingeric 5 hypertension , amlodipine 10mg, lisinopril 30mg daily propranolol 20mg BID 5. anxiety disorder, buspirone 30mg BID, she's on cymablta 60mg qHS 6. GERd, gastroparesis, on protonix 40mg BID, she's has surgery for gastroparesis f/u on b12 level to r/o absorption 7. insomnia-Ambien 10mg qHS 8. ADHD-atomoxetine 80mg 9. pain control spine surgery requested for epidural evaluation. iV morphine, (she does not has any sedation) c/w tizanidine 4mg q8 hours PRN 10. DVT prophylaxis. 11. b12 deficiency 12. chronic suppressive therapy-valtrex 500mg (2) Closed rib fracture: (3) Compression fx, thoracic spine: (4) Multiple falls: Notes For Next Care Provider repeat LFT referred to Dr. Richard Gutierrez to eval for common bile duct dilatation sleep study referred f/u with neurology for memory impairment f/u with pain medicine for epidural procedure Admission HPI Per Admitting Provider Vidhya Gallego is a 54 yo woman with PMH of lumbar spondolysisis with radiculopathy, long standing cervical back pain, GERD, anxiety, she's was following with Dr. watson (spine for her back) and another specialist for her cervical spien procedure. in 2019; she has L4-L5 fusion by Dr. Watson, she has gastroparesis and has surgical prcoedure done. Dr. gutierrez was considering further procedure but she's interested in conservative management on ; jan 05, 2025; she's was having dizziness and then fell down 12-13 steps of flight. her initially drive her to [facility] ([place]), but then she's signed out however, on 01/09/2025, she's again was having significant low back pain and came to our ED for evaluation her CT T-spine show left 11th ribfracture, and loss of height a the superior end platelet of t3 her CT C-spine and lumbar spine negative for fracture on interview, she's denied any bowel or bladder retention she stated her neck pain radiate into both upper extremity she is AAox3, she will be admitted for hospitalist services for neurosurgery evaluation, brain MRI (dizziness, to r/o CVA), lumbar MRI and cervical spine MRI she has limited outpatient assess to specialist care, was recently admitted to [facility] and warrant inpatient admission for IV fluid, IV antibiotics, imaging evaluation. PT/OT evaluation to ensure she's not a recurrent fall risk Discharge Plan Discharge Items Patient Disposition: Home - Self-Care Reason For Visit: INTRACTABLE NECK AND BACK PAIN, FALL DOWN 13 STEPS Discharge Diagnosis: intractable lumbar and cervical back pain fall episode transaminitis UTI hypotension episode Condition on Discharge: Fair Activity: Per Instructions section Lifting: Gradually increase as tolerated Non-emergency contact: Primary Care Provider and Metalizer Call non-emergency contact if: your symptoms worsen and you have a fever Follow-up/Referrals: Mariah Arias DO [Physician] - 01/23/25 (call [phone]) Akin Gutierrez DO [Surgeon] - Annia Cohen D.O. [Primary Care Provider] - (Please call your primary care provider to schedule a hospital follow-up appointment within 7-10 days) Richard Gutierrez DO [Outside Practitioners] - Diet: Regular Addtl Attending Provider Instructions: you will make appointment to see Dr. Mariah Cantor (pain management) for interventional procedure her number is [phone] in addition, you will see Dr. Gutierrez (gastroenterology) to monitor your dilatation of common bile duct avoid acetaminophen (Tylenol) for next 2-3 months, recheck your liver function in one week no alcohol, no winston make sure you see a sleep medicine specialist for home sleep studies. Pending Studies at Discharge: Yes Studies:: repeat liver function test, hepatitis C screening, sleep studies Stand-Alone Forms: My Radionomy, Smoking Cessation Medications and DC Order Prescriptions: New lidocaine 5 % Adhesive Patch,Medicated 1 patch transdermal QAM 30 Days Qty: 6 1RF methylprednisolone [Medrol] 4 mg tablet 4 mg PO DAILY Qty: 7 0RF meloxicam 15 mg tablet 15 mg PO DAILY 14 Days Qty: 14 0RF oxycodone 10 mg tablet 10 mg PO Q8H PRN (Reason: pain) 5 Days Qty: 15 0RF naloxone [Narcan] 4 mg/actuation spray,non-aerosol 1 spray intranasal ONCE Qty: 2 1RF Continued gabapentin 600 mg tablet 600 mg PO TID Qty: 90 2RF valacyclovir [Valtrex] 500 mg Tablet 500 mg PO QAM pantoprazole [Protonix] 40 mg Tablet,Delayed Release (Dr/Ec) 40 mg PO BID lisinopril 30 mg Tablet 30 mg PO HS propranolol 20 mg Tablet 20 mg PO BID zolpidem 10 mg Tablet 10 mg PO HS multivitamin Tablet 1 tab PO QAM Patient Comments: Unable to verify OTC meds at this date/time. 01/09/25 cyanocobalamin (vitamin B-12) 1,000 mcg/mL Solution 1,000 mcg IM MONTHLY cholecalciferol (vitamin D3) [Vitamin D3] 25 mcg (1,000 unit) Tablet 25 mcg PO QAM Patient Comments: Unable to verify OTC meds at this date/time. 01/09/25 duloxetine 60 mg capsule,delayed release(DR/EC) 60 mg PO HS cetirizine [Zyrtec] 10 mg Tablet 10 mg PO QAM Patient Comments: Unable to verify OTC meds at this date/time. 01/09/25 amlodipine 10 mg tablet 10 mg PO HS buspirone 15 mg tablet 30 mg PO BID atomoxetine 80 mg capsule 80 mg PO QAM methyl salicylate-menthol 15-10 % Cream 1 applic TOPICAL TID PRN (Reason: Pain) Estroven 155 mg Capsule 155 cap PO QAM Patient Comments: Unable to verify OTC meds at this date/time. 01/09/25 cranberry 500 mg Capsule 500 mg PO QAM Patient Comments: Unable to verify OTC meds at this date/time. 01/09/25 Rx Instructions: administer with meals Discontinued atorvastatin 20 mg tablet 20 mg PO DAILY Discharge Orders: Discharge Order (Routine); Ordered 01/16/25 Ordered By: James Estrada/Other Patient Handouts: Therapeutic Pain Blocks, ERCP, Cervical Epidural Injection Story, Lumbar Epidural Injection, Lumbar Epidural Inject Recovery, ED Mechanical Fall, ED Fall Prevention Admission Data Admit Date/Time: 01/09/25 14:44 Attending Provider: James Sutton Admit Provider: James Sutton Primary Care Provider: Annia Cohen Other Providers: Akin Gutierrez Other Interventions: Discharge Summary Assessment (RN) Last Done: 01/16/25 14:27 Hospital Stay Data Consultations 01/09/25 12:14 ED Decision to Admit Stat 01/10/25 08:11 Consult Orthopedic Spine Surgery Routine Diagnostic Imagining Performed 01/09/25 10:50 CT abd pelvis IV con only Stat CT cervical spine wo con Stat CT chest diagnostic w con Stat CT head/brain wo con Stat CT lumbar spine w con Stat CT thoracic spine w con Stat 01/09/25 14:15 MR cervical spine wo con Stat MRI Lumbar Spine [MR lumbar spine wo con] Stat 01/09/25 15:10 MR brain wo con Stat 01/10/25 10:00 CT ang AA runof w inc wo ifdon Routine 01/12/25 10:57 US venous duplex leg [US venous doppler LE BI] Routine 01/13/25 08:34 CT for pulmonary embolism PE [CT angio chest PE protocol] Stat 01/13/25 08:35 CT abdomen pelvis wo/w con Stat 01/13/25 10:30 MR MRCP Routine Pending Results Patient Have Any Pending Studies at Discharge: Yes Discharge Instructions Given to Patient (Per Discharging Provider) you will make appointment to see Dr. Mariah Cantor (pain management) for interventional procedure her number is [phone] in addition, you will see Dr. Gutierrez (gastroenterology) to monitor your dilatation of common bile duct avoid acetaminophen (Tylenol) for next 2-3 months, recheck your liver function in one week no alcohol, no winston make sure you see a sleep medicine specialist for home sleep studies. Total Time Total Time Spent Total Time Spent (In Minutes): 35 Coding Level of Care Code 86465 INP/OBS DISCH >30 MIN Diagnoses Lumbar contusion S30.0XXA Closed rib fracture S22.39XA Compression fx, thoracic spine S22.000A Multiple falls R29.6 Time Spent (min) 35
== END 2025-01-16 15:19 | disposition home or self-care (01) | DRG 552 ==
LOC: ED 10:20 → EDINP 14:44 → 2N 16:35